=== PATIENT | male | born 1965 | race Caucasian/White ===

== ENCOUNTER 2020-06-29 13:34 | Emergency (ER) | payer OTHER, SELFPAY ==
[2020-06-29 15:43] VITALS: BP 126/87; PULSE 71; RESP 16; TEMP 36.8; O2SAT 98; BMI 27.4
[2020-06-29 16:14] LABS: Glucose Urine UA >=1000 MG/DL (NEG); Leukocyte Esterase Urine NEG (NEG); Nitrite Urine NEG (NEG); PH 7.5 (5.0-8.0); Urine Blood NEG (NEG); Urine Ketones NEG (NEG); Urine Protein NEG (NEG-TRACE)
[2020-06-29 16:20] LABS: Appearance Urine CLEAR; Color Urine YELLOW
[2020-06-29 16:42] LABS: RBC Urine 0 /HPF (0); Squamous Epithelial Cell Urine TRACE /LPF; WBC Urine 0 /HPF (0-4)
--- NOTE | 2020-06-29 17:35 | ED.MALEGU ---
HPI - Male Genitourinary General Chief complaint: Urogenital-Male Stated complaint: uro genital problem Time Seen by Provider: 06/29/20 17:21 Source: patient Mode of arrival: ambulatory Limitations: no limitations History of Present Illness HPI Narrative: Patient comes to emergency room complaining of irritation on the foreskin for several months now, patient has tried multiple [id number] topical creams with no relief. Patient does not know the names of the medication he has tried. Patient also complaining that he has been getting up at night for the last few weeks to urinate several times per night, up to 5-6 times. Patient concerned that sometimes he has to strain hard to start the urinary stream, sometimes the urine stream splits in 2 streams, complaining of mild dysuria. Patient states he has only 1 sexual partner, low suspicion for STD, denies penile discharge MD Complaint: dysuria Related Data Previous Rx's Medication Instructions Recorded miconazole nitrate 1 appl TOPICAL BID #56.7 g 06/29/20 tamsulosin 0.4 mg PO BEDTIME #20 cap 06/29/20 Allergies Allergy/AdvReac Type Severity Reaction Status Date / Time No Known Allergies Allergy Unverified 03/20/20 16:56 Review of Systems Review of Systems: Constitutional : No Weight loss, No Fever, No Chills, No Night Sweats, No Fatigue, No Malaise ENT/Mouth : No Hearing loss, No Ear Pain, No Nasal Congestion, No Sinus Pain, No Hoarseness, No sore throat, No Rhinorrhea, No Swallowing Difficulty Eyes: No Eye Pain, No Swelling, No Redness, No Foreign Body, No Discharge, No Vision Changes Cardiovascular : No Chest Pain, No SOB, No Dyspnea on Exertion, No Orthopnea, No Edema, No Palpitations Respiratory : No Cough, No Sputum, No Wheezing, No Smoke Exposure, No Dyspnea Gastrointestinal : No Nausea, No Vomiting, No Diarrhea, No Constipation, No abdominal Pain, No Hematochezia, No Melena Genitourinary : Patient complaining of irritation on the tip of the foreskin, glans is not affected, complaining of dysuria cyst, changes in urinary flow, urinating more at night, urinary stream slow bleeding into, difficulty starting the urinary stream, no flank pain, denies hematuria Musculoskeletal : No joint pain, No Myalgias, No Joint Swelling Skin : No Skin Lesions, No rash Neuro : No Weakness, No Numbness, No Paresthesias, No Loss of Consciousness, No Dizziness, No Headache Psych : No Anxiety/Panic, No Depression, No SI/HI/AH/VH, No Social Issues, Heme/Lymph: No Bruising, No Bleeding,No Lymphadenopathy Endocrine : No Polyuria, No Polydipsia, No Temperature Intolerance [facility] Past Medical History Medical History (Updated 06/29/20 @ 17:51 by Earnestine Elena MD) Depression Diabetes mellitus Social History Social History Advance Directives: No Advance Directives Information Provided: Yes Physical Exam Vital Signs: Vital Signs: Last Vital Signs Temp 98.3 F 06/29/20 15:43 Pulse 71 06/29/20 15:43 Resp 16 06/29/20 15:43 BP 126/87 06/29/20 15:43 Pulse Ox 98 06/29/20 15:43 Body Mass Index 27.4 Appearance: Alert. Oriented X3. No acute distress. Eyes: Pupils equal, round and reactive to light. ENT: Pharynx normal. Neck: Normal inspection. Neck supple. No lymph nodes noted. No crepitus CVS: Normal heart rate and rhythm. Pulses normal. Normal S1 and S2 Respiratory: No respiratory distress. Breath sounds normal. No Wheezing. No rales Abdomen: Soft and nontender. No rigidity. No distention. good BS x4 : Foreskin at distal end is erythematous and cracked, patient is able to retract foreskin completely, glans is unaffected. No penile discharge. On ALETA, prostate seems enlarged, no palpable nodules, estimated size 40 to 60 cc Skin: Skin warm and dry. Normal skin color. Normal skin turgor. Extremities: No lower extremity edema. No lower extremity edema. No Lacerations. No Rash Neuro: Oriented X 3. No motor deficit. No sensory deficit. Moving all extermities. No slurred speech. Course Course Course Narrative: I discussed with the patient that his prostate is enlarged, we will go ahead and start treatment, patient will follow-up with his PCP and Urology. MDM - Male Genitourinary Lab Data Labs: Lab Results 06/29/20 Range/Units 16:05 Urine Color YELLOW Urine Appearance CLEAR Urine pH 7.5 (5.0-8.0) Ur Specific Bartley 1.020 (1.005-1.025) Urine Protein NEG (NEG-TRACE) MG/DL Urine Glucose (UA) >=1000 H (NEG) MG/DL Urine Ketones NEG (NEG) MG/DL Urine Blood NEG (NEG) Urine Nitrite NEG (NEG) Ur Leukocyte Esterase NEG (NEG) Urine RBC 0 (0) /HPF Urine WBC 0 (0-4) /HPF Ur Squamous Epith Cells TRACE /LPF Urine Bacteria NONE /LPF Discharge Plan Discharge Clinical Impression: Balanitis Benign prostatic hyperplasia Qualifiers: Lower urinary tract symptom presence: symptoms present Lower urinary tract symptom detail: urinary hesitancy Qualified Code(s): N40.1 - Benign prostatic hyperplasia with lower urinary tract symptoms Patient Disposition: Home, Self-Care Instructions: Enlarged Prostate (BPH) (ED), Balanitis (ED) Additional Instructions: Please follow-up with urology and your primary care physician. Please follow-up with your primary care physician tomorrow. If you have any worsening or new symptoms, please return to the emergency room or call 911 Prescriptions: New miconazole nitrate 2 % ointment 1 appl topical BID Qty: 56.7 RF: 0 tamsulosin 0.4 mg capsule 0.4 mg PO BEDTIME Qty: 20 RF: 0
[2020-06-29 18:45] LABS: Glucose Urine UA 250 MG/DL (NEG); Leukocyte Esterase Urine NEG (NEG); Nitrite Urine NEG (NEG); Urine Blood NEG (NEG); Urine Ketones NEG (NEG); Urine Protein NEG (NEG-TRACE)
[2020-06-29 18:47] LABS: Appearance Urine CLEAR; Color Urine YELLOW
[2020-07-02 05:41] LABS: C. trachomatis RNA TMA NOT DETECTED (NOT DETECTED); N. gonorrhoeae RNA TMA NOT DETECTED (NOT DETECTED)
== END 2020-06-29 18:37 | disposition home or self-care (01) ==
PROVIDERS: Emergency Provider Emergency Medicine
DX: N48.1 Balanitis (principal); N40.1 Benign prostatic hyperplasia with lower urinary tract symptoms; R30.0 Dysuria; Z79.899 Other long term (current) drug therapy
CPT/HCPCS: 81001; 81003; 87491; 87591; 99283

== ENCOUNTER 2020-09-14 20:15 | Emergency (ER) | payer OTHER, SELFPAY ==
[2020-09-14 20:30] VITALS: BP 140/73; PULSE 73; RESP 18; TEMP 36.7; O2SAT 99; BMI 28.0
--- NOTE | 2020-09-14 21:21 | ED.EYEPROB ---
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 patient has watering in both eyes slightly blurred vision no other injuries Related Data Previous Rx's Medication Instructions Recorded miconazole nitrate 1 appl TOPICAL BID #56.7 g 06/29/20 tamsulosin 0.4 mg PO BEDTIME #20 cap 06/29/20 Allergies Allergy/AdvReac Type Severity Reaction Status Date / Time No Known Allergies Allergy Unverified 03/20/20 16:56 Review of Systems Review of Systems: Yes all other systems are reviewed and are negative PMFSH Past Medical History Medical History Depression Diabetes mellitus Social History Social History Alcohol intake: never Smoked in Last 30 Days: No Use of substances other than those prescribed or required for medical reasons: No Any prior treatment program specific to substance use: No Advance Directives: No Advance Directives Information Provided: Yes Physical Exam Vital Signs: Vital Signs: Last Vital Signs Temp 98.1 F 09/14/20 20:30 Pulse 73 09/14/20 20:30 Resp 18 09/14/20 20:30 BP 140/73 H 09/14/20 20:30 Pulse Ox 99 09/14/20 20:30 Body Mass Index 28.0 Const: General: comfortable and in distress mild Orientation/consciousness: patient oriented x3 HENMT: Head: Yes normocephalic and Yes atraumatic Eyes: Visual Lockwood: normal visual lockwood by confrontation Periorbital: periorbital findings normal Eyelids: Yes eyelids normal Conjunctivae: conjunctival abnormal (Injected) bilateral Corneas: fluorescein used (Diffuse punctate uptake in bilateral cornea right more than left) Pupils: Equal, round and reactive pupils present EOM: EOMs intact bilaterally Direct Ophthalmoscopy: normal light reflex, no photophobia and anterior chamber normal Neuro: General: patient oriented x3 Cranial nerves: Yes Equal, round and reactive pupils present MDM - Eye Problem MDM Narrative Medical decision making narrative: Patient with photo keratitis of bilateral cornea without significant deep injury will treat him symptomatically advise not look at the welding 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
[2020-09-14] MEDS: Fluorescein Sodium STRIP 1 STRIP EYE-BOTH (21:39)
[2020-09-14] MEDS: Tetracaine HCl/PF 0.5% Oph Sol 4 ML DROPS 3 DROP EYE-BOTH (21:40)
[2020-09-14] MEDS: Tobramycin Sulfate 0.3% Sol Op 5 ML BTL 2 DROP EYE-BOTH (21:40)
== END 2020-09-14 22:22 | disposition home or self-care (01) ==
PROVIDERS: Emergency Provider Internal Medicine
DX: H16.133 Photokeratitis, bilateral (principal); E11.9 Type 2 diabetes mellitus without complications
CPT/HCPCS: 99283; 99284

== ENCOUNTER 2020-10-22 11:22 | Outpatient (REF) | payer OTHER, SELFPAY ==
[2020-10-22 12:47] LABS: COVID-19 Test Negative (Negative)
== END 2020-10-22 11:23 | disposition home or self-care (01) ==
LOC: HO.LAB 11:22
PROVIDERS: Visit Provider Internal Medicine
DX: Z20.822 Contact with and (suspected) exposure to COVID-19 (principal)
CPT/HCPCS: 36415; 87635; C9803

== ENCOUNTER 2021-04-27 13:28 | Emergency (ER) | payer OTHER, SELFPAY ==
[2021-04-27 13:55] VITALS: BP 120/78; PULSE 79; RESP 18; TEMP 36.6; O2SAT 97; BMI 25.8
[2021-04-27 14:24] LABS: COVID-19 Test Negative (Negative); IDNOW Serial# 08D9AD1C
--- NOTE | 2021-04-27 15:32 | ED_ITS ---
HPI - URI/Sore Throat General Chief Complaint: Upper Respiratory Symptoms Stated Complaint: sore throat body aches Time Seen by Provider: 04/27/21 15:32 Source: patient Mode of arrival: ambulatory Limitations: no limitations History of Present Illness HPI Narrative: 55-year-old male came in for evaluation are fell throat, body ache, coughing with yellow phlegm, no fever, chills. No sick contacts, no recent travel. Related Data Previous Rx's Medication Instructions Recorded miconazole nitrate 2 % topical 1 appl TOPICAL BID #56.7 g 06/29/20 ointment tamsulosin 0.4 mg capsule 0.4 mg PO BEDTIME #20 cap 06/29/20 albuterol sulfate 90 mcg/actuation 1 inh INHALATION QID PRN #6.7 g 04/27/21 aerosol inhaler (Proventil HFA) azithromycin 250 mg tablet See Rx Instructions .ROUTE 04/27/21 (Zithromax Z-Nathan) .COMPLEX #6 tab prednisone 20 mg tablet 20 mg PO BID #10 tab 04/27/21 Allergies Allergy/AdvReac Type Severity Reaction Status Date / Time No Known Allergies Allergy Unverified 03/20/20 16:56 Review of Systems Review of Systems: All other systems are reviewed and are negative Constitutional: Reports as per HPI and Reports no additional constitutional complaints Eyes: Reports as per HPI and Reports no additional eye complaints Reports system reviewed and no additional complaints, except as documented Cardiovascular: Reports as per HPI and Reports no additional cardiovascular complaints Respiratory: Reports as per HPI and Reports no additional respiratory complaints Gastrointestinal: Reports as per HPI and Reports no additional gastrointestinal complaints Genitourinary: Reports no additional female genitourinary complaints Musculoskeletal: Reports no additional musculoskeletal complaints Skin/Breast: Reports system reviewed and no additional complaints, except as docu Psychiatric: Reports no additional psychiatric complaints Endocrine: Reports no additional endocrine complaints Hematologic/Lymphatic: Reports no additional hematologic/lymphatic complaints Allergic/Immunologic: Reports no additional allergic/immunologic complaints Reports system reviewed and no additional complaints, except as documented and Reports Abnormal speech present [facility] Past Medical History Medical History Depression Diabetes mellitus Social History Social History Alcohol intake: never Advance Directives: No Advance Directives Information Provided: No Physical Exam Vital Signs: Vital Signs: Last Vital Signs Temp 97.8 F 04/27/21 13:55 Pulse 79 04/27/21 13:55 Resp 18 04/27/21 13:55 BP 120/78 04/27/21 13:55 Pulse Ox 97 04/27/21 13:55 Body Mass Index 25.8 Vital signs have been reviewed as appeared to be correct. Blood pressure normal. Heart rate normal. Respiration rate normal. Temperature normal. Oxygen saturation normal. Appearance: Alert. Oriented X3. No acute distress. Head: Normal external exam. Normocephalic. Atraumatic. No Taylor signs noted. No raccoon eyes noted Eyes: PERRLA. EOMI. Conjunctiva and sclera normal. Eyelids normal. ENT: TM's Normal. Pharynx normal. Uvula midline. Moist mucous membranes. No trismus noted. No drooling noted. No muffled voice noted. Neck: Normal inspection. Neck supple. FROM. No adenopathy. Thyroid Normal. No meningeal signs. No neck mass noted. CVS: Normal heart rate and rhythm. Heart sound normal. No murmurs noted. Pulses normal throughout. Respiratory: No respiratory distress. Painless inspiration. Breath sounds normal. No wheezes/rales/rhonchi noted. Chest nontender. No accessory muscle usage noted or decreased air movement noted. Abdomen: Soft and nontender. Bowel sounds normal in all 4 quadrants. No distention noted. No organomegaly noted. No visible injury noted. Back: No CVA tenderness. Full range of motion noted. Skin: Skin warm and dry. Normal skin color. Normal skin turgor. No rashes/lesions/lacerations noted. Extremities: No lower extremity edema. Extremities exhibit normal range of motion. Extremities nontender. Neuro: Oriented X 3. Cranial nerve exam: II-XII are grossly intact No motor deficit. No sensory deficit. Reflexes normal. Course Course Course Narrative: Assessment and plan. 55-year-old male was symptoms of upper respiratory infection, pharyngitis, and bronchitis. Patient is negative for COVID infection. Start the patient on Z-Nathan/purple/bronchodilator. MDM - URI/Sore Throat Lab Data Attestation: I reviewed the patient's lab results. Labs: Lab Results 04/27/21 Range/Units 13:58 COVID-19 (EVON) Negative (Negative) COVID-19 Clin Com See Note Discharge Plan Discharge Clinical Impression: Bronchitis Pharyngitis Qualifiers: Pharyngitis/tonsillitis etiology: unspecified etiology Qualified Code(s): J02.9 - Acute pharyngitis, unspecified Patient Disposition: Home, Self-Care Instructions: Acute Bronchitis (ED) Prescriptions: New azithromycin [Zithromax Z-Nathan] 250 mg tablet See Rx Instructions .ROUTE .COMPLEX Qty: 6 RF: 0 prednisone 20 mg tablet 20 mg PO BID Qty: 10 RF: 0 albuterol sulfate [Proventil HFA] 90 mcg/actuation HFA aerosol inhaler 1 inh inhalation QID PRN (Reason: shortness of breath or wheezing) Qty: 6.7 RF: 0 No Action miconazole nitrate 2 % ointment 1 appl topical BID Qty: 56.7 RF: 0 tamsulosin 0.4 mg capsule 0.4 mg PO BEDTIME Qty: 20 RF: 0 Referrals: Physician,Unknown J [Primary Care Provider] - 2 days
== END 2021-04-27 15:43 | disposition home or self-care (01) ==
PROVIDERS: Emergency Provider Emergency Medicine
DX: J02.9 Acute pharyngitis, unspecified (principal); J40 Bronchitis, not specified as acute or chronic; E11.9 Type 2 diabetes mellitus without complications; Z20.822 Contact with and (suspected) exposure to COVID-19
CPT/HCPCS: 36415; 87635; 99283

== ENCOUNTER 2021-10-07 09:28 | Emergency (ER) | payer OTHER, SELFPAY ==
--- NOTE | ~2021-10-07 | XR_ITS ---
EXAMINATION: XR HAND, RIGHT CLINICAL INFORMATION: Question foreign body between fourth and fifth fingers. Infection. COMPARISON: None TECHNIQUE: PA, lateral, and oblique views of the right hand. FINDINGS: No fracture or dislocation. Alignment is anatomic. Joint spaces are maintained. Prominent soft tissue swelling at the dorsum of the hand. No radiopaque foreign body. XR/XR hand RT 2V IMPRESSION: Prominent soft tissue swelling of the hand. No radiopaque foreign body.
[2021-10-07 09:32] VITALS: BP 138/86; PULSE 77; RESP 18; TEMP 36.8; O2SAT 99; BMI 26.6
--- NOTE | 2021-10-07 11:52 | ED.GENADULT ---
HPI - General Adult General Chief complaint: General Medical Stated complaint: L hand swollen Time Seen by Provider: 10/07/21 11:08 History of Present Illness HPI narrative: Patient complains of redness pain and swelling in the left hand on the back of the hand around the left 4th and 5th fingers, it started hurting 2 days ago after he did some cleaning and thinks he scratched it on a piece of metal He denies fever chills numbness weakness or tingling there is no other rash, no other complaint Related Data Previous Rx's Medication Instructions Recorded miconazole nitrate 2 % topical 1 appl TOPICAL BID #56.7 g 06/29/20 ointment tamsulosin 0.4 mg capsule 0.4 mg PO BEDTIME #20 cap 06/29/20 albuterol sulfate 90 mcg/actuation 1 inh INHALATION QID PRN #6.7 g 04/27/21 aerosol inhaler (Proventil HFA) azithromycin 250 mg tablet See Rx Instructions .ROUTE 04/27/21 (Zithromax Z-Nathan) .COMPLEX #6 tab prednisone 20 mg tablet 20 mg PO BID #10 tab 04/27/21 acetaminophen 500 mg tablet 1,000 mg PO QID PRN #30 tab 10/07/21 cephalexin 500 mg tablet 500 mg PO QID 7 Days #28 tab 10/07/21 doxycycline hyclate 100 mg capsule 100 mg PO BID 7 Days #14 cap 10/07/21 oxycodone 5 mg tablet 5 mg PO Q6H PRN #10 tab 10/07/21 Allergies Allergy/AdvReac Type Severity Reaction Status Date / Time No Known Allergies Allergy Unverified 03/20/20 16:56 Review of Systems Review of Systems: Positive for painful red area on the back of the left hand Negatives are no fever no chills no dizziness no weakness no fainting no feeling faint no headache no neck pain no chest pain no shortness of breath no abdominal pain no nausea or vomiting no joint pains, no other rash Yes all other systems are reviewed and are negative PMFSH Past Medical History Source: nursing notes reviewed Medical History Depression Diabetes mellitus Social History Social History Alcohol intake: never Advance Directives: Yes Advance Directives Information Provided: Yes Advance Directives on File: No Physical Exam ED Vital Signs: Vital Signs - 24 hr 10/07/21 09:32 Temperature 98.3 F Pulse Rate 77 Respiratory Rate 18 Blood Pressure 138/86 Pulse Oximetry 99 BMI result Body Mass Index 26.6 General appearance is no acute distress Head is normocephalic atraumatic Neck is supple Respiratory no distress Extremities full range of motion x4 including the left hand Left hand exam there is redness tenderness warmth and swelling over the dorsal proximal phalanx of left 4th and 5th fingers and over the dorsum of the hand in the area at the base of the fingers there is full range of motion in all fingers, the wrist has full range of motion, sensation and motor are intact distal there is no fluctuance there is no discharge there is no lymphangitis going up the arm Course Course Course Narrative: Patient with redness pain swelling on the dorsum of the left hand consistent with cellulitis had an x-ray which did not show any sign of osteomyelitis or foreign body He is started on antibiotics, will return in 2 days for recheck and was given a tetanus shot There was no sign of septic joint as there is good range of motion in all joints of the fingers including MCP PIP and D IP joints of 4th and 5th affected fingers Discharge Plan Discharge Clinical Impression: Cellulitis of hand, left Patient Disposition: Home, Self-Care Additional Instructions: X-ray did not show any bone infection or foreign body in her left hand The exam showed a skin infection called cellulitis that were treated with antibiotics Keflex and doxycycline You got a tetanus shot today Return in 2 to 3 days for a recheck But return immediately any time for spreading redness worse pain and swelling discharge from wound red stripe up arm fever any concerns that infection is getting worse or any worse condition Prescriptions: New doxycycline hyclate 100 mg capsule 100 mg PO BID 7 Days Qty: 14 0RF acetaminophen 500 mg tablet 1,000 mg PO QID PRN (Reason: pain) Qty: 30 0RF cephalexin 500 mg tablet 500 mg PO QID 7 Days Qty: 28 0RF oxycodone 5 mg tablet 5 mg PO Q6H PRN (Reason: pain) Qty: 10 0RF Rx Instructions: Narcotic, no driving for 6 hours after taking this medication No Action miconazole nitrate 2 % ointment 1 appl topical BID Qty: 56.7 0RF tamsulosin 0.4 mg capsule 0.4 mg PO BEDTIME Qty: 20 0RF azithromycin [Zithromax Z-Nathan] 250 mg tablet See Rx Instructions .ROUTE .COMPLEX Qty: 6 0RF Rx Instructions: take 500 mg today (day 1), then 250 mg for 4 days (days 2-5) prednisone 20 mg tablet 20 mg PO BID Qty: 10 0RF albuterol sulfate [Proventil HFA] 90 mcg/actuation HFA aerosol inhaler 1 inh inhalation QID PRN (Reason: shortness of breath or wheezing) Qty: 6.7 0RF
[2021-10-07] MEDS: Diphth,Pertus(ACell),Tet Adult 0.5 ML SYRINGE IM (12:29)
[2021-10-07] MEDS: cephALEXin 500 MG CAPSULE PO (12:30)
== END 2021-10-07 12:38 | disposition home or self-care (01) ==
PROVIDERS: Emergency Provider Emergency Medicine Emergency Medical Services
DX: S60.512A Abrasion of left hand, initial encounter (principal); L03.114 Cellulitis of left upper limb; X58.XXXA Exposure to other specified factors, initial encounter; Y93.9 Activity, unspecified; Y92.9 Unspecified place or not applicable; Y99.9 Unspecified external cause status; Z79.899 Other long term (current) drug therapy
CPT/HCPCS: 73120; 90471; 90715; 99282; 99284

== ENCOUNTER 2022-04-29 22:30 | Emergency (ER) | payer OTHER, SELFPAY ==
[2022-04-29 22:40] VITALS: BP 151/63; PULSE 93; RESP 18; TEMP 37.2; O2SAT 98; BMI 28.0
--- NOTE | 2022-04-30 01:31 | ED_ITS ---
HPI - Skin/Abscess/Foreign Bdy General Chief complaint: Skin/Abscess/Foreign Body Stated complaint: Infected cut on back, neck discomfort Time Seen by Provider: 04/30/22 01:25 Source: patient Mode of arrival: ambulatory Limitations: no limitations History of Present Illness HPI narrative: patient comes emergency room complaining of a skin infection in his upper back on the right side above the right scapula. Patient states it has been about a week that his skin started turning red. Patient states that he has had multiple incision and drainages in the past at the same site. Patient denies fever chills Related Data Previous Rx's Medication Instructions Recorded ibuprofen 600 mg tablet 600 mg PO TID PRN fever or pain 04/30/22 #20 tabs sulfamethoxazole 800 1 tab PO BID #13 tabs 04/30/22 mg-trimethoprim 160 mg tablet (Bactrim DS) Allergies Allergy/AdvReac Type Severity Reaction Status Date / Time No Known Allergies Allergy Verified 04/29/22 22:39 Review of Systems Review of Systems: Constitutional : No Weight loss, No Fever, No Chills, No Night Sweats, No Fatigue, No Malaise ENT/Mouth : No Hearing loss, No Ear Pain, No Nasal Congestion, No Sinus Pain, No Hoarseness, No sore throat, No Rhinorrhea, No Swallowing Difficulty Eyes: No Eye Pain, No Swelling, No Redness, No Foreign Body, No Discharge, No Vision Changes Cardiovascular : No Chest Pain, No SOB, No Dyspnea on Exertion, No Orthopnea, No Edema, No Palpitations Respiratory : No Cough, No Sputum, No Wheezing, No Smoke Exposure, No Dyspnea Gastrointestinal : No Nausea, No Vomiting, No Diarrhea, No Constipation, No abdominal Pain, No Hematochezia, No Melena Genitourinary : no irregular bleeding, No Dysuria, No Urinary Frequency, No Hematuria, No Urinary Incontinence, No Urgency, No Flank Pain, No Urinary Flow Changes, No Hesitancy Musculoskeletal : No joint pain, No Myalgias, No Joint Swelling Skin : complaining of cellulitis /an abscess in the right upper back Neuro : No Weakness, No Numbness, No Paresthesias, No Loss of Consciousness, No Dizziness, No Headache Psych : No Anxiety/Panic, No Depression, No SI/HI/AH/VH, No Social Issues, Heme/Lymph: No Bruising, No Bleeding,No Lymphadenopathy Endocrine : No Polyuria, No Polydipsia, No Temperature Intolerance [facility] Social History Social History Advance Directives: No Advance Directives Information Provided: No Physical Exam Vital Signs: Vital Signs: Last Vital Signs Temp 98.9 F 04/29/22 22:40 Pulse 93 04/29/22 22:40 Resp 18 04/29/22 22:40 BP 151/63 H 04/29/22 22:40 Pulse Ox 98 04/29/22 22:40 O2 Del Method 04/29/22 22:40 BMI result Body Mass Index 28.0 Const: Other: Appearance: Alert. Oriented X3. No acute distress. Eyes: Pupils equal, round and reactive to light. ENT: Pharynx normal. Neck: Normal inspection. Neck supple. No lymph nodes noted. No crepitus CVS: Normal heart rate and rhythm. Pulses normal. Normal S1 and S2 Respiratory: No respiratory distress. Breath sounds normal. No Wheezing. No rales Abdomen: Soft and nontender. No rigidity. No distention. Skin: Skin warm and dry. in the right-sided upper back above the right scapula there is a 10 cm x 10 cm area of erythema, abrasion, scrapes, no pus drainage. on bedside ultrasound, patient has a 2 cm deep abscess. Extremities: No lower extremity edema. No Lacerations. No Rash Neuro: Oriented X 3. No motor deficit. No sensory deficit. Moving all extremities. No slurred speech. CN 2 through 12 grossly intact Psych: calm, cooperative, normal affect Course Course Course Narrative: Patient's abscess was drained, very thick/ chunky pus-like discharge was expressed, large amount patient has iodoform packing, instructed to come back on May 01 for wound check patient received 1 dose of tramadol p.o. and Bactrim double strength Procedures Abscess I/D Site: other (back) Local Anesthetic: lidocaine 1% Amount of anesthesia used (mL): 10 Technique: incised with blade and ultrasound guided Amount of fluid expressed (mL): 40 Sent for culture/gram staining?: No Packing used?: iodoform Complications: other ( none) Discharge Plan Discharge Clinical Impression: Abscess of skin or subcutaneous tissue Patient Disposition: Home, Self-Care Instructions: Abscess (ED), Abscess Incision and Drainage (DC) Additional Instructions: please return on May 01 for a wound check and packing removal. Please follow-up with your primary care physician tomorrow. If you have any worsening or new symptoms, please return to the emergency room or call 911 Prescriptions: New sulfamethoxazole-trimethoprim [Bactrim DS] 800-160 mg tablet 1 tab PO BID Qty: 13 0RF ibuprofen 600 mg tablet 600 mg PO TID PRN (Reason: fever or pain) Qty: 20 0RF
[2022-04-30] MEDS: traMADoL HCL 50 MG TABLET PO (02:45)
[2022-04-30] MEDS: Sulfamethox/Trimeth 800/160 TABLET 1 TAB PO (02:45)
== END 2022-04-30 02:46 | disposition home or self-care (01) ==
PROVIDERS: Emergency Provider Emergency Medicine
DX: L02.212 Cutaneous abscess of back [any part, except buttock and flank] (principal)
CPT/HCPCS: 10060; 99283

== ENCOUNTER 2022-05-01 08:22 | Emergency (ER) | payer OTHER, SELFPAY ==
[2022-05-01 08:23] VITALS: BP 104/78; PULSE 74; RESP 16; TEMP 36.7; O2SAT 98; BMI 28.0
--- NOTE | 2022-05-01 09:18 | ED_ITS ---
HPI - Wound/Laceration General Chief Complaint: Wound/Laceration Stated Complaint: packing removal Time Seen by Provider: 05/01/22 08:25 Source: patient Mode of arrival: ambulatory Limitations: no limitations History of Present Illness HPI narrative: 56 yo male here for packing removal from right upper back. Patient was seen here yesterday morning and had an incision and drainage of an abscess and started on Bactrim. He was recommended to come back today for packing removal. Patient has no complaints. Patient does report this is a recurrent abscess for him. He has had it for over 20 years. Related Data Previous Rx's Medication Instructions Recorded miconazole nitrate 2 % topical 1 appl topical BID #56.7 grams 06/29/20 ointment tamsulosin 0.4 mg capsule 0.4 mg PO BEDTIME #20 caps 06/29/20 albuterol sulfate 90 mcg/actuation 1 inh inhalation QID PRN shortness 04/27/21 aerosol inhaler (Proventil HFA) of breath or wheezing #6.7 grams azithromycin 250 mg tablet See Rx Instructions PO .COMPLEX #6 04/27/21 (Zithromax Z-Nathan) tabs prednisone 20 mg tablet 20 mg PO BID #10 tabs 04/27/21 acetaminophen 500 mg tablet 1,000 mg PO QID PRN pain #30 tabs 10/07/21 cephalexin 500 mg tablet 500 mg PO QID 7 days #28 tabs 10/07/21 cephalexin 500 mg tablet 500 mg PO QID 7 days #28 tabs 10/07/21 doxycycline hyclate 100 mg capsule 100 mg PO BID 7 days #14 caps 10/07/21 doxycycline hyclate 100 mg capsule 100 mg PO BID 7 days #14 caps 10/07/21 oxycodone 5 mg tablet 5 mg PO Q6H PRN pain #10 tabs 10/07/21 oxycodone 5 mg tablet 5 mg PO Q6H PRN pain #10 tabs 10/07/21 ibuprofen 600 mg tablet 600 mg PO TID PRN fever or pain 04/30/22 #20 tabs sulfamethoxazole 800 1 tab PO BID #13 tabs 04/30/22 mg-trimethoprim 160 mg tablet (Bactrim DS) Allergies Allergy/AdvReac Type Severity Reaction Status Date / Time No Known Allergies Allergy Unverified 04/30/22 07:08 Review of Systems Review of Systems: Yes all other systems are reviewed and are negative Constitutional: Constitutional: Reports no additional constitutional complaints, Denies body ache(s), Denies chills, Denies fever(s), Denies headache(s) and Denies weakness Eyes: Eyes: Reports no additional eye complaints and Denies change in vision ENT: Reports system reviewed and no additional complaints, except as documented, Denies dizziness, Denies headache(s), Denies nasal congestion, Denies nasal discharge and Denies neck pain Cardiovascular: Cardiovascular: Reports no additional cardiovascular complaints, Denies chest pain, Denies leg edema and Denies dyspnea Respiratory: Respiratory: Reports no additional respiratory complaints, Denies cough and Denies dyspnea Gastrointestinal: Gastrointestinal: Reports no additional gastrointestinal complaints, Denies abdominal pain, Denies diarrhea, Denies nausea and Denies vomiting Genitourinary: Genitourinary: Denies urinary incontinence Musculoskeletal: Musculoskeletal: Reports no additional musculoskeletal complaints, Denies back pain, Denies arthralgias, Denies joint swelling, Denies neck pain, Denies numbness and Denies tingling Integumentary/Breasts: Skin/Breast: Reports system reviewed and no additional complaints, except as docu, Reports swelling, Reports erythema and Denies rash Neurologic: Reports system reviewed and no additional complaints, except as documented, Denies Abnormal speech present, Denies dizziness, Denies headache(s), Denies numbness, Denies tingling and Denies weakness PMFSH Past Medical History Attestation statement: The following information was validated with the patient. Source: old records reviewed and nursing notes reviewed Medical History Depression Diabetes mellitus Social History Social History Alcohol intake: never Physical Exam Vital Signs: Vital Signs: Last Vital Signs Temp 98.0 F 05/01/22 08:23 Pulse 74 05/01/22 08:23 Resp 16 05/01/22 08:23 BP 104/78 05/01/22 08:23 Pulse Ox 98 05/01/22 08:23 O2 Del Method 05/01/22 08:23 BMI result Body Mass Index 28.0 Const: General: cooperative, healthy appearing, comfortable and no acute distress Orientation/consciousness: patient oriented x3 Limitations: no limitations HEENT: Head: Yes normal to inspection Ears: hearing grossly normal bilaterally General nose exam: Normal external nose present Face and sinus: Yes normal facial exam Mouth: Normal oral and palatal mucosa present Throat: Yes posterior oropharynx normal Eyes: General: appearance normal, both eyes and all related structures Pup ils: Equal, round and reactive pupils present Neck: Neck: Yes normal visual inspection Chest: Chest palpation & inspection: normal inspection of the chest Resp: Effort & Inspection: normal respiratory effort Auscultation: clear to auscultation bilaterally Cardio: Rate: regular rate Rhythm: regular rhythm Peripheral pulses: Peripheral pulses 2+ throughout GI: Inspection: Yes normal to inspection Palpation (GI): Soft to palpation and nontender Auscultation: normal bowel sounds Back/Spine/Pelvis: Thoracic/Lumbar Spine: thoracic and lumbar spine normal to inspection Back/spine/pelvis image: 1. There is an abscess present with packing in place. There is some local erythema, swelling and tenderness. After the packing was removed I was able to express additional sebaceous like material mixed with serosanguineous drainage Skin: General skin exam: no rashes or lesions noted Neuro: General: patient oriented x3, no focal motor deficits and normal sensation to monofilament Cranial nerves: Yes Equal, round and reactive pupils present Cognition (Neuro): normal cognition Speech: No Abnormal speech present Gait exam (Neuro): Normal gait present Motor exam (neuro): 5/5 motor strength present throughout Extrem: General: Yes normal to inspection MDM - Wound/Laceration MDM Narrative Medical decision making narrative: 56-year-old male here for packing removal of a recurrent cyst to the right upper back Packing was removed Wound was cleansed and a topical bandage was applied Recommend follow-up with surgery for recurrent cyst as it might need removal Recommend continue antibiotics, add warm soaks, return for worrisome symptoms Medical Records Attestation: I reviewed the patient's medical records. Lab Data Attestation: I reviewed the patient's lab results. Discharge Plan Discharge Clinical Impression: Abscess packing removal Patient Disposition: Home, Self-Care Instructions: Abscess Follow-up (ED) Additional Instructions: Warm compresses Follow-up with general surgery to entire cyst removal so this does not re-occur Prescriptions: No Action miconazole nitrate 2 % ointment 1 appl topical BID Qty: 56.7 0RF tamsulosin 0.4 mg capsule 0.4 mg PO BEDTIME Qty: 20 0RF doxycycline hyclate 100 mg capsule 100 mg PO BID 7 Days Qty: 14 0RF acetaminophen 500 mg tablet 1,000 mg PO QID PRN (Reason: pain) Qty: 30 0RF cephalexin 500 mg tablet 500 mg PO QID 7 Days Qty: 28 0RF oxycodone 5 mg tablet 5 mg PO Q6H PRN (Reason: pain) Qty: 10 0RF Rx Instructions: Narcotic, no driving for 6 hours after taking this medication doxycycline hyclate 100 mg capsule 100 mg PO BID 7 Days Qty: 14 0RF cephalexin 500 mg tablet 500 mg PO QID 7 Days Qty: 28 0RF oxycodone 5 mg tablet 5 mg PO Q6H PRN (Reason: pain) Qty: 10 0RF Rx Instructions: Narcotic, no driving for 6 hours after taking azithromycin [Zithromax Z-Nathan] 250 mg tablet See Rx Instructions .ROUTE .COMPLEX Qty: 6 0RF Rx Instructions: take 500 mg today (day 1), then 250 mg for 4 days (days 2-5) prednisone 20 mg tablet 20 mg PO BID Qty: 10 0RF albuterol sulfate [Proventil HFA] 90 mcg/actuation HFA aerosol inhaler 1 inh inhalation QID PRN (Reason: shortness of breath or wheezing) Qty: 6.7 0RF sulfamethoxazole-trimethoprim [Bactrim DS] 800-160 mg tablet 1 tab PO BID Qty: 13 0RF ibuprofen 600 mg tablet 600 mg PO TID PRN (Reason: fever or pain) Qty: 20 0RF Referrals: Nolberto Miranda MD [Physician] - 5 days Physician,Unknown J [Primary Care Provider] - 1 week
== END 2022-05-01 09:31 | disposition home or self-care (01) ==
LOC: HO.ED 09:24
PROVIDERS: Emergency Provider Emergency Medicine
DX: Z48.01 Encounter for change or removal of surgical wound dressing (principal)
CPT/HCPCS: 99282

== ENCOUNTER 2022-11-28 01:23 | Emergency (ER) | payer OTHER, SELFPAY ==
[2022-11-28 01:37] VITALS: BP 163/93; PULSE 101; RESP 16; TEMP 36.9; O2SAT 94; BMI 24.5
--- NOTE | 2022-11-28 05:31 | PC.NURSE ---
Assumed care of pt. Pt lying on stretcher, snoring on arrival of this RN. Roused easily with voice. Pt drowsy during assessment. Answering questions appropriately. Pt immediately began to snore, eyes closed when assessment complete. WCTM
--- NOTE | 2022-11-28 05:55 | ED.GENADULT ---
HPI - General Adult General Chief complaint: General Medical Stated complaint: lesions on head and arms Time Seen by Provider: 11/28/22 03:08 Source: patient Mode of arrival: ambulatory History of Present Illness HPI narrative: 56-year-old male with concerns regarding areas on his scalp and arms that are itchy and he has concerns regarding infection. However, he denies any fevers or chills. Related Data Previous Rx's Medication Instructions Recorded miconazole nitrate 2 % topical 1 appl topical BID #56.7 grams 06/29/20 ointment tamsulosin 0.4 mg capsule 0.4 mg PO BEDTIME #20 caps 06/29/20 albuterol sulfate 90 mcg/actuation 1 inh inhalation QID PRN shortness 04/27/21 aerosol inhaler (Proventil HFA) of breath or wheezing #6.7 grams azithromycin 250 mg tablet See Rx Instructions PO .COMPLEX #6 04/27/21 (Zithromax Z-Nathan) tabs prednisone 20 mg tablet 20 mg PO BID #10 tabs 04/27/21 acetaminophen 500 mg tablet 1,000 mg PO QID PRN pain #30 tabs 10/07/21 cephalexin 500 mg tablet 500 mg PO QID 7 days #28 tabs 10/07/21 cephalexin 500 mg tablet 500 mg PO QID 7 days #28 tabs 10/07/21 doxycycline hyclate 100 mg capsule 100 mg PO BID 7 days #14 caps 10/07/21 doxycycline hyclate 100 mg capsule 100 mg PO BID 7 days #14 caps 10/07/21 oxycodone 5 mg tablet 5 mg PO Q6H PRN pain #10 tabs 10/07/21 oxycodone 5 mg tablet 5 mg PO Q6H PRN pain #10 tabs 10/07/21 ibuprofen 600 mg tablet 600 mg PO TID PRN fever or pain 04/30/22 #20 tabs sulfamethoxazole 800 1 tab PO BID #13 tabs 04/30/22 mg-trimethoprim 160 mg tablet (Bactrim DS) mupirocin 2 % topical ointment 1 appl topical BID #50 grams 11/28/22 Allergies Allergy/AdvReac Type Severity Reaction Status Date / Time No Known Allergies Allergy Unverified 04/30/22 07:08 Review of Systems Review of Systems: Operative positives and negatives as stated in [facility] Past Medical History Source: nursing notes reviewed Medical History Depression Diabetes mellitus Social History Social History Alcohol intake: never Smoked in Last 30 Days: Yes Use of substances other than those prescribed or required for medical reasons: Yes Substance Use Type: Crack/Cocaine Substance Use Frequency: Chronic Longstanding Last Used Substance: Days (ago) Advance Directives: No Advance Directives Information Provided: Yes Physical Exam ED Vital Signs: Vital Signs - 24 hr 11/28/22 01:37 Temperature 98.4 F Pulse Rate 101 H Respiratory Rate 16 Blood Pressure 163/93 H Pulse Oximetry 94 Oxygen Delivery Method Room Air BMI result Body Mass Index 24.5 VITAL SIGNS: Reviewed. GENERAL: Well developed, well nourished, in no acute distress. HEAD: Normocephalic/atraumatic, 2-3 scabbed over areas on scalp EYES: PERRLA, EOMI EARS: Ext canals without abnormality LUNGS: Normal breath sounds. No adventitious sounds or accessory muscle use. SpO2<94> CARDIOVASCULAR: Regular rate and rhythm without noted murmurs ABDOMEN: Soft, non-tender, non-distended with bowel sounds. MUSCULOSKELETAL: No tenderness, deformities, or effusions noted on gross inspection. EXTREMITIES: No cyanosis, clubbing or edema, scabbed over area on bilateral arms without evidence of erythema/induration/purulence drainage. SKIN: Inspection of the skin reveals no rashes NEUROLOGIC: Alert and oriented x 4. Strength and sensation to light touch were grossly intact x 4. Medical Decision Making Medical Decision Making MDM Narrative: This is a 56-year-old male with suspected picking at a skin due to withdrawal symptoms there is no evidence of acute infection, will provide bacitracin ointment here in the emergency room and then a prescription for mupirocin at his requested pharmacy. Differential Diagnosis Please see the discussion above Discharge Plan Discharge Clinical Impression: Scab Patient Disposition: Home, Self-Care Instructions: Urticaria (ED) Additional Instructions: Please use the medication as prescribed Prescriptions: New mupirocin 2 % ointment 1 appl topical BID Qty: 50 0RF Rx Instructions: Apply to affected areas No Action miconazole nitrate 2 % ointment 1 appl topical BID Qty: 56.7 0RF tamsulosin 0.4 mg capsule 0.4 mg PO BEDTIME Qty: 20 0RF doxycycline hyclate 100 mg capsule 100 mg PO BID 7 Days Qty: 14 0RF acetaminophen 500 mg tablet 1,000 mg PO QID PRN (Reason: pain) Qty: 30 0RF cephalexin 500 mg tablet 500 mg PO QID 7 Days Qty: 28 0RF oxycodone 5 mg tablet 5 mg PO Q6H PRN (Reason: pain) Qty: 10 0RF Rx Instructions: Narcotic, no driving for 6 hours after taking this medication doxycycline hyclate 100 mg capsule 100 mg PO BID 7 Days Qty: 14 0RF cephalexin 500 mg tablet 500 mg PO QID 7 Days Qty: 28 0RF oxycodone 5 mg tablet 5 mg PO Q6H PRN (Reason: pain) Qty: 10 0RF Rx Instructions: Narcotic, no driving for 6 hours after taking azithromycin [Zithromax Z-Nathan] 250 mg tablet See Rx Instructions .ROUTE .COMPLEX Qty: 6 0RF Rx Instructions: take 500 mg today (day 1), then 250 mg for 4 days (days 2-5) prednisone 20 mg tablet 20 mg PO BID Qty: 10 0RF albuterol sulfate [Proventil HFA] 90 mcg/actuation HFA aerosol inhaler 1 inh inhalation QID PRN (Reason: shortness of breath or wheezing) Qty: 6.7 0RF sulfamethoxazole-trimethoprim [Bactrim DS] 800-160 mg tablet 1 tab PO BID Qty: 13 0RF ibuprofen 600 mg tablet 600 mg PO TID PRN (Reason: fever or pain) Qty: 20 0RF
[2022-11-28] MEDS: Bacitracin Oint 0.9 GM PACKET 1 APPL TOPICAL (06:33)
== END 2022-11-28 06:30 | disposition home or self-care (01) ==
PROVIDERS: Emergency Provider Student in an Organized Health Care Education/Training Program
DX: L50.8 Other urticaria (principal); R23.4 Changes in skin texture; F14.10 Cocaine abuse, uncomplicated; L29.9 Pruritus, unspecified; Z79.899 Other long term (current) drug therapy
CPT/HCPCS: 99283; 99284

== ENCOUNTER 2023-02-25 03:40 | Emergency (ER) | payer OTHER, SELFPAY ==
[2023-02-25 03:51] VITALS: BP 183/103; PULSE 103; RESP 19; TEMP 36.6; O2SAT 100; BMI 23.6
[2023-02-25 04:00] VITALS: BP 176/109; PULSE 94; RESP 16; TEMP 36.8; O2SAT 99
--- NOTE | 2023-02-25 04:14 | ED.SKABFB ---
HPI - Skin/Abscess/Foreign Bdy General Chief complaint: Skin/Abscess/Foreign Body Stated complaint: open wounds on body Time Seen by Provider: 02/25/23 03:54 Source: patient Mode of arrival: ambulatory History of Present Illness HPI narrative: 57-year-old male who presents for evaluation of multiple sores all over his body, history of diabetes, also noted history of cocaine use with some of the wounds where he picks at his skin showing obvious redness/induration. Related Data Previous Rx's Medication Instructions Recorded miconazole nitrate 2 % topical 1 appl topical BID #56.7 grams 06/29/20 ointment tamsulosin 0.4 mg capsule 0.4 mg PO BEDTIME #20 caps 06/29/20 albuterol sulfate 90 mcg/actuation 1 inh inhalation QID PRN shortness 04/27/21 aerosol inhaler (Proventil HFA) of breath or wheezing #6.7 grams azithromycin 250 mg tablet See Rx Instructions PO .COMPLEX #6 04/27/21 (Zithromax Z-Nathan) tabs prednisone 20 mg tablet 20 mg PO BID #10 tabs 04/27/21 acetaminophen 500 mg tablet 1,000 mg PO QID PRN pain #30 tabs 10/07/21 cephalexin 500 mg tablet 500 mg PO QID 7 days #28 tabs 10/07/21 cephalexin 500 mg tablet 500 mg PO QID 7 days #28 tabs 10/07/21 doxycycline hyclate 100 mg capsule 100 mg PO BID 7 days #14 caps 10/07/21 doxycycline hyclate 100 mg capsule 100 mg PO BID 7 days #14 caps 10/07/21 oxycodone 5 mg tablet 5 mg PO Q6H PRN pain #10 tabs 10/07/21 oxycodone 5 mg tablet 5 mg PO Q6H PRN pain #10 tabs 10/07/21 ibuprofen 600 mg tablet 600 mg PO TID PRN fever or pain 04/30/22 #20 tabs sulfamethoxazole 800 1 tab PO BID #13 tabs 04/30/22 mg-trimethoprim 160 mg tablet (Bactrim DS) mupirocin 2 % topical ointment 1 appl topical BID #50 grams 11/28/22 cephalexin 500 mg capsule 500 mg PO BID 7 days #14 caps 02/25/23 doxycycline hyclate 100 mg capsule 100 mg PO BID 7 days #14 caps 02/25/23 Allergies Allergy/AdvReac Type Severity Reaction Status Date / Time No Known Allergies Allergy Verified 02/25/23 03:50 Review of Systems Review of Systems: Pertinent positives and negatives as stated in [facility] Past Medical History Source: nursing notes reviewed Medical History Depression Diabetes mellitus Social History Social History Alcohol intake: never Smoked in Last 30 Days: Yes Use of substances other than those prescribed or required for medical reasons: Yes Substance Use Type: Crack/Cocaine Advance Directives: No Advance Directives Information Provided: Yes Physical Exam Vital Signs: Vital Signs: Last Vital Signs Temp 98.3 F 02/25/23 04:00 Pulse 94 02/25/23 04:00 Resp 16 02/25/23 04:00 BP 176/109 H 02/25/23 04:00 Pulse Ox 99 02/25/23 04:00 O2 Del Method Room Air 02/25/23 04:00 BMI result Body Mass Index 23.6 VITAL SIGNS: Reviewed. GENERAL: Well developed, well nourished, in no acute distress. HEAD: Normocephalic/atraumatic EYES: PERRLA, EOMI LUNGS: Normal breath sounds. No adventitious sounds or accessory muscle use. SpO2<99> CARDIOVASCULAR: Regular rate and rhythm without noted murmurs ABDOMEN: Soft, non-tender, non-distended with bowel sounds. MUSCULOSKELETAL: No tenderness, deformities, or effusions noted on gross inspection. EXTREMITIES: No cyanosis, clubbing or edema. SKIN: Inspection of the skin reveals no rashes, multiple areas on all extremities and chest wall that show erythema/induration and some of them actually show ulcerations.. NEUROLOGIC: Alert and oriented x 3. Strength and sensation to light touch were grossly intact x 4. Medical Decision Making Medical Decision Making MDM Narrative: 57-year-old male with history and clinical presentation consistent with multiple areas of skin picking likely associated with his drug use and areas that appear to be infected and given the fact that patient has diabetes as well will initiate antibiotic therapy and request that he follow up with his primary care doctor. Differential Diagnosis Differential Diagnoses: The differential diagnosis associated with the presentation includes Please see the discussion above Admission/Observation Consideration of admission/observation: Escalation of care including admission/observation considered please see the discussion above Chronic Conditions Patient?s care impacted by: Diabetes Discharge Plan Discharge Clinical Impression: Cellulitis, Abscess of skin or subcutaneous tissue Patient Disposition: Home, Self-Care Instructions: Cellulitis (ED), Abscess (ED) Additional Instructions: 1. Resume all home medications as prescribed. 2. Complete course of antibiotics as directed. 3. Stop taking drugs and follow-up with primary care doctor. Return to the ER for any worsening symptoms. Prescriptions: New cephalexin 500 mg capsule 500 mg PO BID 7 Days Qty: 14 0RF doxycycline hyclate 100 mg capsule 100 mg PO BID 7 Days Qty: 14 0RF No Action miconazole nitrate 2 % ointment 1 appl topical BID Qty: 56.7 0RF tamsulosin 0.4 mg capsule 0.4 mg PO BEDTIME Qty: 20 0RF doxycycline hyclate 100 mg capsule 100 mg PO BID 7 Days Qty: 14 0RF acetaminophen 500 mg tablet 1,000 mg PO QID PRN (Reason: pain) Qty: 30 0RF cephalexin 500 mg tablet 500 mg PO QID 7 Days Qty: 28 0RF oxycodone 5 mg tablet 5 mg PO Q6H PRN (Reason: pain) Qty: 10 0RF Rx Instructions: Narcotic, no driving for 6 hours after taking this medication doxycycline hyclate 100 mg capsule 100 mg PO BID 7 Days Qty: 14 0RF cephalexin 500 mg tablet 500 mg PO QID 7 Days Qty: 28 0RF oxycodone 5 mg tablet 5 mg PO Q6H PRN (Reason: pain) Qty: 10 0RF Rx Instructions: Narcotic, no driving for 6 hours after taking azithromycin [Zithromax Z-Nathan] 250 mg tablet See Rx Instructions .ROUTE .COMPLEX Qty: 6 0RF Rx Instructions: take 500 mg today (day 1), then 250 mg for 4 days (days 2-5) prednisone 20 mg tablet 20 mg PO BID Qty: 10 0RF albuterol sulfate [Proventil HFA] 90 mcg/actuation HFA aerosol inhaler 1 inh inhalation QID PRN (Reason: shortness of breath or wheezing) Qty: 6.7 0RF sulfamethoxazole-trimethoprim [Bactrim DS] 800-160 mg tablet 1 tab PO BID Qty: 13 0RF ibuprofen 600 mg tablet 600 mg PO TID PRN (Reason: fever or pain) Qty: 20 0RF mupirocin 2 % ointment 1 appl topical BID Qty: 50 0RF Rx Instructions: Apply to affected areas
[2023-02-25] MEDS: cephALEXin 500 MG CAPSULE PO (04:28)
[2023-02-25] MEDS: Doxycycline Monohydrate 100 MG CAPSULE PO (04:28)
--- NOTE | 2023-02-25 04:33 | PC.NURSE ---
Pt a&ox3, Pt reports 8/10 all over body pain. Presenting with all over body scabs, ABX given per provider. PT verbalizes understanding d/c instructions.
[2023-02-25 04:35] VITALS: BP 151/88
== END 2023-02-25 04:36 | disposition home or self-care (01) ==
PROVIDERS: Emergency Provider Student in an Organized Health Care Education/Training Program
DX: L02.818 Cutaneous abscess of other sites (principal); L03.90 Cellulitis, unspecified
CPT/HCPCS: 99283; 99284

== ENCOUNTER 2023-03-15 05:38 | Emergency (ER) | payer OTHER, SELFPAY ==
[2023-03-15 05:48] VITALS: BMI 24.8
[2023-03-15 05:49] VITALS: BP 174/95; PULSE 75; RESP 16; TEMP 36.7; O2SAT 99
--- NOTE | 2023-03-15 05:50 | PC.NURSE ---
pt direct bedded, Supervisor Finish End taking vitals. Notified MARTINEZ Thomas.
[2023-03-15 06:42] LABS: Hematocrit 34.3 % (42.0-52.0); Hemoglobin 11.8 g/dl (14.0-18.0); Mean Corpuscular HGB Conc 34.4 g/dl (31.0-36.0); Mean Corpuscular Hemoglobin 29.6 pg (27.0-33.0); Platelet Count 180 X10*3/uL (160-400); Red Blood Count 3.99 X10*6/uL (4.60-5.80); White Blood Count 6.2 X10*3/uL (4.8-10.8)
[2023-03-15 06:57] LABS: Alanine Aminotransferase 11 U/L (0-40); Albumin Level 3.6 g/dL (3.5-5.0); Alkaline Phosphatase 67 U/L (39-117); Anion Gap 6 (12-20); Aspartate Amino Transferase 14 U/L (5-37); Bilirubin Total 0.3 mg/dL (0.0-1.0); Blood Urea Nitrogen 13 mg/dL (9-16); Calcium 8.8 mg/dL (8.4-10.2); Carbon Dioxide 26 mmol/L (22-29); Chloride 108 mmol/L (96-108); Creatinine Clr Calc Pharmacy 109.9; Estimated Glomerular Filt Rate > 60; Glucose Random 151 mg/dL (60-115); Lipase 22 U/L (8-78); Potassium 3.2 mmol/L (3.3-5.1); Sodium 137 mmol/L (135-145); Total Protein 7.1 g/dL (6.5-8.0)
--- NOTE | 2023-03-15 07:02 | ED_ITS ---
HPI - Abdominal Pain General Chief Complaint: Abdominal Pain Stated Complaint: Vomiting, stomach pain Time Seen by Provider: 03/15/23 07:00 Source: patient Mode of arrival: ambulatory Limitations: no limitations History of Present Illness HPI narrative: 57 yo male with IVDA here with lower abdominal pain since last night - states he vomited overnight and brought in a ziploc bag with meat. He denies diarrhea. He is covered in wounds that look like xylazine patches but no deep necrosis or signs of infection. He has not had a fever. He states he hasn't injected in 3 days. He only ate rice yesterday. This has never happened to him before. He has not had abdominal surgery. He thinks he had a black stool yesterday. He is worried he has xylazine wounds in his insides. MD elicited complaint: abdominal pain Pertinent past history: none Onset (ago): day(s) (1) Pain Consistency: intermittent Location: RLQ, LLQ and suprapubic Severity: moderate Quality: aching, fullness and dull Radiation: none Migration to: no migration Exacerbating factors: eating Relieving factors: nothing Associated symptoms: nausea and vomiting Related Data Previous Rx's Medication Instructions Recorded miconazole nitrate 2 % topical 1 appl topical BID #56.7 grams 06/29/20 ointment tamsulosin 0.4 mg capsule 0.4 mg PO BEDTIME #20 caps 06/29/20 albuterol sulfate 90 mcg/actuation 1 inh inhalation QID PRN shortness 04/27/21 aerosol inhaler (Proventil HFA) of breath or wheezing #6.7 grams azithromycin 250 mg tablet See Rx Instructions PO .COMPLEX #6 04/27/21 (Zithromax Z-Nathan) tabs prednisone 20 mg tablet 20 mg PO BID #10 tabs 04/27/21 acetaminophen 500 mg tablet 1,000 mg (2 x 500 mg) PO QID PRN 10/07/21 pain #30 tabs cephalexin 500 mg tablet 500 mg PO QID 7 days #28 tabs 10/07/21 cephalexin 500 mg tablet 500 mg PO QID 7 days #28 tabs 10/07/21 doxycycline hyclate 100 mg capsule 100 mg PO BID 7 days #14 caps 10/07/21 doxycycline hyclate 100 mg capsule 100 mg PO BID 7 days #14 caps 04/06/22 oxycodone 5 mg tablet 5 mg PO Q6H PRN pain #10 tabs 10/07/21 oxycodone 5 mg tablet 5 mg PO Q6H PRN pain #10 tabs 10/07/21 ibuprofen 600 mg tablet 600 mg PO TID PRN fever or pain 04/30/22 #20 tabs sulfamethoxazole 800 1 tab PO BID #13 tabs 04/30/22 mg-trimethoprim 160 mg tablet (Bactrim DS) mupirocin 2 % topical ointment 1 appl topical BID #50 grams 11/28/22 cephalexin 500 mg capsule 500 mg PO BID 7 days #14 caps 02/25/23 doxycycline hyclate 100 mg capsule 100 mg PO BID 7 days #14 caps 02/25/23 Allergies Allergy/AdvReac Type Severity Reaction Status Date / Time No Known Allergies Allergy Verified 02/25/23 03:50 Review of Systems Review of Systems Constitutional : No Weight loss, No Fever, No Chills Cardiovascular : No Chest Pain, No SOB, NoEdema Respiratory : No Cough, No Sputum, No Wheezing Gastrointestinal : Positive Nausea, Positive Vomiting, no Diarrhea, positive abdominal Pain, No Hematochezia, pos Melena Genitourinary : No Dysuria, No Urinary Frequency, No Hematuria, No Urgency Musculoskeletal : No joint pain, No Myalgias, No Joint Swelling Skin : No Skin Lesions, No rash Neuro : No Weakness, No Numbness, No Dizziness, No Headache Psych : No Anxiety/Panic, No Depression All other systems reviewed and are negative. [facility] Past Medical History Attestation statement: The following information was validated with the patient. Medical History Diabetes mellitus Depression Social History Social History Alcohol intake: never Smoked in Last 30 Days: Yes Substance Use Type: Crack/Cocaine Last Used Substance: Weeks (ago) Advance Directives: No Advance Directives Information Provided: Yes Physical Exam ED Vital Signs: Vital Signs - 24 hr 03/15/23 05:49 Temperature 98.1 F Pulse Rate 75 Respiratory Rate 16 Blood Pressure 174/95 H Pulse Oximetry 99 Oxygen Delivery Method Room Air BMI result Body Mass Index 24.8 Appearance: Alert. Oriented X3. No acute distress. Has baggy with him appears to be rice with orange material around it Eyes: Pupils equal, round and reactive to light. ENT: Pharynx normal. no dried blood seen Neck: Normal inspection. Neck supple. CVS: Normal heart rate and rhythm. Pulses normal. Respiratory: No respiratory distress. Breath sounds normal. Abdomen: Soft and nontender. Skin: Skin warm and dry. Normal skin color. Normal skin turgor. on extremities and abdomen multiple open scabbed lesions no overt deep necrosis or cellulitis seen Extremities: No lower extremity edema. Neuro: Oriented X 3. No motor deficit. No sensory deficit. Medical Decision Making Medical Decision Making [facility] Narrative: 57 yo male with IVDA and denies PMH though DM on chart here with c/o abdominal pain and n/v did have melena x 1 not on thinners here with c/o throwing up meat x 1 without eating meat but it looks like rice with orange material not blood. He will need labs, CT scan for diverticulitis/renal colic, UA. CT scan went to get the patient and patient eloped from ED Differential Diagnosis Differential Diagnoses: The differential diagnosis associated with the presentation includes gastritis, xylazine wounds, diverticulitis, IVDA Admission/Observation Consideration of admission/observation: Escalation of care including admission/observation considered pending CT scan and further workup would also offer addiction services Lab Data [facility] Lab Attestation statement: I reviewed the patient's lab results. 03/15/23 06:34 03/15/23 06:34 Labs: Lab Results 03/15/23 Range/Units 06:34 WBC 6.2 (4.8-10.8) X10*3/uL RBC 3.99 L (4.60-5.80) X10*6/uL Hgb 11.8 L (14.0-18.0) g/dl Hct 34.3 L (42.0-52.0) % MCV 86.0 (80.0-98.0) fL MCH 29.6 (27.0-33.0) pg MCHC 34.4 (31.0-36.0) g/dl RDW 13.0 (11.0-16.0) % Plt Count 180 (160-400) X10*3/uL MPV 11.0 (9.4-12.4) fL Absolute Nucleated RBC 0.000 (0.0-0.012) X10*3/uL Nucleated RBC % (auto) 0.0 (0.0-0.2) /100WBC Sodium 137 (135-145) mmol/L Potassium 3.2 L (3.3-5.1) mmol/L Chloride 108 (96-108) mmol/L Carbon Dioxide 26 (22-29) mmol/L Anion Gap 6 L (12-20) BUN 13 (9-16) mg/dL Creatinine 0.75 (0.5-1.4) mg/dL Estim Creat Clear Calc 109.9 Estimated GFR > 60 Random Glucose 151 H (60-115) mg/dL Calcium 8.8 (8.4-10.2) mg/dL Total Bilirubin 0.3 (0.0-1.0) mg/dL AST 14 (5-37) U/L ALT 11 (0-40) U/L Alkaline Phosphatase 67 (39-117) U/L Total Protein 7.1 (6.5-8.0) g/dL Albumin 3.6 (3.5-5.0) g/dL Lipase 22 (8-78) U/L External Record Review External record reviewed: Inpatient record Tests considered The following testing was considered but not selected: CT scan but patient eloped Chronic Conditions Patient?s care impacted by: Diabetes Social Determinants Patient?s care significantly limited by Social Determinants of Health including: Inadequate housing, Alcoholism and drug addiction in family and Problems related to primary support group Discharge Plan Discharge Clinical Impression: Acute hypokalemia Abdominal pain Qualifiers: Abdominal location: lower abdomen, unspecified Qualified Code(s): R10.30 - Lower abdominal pain, unspecified Patient Disposition: Elopement Prescriptions: No Action miconazole nitrate 2 % ointment 1 appl topical BID Qty: 56.7 0RF tamsulosin 0.4 mg capsule 0.4 mg PO BEDTIME Qty: 20 0RF doxycycline hyclate 100 mg capsule 100 mg PO BID 7 Days Qty: 14 0RF acetaminophen 500 mg tablet 1,000 mg PO QID PRN (Reason: pain) Qty: 30 0RF cephalexin 500 mg tablet 500 mg PO QID 7 Days Qty: 28 0RF oxycodone 5 mg tablet 5 mg PO Q6H PRN (Reason: pain) Qty: 10 0RF Rx Instructions: Narcotic, no driving for 6 hours after taking this medication doxycycline hyclate 100 mg capsule 100 mg PO BID 7 Days Qty: 14 0RF cephalexin 500 mg tablet 500 mg PO QID 7 Days Qty: 28 0RF oxycodone 5 mg tablet 5 mg PO Q6H PRN (Reason: pain) Qty: 10 0RF Rx Instructions: Narcotic, no driving for 6 hours after taking azithromycin [Zithromax Z-Nathan] 250 mg tablet See Rx Instructions .ROUTE .COMPLEX Qty: 6 0RF Rx Instructions: take 500 mg today (day 1), then 250 mg for 4 days (days 2-5) prednisone 20 mg tablet 20 mg PO BID Qty: 10 0RF albuterol sulfate [Proventil HFA] 90 mcg/actuation HFA aerosol inhaler 1 inh inhalation QID PRN (Reason: shortness of breath or wheezing) Qty: 6.7 0RF sulfamethoxazole-trimethoprim [Bactrim DS] 800-160 mg tablet 1 tab PO BID Qty: 13 0RF ibuprofen 600 mg tablet 600 mg PO TID PRN (Reason: fever or pain) Qty: 20 0RF cephalexin 500 mg capsule 500 mg PO BID 7 Days Qty: 14 0RF doxycycline hyclate 100 mg capsule 100 mg PO BID 7 Days Qty: 14 0RF mupirocin 2 % ointment 1 appl topical BID Qty: 50 0RF Rx Instructions: Apply to affected areas
--- NOTE | 2023-03-15 07:58 | PC.NURSE ---
Dr. Cee to pt room, informed pt of plan of care. pt cannot be found in ED, not in pt room or bathroom. suspected to have left ED. will chart accordingly.
== END 2023-03-15 08:07 | disposition left against medical advice (07) ==
PROVIDERS: Emergency Provider Emergency Medicine
DX: E87.6 Hypokalemia (principal); R10.30 Lower abdominal pain, unspecified; R11.2 Nausea with vomiting, unspecified; E11.9 Type 2 diabetes mellitus without complications; F19.10 Other psychoactive substance abuse, uncomplicated; Z79.899 Other long term (current) drug therapy
CPT/HCPCS: 36415; 80053; 83690; 85027; 99283; 99284

== ENCOUNTER 2024-04-24 19:32 | Emergency (ER) | payer OTHER, SELFPAY ==
[2024-04-24 20:07] VITALS: BP 140/67; PULSE 76; RESP 16; TEMP 36.6; O2SAT 96; BMI 27.0
--- NOTE | 2024-04-24 20:16 | ED.SKABFB ---
HPI - Skin/Abscess/Foreign Bdy General Chief complaint: Skin/Abscess/Foreign Body Stated complaint: ?MRSA Time Seen by Provider: 04/24/24 20:16 Source: patient Limitations: no limitations History of Present Illness ED Provider: Sheri Salinas PA-C HPI narrative: 58-year-old male with a history of MRSA, presents with a MRSA lesions. Patient states he has circular, pruritic, dry and scaly lesions all over his body. Patient states he has had such lesions in the past, he has been placed on antibiotics and ?cream?, which helps alleviate his symptoms. Denies fevers. Related Data Previous Rx's ?Medication ?Instructions ?Recorded miconazole nitrate 2 % topical 1 appl topical BID #56.7 grams 06/29/20 ointment tamsulosin 0.4 mg capsule 0.4 mg PO BEDTIME #20 caps 06/29/20 albuterol sulfate 90 mcg/actuation 1 inh inhalation QID PRN shortness 04/27/21 aerosol inhaler (Proventil HFA) of breath or wheezing #6.7 grams azithromycin 250 mg tablet See Rx Instructions PO .COMPLEX #6 04/27/21 (Zithromax Z-Nathan) tabs prednisone 20 mg tablet 20 mg PO BID #10 tabs 04/27/21 acetaminophen 500 mg tablet 1,000 mg (2 x 500 mg) PO QID PRN 10/07/21 pain #30 tabs cephalexin 500 mg tablet 500 mg PO QID 7 days #28 tabs 10/07/21 cephalexin 500 mg tablet 500 mg PO QID 7 days #28 tabs 10/07/21 doxycycline hyclate 100 mg capsule 100 mg PO BID 7 days #14 caps 10/07/21 doxycycline hyclate 100 mg capsule 100 mg PO BID 7 days #14 caps 10/07/21 oxycodone 5 mg tablet 5 mg PO Q6H PRN pain #10 tabs 10/07/21 oxycodone 5 mg tablet 5 mg PO Q6H PRN pain #10 tabs 10/07/21 ibuprofen 600 mg tablet 600 mg PO TID PRN fever or pain 04/30/22 #20 tabs sulfamethoxazole 800 1 tab PO BID #13 tabs 04/30/22 mg-trimethoprim 160 mg tablet (Bactrim DS) mupirocin 2 % topical ointment 1 appl topical BID #50 grams 11/28/22 cephalexin 500 mg capsule 500 mg PO BID 7 days #14 caps 02/25/23 doxycycline hyclate 100 mg capsule 100 mg PO BID 7 days #14 caps 02/25/23 chlorhexidine gluconate 4 % 1 appl topical DAILY 7 days #3,800 04/24/24 topical liquid (Hibiclens) mL sulfamethoxazole 800 1 tab PO BID #14 tabs 04/24/24 mg-trimethoprim 160 mg tablet (Bactrim DS) Allergies Allergy/AdvReac Type Severity Reaction Status Date / Time No Known Allergies Allergy Verified 04/24/24 20:08 Review of Systems Review of Systems: No all other systems are reviewed and are negative Constitutional: Constitutional: Denies fatigue and Denies fever(s) Cardiovascular: Cardiovascular: Denies chest pain and Denies dyspnea Respiratory: Respiratory: Denies dyspnea Gastrointestinal: Gastrointestinal: Denies abdominal pain, Denies diarrhea and Denies nausea Integumentary/Breasts: Skin/Breast: Reports changing lesions Endocrine: Endocrine: Denies fatigue PMFSH Past Medical History Attestation statement: The following information was validated with the patient. Medical History Diabetes mellitus Depression Social History Social History Alcohol intake: never Substance Use Type: Crack/Cocaine Advance Directives: No Advance Directives Information Provided: Yes Do you have a plan to hurt others: No Plan Physical Exam Vital Signs: Vital Signs: Last Vital Signs Temp 97.8 F 04/24/24 20:07 Pulse 76 04/24/24 20:07 Resp 16 04/24/24 20:07 BP 140/67 H 04/24/24 20:07 Pulse Ox 96 04/24/24 20:07 O2 Del Method Room Air 04/24/24 20:07 BMI result Body Mass Index 27.0 Const: Other: Alert, overall well in appearance Orientation/consciousness: patient oriented x3 Resp: Other: Nonlabored respirations Cardio: Other: Normal peripheral perfusion Skin: Other: Patient has numerous circular lesions of varying stages, they are dry, some have scab formation, numerous scars with the same circular pattern noted over upper extremities lower extremities and torso. Some of the lesions have mild overlying erythema, no active purulent drainage from any of the sites. Neuro: General: patient oriented x3, no focal motor deficits and CN's II-XI intact bilaterally Psych: Other: Calm cooperative Medications Administered Discontinued Medications Generic Name Dose Route Start Last Admin Trade Name Veronica PRN Reason Stop Dose Admin Trimethoprim/Sulfamethoxazole 1 tab 04/24/24 20:13 04/24/24 20:25 Sulfamethox/Trimeth 800/160 Tablet PO 04/24/24 20:14 1 tab ONCE ONE Administration Medical Decision Making Medical Decision Making MDM Narrative: 58-year-old male with a history of MRSA, presents with a MRSA lesions. Patient states he has circular, pruritic, dry and scaly lesions all over his body. Patient states he has had such lesions in the past, he has been placed on antibiotics and ?cream?, which helps alleviate his symptoms. Denies fevers. Problem: Known MRSA History: Per patient I have considered the following differential diagnoses: MRSA bacteremia, MRSA infection, cellulitis, purulent cellulitis Plan: The patient has lesions that are consistent with chronic MRSA, they are in varying stages of healing. We will send with Long, a short script for Bactrim, he needs to follow up with his primary care provider. He verbalizes understanding. There was no indication for labs or imaging at this time. I considered MRSA bacteremia, however he is afebrile, hemodynamically stable, and again, he has had these lesions for an unclear duration of time. Discharge Plan Discharge Clinical Impression: MRSA infection Patient Disposition: Home, Self-Care Instructions: MRSA (Methicillin-Resistant Staphylococcus Aureus) (ED) Additional Instructions: You are being treated for a MRSA infection. See home care instructions. This is a chronic condition, you will likely have recurrence of the lesions. Take the Bactrim, this is an antibiotic, as directed for 7 days. In addition, you need to use the Hibiclens daily, per package instructions, until the lesions clear. You need to follow up with your primary care provider, you may require additional Hibiclens periodically. Prescriptions: New chlorhexidine gluconate [Hibiclens] 4 % liquid 1 appl topical DAILY 7 Days Qty: 3800 0RF Rx Instructions: use daily per package instructions until lesions appear dry sulfamethoxazole-trimethoprim [Bactrim DS] 800-160 mg tablet 1 tab PO BID Qty: 14 0RF No Action miconazole nitrate 2 % ointment 1 appl topical BID Qty: 56.7 0RF tamsulosin 0.4 mg capsule 0.4 mg PO BEDTIME Qty: 20 0RF doxycycline hyclate 100 mg capsule 100 mg PO BID 7 Days Qty: 14 0RF acetaminophen 500 mg tablet 1,000 mg PO QID PRN (Reason: pain) Qty: 30 0RF cephalexin 500 mg tablet 500 mg PO QID 7 Days Qty: 28 0RF oxycodone 5 mg tablet 5 mg PO Q6H PRN (Reason: pain) Qty: 10 0RF Rx Instructions: Narcotic, no driving for 6 hours after taking this medication doxycycline hyclate 100 mg capsule 100 mg PO BID 7 Days Qty: 14 0RF cephalexin 500 mg tablet 500 mg PO QID 7 Days Qty: 28 0RF oxycodone 5 mg tablet 5 mg PO Q6H PRN (Reason: pain) Qty: 10 0RF Rx Instructions: Narcotic, no driving for 6 hours after taking azithromycin [Zithromax Z-Nathan] 250 mg tablet See Rx Instructions .ROUTE .COMPLEX Qty: 6 0RF Rx Instructions: take 500 mg today (day 1), then 250 mg for 4 days (days 2-5) prednisone 20 mg tablet 20 mg PO BID Qty: 10 0RF albuterol sulfate [Proventil HFA] 90 mcg/actuation HFA aerosol inhaler 1 inh inhalation QID PRN (Reason: shortness of breath or wheezing) Qty: 6.7 0RF sulfamethoxazole-trimethoprim [Bactrim DS] 800-160 mg tablet 1 tab PO BID Qty: 13 0RF ibuprofen 600 mg tablet 600 mg PO TID PRN (Reason: fever or pain) Qty: 20 0RF cephalexin 500 mg capsule 500 mg PO BID 7 Days Qty: 14 0RF doxycycline hyclate 100 mg capsule 100 mg PO BID 7 Days Qty: 14 0RF mupirocin 2 % ointment 1 appl topical BID Qty: 50 0RF Rx Instructions: Apply to affected areas Print Language: Israeli
[2024-04-24] MEDS: Sulfamethox/Trimeth 800/160 TABLET 1 TAB PO (20:25)
[2024-04-24 21:00] VITALS: BP 140/67; PULSE 76; RESP 16; TEMP 36.6; O2SAT 96
== END 2024-04-24 21:00 | disposition home or self-care (01) ==
PROVIDERS: Emergency Provider Emergency Medicine; PCP Internal Medicine
DX: A49.02 Methicillin resistant Staphylococcus aureus infection, unspecified site (principal); Z79.899 Other long term (current) drug therapy
CPT/HCPCS: 99282; 99283

== ENCOUNTER 2024-05-04 21:03 | Emergency (ER) | payer OTHER, SELFPAY ==
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
[2024-05-04 21:18] VITALS: BP 154/81; PULSE 86; RESP 18; TEMP 36.4; O2SAT 100; BMI 27.3
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
[2024-05-05 00:58] VITALS: BP 138/84; PULSE 69; RESP 20; TEMP 36.6; O2SAT 97
[2024-05-05 01:30] VITALS: BP 138/84; PULSE 69; RESP 20; TEMP 36.6; O2SAT 97
== END 2024-05-05 01:31 | disposition home or self-care (01) ==
PROVIDERS: Emergency Provider Emergency Medicine
DX: S16.1XXA Strain of muscle, fascia and tendon at neck level, initial encounter (principal); S43.401A Unspecified sprain of right shoulder joint, initial encounter; M25.511 Pain in right shoulder; R07.89 Other chest pain; R42 Dizziness and giddiness; M54.2 Cervicalgia; R11.2 Nausea with vomiting, unspecified; V23.49XA Other motorcycle driver injured in collision with car, pick-up truck or van in traffic accident, initial encounter; Y93.9 Activity, unspecified; Y92.410 Unspecified street and highway as the place of occurrence of the external cause; Y99.8 Other external cause status; Z79.899 Other long term (current) drug therapy
CPT/HCPCS: 70450; 71046; 71250; 72125; 73060; 73090; 99284

== ENCOUNTER 2024-06-01 23:57 | Emergency (ER) | payer OTHER, SELFPAY ==
[2024-06-02 00:22] VITALS: BP 190/97; PULSE 85; RESP 20; TEMP 36.9; O2SAT 97; BMI 27.8
[2024-06-02 01:19] LABS: Basophils Absolute Auto 0.1 X10*3/uL (0.0-0.2); Basophils Percent Auto 0.9 % (0-2); Eosinophils Absolute Auto 0.2 X10*3/uL (0.0-0.4); Eosinophils Percent Auto 1.9 % (0-4); Hematocrit 39.7 % (42.0-52.0); Hemoglobin 14.1 g/dl (14.0-18.0); Imm Gran Abs Auto 0.03 X10*3/uL (0.00-0.03); Imm Gran Pct Auto 0.3 % (0.0-0.4); Lymphocytes Absolute Auto 3.1 X10*3/uL (1.2-4.9); Lymphocytes Percent Auto 34.1 % (20-40); MANUAL DIFF FLAG NO; Mean Corpuscular HGB Conc 35.5 g/dl (31.0-36.0); Mean Corpuscular Hemoglobin 30.5 pg (27.0-33.0); Mean Corpuscular Volume 85.7 fL (80.0-98.0); Mean Platelet Volume 11.2 fL (9.4-12.4); Monocytes Absolute Auto 0.7 X10*3/uL (0.1-1.2); Monocytes Percent Auto 7.2 % (2-11); Neutrophils Percent Auto 55.6 % (45-73); Platelet Count 220 X10*3/uL (160-400); Red Blood Count 4.63 X10*6/uL (4.60-5.80)
[2024-06-02 01:33] LABS: Alanine Aminotransferase 18 U/L (0-40); Albumin Level 4.1 g/dL (3.5-5.0); Alkaline Phosphatase 76 U/L (39-117); Anion Gap 14 (12-20); Aspartate Amino Transferase 20 U/L (5-37); Bilirubin Total 0.2 mg/dL (0.0-1.0); Blood Urea Nitrogen 16 mg/dL (9-16); Calcium 9.5 mg/dL (8.4-10.2); Carbon Dioxide 24 mmol/L (22-29); Chloride 107 mmol/L (96-108); Creatinine Clr Calc Pharmacy 75.4; Estimated Glomerular Filt Rate > 60; Glucose Random 182 mg/dL (60-115); Potassium 3.9 mmol/L (3.3-5.1); Sodium 141 mmol/L (135-145); Total Protein 7.5 g/dL (6.5-8.0)
[2024-06-02 02:17] VITALS: BP 158/93; PULSE 82; RESP 16; TEMP 37.2; O2SAT 95
--- NOTE | 2024-06-02 02:53 | ED.SKABFB ---
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 complaining of rash all over the body which he has in the past diagnose as MRSA has taken treatments of doxycycline and keep recurring Related Data Previous Rx's ?Medication ?Instructions ?Recorded miconazole nitrate 2 % topical 1 appl topical BID #56.7 grams 06/29/20 ointment tamsulosin 0.4 mg capsule 0.4 mg PO BEDTIME #20 caps 06/29/20 albuterol sulfate 90 mcg/actuation 1 inh inhalation QID PRN shortness 04/27/21 aerosol inhaler (Proventil HFA) of breath or wheezing #6.7 grams azithromycin 250 mg tablet See Rx Instructions PO .COMPLEX #6 04/27/21 (Zithromax Z-Nathan) tabs prednisone 20 mg tablet 20 mg PO BID #10 tabs 04/27/21 acetaminophen 500 mg tablet 1,000 mg (2 x 500 mg) PO QID PRN 10/07/21 pain #30 tabs cephalexin 500 mg tablet 500 mg PO QID 7 days #28 tabs 10/07/21 cephalexin 500 mg tablet 500 mg PO QID 7 days #28 tabs 10/07/21 doxycycline hyclate 100 mg capsule 100 mg PO BID 7 days #14 caps 10/07/21 doxycycline hyclate 100 mg capsule 100 mg PO BID 7 days #14 caps 10/07/21 oxycodone 5 mg tablet 5 mg PO Q6H PRN pain #10 tabs 10/07/21 oxycodone 5 mg tablet 5 mg PO Q6H PRN pain #10 tabs 10/07/21 ibuprofen 600 mg tablet 600 mg PO TID PRN fever or pain 04/30/22 #20 tabs sulfamethoxazole 800 1 tab PO BID #13 tabs 04/30/22 mg-trimethoprim 160 mg tablet (Bactrim DS) mupirocin 2 % topical ointment 1 appl topical BID #50 grams 11/28/22 cephalexin 500 mg capsule 500 mg PO BID 7 days #14 caps 02/25/23 doxycycline hyclate 100 mg capsule 100 mg PO BID 7 days #14 caps 02/25/23 chlorhexidine gluconate 4 % 1 appl topical DAILY 7 days #3,800 04/24/24 topical liquid (Hibiclens) mL sulfamethoxazole 800 1 tab PO BID #14 tabs 04/24/24 mg-trimethoprim 160 mg tablet (Bactrim DS) cyclobenzaprine 10 mg tablet 10 mg PO TID PRN muscle spasm #20 05/05/24 tabs lidocaine 5 % topical patch 1 patch topical DAILY #30 ea 05/05/24 cephalexin 500 mg capsule 500 mg PO QID 10 days #40 caps 06/02/24 doxycycline hyclate 100 mg tablet 100 mg PO BID #20 tabs 06/02/24 mupirocin 2 % topical ointment 1 appl topical BID #22 grams 06/02/24 Allergies Allergy/AdvReac Type Severity Reaction Status Date / Time No Known Allergies Allergy Verified 06/02/24 00:29 Review of Systems Review of Systems: Yes all other systems are reviewed and are negative [facility] Past Medical History Medical History Diabetes mellitus Depression Social History Social History Unable to assess alcohol history related to: Unknown Alcohol intake: never Smoked in Last 30 Days: No Substance Use Type: Crack/Cocaine Advance Directives: No Advance Directives Information Provided: Yes Do you have a plan to hurt others: No Plan Physical Exam Vital Signs: Vital Signs: Last Vital Signs Temp 97.5 F 06/02/24 03:27 Pulse 69 06/02/24 03:27 Resp 18 06/02/24 03:27 BP 147/83 H 06/02/24 03:27 Pulse Ox 97 06/02/24 03:27 O2 Del Method Room Air 06/02/24 03:27 BMI result Body Mass Index 27.8 Appearance: Alert. Oriented X3. No acute distress. Eyes: PERRLA, No Nystagmus ENT: Pharynx normal. Oral Mucosa moist Neck: Normal inspection. Neck supple. CVS: Normal heart rate and rhythm. Pulses normal. Respiratory: No respiratory distress. Equal air entry bilateral, no wheezing/rales/rhonchi Abdomen: Soft and nontender. Bowel sounds are present, no mass palpable, no CVA tenderness Skin: Skin warm and dry. Normal skin color. Normal skin turgor. Multiple lesions on the trunk and the arms>> MRSA infection no abscess noticed Extremities: No lower extremity edema. No calf tenderness Neuro: Oriented X 3. No motor deficit. No sensory deficit.No cerebellar signs , cranial nerves II-XII intact Medications Administered Discontinued Medications Generic Name Dose Route Start Last Admin Trade Name Winq PRN Reason Stop Dose Admin Cephalexin HCl 500 mg 06/02/24 02:54 06/02/24 03:25 Cephalexin 500 Mg Capsule PO 06/02/24 02:55 500 mg ONCE ONE Administration Doxycycline Monohydrate 100 mg 06/02/24 02:54 06/02/24 03:25 Doxycycline Monohydrate 100 Mg Capsule PO 06/02/24 02:55 100 mg ONCE ONE Administration Medical Decision Making Medical Decision Making [facility] Narrative: Sample was taken from the lesion on the abdomen to confirm MRSA clinically patient MRSA infection with restarted on doxycycline will also give mupirocin ointment Lab Data [facility] Lab Attestation statement: I reviewed the patient's lab results. 06/02/24 01:13 06/02/24 01:13 Labs: Lab Results 06/02/24 Range/Units 01:13 WBC 9.0 (4.8-10.8) X10*3/uL RBC 4.63 (4.60-5.80) X10*6/uL Hgb 14.1 (14.0-18.0) g/dl Hct 39.7 L (42.0-52.0) % MCV 85.7 (80.0-98.0) fL MCH 30.5 (27.0-33.0) pg MCHC 35.5 (31.0-36.0) g/dl RDW 12.0 (11.0-16.0) % Plt Count 220 (160-400) X10*3/uL MPV 11.2 (9.4-12.4) fL Immature Gran % (Auto) 0.3 (0.0-0.4) % Neut % (Auto) 55.6 (45-73) % Lymph % (Auto) 34.1 (20-40) % [place] % (Auto) 7.2 (2-11) % Eos % (Auto) 1.9 (0-4) % Baso % (Auto) 0.9 (0-2) % Lymph # (Auto) 3.1 (1.2-4.9) X10*3/uL [place] # (Auto) 0.7 (0.1-1.2) X10*3/uL Eos # (Auto) 0.2 (0.0-0.4) X10*3/uL Baso # (Auto) 0.1 (0.0-0.2) X10*3/uL Abs Immat Gran (auto) 0.03 (0.00-0.03) X10*3/uL Absolute Neuts (auto) 5.0 (2.0-8.3) x10*3/uL Absolute Nucleated RBC 0.000 (0.0-0.012) X10*3/uL Nucleated RBC % (auto) 0.0 (0.0-0.2) /100WBC Sodium 141 (135-145) mmol/L Potassium 3.9 (3.3-5.1) mmol/L Chloride 107 (96-108) mmol/L Carbon Dioxide 24 (22-29) mmol/L Anion Gap 14 (12-20) BUN 16 (9-16) mg/dL Creatinine 1.17 (0.5-1.4) mg/dL Estim Creat Clear Calc 75.4 Estimated GFR > 60 Random Glucose 182 H (60-115) mg/dL Calcium 9.5 D (8.4-10.2) mg/dL Total Bilirubin 0.2 (0.0-1.0) mg/dL AST 20 (5-37) U/L ALT 18 (0-40) U/L Alkaline Phosphatase 76 (39-117) U/L Total Protein 7.5 (6.5-8.0) g/dL Albumin 4.1 (3.5-5.0) g/dL Discharge Plan Discharge Clinical Impression: MRSA (methicillin resistant Staphylococcus aureus) infection Patient Disposition: Home, Self-Care Instructions: MRSA (Methicillin-Resistant Staphylococcus Aureus) (ED) Additional Instructions: Take antibiotic as prescribed Apply ointment as prescribed at the affected area twice a day Follow with your PCP as needed Prescriptions: New cephalexin 500 mg capsule 500 mg PO QID 10 Days Qty: 40 0RF doxycycline hyclate 100 mg tablet 100 mg PO BID Qty: 20 0RF mupirocin 2 % ointment 1 appl topical BID Qty: 22 0RF No Action miconazole nitrate 2 % ointment 1 appl topical BID Qty: 56.7 0RF tamsulosin 0.4 mg capsule 0.4 mg PO BEDTIME Qty: 20 0RF doxycycline hyclate 100 mg capsule 100 mg PO BID 7 Days Qty: 14 0RF acetaminophen 500 mg tablet 1,000 mg PO QID PRN (Reason: pain) Qty: 30 0RF cephalexin 500 mg tablet 500 mg PO QID 7 Days Qty: 28 0RF oxycodone 5 mg tablet 5 mg PO Q6H PRN (Reason: pain) Qty: 10 0RF Rx Instructions: Narcotic, no driving for 6 hours after taking this medication doxycycline hyclate 100 mg capsule 100 mg PO BID 7 Days Qty: 14 0RF cephalexin 500 mg tablet 500 mg PO QID 7 Days Qty: 28 0RF oxycodone 5 mg tablet 5 mg PO Q6H PRN (Reason: pain) Qty: 10 0RF Rx Instructions: Narcotic, no driving for 6 hours after taking azithromycin [Zithromax Z-Nathan] 250 mg tablet See Rx Instructions .ROUTE .COMPLEX Qty: 6 0RF Rx Instructions: take 500 mg today (day 1), then 250 mg for 4 days (days 2-5) prednisone 20 mg tablet 20 mg PO BID Qty: 10 0RF albuterol sulfate [Proventil HFA] 90 mcg/actuation HFA aerosol inhaler 1 inh inhalation QID PRN (Reason: shortness of breath or wheezing) Qty: 6.7 0RF sulfamethoxazole-trimethoprim [Bactrim DS] 800-160 mg tablet 1 tab PO BID Qty: 13 0RF ibuprofen 600 mg tablet 600 mg PO TID PRN (Reason: fever or pain) Qty: 20 0RF cephalexin 500 mg capsule 500 mg PO BID 7 Days Qty: 14 0RF doxycycline hyclate 100 mg capsule 100 mg PO BID 7 Days Qty: 14 0RF chlorhexidine gluconate [Hibiclens] 4 % liquid 1 appl topical DAILY 7 Days Qty: 3800 0RF Rx Instructions: use daily per package instructions until lesions appear dry sulfamethoxazole-trimethoprim [Bactrim DS] 800-160 mg tablet 1 tab PO BID Qty: 14 0RF mupirocin 2 % ointment 1 appl topical BID Qty: 50 0RF Rx Instructions: Apply to affected areas cyclobenzaprine 10 mg tablet 10 mg PO TID PRN (Reason: muscle spasm) Qty: 20 0RF lidocaine 5 % adhesive patch,medicated 1 patch topical DAILY Qty: 30 0RF Rx Instructions: leave on most painful area for up to 12 hrs Interventions: ED Discharge Assessment Last Done: 06/02/24 03:27 Discharge Date/Time: 06/02/24 03:39 Print Language: Tamazight
[2024-06-02] MEDS: cephALEXin 500 MG CAPSULE PO (03:25)
[2024-06-02] MEDS: Doxycycline Monohydrate 100 MG CAPSULE PO (03:25)
[2024-06-02 03:27] VITALS: BP 147/83; PULSE 69; RESP 18; TEMP 36.4; O2SAT 97
== END 2024-06-02 03:39 | disposition home or self-care (01) ==
PROVIDERS: Emergency Provider Internal Medicine
DX: L08.89 Other specified local infections of the skin and subcutaneous tissue (principal); B95.62 Methicillin resistant Staphylococcus aureus infection as the cause of diseases classified elsewhere; F19.10 Other psychoactive substance abuse, uncomplicated; E11.9 Type 2 diabetes mellitus without complications; Z79.899 Other long term (current) drug therapy
CPT/HCPCS: 36415; 80053; 85025; 87070; 87077; 87186; 87205; 99283; 99284

== ENCOUNTER 2024-06-27 17:35 | Emergency (ER) | payer OTHER, SELFPAY ==
--- NOTE | ~2024-06-27 | CT_ITS ---
EXAMINATION: CTA OF THE HEAD AND NECK CLINICAL INFORMATION: Right-sided neck pain. Right eye blurry vision. COMPARISON: CT head dated 05/04/2024 TECHNIQUE: Test bolus sequences followed by intravenous administration of 65 mL Omnipaque 350. Helical imaging was performed in the axial plane from the mediastinum to the skull vertex. Delayed postcontrast imaging of the head was also performed. The data was processed at the electrical engineering technologist's workstation for generation of MIP sequences. Three-dimensional volume rendered reformatted images were also generated at an offline 3-D workstation. Stenoses are assessed in accordance with NASCET criteria unless otherwise indicated. DLP: 2417 mGy-cm. FINDINGS: CT head: There is no evidence of acute intracranial hemorrhage or territorial infarction. There is no loss of maldonado to white matter differentiation. No abnormal mass effect or midline shift is seen. No extra-axial fluid collections are identified. There is no abnormal enhancement. The ventricles are normal in size. There is no abnormal attenuation within the brain parenchyma. The osseous structures and soft tissues are normal. The mastoid air cells are well aerated. Minimal mucosal thickening in the left maxillary sinus. Rightward nasal spur. CTA neck: The aortic arch is of normal contour and caliber. Classic 3 vessel branching pattern of the aortic arch. No significant stenosis of the branch origins. The common and internal carotid arteries opacify normally without focal stenosis or occlusion. The cervical segments of the vertebral arteries opacify normally without focal stenosis or occlusion. Mild atheromatous plaque at the right carotid bulb. No flow-limiting stenosis. The thyroid gland and remaining cervical soft tissues are within normal limits. Moderate degenerative disc disease in cervical spine at C5-C6 and C6-C7. Moderate severe multilevel facet arthropathy. Grade 1 anterolisthesis of C7 on T1. Uncovertebral and facet osteophytes produce neural foraminal encroachment at multiple levels, most notably on the right at C2-C3, C4-C5, C6-C7, T1 on the left at C6-C7. Central canal stenosis is most notable at C6-C7. No acute fractures in the cervical spine. Osteoarthritis at the temporal mandibular joint appears relatively mild. Patient is edentulous. The visualized lung apices and upper mediastinum are within normal limits. CTA head: There is normal opacification of major intracranial arteries. No focal flow-limiting stenosis, discrete proximal large artery occlusion, or saccular intradural aneurysm. Mild atheromatous plaque in the cavernous segments of the internal carotid arteries. Otherwise normal contrast opacification of the petrous, cavernous, paraophthalmic, and supraclinoid segments of the internal carotid arteries without focal stenosis. Normal appearance of the anterior cerebral and middle cerebral arteries without focal occlusion or stenosis. Normal anterior communicating artery. Normal arborization of the middle cerebral arteries. Normal appearance of the intradural vertebral and posterior inferior cerebellar arteries. Normal appearance of the basilar, superior cerebellar, and P1 segments of the posterior cerebral arteries. No appreciable posterior communicating arteries. Normal appearance of the distal segments of the posterior cerebral arteries bilaterally. CT/CT angio head neck IMPRESSION: 1. No acute intracranial pathology. 2. No acute arterial abnormalities in the head and neck. No significant stenoses or occlusions. 3. Moderate degenerative disc disease at C5-C6 and C6-C7. Moderate to severe multilevel facet arthropathy. Multilevel central canal and neural foraminal encroachment. Electronically signed by: Shahab Matta MD 06/27/2024 09:41 PM J[facility] JON
[2024-06-27 17:46] VITALS: BP 142/83; PULSE 79; RESP 18; TEMP 36.6; O2SAT 98; BMI 26.6
--- NOTE | 2024-06-27 17:52 | ED.GENADULT ---
HPI - General Adult General Chief complaint: Neck Pain/Injury Stated complaint: Neck Pain Time Seen by Provider: 06/27/24 17:54 Source: patient, RN notes reviewed and old records reviewed Mode of arrival: ambulatory History of Present Illness ED Provider: Summer Preez PA-C HPI narrative: 58-year-old male with a past medical history of asthma, diabetes, MRSA, IVDA (has been clean x1 yr), presenting to the ED complaining of atraumatic right-sided neck pain x3 days. Reports right-sided blurry vision, which is resolved at present, and nausea. Pain radiates to right side of head. Denies anticoagulation use, vomiting, vision changes at present, visual loss, numbness, tingling, weakness, back pain, incontinence Related Data Previous Rx's ?Medication ?Instructions ?Recorded miconazole nitrate 2 % topical 1 appl topical BID #56.7 grams 06/29/20 ointment tamsulosin 0.4 mg capsule 0.4 mg PO BEDTIME #20 caps 06/29/20 albuterol sulfate 90 mcg/actuation 1 inh inhalation QID PRN shortness 04/27/21 aerosol inhaler (Proventil HFA) of breath or wheezing #6.7 grams azithromycin 250 mg tablet See Rx Instructions PO .COMPLEX #6 04/27/21 (Zithromax Z-Nathan) tabs prednisone 20 mg tablet 20 mg PO BID #10 tabs 04/27/21 acetaminophen 500 mg tablet 1,000 mg (2 x 500 mg) PO QID PRN 10/07/21 pain #30 tabs cephalexin 500 mg tablet 500 mg PO QID 7 days #28 tabs 10/07/21 cephalexin 500 mg tablet 500 mg PO QID 7 days #28 tabs 10/07/21 doxycycline hyclate 100 mg capsule 100 mg PO BID 7 days #14 caps 10/07/21 doxycycline hyclate 100 mg capsule 100 mg PO BID 7 days #14 caps 10/07/21 oxycodone 5 mg tablet 5 mg PO Q6H PRN pain #10 tabs 10/07/21 oxycodone 5 mg tablet 5 mg PO Q6H PRN pain #10 tabs 10/07/21 ibuprofen 600 mg tablet 600 mg PO TID PRN fever or pain 04/30/22 #20 tabs sulfamethoxazole 800 1 tab PO BID #13 tabs 04/30/22 mg-trimethoprim 160 mg tablet (Bactrim DS) mupirocin 2 % topical ointment 1 appl topical BID #50 grams 11/28/22 cephalexin 500 mg capsule 500 mg PO BID 7 days #14 caps 02/25/23 doxycycline hyclate 100 mg capsule 100 mg PO BID 7 days #14 caps 02/25/23 chlorhexidine gluconate 4 % 1 appl topical DAILY 7 days #3,800 04/24/24 topical liquid (Hibiclens) mL sulfamethoxazole 800 1 tab PO BID #14 tabs 04/24/24 mg-trimethoprim 160 mg tablet (Bactrim DS) cyclobenzaprine 10 mg tablet 10 mg PO TID PRN muscle spasm #20 05/05/24 tabs lidocaine 5 % topical patch 1 patch topical DAILY #30 ea 05/05/24 cephalexin 500 mg capsule 500 mg PO QID 10 days #40 caps 06/02/24 doxycycline hyclate 100 mg tablet 100 mg PO BID #20 tabs 06/02/24 mupirocin 2 % topical ointment 1 appl topical BID #22 grams 06/02/24 clindamycin HCl 300 mg capsule 300 mg PO TID 7 days #21 caps 06/06/24 meloxicam 15 mg tablet 15 mg PO DAILY #7 tabs 06/27/24 methocarbamol 750 mg tablet 750 mg PO Q8H #15 tabs 06/27/24 Allergies Allergy/AdvReac Type Severity Reaction Status Date / Time No Known Allergies Allergy Verified 06/27/24 17:49 Review of Systems Review of Systems: Yes all other systems are reviewed and are negative Constitutional: Constitutional: Reports as per HPI Neurologic: Denies Abnormal speech present [facility] Past Medical History Attestation statement: The following information was validated with the patient. Source: old records reviewed Medical History Diabetes mellitus Depression Social History Social History Unable to assess alcohol history related to: Unknown Alcohol intake: never Substance Use Type: Crack/Cocaine Advance Directives: No Advance Directives Information Provided: No Physical Exam ED Vital Signs: Vital Signs - 24 hr 06/27/24 17:46 06/27/24 20:13 06/27/24 22:10 Temperature 97.8 F 98.4 F Pulse Rate 79 74 Respiratory Rate 18 18 Blood Pressure 142/83 H 140/80 H 140/80 H Pulse Oximetry 98 97 Oxygen Delivery Method Room Air Room Air BMI result Body Mass Index 26.6 Const General: cooperative, healthy appearing and no acute distress Orientation/consciousness: patient oriented x3 Limitations: no limitations HENMT Head: Yes normal to inspection and Yes atraumatic Ears: hearing grossly normal bilaterally General nose exam: Normal external nose present Face and sinus: Yes normal facial exam Mouth: Normal oral and palatal mucosa present and no drooling Throat: Yes posterior oropharynx normal, Yes tonsils normal, Yes uvula midline, No peritonsillar mass, No uvula laterally displaced and No uvular edema Eyes General: appearance normal, both eyes and all related structures Pupils: Equal, round and reactive pupils present EOM: EOMs intact bilaterally Neck Other: no midline cervical spinous tenderness. Right-sided paraspinal tenderness elicited. Pain elicited with leftward motion of neck. No meningeal signs. Neck: Yes normal visual inspection, Yes no meningeal signs and No anterior neck swelling Resp Effort & Inspection: normal respiratory effort and no respiratory distress Cardio Rate: regular rate Peripheral pulses: Peripheral pulses 2+ throughout Back/Spine/Pelvis Other: No midline cervical/thoracic/lumbar spinous tenderness/step-off or deformity Skin Rashes: no rashes Wounds: no wounds Neuro General: patient oriented x3, gait normal, tone normal, moves all extremities, no meningeal signs, no focal motor deficits and CN's II-XI intact bilaterally Cranial nerves: Yes CN's II-XII intact bilaterally, Yes Equal, round and reactive pupils present and Yes Bilaterally intact EOM present Cognition (Neuro): normal cognition Speech: No Abnormal speech present Gait exam (Neuro): Normal gait present Motor exam (neuro): 5/5 motor strength present throughout and Pronator motor function not present Extrem General: Yes normal to inspection Course Course Course Narrative: RME: 58 yold male presents to the ED for right sided neck pain that is worse on movement. Patient denies any other complaints. Cervical spine ordered -1830-- ED care transferred to [facility] pending labs, CT, and dispo per results Reevaluation(s) Reevaluation #1: Genia Curtis PA-C have accepted care of the patient has signed out pending imaging and final disposition CTA head and neck: CT/CT angio head neck IMPRESSION: 1. No acute intracranial pathology. 2. No acute arterial abnormalities in the head and neck. No significant stenoses or occlusions. 3. Moderate degenerative disc disease at C5-C6 and C6-C7. Moderate to severe multilevel facet arthropathy. Multilevel central canal and neural foraminal encroachment. Electronically signed by: Shahab Matta MD 06/27/2024 09:41 PM [facility] [place] Discussed results with the patient Medications Administered Discontinued Medications Generic Name Dose Route Start Last Admin Trade Name Freq PRN Reason Stop Dose Admin Acetaminophen 650 mg 06/27/24 17:59 06/27/24 18:20 Acetaminophen 325 Mg Tablet PO 06/27/24 18:00 650 mg ONCE ONE Administration Diazepam 5 mg 06/27/24 17:59 06/27/24 18:20 Diazepam 5 Mg Tablet PO 06/27/24 18:00 5 mg ONCE ONE Administration Iohexol 100 ml 06/27/24 19:15 06/27/24 19:16 Iohexol 350 Mg/Ml 100 Ml Infus..Btl IV 06/27/24 19:16 65 ml ONCE ONE Administration Medical Decision Making Medical Decision Making [facility] Narrative: 58-year-old male with a past medical history of asthma, diabetes, MRSA, IVDA (has been clean x1 yr), presenting to the ED complaining of atraumatic right-sided neck pain x3 days. On exam vital signs stable, NAD, nontoxic appearing, reproducible right-sided paraspinal neck tenderness and neck pain elicited with neck ROM. No focal neuro deficits. Neurovascularly intact. Denies visual changes at present. Concern for MSK pain/strain vs spasming. concern for possible arterial dissection or stenosis. Lower suspicion for CVA /TIA, meningitis/encephalitis or fracture. lower suspicion for spinal abscess Plan: Labs, CTA head and neck, pain control Please refer to course for remaining clinical decision making, interpretation of labs/imaging results, and discussions with consultants and/or family members. Differential Diagnosis Differential Diagnoses: The differential diagnosis associated with the presentation includes As above Admission/Observation Consideration of admission/observation: Escalation of care including admission/observation considered Lab Data [facility] Lab Attestation statement: I reviewed the patient's lab results. 06/27/24 18:13 06/27/24 18:13 Labs: Lab Results 06/27/24 Range/Units 18:13 WBC 9.6 (4.8-10.8) X10*3/uL RBC 4.81 (4.60-5.80) X10*6/uL Hgb 14.5 (14.0-18.0) g/dl Hct 42.0 (42.0-52.0) % MCV 87.3 (80.0-98.0) fL MCH 30.1 (27.0-33.0) pg MCHC 34.5 (31.0-36.0) g/dl RDW 12.3 (11.0-16.0) % Plt Count 206 (160-400) X10*3/uL MPV 11.7 (9.4-12.4) fL Immature Gran % (Auto) 0.2 (0.0-0.4) % Neut % (Auto) 67.3 (45-73) % Lymph % (Auto) 23.9 (20-40) % [place] % (Auto) 7.1 (2-11) % Eos % (Auto) 0.9 (0-4) % Baso % (Auto) 0.6 (0-2) % Lymph # (Auto) 2.3 (1.2-4.9) X10*3/uL [place] # (Auto) 0.7 (0.1-1.2) X10*3/uL Eos # (Auto) 0.1 (0.0-0.4) X10*3/uL Baso # (Auto) 0.1 (0.0-0.2) X10*3/uL Abs Immat Gran (auto) 0.02 (0.00-0.03) X10*3/uL Absolute Neuts (auto) 6.4 (2.0-8.3) x10*3/uL Absolute Nucleated RBC 0.000 (0.0-0.012) X10*3/uL Nucleated RBC % (auto) 0.0 (0.0-0.2) /100WBC PT 12.0 (10.9-12.4) SEC INR 1.0 (0.9-1.1) Sodium 139 (135-145) mmol/L Potassium 4.1 (3.3-5.1) mmol/L Chloride 108 (96-108) mmol/L Carbon Dioxide 24 (22-29) mmol/L Anion Gap 11 L (12-20) BUN 20 H (9-16) mg/dL Creatinine 0.91 (0.5-1.4) mg/dL Estim Creat Clear Calc 89.5 Estimated GFR > 60 Random Glucose 122 H (60-115) mg/dL Calcium 9.1 (8.4-10.2) mg/dL Total Bilirubin 0.5 (0.0-1.0) mg/dL Direct Bilirubin 0.1 (0.0-0.5) mg/dL AST 21 (5-37) U/L ALT 21 (0-40) U/L Alkaline Phosphatase 64 (39-117) U/L Total Protein 7.6 (6.5-8.0) g/dL Albumin 4.0 (3.5-5.0) g/dL Independent Interpretation I performed an independent interpretation of an: CT Scan Radiology Impression Discussion of test interpretation with radiology: I have reviewed the radiologist's reading. External Record Review External record reviewed: Inpatient record, Office record, Outpatient record, Prior outpatient labs, Prior outpatient radiology, Primary care record and Outside ED record Tests considered The following testing was considered but not selected: As above Prescription Management I considered prescription management with: Pain Medication Chronic Conditions Patient?s care impacted by: Other Social Determinants Patient?s care significantly limited by Social Determinants of Health including: Inadequate housing, Low income, Alcoholism and drug addiction in family, Problems related to primary support group and Other Social Determinant of Health Discharge Plan Discharge Clinical Impression: Neck pain Patient Disposition: Home, Self-Care Instructions: Arthritis (ED) Additional Instructions: The imaging of your brain was normal. You were found to have arthritic changes in your cervical spine, that is also impinging the nerves. Use the meloxicam as directed, this is an anti-inflammatory. Use the methocarbamol, this is a muscle relaxant, as needed for further pain. Do not drive or operate machinery while taking this medication as it can cause drowsiness. You need to follow up with your primary care provider, they will likely recommend physical therapy. If your symptoms persist, you will require an MRI as an outpatient, this is a study that your primary care provider we will order for you. Prescriptions: New meloxicam 15 mg tablet 15 mg PO DAILY Qty: 7 0RF methocarbamol 750 mg tablet 750 mg PO Q8H Qty: 15 0RF No Action miconazole nitrate 2 % ointment 1 appl topical BID Qty: 56.7 0RF tamsulosin 0.4 mg capsule 0.4 mg PO BEDTIME Qty: 20 0RF doxycycline hyclate 100 mg capsule 100 mg PO BID 7 Days Qty: 14 0RF acetaminophen 500 mg tablet 1,000 mg PO QID PRN (Reason: pain) Qty: 30 0RF cephalexin 500 mg tablet 500 mg PO QID 7 Days Qty: 28 0RF oxycodone 5 mg tablet 5 mg PO Q6H PRN (Reason: pain) Qty: 10 0RF Rx Instructions: Narcotic, no driving for 6 hours after taking this medication doxycycline hyclate 100 mg capsule 100 mg PO BID 7 Days Qty: 14 0RF cephalexin 500 mg tablet 500 mg PO QID 7 Days Qty: 28 0RF oxycodone 5 mg tablet 5 mg PO Q6H PRN (Reason: pain) Qty: 10 0RF Rx Instructions: Narcotic, no driving for 6 hours after taking azithromycin [Zithromax Z-Nathan] 250 mg tablet See Rx Instructions .ROUTE .COMPLEX Qty: 6 0RF Rx Instructions: take 500 mg today (day 1), then 250 mg for 4 days (days 2-5) prednisone 20 mg tablet 20 mg PO BID Qty: 10 0RF albuterol sulfate [Proventil HFA] 90 mcg/actuation HFA aerosol inhaler 1 inh inhalation QID PRN (Reason: shortness of breath or wheezing) Qty: 6.7 0RF sulfamethoxazole-trimethoprim [Bactrim DS] 800-160 mg tablet 1 tab PO BID Qty: 13 0RF ibuprofen 600 mg tablet 600 mg PO TID PRN (Reason: fever or pain) Qty: 20 0RF cephalexin 500 mg capsule 500 mg PO BID 7 Days Qty: 14 0RF doxycycline hyclate 100 mg capsule 100 mg PO BID 7 Days Qty: 14 0RF chlorhexidine gluconate [Hibiclens] 4 % liquid 1 appl topical DAILY 7 Days Qty: 3800 0RF Rx Instructions: use daily per package instructions until lesions appear dry sulfamethoxazole-trimethoprim [Bactrim DS] 800-160 mg tablet 1 tab PO BID Qty: 14 0RF cephalexin 500 mg capsule 500 mg PO QID 10 Days Qty: 40 0RF doxycycline hyclate 100 mg tablet 100 mg PO BID Qty: 20 0RF mupirocin 2 % ointment 1 appl topical BID Qty: 22 0RF clindamycin HCl 300 mg capsule 300 mg PO TID 7 Days Qty: 21 0RF mupirocin 2 % ointment 1 appl topical BID Qty: 50 0RF Rx Instructions: Apply to affected areas cyclobenzaprine 10 mg tablet 10 mg PO TID PRN (Reason: muscle spasm) Qty: 20 0RF lidocaine 5 % adhesive patch,medicated 1 patch topical DAILY Qty: 30 0RF Rx Instructions: leave on most painful area for up to 12 hrs Stand Alone Forms: Work/School Release Interventions: ED Discharge Assessment Last Done: 06/27/24 22:10 Discharge Date/Time: 06/27/24 22:11 Print Language: Arabic
[2024-06-27 18:17] LABS: MANUAL DIFF FLAG NO
[2024-06-27] MEDS: diazePAM 5 MG TABLET PO (18:20)
[2024-06-27] MEDS: Acetaminophen 325 MG TABLET 650 MG PO (18:20)
--- NOTE | 2024-06-27 18:31 | PC.NURSE ---
patient a&ox3, iv inserted, labs drawn, pt medicated per order for 8/ neck pain, pt awaiting radiology, call murphy within reach, plan of care ongoing
[2024-06-27 18:32] LABS: Basophils Absolute Auto 0.1 X10*3/uL (0.0-0.2); Basophils Percent Auto 0.6 % (0-2); Eosinophils Absolute Auto 0.1 X10*3/uL (0.0-0.4); Eosinophils Percent Auto 0.9 % (0-4); Hemoglobin 14.5 g/dl (14.0-18.0); Imm Gran Abs Auto 0.02 X10*3/uL (0.00-0.03); Imm Gran Pct Auto 0.2 % (0.0-0.4); Lymphocytes Absolute Auto 2.3 X10*3/uL (1.2-4.9); Lymphocytes Percent Auto 23.9 % (20-40); Mean Corpuscular HGB Conc 34.5 g/dl (31.0-36.0); Mean Corpuscular Hemoglobin 30.1 pg (27.0-33.0); Mean Corpuscular Volume 87.3 fL (80.0-98.0); Mean Platelet Volume 11.7 fL (9.4-12.4); Monocytes Absolute Auto 0.7 X10*3/uL (0.1-1.2); Monocytes Percent Auto 7.1 % (2-11); Neutrophils Absolute Auto 6.4 x10*3/uL (2.0-8.3); Neutrophils Percent Auto 67.3 % (45-73); Platelet Count 206 X10*3/uL (160-400); Red Blood Count 4.81 X10*6/uL (4.60-5.80); Red Cell Distribution Width 12.3 % (11.0-16.0); White Blood Count 9.6 X10*3/uL (4.8-10.8)
[2024-06-27 18:34] LABS: Alanine Aminotransferase 21 U/L (0-40); Alkaline Phosphatase 64 U/L (39-117); Anion Gap 11 (12-20); Aspartate Amino Transferase 21 U/L (5-37); Bilirubin Direct 0.1 mg/dL (0.0-0.5); Bilirubin Total 0.5 mg/dL (0.0-1.0); Blood Urea Nitrogen 20 mg/dL (9-16); Calcium 9.1 mg/dL (8.4-10.2); Carbon Dioxide 24 mmol/L (22-29); Chloride 108 mmol/L (96-108); Creatinine Clr Calc Pharmacy 89.5; Estimated Glomerular Filt Rate > 60; Glucose Random 122 mg/dL (60-115); Potassium 4.1 mmol/L (3.3-5.1); Sodium 139 mmol/L (135-145); Total Protein 7.6 g/dL (6.5-8.0)
[2024-06-27] MEDS: iohexoL 350 MG/ML 100 ML INFUS..BTL IV (19:16)
[2024-06-27 20:13] VITALS: BP 140/80
[2024-06-27 22:10] VITALS: BP 140/80; PULSE 74; RESP 18; TEMP 36.9; O2SAT 97
== END 2024-06-27 22:11 | disposition home or self-care (01) ==
PROVIDERS: Physician Assistant; Emergency Provider Emergency Medicine
DX: M54.2 Cervicalgia (principal); H53.8 Other visual disturbances; R11.0 Nausea; Z79.899 Other long term (current) drug therapy
CPT/HCPCS: 36415; 70496; 70498; 80048; 80076; 85025; 85610; 99284; Q9967

== ENCOUNTER 2024-07-09 05:34 | Emergency (ER) | payer OTHER, SELFPAY ==
[2024-07-09 05:46] VITALS: BP 182/81; PULSE 92; RESP 18; TEMP 37; O2SAT 98; BMI 27.4
--- NOTE | 2024-07-09 06:50 | ED.GENADULT ---
HPI - General Adult General Chief complaint: General Medical Stated complaint: abdominal pain Time Seen by Provider: 07/09/24 06:49 Source: patient Mode of arrival: ambulatory Limitations: no limitations History of Present Illness ED Provider: Dr. 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), presenting to the ED Related Data Previous Rx's ?Medication ?Instructions ?Recorded miconazole nitrate 2 % topical 1 appl topical BID #56.7 grams 06/29/20 ointment tamsulosin 0.4 mg capsule 0.4 mg PO BEDTIME #20 caps 06/29/20 albuterol sulfate 90 mcg/actuation 1 inh inhalation QID PRN shortness 04/27/21 aerosol inhaler (Proventil HFA) of breath or wheezing #6.7 grams azithromycin 250 mg tablet See Rx Instructions PO .COMPLEX #6 04/27/21 (Zithromax Z-Nathan) tabs prednisone 20 mg tablet 20 mg PO BID #10 tabs 04/27/21 acetaminophen 500 mg tablet 1,000 mg (2 x 500 mg) PO QID PRN 10/07/21 pain #30 tabs cephalexin 500 mg tablet 500 mg PO QID 7 days #28 tabs 10/07/21 cephalexin 500 mg tablet 500 mg PO QID 7 days #28 tabs 10/07/21 doxycycline hyclate 100 mg capsule 100 mg PO BID 7 days #14 caps 10/07/21 doxycycline hyclate 100 mg capsule 100 mg PO BID 7 days #14 caps 10/07/21 oxycodone 5 mg tablet 5 mg PO Q6H PRN pain #10 tabs 10/07/21 oxycodone 5 mg tablet 5 mg PO Q6H PRN pain #10 tabs 10/07/21 ibuprofen 600 mg tablet 600 mg PO TID PRN fever or pain 04/30/22 #20 tabs sulfamethoxazole 800 1 tab PO BID #13 tabs 04/30/22 mg-trimethoprim 160 mg tablet (Bactrim DS) mupirocin 2 % topical ointment 1 appl topical BID #50 grams 11/28/22 cephalexin 500 mg capsule 500 mg PO BID 7 days #14 caps 02/25/23 doxycycline hyclate 100 mg capsule 100 mg PO BID 7 days #14 caps 02/25/23 chlorhexidine gluconate 4 % 1 appl topical DAILY 7 days #3,800 04/24/24 topical liquid (Hibiclens) mL sulfamethoxazole 800 1 tab PO BID #14 tabs 04/24/24 mg-trimethoprim 160 mg tablet (Bactrim DS) cyclobenzaprine 10 mg tablet 10 mg PO TID PRN muscle spasm #20 05/05/24 tabs lidocaine 5 % topical patch 1 patch topical DAILY #30 ea 05/05/24 cephalexin 500 mg capsule 500 mg PO QID 10 days #40 caps 06/02/24 doxycycline hyclate 100 mg tablet 100 mg PO BID #20 tabs 06/02/24 mupirocin 2 % topical ointment 1 appl topical BID #22 grams 06/02/24 clindamycin HCl 300 mg capsule 300 mg PO TID 7 days #21 caps 06/06/24 meloxicam 15 mg tablet 15 mg PO DAILY #7 tabs 06/27/24 methocarbamol 750 mg tablet 750 mg PO Q8H #15 tabs 06/27/24 omeprazole 20 mg capsule,delayed 20 mg PO DAILY 30 days #30 caps 07/09/24 release omeprazole 20 mg capsule,delayed 20 mg PO DAILY 30 days #30 caps 07/09/24 release Allergies Allergy/AdvReac Type Severity Reaction Status Date / Time No Known Allergies Allergy Verified 07/09/24 05:53 [facility] Past Medical History Medical History Diabetes mellitus Depression Social History Social History Unable to assess alcohol history related to: Unknown Alcohol intake: never Substance Use Type: Crack/Cocaine Advance Directives: No Advance Directives Information Provided: Yes Physical Exam ED Vital Signs: Vital Signs - 24 hr 07/09/24 05:46 Temperature 98.6 F Pulse Rate 92 Respiratory Rate 18 Blood Pressure 182/81 H Pulse Oximetry 98 Oxygen Delivery Method Room Air BMI result Body Mass Index 27.4 Discharge Plan Discharge Clinical Impression: Chronic bacterial skin infection, Pityriasis versicolor Gastritis Qualifiers: Gastritis type: unspecified gastritis Gastritis bleeding: without bleeding Patient Disposition: Home, Self-Care Additional Instructions: You have 2 different rashes on your skin. The white rash is consistent with pityriasis versicolor which is a fungal infection on your skin and not in your body. Use Selsun Blue shampoo on your skin once a day and this should help the white spots fade and hopefully go away. The other other rash is consistent with chronic skin infection. This is treated with Hibiclens and you need to continue using this on your skin twice a day for the next 2 months. Your abdominal pain is consistent with gastritis, stop taking Pepcid and start taking omeprazole 20 mg once a day for 1 month. Then you can go back to taking Pepcid. You do not need any oral antibiotics at this time. This does not help with chronic skin infections. Also you do not have a parasitic infection causing your skin rashes. Follow-up with your doctor in 2 days. Please return to the emergency department if your symptoms get worse or if you develop any symptoms that are concerning to you. Prescriptions: New omeprazole 20 mg capsule,delayed release(DR/EC) 20 mg PO DAILY 30 Days Qty: 30 0RF omeprazole 20 mg capsule,delayed release(DR/EC) 20 mg PO DAILY 30 Days Qty: 30 0RF No Action miconazole nitrate 2 % ointment 1 appl topical BID Qty: 56.7 0RF tamsulosin 0.4 mg capsule 0.4 mg PO BEDTIME Qty: 20 0RF doxycycline hyclate 100 mg capsule 100 mg PO BID 7 Days Qty: 14 0RF acetaminophen 500 mg tablet 1,000 mg PO QID PRN (Reason: pain) Qty: 30 0RF cephalexin 500 mg tablet 500 mg PO QID 7 Days Qty: 28 0RF oxycodone 5 mg tablet 5 mg PO Q6H PRN (Reason: pain) Qty: 10 0RF Rx Instructions: Narcotic, no driving for 6 hours after taking this medication doxycycline hyclate 100 mg capsule 100 mg PO BID 7 Days Qty: 14 0RF cephalexin 500 mg tablet 500 mg PO QID 7 Days Qty: 28 0RF oxycodone 5 mg tablet 5 mg PO Q6H PRN (Reason: pain) Qty: 10 0RF Rx Instructions: Narcotic, no driving for 6 hours after taking azithromycin [Zithromax Z-Nathan] 250 mg tablet See Rx Instructions .ROUTE .COMPLEX Qty: 6 0RF Rx Instructions: take 500 mg today (day 1), then 250 mg for 4 days (days 2-5) prednisone 20 mg tablet 20 mg PO BID Qty: 10 0RF albuterol sulfate [Proventil HFA] 90 mcg/actuation HFA aerosol inhaler 1 inh inhalation QID PRN (Reason: shortness of breath or wheezing) Qty: 6.7 0RF sulfamethoxazole-trimethoprim [Bactrim DS] 800-160 mg tablet 1 tab PO BID Qty: 13 0RF ibuprofen 600 mg tablet 600 mg PO TID PRN (Reason: fever or pain) Qty: 20 0RF cephalexin 500 mg capsule 500 mg PO BID 7 Days Qty: 14 0RF doxycycline hyclate 100 mg capsule 100 mg PO BID 7 Days Qty: 14 0RF chlorhexidine gluconate [Hibiclens] 4 % liquid 1 appl topical DAILY 7 Days Qty: 3800 0RF Rx Instructions: use daily per package instructions until lesions appear dry sulfamethoxazole-trimethoprim [Bactrim DS] 800-160 mg tablet 1 tab PO BID Qty: 14 0RF cephalexin 500 mg capsule 500 mg PO QID 10 Days Qty: 40 0RF doxycycline hyclate 100 mg tablet 100 mg PO BID Qty: 20 0RF mupirocin 2 % ointment 1 appl topical BID Qty: 22 0RF clindamycin HCl 300 mg capsule 300 mg PO TID 7 Days Qty: 21 0RF mupirocin 2 % ointment 1 appl topical BID Qty: 50 0RF Rx Instructions: Apply to affected areas cyclobenzaprine 10 mg tablet 10 mg PO TID PRN (Reason: muscle spasm) Qty: 20 0RF lidocaine 5 % adhesive patch,medicated 1 patch topical DAILY Qty: 30 0RF Rx Instructions: leave on most painful area for up to 12 hrs meloxicam 15 mg tablet 15 mg PO DAILY Qty: 7 0RF methocarbamol 750 mg tablet 750 mg PO Q8H Qty: 15 0RF Print Language: Georgian
[2024-07-09 08:11] VITALS: BP 153/90; PULSE 72; RESP 16; TEMP -17.7; TEMP 0; O2SAT 97
== END 2024-07-09 08:12 | disposition home or self-care (01) ==
PROVIDERS: Emergency Provider Emergency Medicine Emergency Medical Services; PCP Internal Medicine
DX: K29.70 Gastritis, unspecified, without bleeding (principal); L08.89 Other specified local infections of the skin and subcutaneous tissue; B36.0 Pityriasis versicolor; R10.9 Unspecified abdominal pain
CPT/HCPCS: 99282; 99283

== ENCOUNTER 2024-08-02 15:28 | Outpatient (AMB) | payer OTHER, SELFPAY ==
--- NOTE | 2024-08-02 15:42 | A.OFFVIS_ITS ---
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: No Order Dispatcher Chief: Order Dispatcher Chief Present Allergies No Known Allergies Allergy (Verified 08/02/24 15:45) Medication List - Last Reconciled 08/02/24 by Rosi Delgadillo NP-C acetaminophen 1,000 mg (2 x 500 mg) PO QID PRN albuterol sulfate 90 mcg/actuation (Proventil HFA) 1 inh inhalation QID PRN atorvastatin 20 mg PO DAILY cyclobenzaprine 10 mg PO TID PRN losartan 25 mg PO DAILY meloxicam 15 mg PO DAILY HPI HPI 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 He was referred to Cardiology in follow- up. Today he presents for cardiology consultation. He states that he has not been diagnosed with any heart problems in the past. He does get poking pains in his left chest region. This occurs randomly and not clearly brought on by exertion. He has no concerning shortness of breath, PND, orthopnea or edema. He has no heart palpitations, lightheadedness, presyncope, syncope, falls. He does only light physical activity. It helps his friend in the auto garage at times. He gets fatigued easily with stair climbing. He falls asleep easy in the daytime. No known sleep apnea. He has chronic GI issues including discomfort, nausea, constipation. Both his parents had issues with heart disease, details unknown. Father in his 60s and mother age 52. He reports having 22 siblings and that 5 of them have from heart disease. He smokes 2 packs of cigarettes per day and has been smoking since age 17. He denies alcohol use and denies any illicit substance use. Daughter is present. [facility] Medical History (Updated 08/02/24 @ 17:05 by Rosi Delgadillo NP-C) Diabetes mellitus Depression Social History Unable to assess alcohol history related to: Unknown Alcohol intake: never Substance Use Type: Crack/Cocaine Review of Systems Const All systems reviewed & are unremarkable except as noted in HPI and below ENT Denies dizziness Card Denies chest pain, Denies chest pain at rest, Denies chest pain with activity, Denies rapid heart rate, Denies pedal edema, Denies edema, Denies leg edema, Denies lightheadedness, Denies palpitations, Denies dyspnea, Denies dyspnea on exertion and Denies orthopnea Resp Denies cough, Denies dyspnea and Denies dyspnea on exertion GI Denies hematochezia and Denies change in stool character Musc Denies abnormal gait, Denies limited range of motion, Denies muscle cramps, Denies muscle weakness, Denies numbness, Denies radiating pain into limb, Denies stiffness and Denies tingling Neuro Denies abnormal gait, Denies dizziness, Denies numbness and Denies tingling Endo Denies palpitations Physical Exam Vital Signs: Last Vital Signs Pulse 75 08/02/24 15:43 BP 114/62 08/02/24 15:43 BMI result Body Mass Index 27.1 Const General: cooperative, healthy appearing, comfortable and no acute distress Orientation/consciousness: patient oriented x3 Neck Neck: Yes normal visual inspection Resp Effort & Inspection: normal respiratory effort Auscultation: clear to auscultation bilaterally, no crackles, no rales, no rhonchi and no wheezes Cardio Jugular venous distension: no JVD Rate: regular rate Rhythm: regular rhythm Heart sounds: S1 normal heart sound present, S2 normal heart sound present, no murmurs and no rubs Neuro General: patient oriented x3 Extrem General: Yes normal to inspection and No no pedal edema Psych Appearance: grossly normal Mental Status: mental status grossly normal Speech and movement: Normal speech and movement present Office Procedures EKG Details: Today, read by me, normal sinus rhythm, rate 75, QTC 435 milliseconds [id number], Complete Assessment & Plan Assessment & Plan (1) Coronary artery calcification seen on CAT scan: Code(s): I25.10 - Atherosclerotic heart disease of [place] coronary artery without angina pectoris Category: Medical Plan: CT scan of the chest done 05/04/2024 shows focal calcified plaque at the origin of the LAD, mild coronary calcification plaque burden. He has no known cardiac history. He has atypical chest discomfort. He has multiple cardiac risk factors including hypertension, hyperlipidemia, diabetes, family history, smoking. Will check an exercise nuclear stress test to evaluate for ischemia. Will check an echocardiogram to assess for EF, wall motion or other structural issues. Will avoid the use of aspirin at this time as he has chronic GI issues including discomfort and nausea. He is on atorvastatin. [place] LDL goal less than 70. No recent lipids in our system. Will have him obtain a fasting lipid profile. He is on losartan 25 mg daily. Blood pressure currently well controlled at 114/62. The benefits of smoking cessation reviewed with him. Cardiology follow-up when results are available. Emergency care if ever needed for symptoms. (2) Hyperlipidemia: Code(s): E78.5 - Hyperlipidemia, unspecified Category: Medical Plan: As above (3) Hypertension: Code(s): I10 - Essential (primary) hypertension Category: Medical Plan: As above (4) Diabetes mellitus: Code(s): E11.9 - Type 2 diabetes mellitus without complications Category: Medical Plan: Hemoglobin A1c goal less than 7. Followed by PCP. (5) Smoking greater than 40 pack years: Comment: Admits to 2 packs a day for 40 years, 80 pack-year history. Code(s): F17.210 - Nicotine dependence, cigarettes, uncomplicated Category: Social Hx Plan: As above. (6) Hypersomnia: Code(s): G47.10 - Hypersomnia, unspecified Category: Medical Plan: Reports that he is sleepy in the daytime. He can fall asleep very easily such as when watching TV or when sitting in a car that is not moving. He has no diagnosis of sleep apnea. Will check a home sleep study for further evaluation. Plan Time spent on chart review, documentation, interview and assessment Orders: Orders RT home sleep study Today G47.10 - Hypersomnia, unspecified CA stress test Today E11.9 - Type 2 diabetes mellitus without complications, E78.5 - Hyperlipidemia, unspecified, F17.210 - Nicotine dependence, cigarettes, uncomplicated, I10 - Essential (primary) hypertension, I25.10 - Atherosclerotic heart disease of [place] coronary artery without angina pectoris NM cardiolite stress test Today E11.9 - Type 2 diabetes mellitus without complications, E78.5 - Hyperlipidemia, unspecified, F17.210 - Nicotine dependence, cigarettes, uncomplicated, I10 - Essential (primary) hypertension, I25.10 - Atherosclerotic heart disease of [place] coronary artery without angina pectoris CA echo transthoracic complete Today I10 - Essential (primary) hypertension, I25.10 - Atherosclerotic heart disease of [place] coronary artery without angina pectoris Lipid Panel Today E78.5 - Hyperlipidemia, unspecified Medications: Discontinued tamsulosin Discontinued Reason: Patient no longer taking 0.4 mg PO BEDTIME 20 caps 0RF miconazole nitrate 2% Discontinued Reason: Patient no longer taking 1 appl topical BID 56.7 grams 0RF azithromycin (Zithromax Z-Nathan) Discontinued Reason: Patient no longer taking take 500 mg today (day 1), then 250 mg for 4 days (days 2-5) 6 tabs 0RF prednisone Discontinued Reason: Patient no longer taking 20 mg PO BID 10 tabs 0RF oxycodone Narcotic, no driving for 6 hours after taking this medication Discontinued Reason: Patient no longer taking 5 mg PO Q6H PRN 10 tabs 0RF pain oxycodone Narcotic, no driving for 6 hours after taking Discontinued Reason: Patient no longer taking 5 mg PO Q6H PRN 10 tabs 0RF pain sulfamethoxazole-trimethoprim 800-160 mg (Bactrim DS) Discontinued Reason: Patient no longer taking 1 tab PO BID 13 tabs 0RF doxycycline hyclate Discontinued Reason: Patient no longer taking 100 mg PO BID 7 days 14 caps 0RF doxycycline hyclate Discontinued Reason: Patient no longer taking 100 mg PO BID 7 days 14 caps 0RF ibuprofen Discontinued Reason: Patient no longer taking 600 mg PO TID PRN 20 tabs 0RF fever or pain mupirocin 2% Discontinued Reason: Patient no longer taking 1 appl topical BID 22 grams 0RF methocarbamol Discontinued Reason: Patient no longer taking 750 mg PO Q8H 15 tabs 0RF omeprazole Discontinued Reason: Patient no longer taking 20 mg PO DAILY 30 days 30 caps 0RF mupirocin 2% Apply to affected areas Discontinued Reason: Patient no longer taking 1 appl topical BID 50 grams 0RF doxycycline hyclate Discontinued Reason: Patient no longer taking 100 mg PO BID 7 days 14 caps 0RF sulfamethoxazole-trimethoprim 800-160 mg (Bactrim DS) Discontinued Reason: Patient Completed Course 1 tab PO BID 14 tabs 0RF lidocaine 5% leave on most painful area for up to 12 hrs Discontinued Reason: Patient no longer taking 1 patch topical DAILY 30 ea 0RF doxycycline hyclate Discontinued Reason: Patient no longer taking 100 mg PO BID 20 tabs 0RF omeprazole Discontinued Reason: Patient no longer taking 20 mg PO DAILY 30 days 30 caps 0RF Coding Level of Care Code New Pt Level 4 (65106) Complex EM visit Add On G2211 Diagnoses Coronary artery calcification seen on CAT scan I25.10 Hyperlipidemia E78.5 Hypertension I10 Diabetes mellitus E11.9 Smoking greater than 40 pack years F17.210 Hypersomnia G47.10 CPT Codes EKG - CPT: [id number], Complete ([id number]) Time Spent (min) 36
[2024-08-02 15:43] VITALS: BP 114/62; PULSE 75; BMI 27.1
--- OUTSIDE RECORDS SUMMARY | 2024-08-02 19:14 | XMS_ITS | Clinical Summary ---
Author Organization [facility] Address [address] [place] [address] Phone Care Team Providers Care Director Biology Name Role Phone Donnell Tracy MD Primary Care Provider [phone] Allergies No known active allergies Medications Medication Sig Dispensed Refills Start Date End Date Status omeprazole (PriLOSEC) [address] capsule Take 1 capsule (20 mg total) by mouth 1 (one) time each day. 12/05/2023 Active buprenorphine-nal oxone (Suboxone) 2-0.[address] 1 FILM EVERY DAY BY SUBLINGUAL ROUTE NEEDED FOR 7 DAYS. 09/26/2023 Active cloNIDine (CATAPRES) 0.1 mg tablet Take 1 tablet (0.1 mg total) by mouth 2 (two) times a day. 09/18/2023 Active nicotine (NICODERM CQ) 14 mg/24 hr 10/03/2023 Active sertraline (ZOLOFT) 50 mg tablet Take 1 tablet (50 mg total) by mouth at bedtime. 09/18/2023 Active traZODone (DESYREL) 50 mg tablet Take 1 tablet (50 mg total) by mouth at bedtime. 09/18/2023 Active gabapentin (NEURONTIN) 100 mg capsule Take 1 Capsule by mouth at bedtime. 10/11/2023 Active clotrimazole (LOTRIMIN) 1 % cream Apply 1 Application topically 2 (two) times a day. 07/05/2023 Active acetaminophen (TYLENOL) 500 mg tablet Take 1 Tablet by mouth 2 times daily as needed for Pain. 05/30/2023 Active mirtazapine (REMERON) 15 mg tablet 04/27/2023 Active naloxone (NARCAN) 4 mg/0.1 mL nasal spray 04/07/2023 Active atorvastatin (LIPITOR) 20 mg tablet Take 1 tablet (20 mg total) by mouth 1 (one) time each day. 10/11/2023 Active mupirocin (BACTROBAN) 2 % ointment Use intranasally twice a day for 5 days, for you and everyone in family 22 g 06/13/2024 Active losartan (Cozaar) 25 mg tablet Take 1 tablet (25 mg total) by mouth 1 (one) time each day. 30 each 06/19/2024 06/19/2025 Active glipiZIDE (GLUCOTROL XL) 10 mg 24 hr tablet Do not crush, chew, or split.Take 1 Tablet by mouth 2 times daily (with meals). 180 tablet 06/25/2024 Active Sublocade 100 mg/0.5 mL ER injection 07/17/2024 Active chlorhexidine (Hibiclens) 4 % external liquid Apply topically 1 (one) time each day if needed for wound care for up to 14 days. 120 mL 06/19/2024 07/03/2024 doxycycline (VIBRAMYCIN) 100 mg capsule Take 1 capsule (100 mg total) by mouth 2 (two) times a day for 20 days. Take with at least 8 ounces (large glass) of water, do not lie down for 30 minutes after 40 each 06/19/2024 07/09/2024 Active Problems Problem Noted Date Diagnosed Date MRSA (methicillin resistant staph aureus) cultur e positive 10/13/2023 BPH (benign prostatic hyperplasia) 05/22/2021 Overview (04/26/2024): CT Scan 05/2021: Mass-effect upon the base of the urinary bladder by a moderately enlarged prostate. Type 2 diabetes mellitus with microalbuminuria 0 07/22/2020 Hyperlipidemia 05/23/2013 Chronic headache disorder 10/31/2012 Overview (04/26/2024): Chronic daily use of aspirin and NSAID preparations. Gastritis and duodenitis 10/31/2012 Overview (04/26/2024): EGD plus biopsies 10/31/2012, erosive duodenitis, no evidence of H. pylori infection. Constipation 04/25/2012 Anxiety 04/14/2012 Illicit drug use 04/06/2012 Polysubstance abuse 09/27/2009 Chronic pain 09/26/2009 GERD (gastroesophageal reflux disease) 0 Overview (04/26/2024): Mild erosive esophagitis on EGD 10/31/2012: CT scan 05/2021: Small sliding-type hiatal hernia. Tobacco use disorder 09/26/2009 Encounters Date Type Department Care Team Description 07/19/2024 2:20 PM EST Consult Gastroenterology - [place] [address] [facility] [address] [place] [id number] Yusra Braun NP Abdominal bloating (Primary Dx); Gastroesophageal reflux disease without esophagitis; Drug-induced constipation; Early satiety 06/28/2024 11:55 AM EST Lab Draw Station [address] [address] 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/HCC); Polyarthralgia 06/25/2024 1:47 PM EST - 06/25/2024 11:59 PM EST Hospital Encounter [facility] CT Scan [address] [place] [phone] Encounter for screening for malignant neoplasm of respiratory organs; Nicotine dependence, cigarettes, uncomplicated Discharge Disposition: Home or Self Care 06/19/2024 2:15 PM EST - 06/19/2024 11:59 PM EST Hospital Encounter Xray - [facility] [address] [place] [address] Abnormal CXR Discharge Disposition: Home or Self Care 06/19/2024 1:15 PM EST Office Visit Internal Medicine - [facility] [address] [place] [address] Meli Garza NP Primary hypertension (Primary Dx); Abnormal CXR; History of drug abuse (CMS/HCC); Type 2 diabetes mellitus with microalbuminuria ([facility]); Long-term use of high-risk medication; Skin lesions, generalized; Epigastric pain; Polyarthralgia 06/19/2024 Telephone Lung Screening Program - [place] [address] [facility] [address] [place] [phone] Shilpa Milton [place] Appointment (Upcoming LDCT) 06/13/2024 2:30 PM EST Consult Infectious Disease [facility] [address] [facility] [address] [place] [phone] Sofiya Bess MD Wounds, multiple (Primary Dx); Drug use 05/29/2024 Telephone Infectious Disease - [place] [address] [facility] [address] [place] [address] Sofiya Bess MD Med Refill 05/17/2024 Telephone Internal Medicine - [facility] [address] [place] [phone] Donnell Tracy MD cardiac symptoms 05/07/2024 9:00 AM EST Consult [facility] [address] [place] [phone] aPulo Leal MD MRSA (methicillin resistant staph aureus) culture positive (Primary Dx); Multiple wounds of skin from Last 3 Months Immunizations Name Administration Dates Next Due Influenza Quadravalent, MDCK , 0.5ml, preservative free (Flucelvax) 6mo and older 07/22/2021,07/15/2020 Influenza trivalent, 0.5mL, preservative free (Fluarix; FluLaval; Fluzone) ages 6mo and older (Afluria) 3 years and older 07/30/2016,05/23/2013,04/25/2012 Influenza, Unspecified 05/10/2022 Moderna SARS-CoV-2 COVID-19, mRNA, LNP-S, preservative free 07/31/2021 Pneumococcal polysaccharide 23 valent (Pneumovax 23) 2yo and older 04/25/2012 Tdap Tetanus diptheria acell ular pertussis (Boostrix; Adacel) 7yo and older 07/27/2022,04/25/2012 Surgical History Surgery Date Site/Laterality Comments OTHER SURGICAL HISTORY PROCEDURE: ---- OTHER ----; COMMENT: shoulder surgery UPPER GASTROINTESTINAL ENDOSCOPY 2012 PROCEDURE: [place] UPPER GI ENDOSCOPY PERFORMED; COMMENT: gastric and duodenal bx: Erosive duodenitis, no H. pylori infection. COLONOSCOPY 2012 PROCEDURE: HISTORICAL COLONOSCOPY; COMMENT: 7 mm sigmoid colon polyp: Tubular adenoma COLONOSCOPY 08/22/2020 PROCEDURE: HISTORICAL COLONOSCOPY; COMMENT: No polyps, repeat in 5 years. Medical History Medical History Date Comments Anxiety 04/14/2012 DX:Anxiety Constipation 04/25/2012 DX:Constipation Rash of groin 08/07/2012 DX:Rash of groin Chronic headache disorder 10/31/2012 DX:Chr onic headache disorder Hyperlipidemia 05/23/2013 DX:Hyperlipidemi a Prediabetes 12/05/2012 DX:Prediabetes GERD (gastroesophageal reflu x disease) 09/26/2009 DX:GERD (gastroesophageal re flux disease); COMMENT: Mild erosive esophagitis on EGD 10/31/2012: Gastritis and duodenitis 10/31/2012 DX:Jane ritis and duodenitis; COMMENT: EGD plus biopsies 10/31/2012, erosive duodenitis, no evidence of H. pylori infection. Polysubstance abuse (CMS/HCC) 09/27/2009 DX :Polysubstance abuse (HCC) Cigarette smoker 07/15/2020 DX:Cigarette sm oker Type 2 diabetes mellitus wit h microalbuminuria (CMS/HCC) 07/22/2020 DX:Type 2 diabetes mellitus with microalbuminuria ([facility]) CAD (coronary artery disease) 05/05/2024 Family History Medical History Relation Name Comments Coronary artery disease Brother Coronary artery disease Father Colon cancer Mother Diabetes Mother stomach problem s, cad Lung cancer Neg Hx Relation Name Status Comments Brother Father (Age 62) Mother (Age 52) Social History Tobacco Use Types Packs/Day Years Used Date Smoking Tobacco: Every Day Cigarettes Smokeless Tobacco: Never Alcohol Use Standard Drinks/Week Comments No 0 (1 standard drink = 0.6 oz pur e alcohol) Sex and Gender Information Value Date Recorded Sex Assigned at Male 06/21/2024 10:21 AM EST Gender Identity Male 06/21/2024 10:21 AM EST Sexual Orientation Straight 06/21/2024 10 :21 AM EST Job Start Date Occupation Industry Not on file Not on file Not on file Obstetrics History Last Filed Vital Signs Vital Sign Reading Time Taken Comments Blood Pressure 130/80 07/19/2024 2:22 PM EST Pulse 86 07/19/2024 2:22 PM EST Temperature 36.3 ??C (97.3 ??F) 06/13/2024 2:39 PM ES T Respiratory Rate 18 05/07/2024 9:24 AM EST Oxygen Saturation 97% 07/19/2024 2:22 PM EST Inhaled Oxygen Concentration - - Weight 84.4 kg (186 lb) 07/19/2024 2:22 PM EST Height 175.3 cm (5' 9 ) 07/19/2024 2:22 PM EST Body Mass Index 27.47 07/19/2024 2:22 PM EST Plan of Treatment Upcoming Encounters Date Type Department Care Team (Late st Contact Info) Description 08/22/2024 8:15 AM EST Appointment [facility] Nuclear Medicine [address] [place] [phone] Health Maintenance Due Date Last Done Comments Diabetes: Annual Foot Exam 1976 Diabetes: Annual Retina Eye Exam 1976 Hepatitis A Vaccines (1 of 2 - Risk 2-dose series) 1985 Hepatitis B Vaccines (1 of 3 - 19+ 3-dose series) 1985 Pneumococcal Vaccine: Pediatrics (0 to 5 Years) and At-Risk Patients (6 to 64 Years) (2 of 2 - PCV) 04/25/2013 04/25/2012 Zoster Vaccines (1 of 2) 2016 Social Influencers of Health Screening 06/12/2022 COVID-19 Vaccine ( season) 2024 12/13/2021, 07/31/2021, 07/02/2021 Influenza Vaccine (#1) 2024 2, 07/22/2021, 07/15/2020, Additional history exists Diabetes: Annual Urine Albumin-Creatinine Ratio (uACR) 06/07/2024 06/07/2023 Depression Screening 10/10/2024 10/11/2023 Diabetes: Blood Sugar Control Test (HGBA1C) 12/27/2024 06/28/2024, 09/26/2023 Diabetes: Annual GFR (Glomerular Filtration Rate) 06/19/2025 06/19/2024, 06/07/2023 Hypertension/CHF/CAD Annual BMP Blood Test 06/19/2025 06/19/2024, 06/07/2023 Lung Cancer Screening (Low Dose CT) 06/25/2025 06/25/2024, 07/06/2023, 05/10/2022 Colorectal Cancer Screening: Colonoscopy 08/22/2025 08/22/2020 Cholesterol Screening (Lipid Panel) 06/19/2029 06/19/2024, 06/07/2023 DTaP,Tdap,and Td Vaccines (4 - Td or Tdap) 07/27/2032 07/27/2022, 10/07/2021, 04/25/2012 HIV Screening Completed 06/19/2024, 07/21/2020 Hepatitis C Screening Completed 06/19/2024, 023 HIB Vaccines Aged Out No longer eligi ble based on patient's age to complete this topic HPV Vaccines Aged Out No longer eligi ble based on patient's age to complete this topic IPV Vaccines Aged Out No longer eligi ble based on patient's age to complete this topic MMR Vaccines Aged Out No longer eligi ble based on patient's age to complete this topic Meningococcal ACWY Vaccine Aged Out N o longer eligible based on patient's age to complete this topic RSV Immunization Patients Under 20 months Aged Out No longer eligible based on patient's age to complete this topic Varicella Vaccines Aged Out No longer eligible based on patient's age to complete this topic Procedures Procedure Name Priority Date/Time Associated Diagnosis Comments LA NENA IFA WITH TITER AND PATTERN Routine 06/28/2024 11:57 AM EST Polyarthralgia HEMOGLOBIN A1C Routine 06/28/2024 11:57 AM EST 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/HCC) CT LUNG SCREENING Routine 06/25/2024 2:2 8 PM EST Encounter for screening for malignant neoplasm of respiratory organs Nicotine dependence, cigarettes, uncomplicated GASTROINTESTINAL PATHOGENS BY PCR Routine 06/21/2024 9:46 AM EST Epigastric pain CULTURE WOUND WITH GRAM STAIN Routine 06/19/2024 3:03 PM EST Skin lesions, generalized XR CHEST 2 VIEWS Routine 06/19/2024 2:24 PM EST Abnormal CXR HEPATITIS C ANTIBODY Routine 06/19/2024 2:21 PM EST Wounds, multiple Drug use STRONGYLOIDES ANTIBODY, IGG Routine 06/19/2024 2:21 PM EST Wounds, multiple Drug use LIPID PANEL WITH REFLEX TO DIRECT LDL Routine 06/19/2024 2:21 PM EST 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/HCC) COMPREHENSIVE METABOLIC PANEL Routine 06/19/2024 2:21 PM EST 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/HCC) DRUG ABUSE SCREEN 8A PANEL, URINE Routine 06/19/2024 2:21 PM EST Long-term use of high-risk medication LA NENA IFA WITH TITER AND PATTERN Routine 06/19/2024 2:21 PM EST Wounds, multiple Drug use LUPUS ANTICOAGULANT WITH REFLEX TO MIXING STUDIES Routine 06/19/2024 2:21 PM EST Wounds, multiple Drug use ANTI-NEUTROPHILIC CYTOPLASMIC ANTIBODY Routine 06/19/2024 2:21 PM EST Wounds, multiple Drug use TREPONEMA PALLIDUM ANTIBODY WITH REFLEX TO RPR AND PARTICLE AGGLUTINATION Routine 06/19/2024 2:21 PM EST Wounds, multiple Drug use HIV 1, 2 ANTIBODY, P24 ANTIGEN WITH REFLEX TO DIFFERENTIATION Routine 06/19/2024 2:21 PM EST Wounds, multiple Drug use CULTURE WOUND WITH GRAM STAIN Routine 05/07/2024 11:20 AM EST Multiple wounds of skin MRSA (methicillin resistant staph aureus) culture positive HM DEPRESSION SCREENING Routine 10/11/2023 URINE ALBUMIN CREATININE RATIO Routine 06/07/2023 COLONOSCOPY Routine 08/22/2020 from Last 3 Months or Most Recently Relevant to Health Maintenance Results * LA NENA IFA with titer and pattern (06/28/2024 11:57 AM EST) Only the most recent of2 resultswithin the time period is included. LA NENA Negative Negative 06/29/2024 12:13 PM EST [facility] Blood Venous blood specimen / Unknown Venipuncture / Unknown 06/28/2024 11:57 AM EST 06/28/2024 11:57 AM EST Meli Garza NP LAB BLOOD ORDERABLES Performing Organization Address City/[facility]/ZIP Co de Phone Number [facility] [address] [place] [address], * (ABNORMAL) Hemoglobin A1c (06/28/2024 11:57 AM EST) Hemoglobin A1C 7.4(H) <6.5 % LAB CHEMISTRY METHOD 06/28/2024 7:25 PM EST [facility] Mean Bld Glu Estim. 166 mg/dL LAB CHEMISTRY METHOD 06/28/2024 7:25 PM EST [facility] Blood Venous blood specimen / Unknown Venipuncture / Unknown 06/28/2024 11:57 AM EST 06/28/2024 11:57 AM EST Meli Garza NP LAB BLOOD ORDERABLES Performing Organization Address City/[facility]/ZIP Co de Phone Number [facility] [address] [place] [address], * CT Lung Screening (06/25/2024 2:28 PM EST) Anatomical Region Laterality Modality Chest Computed Tomogra phy 06/26/2024 12:4 6 PM EST Impressions 06/26/2024 12:56 PM EST No suspicious mass or nodule. Smoking-related lung disease. ?? LUNG RADS: Lung-RADS 2: BENIGN S Modifier (Significant or Potentially Significant Findings): None present No suspicious nonpulmonary findings. RECOMMENDATIONS: 12 month screening low dose CT -------- FINAL REPORT -------- Dictated By: Gregory Kimble Dictated Date: 06/26/2024 12:46 ET Assigned Physician: Gregory Kimble Reviewed and Electronically Signed By: Gregory Kimble Signed Date: 06/26/2024 12:56 ET Workstation ID: [id number] Transcribed By: Self Edit Transcribed Date: 06/26/2024 12:46 ET Narrative 06/26/2024 12:56 PM EST EXAMINATION: CT CHEST WITHOUT CONTRAST LUNG CANCER SCREENING, LOW DOSE CLINICAL INFORMATION: Lung cancer screening. ??Current smoker COMPARISON: Portions of a previous 06/21/2023 ?? TECHNIQUE: Multidetector CT. Examination of the chest. Examination of the chest without IV contrast. Reformatting in the coronal and sagittal planes. Device: UB Access VCT DLP: 168 mGy-cm CTDI: 4.83 Dose optimization was performed including the use of low-dose iterative reconstruction technique with automatic exposure control based on patient size. Type of contrast: None Volume of IV contrast: None Volume of contrast discarded: 0 mL FINDINGS: LUNG: No abnormality of the trachea or mainstem bronchi. No focal pneumonia. ?? LUNG NODULES: There are no suspicious nodules or masses. OTHER PULMONARY: ??There are stable small peripheral nodules which are likely postinflammatory. There are scattered centrilobular micronodules in there are some nonspecific dependent lung densities. These are likely smoking-related. There are some areas of small airway thickening/secretions. MEDIASTINUM: ??There are no enlarged mediastinal or hilar lymph nodes. No suspicious abnormalities of the esophagus CARDIAC: The heart is not enlarged. No pericardial fluid or thickening ?? There are moderate coronary calcifications. VASCULAR: There is no thoracic aortic aneurysm. The main pulmonary artery is normal caliber ?? PLEURA: There is no pleural fluid or pneumothorax ?? AXILLA/CHEST WALL: There are no enlarged axillary lymph nodes. No chest wall mass demonstrated ?? VISUALIZED UPPER ABDOMEN: ??No suspicious abnormality on limited assessment of the visualized upper abdomen MUSCULOSKELETAL: No suspicious focal bony lesion demonstrated. Procedure Note Gregory Kimble MD - 06/26/2024 EXAMINATION: CT CHEST WITHOUT CONTRAST LUNG CANCER SCREENING, LOW DOSE CLINICAL INFORMATION: Lung cancer screening. Current smoker COMPARISON: Portions of a previous 06/21/2023 TECHNIQUE: Multidetector CT. Examination of the chest. Examination of the chest without IV contrast. Reformatting in the coronal and sagittal planes. Device: UB Access VCT DLP: 168 mGy-cm CTDI: 4.83 Dose optimization was performed including the use of low-dose iterativereconstruction technique with automatic exposure control based on patientsize. Type of contrast: None Volume of IV contrast: None Volume of contrast discarded: 0 mL FINDINGS: LUNG: No abnormality of the trachea or mainstem bronchi. No focalpneumonia. LUNG NODULES: There are no suspicious nodules or masses. OTHER PULMONARY: There are stable small peripheral nodules which arelikely postinflammatory. There are scattered centrilobular micronodules in there are somenonspecific dependent lung densities. These are likely smoking-related.There are some areas of small airway thickening/secretions. MEDIASTINUM: There are no enlarged mediastinal or hilar lymph nodes. Nosuspicious abnormalities of the esophagus CARDIAC: The heart is not enlarged. No pericardial fluid or thickening There are moderate coronary calcifications. VASCULAR: There is no thoracic aortic aneurysm. The main pulmonary arteryis normal caliber PLEURA: There is no pleural fluid or pneumothorax AXILLA/CHEST WALL: There are no enlarged axillary lymph nodes. No chestwall mass demonstrated VISUALIZED UPPER ABDOMEN: No suspicious abnormality on limited assessmentof the visualized upper abdomen MUSCULOSKELETAL: No suspicious focal bony lesion demonstrated. IMPRESSION: No suspicious mass or nodule. Smoking-related lung disease. LUNG RADS: Lung-RADS 2: BENIGN S Modifier (Significant or Potentially Significant Findings): Nonepresent No suspicious nonpulmonary findings. RECOMMENDATIONS: 12 month screening low dose [address] -------- FINAL REPORT -------- Dictated By: Gregory Kimble Dictated Date: 06/26/2024 12:46 ET Assigned Physician: Gregory Kimble Reviewed and Electronically Signed By: Gregory Kimble Signed Date: 06/26/2024 12:56 ET Workstation ID: [id number] Transcribed By: Self Edit Transcribed Date: 06/26/2024 12:46 ET Leonarda Gomez MD IMG CT PROCEDURES * Gastrointestinal pathogens molecular study (06/21/2024 9:46 AM EST) Campylobacter Detection by PCR Not Detected Not Detected LAB MICROBIOLOGY METHOD 4 1:53 PM [facility] Plesiomonas shigelloides Detection by PCR Not Detected Not Detected LAB MICROBIOLOGY METHOD 4 1:53 PM [facility] Salmonella Detection by PCR Not Detected Not Detected LAB MICROBIOLOGY METHOD 4 1:53 PM [facility] Vibrio Detection by PCR Not Detected Not Detected LAB MICROBIOLOGY METHOD 4 1:53 PM [facility] Vibrio cholerae Detection by PCR Not Detected Not Detected LAB MICROBIOLOGY METHOD 4 1:53 PM [facility] Yersinia enterocolitica Detection by PCR Not Detected Not Detected LAB MICROBIOLOGY METHOD 4 1:53 PM [facility] Enteroaggregative E coli EAEC Detection by PCR Not Detected Not Detected LAB MICROBIOLOGY METHOD 4 1:53 PM [facility] Enteropathogenic E coli EPEC Detection Not Detected Not Detected LAB MICROBIOLOGY METHOD 4 1:53 PM [facility] Enterotoxigenic E coli ETEC LTST Detection Not Detected Not Detected LAB MICROBIOLOGY METHOD 4 1:53 PM [facility] Shiga-like toxin producing E coli STEC STX1 STX2 Det Not Detected Not Detected LAB MICROBIOLOGY METHOD 4 1:53 PM [facility] Shigella Enteroinvasive E coli EIEC Detection Not Detected Not Detected LAB MICROBIOLOGY METHOD 4 1:53 PM [facility] Cryptosporidium Detection by PCR Not Detected Not Detected LAB MICROBIOLOGY METHOD 4 1:53 PM [facility] Cyclospora cayetanensis Detection by PCR Not Detected Not Detected LAB MICROBIOLOGY METHOD 4 1:53 PM [facility] Entamoeba histolytica Detection by PCR Not Detected Not Detected LAB MICROBIOLOGY METHOD 4 1:53 PM [facility] Giardia lamblia Detection by PCR Not Detected Not Detected LAB MICROBIOLOGY METHOD 4 1:53 PM [facility] Adenovirus F 40 41 Detection by PCR Not Detected Not Detected LAB MICROBIOLOGY METHOD 4 1:53 PM [facility] Astrovirus Detection by PCR Not Detected Not Detected LAB MICROBIOLOGY METHOD 4 1:53 PM [facility] Norovirus GI GII Detection by PCR Not Detected Not Detected LAB MICROBIOLOGY METHOD 4 1:53 PM [facility] Sapovirus Detection by PCR Not Detected Not Detected LAB MICROBIOLOGY METHOD 4 1:53 PM [facility] Rotavirus A Detection by PCR Not Detected Not Detected LAB MICROBIOLOGY METHOD 4 1:53 PM [facility] Stool Rectum structure / Unknown Non-blood Collection / Unknown 06/21/2024 9:46 AM EST 06/21/2024 9:46 AM EST [facility] - 06/21/2024 1:53 PM EST PCR testing is much more sensitive than traditional techniques and allows for the detection of low numbers of stool pathogens. The clinical correlation of PCR results with the need for treatment and clinical outcomes has not been established. Therefore the results of PCR testing for stool pathogens must be taken into clinical context when making treatment decisions. This is a diagnostic test only, repeat testing for cure is not advised. You may consider infectious disease consult for additional guidance. ??Testing Performed by MULTIPLEXED PCR Meli Garza NP LAB MICROBIOLOGY - G ENERAL ORDERABLES Performing Organization Address [facility] Co de Phone Number [facility] [address] [place] [address], * Culture wound with gram stain (06/19/2024 3:03 PM EST) Only the most recent of2 resultswithin the time period is included. Culture, Wound No pathogens isolated. 06/22/2024 8:45 AM EST [facility] Gram Stain Result No polymorphonuclear leukocytes, No epithelial cells, and No organisms noted 06/22/2024 8:45 AM EST [facility] Swab Structure of left upper limb / Unknown Non-blood Collection / Unknown 06/19/2024 3:03 PM EST 06/19/2024 3:09 PM EST Narrative [facility] - 06/22/2024 8:45 AM EST Sparse mixed normal skin sandra present Meli Garza SCIENTIFIC RECRUITER LAB MICROBIOLOGY - G ENERAL ORDERABLES Performing Organization Address [facility] de Phone Number [facility] [address] [place] [address], * XR Chest 2 Views (06/19/2024 2:24 PM EST) Anatomical Region Laterality Modality Body Radiographic Karla ging 06/21/2024 9:20 AM EST Impressions 06/21/2024 9:23 AM EST Impression: No evidence of active pathology in the chest. -------- FINAL REPORT -------- Dictated By: Efrem Burns Dictated Date: 06/21/2024 09:20 ET Assigned Physician: Efrem Burns Reviewed and Electronically Signed By: Efrem Burns Signed Date: 06/21/2024 09:23 ET Workstation ID: [id number] Transcribed By: Self Edit Transcribed Date: 06/21/2024 09:20 ET Narrative 06/21/2024 9:23 AM EST History: Abnormal chest x-ray. Chest PA and lateral: Previous radiographs are not available for comparison. ??The lungs are clear. ??There are no infiltrates or effusions. The vasculature is not congested. The cardiac and mediastinal silhouettes appear normal. ??Bony structures are radiographically intact. Procedure Note Efrem Burns MD - 06/21/2024 History: Abnormal chest x-ray. Chest PA and lateral: Previous radiographs are not available forcomparison. The lungs are clear. There are no infiltrates or effusions.The vasculature is not congested. The cardiac and mediastinal silhouettesappear normal. Bony structures are radiographically intact. IMPRESSION: Impression: No evidence of active pathology in the chest. -------- FINAL REPORT -------- Dictated By: Efrem Burns Dictated Date: 06/21/2024 09:20 ET Assigned Physician: Efrem Burns Reviewed and Electronically Signed By: Efrem Burns Signed Date: 06/21/2024 09:23 ET Workstation ID: [id number] Transcribed By: Self Edit Transcribed Date: 06/21/2024 09:20 ET Meli Garza NP IMG XR PROCEDURES * Hepatitis C antibody (06/19/2024 2:21 PM EST) [facility] Hepatitis C Antibody Negative Negative LAB CHEMISTRY METHOD 06/19/2024 7:07 PM EST [facility] Blood Venous blood specimen / Unknown Venipuncture / Unknown 06/19/2024 2:21 PM EST 06/19/2024 2:21 PM EST Sofiya Bess MD LAB BLOOD ORDERABLES [facility] [address] [place] [address], * HIV 1,2 antibody, p24 antigen with reflex to differentiation (06/19/2024 2:21 PM EST) [facility] HIV Combo AB/AG Negative Negative LAB CHEMISTRY METHOD 06/19/2024 7:08 PM EST [facility] Blood Venous blood specimen / Unknown Venipuncture / Unknown 06/19/2024 2:21 PM EST 06/19/2024 2:21 PM EST Narrative [facility] - 06/19/2024 7:08 PM EST This assay is a 4th generation assay allowing for earlier detection of HIV infection by detecting the presence of the HIV-1 p24 antigen as well as the traditional antibodies to HIV type 1 (including group O) and type 2. ??Use of a 4th generation assay is the current CDC recommendation for HIV screening. Sofiya Bess MD LAB BLOOD ORDERABLES Performing Organization Address City/[facility]/ZIP Co de Phone Number [facility] [address] [place] [address], [place] [phone] * Treponema pallidum antibody with reflex to RPR and particle agglutination (06/19/2024 2:21 PM EST) Pathologist [facility] T. Pallidum Antibodies Negative Negative LAB CHEMISTRY METHOD 06/19/2024 6:40 PM EST [facility] Blood Venous blood specimen / Unknown Venipuncture / Unknown 06/19/2024 2:21 PM EST 06/19/2024 2:21 PM EST Sofiya Bess MD LAB BLOOD ORDERABLES [facility] [address] [place] [address], [place] [phone] * (ABNORMAL) Lipid panel with reflex to direct LDL (06/19/2024 2:21 PM EST) Cholesterol 167 0 - 200 mg/dL LAB CHEMISTRY METHOD 06/19/2024 6:21 PM EST [facility] Triglycerides 181(H) 0 - 150 mg/dL LAB CHEMISTRY METHOD 06/19/2024 6:21 PM EST [facility] HDL 34(L) >=40 mg/dL LAB CHEMISTRY METHOD 06/19/2024 6:21 PM EST [facility] LDL Calculated 97 0 - 100 mg/dL LAB CHEMISTRY METHOD 06/19/2024 6:21 PM EST [facility] VLDL Cholesterol Vinnie 36.2 mg/dL LAB CHEMISTRY METHOD 06/19/2024 6:21 PM EST [facility] Non HDL Chol. (LDL+VLDL) 133 <145 mg/dL LAB CHEMISTRY METHOD 06/19/2024 6:21 PM EST [facility] Chol/HDL Ratio 4.9(H) 0.0 - 4.4 LAB CHEMISTRY METHOD 06/19/2024 6:21 PM EST [facility] Blood Venous blood specimen / Unknown Venipuncture / Unknown 06/19/2024 2:21 PM EST 06/19/2024 2:21 PM EST Meli Garza NP LAB BLOOD ORDERABLES [facility] [address] [place] [address], * Strongyloides antibody, IgG (06/19/2024 2:21 PM EST) Strongyloides Antibody 0.3 <=0.9 IV 06/25/2024 7:07 AM EST [facility] Comment: INTERPRETIVE INFORMATION: Strongyloides Ab, IgG by [place] ??0.9 IV or less....... Negative - No significant ?level of Strongyloides IgG ?antibody detected. ??1.0 IV................Equivocal - The Strongyloides IgG ?antibody result is borderline and ?therefore inconclusive. Recommend ?retesting the patient in 2-4 weeks, ?if clinically indicated. ??1.1 IV or greater ... Positive - IgG antibodies to ?Strongyloides detected, which ?may suggest current or past ?infection. False-positive results may occur with prior exposure to other helminth infections. Testing low-prevalence populations may also result in false-positive results. Performed By: [employer] [address] [place] [id number] Locomotive Observer: Monty Elizalde MD, PhD CLIA Number: [id number] Blood Venous blood specimen / Unknown Venipuncture / Unknown 06/19/2024 2:21 PM EST 06/19/2024 2:21 PM EST Sofiya Bess MD LAB BLOOD ORDERABLES [facility] [address] [place] [address] * (ABNORMAL) Drug abuse screen 8a panel, urine (06/19/2024 2:21 PM EST) [facility] Amphetamine Screen, Ur Negative Negative LAB CHEMISTRY METHOD 4 6:28 PM EST [facility] Comment:Certain OTC medicati ons containing ephedrine, phenylephrine, pseudoephedrine and phenylpropanolamine can cause false positive results. Barbiturate Screen, Ur Negative Negative LAB CHEMISTRY METHOD 4 6:28 PM EST [facility] Benzodiazepine Screen, Ur Negative Negative LAB CHEMISTRY METHOD 4 6:28 PM EST [facility] Cocaine Screen, Ur Negative Negative LAB CHEMISTRY METHOD 4 6:28 PM [facility] Opiate Screen, Ur Negative Negative LAB CHEMISTRY METHOD 4 6:28 PM [facility] Cannabinoid (THC) Screen, Ur Positive(A ) Negative LAB CHEMISTRY METHOD 4 6:28 PM [facility] Comment:Specimens from patie nts taking pantoprazole sodium (Protonix) have been shown to produce false positive results. Oxycodone Screen, Ur Negative Negative LAB CHEMISTRY METHOD 4 6:28 PM [facility] Fentanyl, Ur Negative Negative LAB CHEMISTRY METHOD 4 6:28 PM [facility] Urine Urine specimen obtained by clean catch procedure / Unknown Non-blood Collection / Unknown 06/19/2024 2:21 PM EST 06/19/2024 2:21 PM EST [facility] - 06/19/2024 6:28 PM EST Assay cutoffs: Amphetamines ? 1000 ng/mL Barbiturates ?200 ng/mL Benzodiazepines ?? 200 ng/mL Cocaine ? 300 ng/mL Fentanyl ?1 ng/mL Opiates ? 300 ng/mL Oxycodone ? 100 ng/mL THC ?50 ng/mL Semi-quantitative assay for screening purposes only. Unconfirmed screening result should not be used for non-medical purposes. *ALTERNATE METHOD CONFIRMATION DONE UPON REQUEST ONLY* Meli Garza NP LAB URINE ORDERABLES [facility]) [facility] [address] [place] [address], * Lupus anticoagulant with reflex to mixing studies (06/19/2024 2:21 PM EST) APTT 42 <43 Sec(s) 06/22/2024 12:58 PM EST [facility] aPTT Mix 1:1 NA Sec(s) 06/22/2024 12:58 PM EST [facility] Hexagonal Phase Neutralization NA 06/22/2024 12:58 PM EST [facility] Dilute Nahun Viper Venom 35 <44 Sec(s) 06/22/2024 12:58 PM EST [facility] DRVVT 1:1 Mix NA Sec(s) 06/22/2024 12:58 PM EST [facility] DRVVT Confirmation NA 2023 12:58 PM EST [facility] Interpretation SEE BELOW 06/22/2024 12:58 PM EST [facility] Comment: Lupus anticoagulant not detected. Test performed at [facility], [address] , [place], [place] ??[address] ? [phone] Qi Figueroa MD, PhD - Shot Packer Blood Venous blood specimen / Unknown Venipuncture / Unknown 06/19/2024 2:21 PM EST 06/19/2024 2:21 PM EST Sofiya Bess MD LAB BLOOD ORDERABLES [facility] [address] [place] [address] * Anti-neutrophilic cytoplasmic antibody (06/19/2024 2:21 PM EST) Pathologist [facility] Myeloperoxidase Ab Negative Negative LAB CHEMISTRY METHOD 06/20/2024 1:02 PM EST [facility] Myeloperoxidase Ab, Quant 15 <=20 units LAB CHEMISTRY METHOD 06/20/2024 1:02 PM EST [facility] Proteinase-3 Ab Negative Negative LAB CHEMISTRY METHOD 06/20/2024 1:02 PM [facility] Proteinase-3 Ab Quant 10 <=20 units LAB CHEMISTRY METHOD 06/20/2024 1:02 PM EST [facility] Blood Venous blood specimen / Unknown Venipuncture / Unknown 06/19/2024 2:21 PM EST 06/19/2024 2:21 PM EST Sofiya Bess MD LAB BLOOD ORDERABLES [facility] [address] [place] [address], [place] [phone] * (ABNORMAL) Comprehensive metabolic panel (06/19/2024 2:21 PM EST) Sodium 137 133 - 145 mmol/L LAB CHEMISTRY METHOD 06/19/2024 6:23 PM [facility] Potassium 3.7 3.5 - 5.5 mmol/L LAB CHEMISTRY METHOD 06/19/2024 6:23 PM [facility] Chloride 106 96 - 110 mmol/L LAB CHEMISTRY METHOD 06/19/2024 6:23 PM [facility] CO2 29 21 - 32 mmol/L LAB CHEMISTRY METHOD 06/19/2024 6:23 PM [facility] Anion Gap 2(L) 3 - 11 LAB CHEMISTRY METHOD 06/19/2024 6:23 PM [facility] Glucose 155(H) 70 - 100 mg/dL LAB CHEMISTRY METHOD 06/19/2024 6:23 PM [facility] BUN 16 5 - 25 mg/dL LAB CHEMISTRY METHOD 06/19/2024 6:23 PM [facility] Creatinine 1.06 0.70 - 1.30 mg/dL LAB CHEMISTRY METHOD 06/19/2024 6:23 PM [facility] eGFR 82 >=60 mL/min/1. 73m2 LAB CHEMISTRY METHOD 06/19/2024 6:23 PM [facility] Comment:Calculation based on the??Chronic Kidney Disease Epidemiology Collaboration (CKD-EPI) equation refit??without adjustment for race. BUN/Creatinine Ratio 15.1 LAB CHEMISTRY METHOD 06/19/2024 6:23 PM [facility] Calcium 9.5 8.5 - 10.5 mg/dL LAB CHEMISTRY METHOD 06/19/2024 6:23 PM [facility] AST (SGOT) 13 10 - 42 unit/L LAB CHEMISTRY METHOD 06/19/2024 6:23 PM [facility] ALT (SGPT) 25 10 - 60 unit/L LAB CHEMISTRY METHOD 06/19/2024 6:23 PM [facility] Alkaline Phosphatase 69 42 - 121 unit/L LAB CHEMISTRY METHOD 06/19/2024 6:23 PM [facility] Total Protein 7.5 6.0 - 8.0 g/dL LAB CHEMISTRY METHOD 06/19/2024 6:23 PM [facility] Albumin 4.0 3.2 - 5.0 g/dL LAB CHEMISTRY METHOD 06/19/2024 6:23 PM [facility] Total Bilirubin 0.4 0.0 - 1.4 mg/dL LAB CHEMISTRY METHOD 06/19/2024 6:23 PM [facility] Blood Venous blood specimen / Unknown Venipuncture / Unknown 06/19/2024 2:21 PM EST 06/19/2024 2:21 PM EST Meli Garza NP LAB BLOOD ORDERABLES [facility] [address] [place] [address], * Depression Screening (10/11/2023) Pathologist [facility] Depression Screening abstracted Historical Provider MD [facility] Urine Albumin Creatinine Ratio (06/07/2023) [facility] Urine Albumin Creatinine Ratio abstracted Historical Provider MD [facility] * Colonoscopy (08/22/2020) [facility] Colonoscopy no interpretation , abstracted Anatomical Region Laterality Modality Other Historical Provider MD P[facility] Anderson from Last 3 Months or Most Recently Relevant to Health Maintenance Care Teams Director Biology Relationship Specialty Start Date End Date Donnell Tracy MD [address] [place] [id number] PCP - General Internal Medicine 04/16/20
--- OUTSIDE RECORDS SUMMARY | 2024-08-02 19:14 | XMS_ITS | Encounter Summary ---
[facility] Address [address] [place] [address] Care Team Providers Care Final Armature Tester Name Role Phone Donnell Tracy MD Primary Care Provider [phone] Reason for Referral * Imaging (Routine) - Pending Review Specialty Diagnoses / Procedures Referred By Nathan gregory Referred To Contact Radiology Diagnoses Early satiety Procedures NM Gastric Emptying Study Yusra Braun NP [address] [address] Referral ID Status Reason Start Date Expiration Date V isits Requested Visits Authorized [id number] Pending Review 07/19/2024 07/19/2025 1 1 Encounter Details Date Type Department Care Team (Late st Contact Info) Description 07/19/2024 2:20 PM EST Consult Gastroenterology - [place] 175 [facility] [address] [address] Yusra Braun NP [address] [phone] Abdominal bloating (Primary Dx); Gastroesophageal reflux disease without esophagitis; Drug-induced constipation; Early satiety Social History Tobacco Use Types Packs/Day Years [...] file Not on file Not on file documented as of this encounter Last Filed Vital Signs Vital Sign Reading Time Taken Comments Blood Pressure 130/80 07/19/2024 2:22 PM EST Pulse 86 07/19/2024 2:22 PM EST Temperature - - Respiratory Rate - - Oxygen Saturation 97% 07/19/2024 2:22 PM EST Inhaled Oxygen Concentration - - Weight 84.4 kg (186 lb) 07/19/2024 2:22 PM EST Height 175.3 cm (5' 9 ) 07/19/2024 2:22 PM EST Body Mass Index 27.47 07/19/2024 2:22 PM EST documented in this encounter Progress Notes * Yusra Braun NP - 07/19/2024 2:20 PM EST CONSULT REQUEST CHIEF COMPLAINT: Abdominal bloating HPI: Fernando Young is a 58 y.o. old male whose PMH includes anxiety, coronary artery disease, chronicheadache disorder, tobacco use disorder, constipation, gastritis and duodenitis, GERD, hyperlipidemia, polysubstance use, hyperlipidemia, type 2 diabetes mellitus with microalbuminuria, illicit drug use and MRSA culture positive was referred to the gastroenterology department today for evaluation of abdominal bloating. Patient reports history of substance use disorder and cocaine abuse eluding exposure to Tranq while in [place]. He has been dealing with significant upper and lower extremity wounds since then. He has gotten multiple doses of antibiotics. He has a history of MRSA positive. Per patient, he believes he does not have any MRSA. He reports he thinks the wounds are from an infection in his stomach. He would like an EGD. He has history of chronic GERD and gastritis with use of omeprazole. He reports chronic constipation from Suboxone use. He endorses early satiety and feeling full diabetic and uses Trulicity weekly. He denies fever or malaise, nausea, vomiting, regurgitation, dysphagia, odyn ophagia, abdominal pain or discomfort, loss of appetite, unintentional weight loss, melena or hematochezia. He denies current alcohol, tobacco or marijuana use. No known family history of colon cancer. Colonoscopy 08/22/2020: The entire examined colon is normal. No specimens collected. Historical EGD in 2012. ROS: GENERAL: No malaise, significant weight loss or fever HEENT: No changes in hearing or vision, nose bleeds or swallowing problems NECK: No lumps, goiter, pain or significant neck swelling RESPIRATORY: No cough, wheezing or shortness of breath CARDIOVASCULAR: No chest pain GI: See HPI MUSCULOSKELETAL: Chronic back pain SKIN: Skin lesions PAST MEDICAL HISTORY: Patient Active Problem List Diagnosis Anxiety BPH (benign prostatic hyperplasia) Chronic headache disorder Chronic pain Constipation Gastritis and duodenitis GERD (gastroesophageal reflux disease) Hyperlipidemia Illicit drug use MRSA (methicillin resistant staph aureus) culture positive Polysubstance abuse (CMS/HCC) Tobacco use disorder 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/HCC) PAST SURGICAL HISTORY: Past Surgical History: Procedure Laterality Date COLONOSCOPY 2012 PROCEDURE: HISTORICAL COLONOSCOPY; COMMENT: 7 mm sigmoid colon polyp: Tubular adenoma COLONOSCOPY 08/22/2020 PROCEDURE: HISTORICAL COLONOSCOPY; COMMENT: No polyps, repeat in 5 years. OTHER SURGICAL HISTORY PROCEDURE: ---- OTHER ----; COMMENT: shoulder surgery UPPER GASTROINTESTINAL ENDOSCOPY 2012 PROCEDURE: [place] UPPER GI ENDOSCOPY PERFORMED; COMMENT: gastric and duodenal bx: Erosive duodenitis, no H. pylori infection. SOCIAL HISTORY: Social History Tobacco Use Smoking status: Every Day Current packs/day: 2.00 Types: Cigarettes Smokeless tobacco: Never Substance Use Topics Alcohol use: No Drug use: Not Currently Types: Marijuana/Cannabis FAMILY HISTORY: Family History Problem Relation Name Age of Onset Diabetes Mother stomach problems, cad Colon cancer Mother 47.00 Coronary artery disease Father Coronary artery disease Brother Lung cancer Neg Hx MEDICATIONS: Outpatient Medications Marked as Taking for the 07/19/24 encounter (Consult) with Yusra Braun NP Medication Sig Dispense Refill acetaminophen (TYLENOL) 500 mg tablet Take 1 Tablet by mouth 2 times daily as needed for Pain. atorvastatin (LIPITOR) 20 mg tablet Take 1 tablet (20 mg total) by mouth 1 (one) time each day. buprenorphine-naloxone (Suboxone) 2-0.[address] 1 FILM EVERY DAY BY SUBLINGUAL ROUTE NEEDED FOR 7 DAYS. cloNIDine (CATAPRES) 0.1 mg tablet Take 1 tablet (0.1 mg total) by mouth 2 (two) times a day. clotrimazole (LOTRIMIN) 1 % cream Apply 1 Application topically 2 (two) times a day. gabapentin (NEURONTIN) 100 mg capsule Take 1 Capsule by mouth at bedtime. glipiZIDE (GLUCOTROL XL) 10 mg 24 hr tablet Do not crush, chew, or split.Take 1 Tablet by mouth 2 times daily (with meals). 180 tablet 0 losartan (Cozaar) 25 mg tablet Take 1 tablet (25 mg total) by mouth 1 (one) time each day. 30 each 11 mirtazapine (REMERON) 15 mg tablet mupirocin (BACTROBAN) 2 % ointment Use intranasally twice a day for 5 days, for you and everyone infamily 22 g 0 naloxone (NARCAN) 4 mg/0.1 mL nasal spray nicotine (NICODERM CQ) 14 mg/24 hr omeprazole (PriLOSEC) [address] capsule Take 1 capsule (20 mg total) by mouth 1 (one) time each day. sertraline (ZOLOFT) 50 mg tablet Take 1 tablet (50 mg total) by mouth at bedtime. Sublocade 100 mg/0.5 mL ER injection traZODone (DESYREL) 50 mg tablet Take 1 tablet (50 mg total) by mouth at bedtime. ALLERGIES: No Known Allergies PHYSICAL EXAM: Visit Vitals BP 130/80 Pulse 86 Ht 1.753 m (69 ) Wt 84.4 kg (186 lb) SpO2 97% BMI 27.47 kg/m?? Smoking Status Every Day BSA 2 m?? APPEARANCE: Alert and in no acute distress EYES: Conjunctiva and sclera normal. MOUTH/THROAT: No erythema, exudates or lesions noted NECK: Neck supple, no adenopathy HEART: RRR with normal S1 and S2 LUNG: Clear to auscultation ABDOMEN: Soft non tender, no ascites, guarding. RECTAL: Exam deferred NEURO: Awake, alert and oriented x 3 SKIN: Skin color, texture, turgor normal. LABS: No results found for: WBC , HGB , HCT , MCV , PLT Lab Results Component Value Date ALT 25 06/19/2024 AST 13 06/19/2024 ALKPHOS 69 06/19/2024 BILITOT 0.4 06/19/2024 IMAGING: No results found for this or any previous visit from the past 365 days. IMPRESSION: 1. Abdominal bloating 2. Gastroesophageal reflux disease without esophagitis 3. Drug-induced constipation 4. Early satiety PLAN: Fernando Young is a 58 y.o. old male whose PMH includes anxiety, coronary artery disease, chronicheadache disorder, tobacco use disorder, constipation, gastritis and duodenitis, GERD, hyperlipidemia, polysubstance use, hyperlipidemia, type 2 diabetes mellitus with microalbuminuria, illicit drug use and MRSA culture positive presents for evaluation of abdominal bloating. 1. Abdominal bloating: Likely from chronic constipation. Complete H. pylori test to rule out Helicobacter pylori infection. 2. GERD: Chronic. Well-managed with omeprazole. He was encouraged to identify and eliminate triggers. Maximize dietary and lifestyle changes. Continue taking PPI as directed. May use Tums or Pepcid as needed for breakthrough acid reflux. 3. Drug-induced constipation: Suboxone induced constipation. He was encouraged to increase dietary fiber and fluid intake. May use Metamucil or Benefiber. Stool softeners as needed. 4. Early satiety: Encouraged to eat small portions throughout the day. I will order a gastric emptying study to rule out gastroparesis. Risk factor type 2 diabetes mellitus. I will update on further care depending on imaging and lab results. Patient believes wounds/lesions on head, bilateral upper and lower extremities are due to an infection in his stomach. He is requesting EGD. There is no indication that wounds are related to an infection in his stomach. Also, there are no alarm features including unintentional weight loss, dysphagia, odynophagia, hematemesis, unexplained iron deficiency anemia, persistent vomiting, palpable mass or lymphadenopathy requiring diagnostic EGD. Patient agrees with the above plan and understands the need to follow up as indicated. Please note, this note may have been created in part by using [employer] dictation software, and therefore, it may contain typographical and/or grammatical errors inherent in a voice recognition software program Orders Placed This Encounter Procedures Helicobacter pylori antigen, stool None documented in this encounter Plan of Treatment Upcoming Encounters Date Type Department Care Team (Late st Contact Info) Description 08/22/2024 8:15 AM EST Appointment [facility] [address] [place] [address] Scheduled Orders Name Type Priority Associated Diagnoses Orde r Schedule Helicobacter pylori antigen, stool Lab Routine Abdominal bloating 1 Occurrences starting 07/19/2024 until 07/19/2025 NM Gastric Emptying Study Imaging Routine Early satiety Expected: 07/19/2024, Expires: 07/19/2025 documented as of this encounter Visit Diagnoses Diagnosis Abdominal bloating- Primary Flatulence, eructation, and gas pain Gastroesophageal reflux disease without esophagitis Esophageal reflux Drug-induced constipation Other constipation Early satiety documented in this encounter Historical Medications * This list may reflect changes made after this encounter. Medication Sig Dispensed Refills Start Date End Date Sublocade 100 mg/0.5 mL ER injection 07/04 added in this encounter Care Teams Final Armature Tester Relationship Specialty Start Date End Date Donnell Tracy MD [address] [place] [id number] PCP - General Internal Medicine 04/16/20 documented as of this encounter
== END 2024-08-02 16:17 | disposition home or self-care (01) ==
PROVIDERS: Visit Provider Nurse Practitioner Family
DX: I25.10 Atherosclerotic heart disease of native coronary artery without angina pectoris (principal); E78.5 Hyperlipidemia, unspecified; I10 Essential (primary) hypertension; E11.9 Type 2 diabetes mellitus without complications; F17.210 Nicotine dependence, cigarettes, uncomplicated; G47.10 Hypersomnia, unspecified
CPT/HCPCS: 93010; 99204; G2211

== ENCOUNTER → 2024-08-02 15:28 | Outpatient (REF) | payer OTHER, SELFPAY ==
--- OUTSIDE RECORDS SUMMARY | 2024-08-03 10:45 | XMS_ITS | Encounter Summary ---
[facility] Address [address] [place] [address] Care Team Providers Care Grain Cleaner Name Role Phone Donnell Tracy MD Primary Care Provider [phone] Reason for Referral * Imaging (Routine) - Pending Review Specialty Diagnoses / Procedures Referred By Nathan gregory Referred To Contact Radiology Diagnoses Early satiety Procedures NM Gastric Emptying Study Yusra Braun NP [address] [address] Referral ID Status Reason Start Date Expiration Date V isits Requested Visits Authorized [id number] Pending Review 07/19/2024 07/19/2025 1 1 Encounter Details Date Type Department Care Team (Late st Contact Info) Description 07/19/2024 2:20 PM EST Consult Gastroenterology - [place] 175 [facility] [address] [address] Yusra Braun NP [address] [phone] Abdominal bloating (Primary Dx); Gastroesophageal reflux disease [...] abuse eluding exposure to Tranq while in [place]. He has been dealing with significant upper [...] shoulder surgery UPPER GASTROINTESTINAL ENDOSCOPY 2012 PROCEDURE: [place] UPPER GI ENDOSCOPY PERFORMED; COMMENT: gastric and [...] have been created in part by using [employer] dictation software, and therefore, it may contain typographical and/or grammatical errors inherent in a voice recognition software program Orders Placed This Encounter Procedures Helicobacter pylori antigen, stool None documented in this encounter Plan of Treatment Upcoming Encounters Date Type Department Care Team (Late st Contact Info) Description 08/22/2024 8:[address] [facility] Nuclear Medicine [address] [place] [address] Scheduled Orders Name Type Priority [...] 07/04 added in this encounter Care Teams Grain Cleaner Relationship Specialty Start Date End Date Donnell Tracy MD [address] [place] [id number] PCP - General Internal Medicine 04/16/20 documented as of this encounter
--- OUTSIDE RECORDS SUMMARY | 2024-08-03 10:46 | XMS_ITS | Clinical Summary ---
Author Organization 175 [facility] Address [address] [place] [address] Phone Care Team Providers Care Rn Cardiovascular Name Role Phone Donnell Tracy MD Primary Care Provider [phone] Allergies No known active allergies Medications Medication [...] 100 mg/0.5 mL ER injection 07/17/2024 Active doxycycline (VIBRAMYCIN) 100 mg capsule Take 1 [...] 07/19/2024 2:20 PM EST Consult Gastroenterology - [place] 175 [facility] 175 [facility] 200 [place] [phone] Yusra Braun NP Abdominal bloating (Primary Dx); Gastroesophageal reflux disease without esophagitis; Drug-induced constipation; Early satiety 06/28/2024 11:55 AM EST Lab Draw Station [address] [address] 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/HCC); Polyarthralgia 06/25/2024 1:47 PM EST - 06/25/2024 11:59 PM EST Hospital Encounter [facility] CT Scan [address] [place] [phone] Encounter for screening for malignant neoplasm of respiratory organs; Nicotine dependence, cigarettes, uncomplicated Discharge Disposition: Home or Self Care 06/19/2024 2:15 PM EST - 06/19/2024 11:59 PM EST [facility] [address] [facility] [place] [place] [phone] Abnormal CXR Discharge Disposition: Home or Self Care 06/19/2024 1:15 PM EST Office Visit Internal Medicine - [facility] [address] [facility] [place] [address] Meli Garza NP Primary hypertension (Primary Dx); Abnormal CXR; History of drug abuse (CMS/HCC); 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/HCC); Long-term use of high-risk medication; Skin lesions, generalized; Epigastric pain; Polyarthralgia 06/19/2024 Telephone Lung Screening Program - [place] 299 [facility] [address] [place] [phone] Shilpa Milton [place] Appointment (Upcoming LDCT) 06/13/2024 2:30 PM EST Consult Infectious Disease - [place] 175 [facility] 200 [place] [phone] Sofiya Bess MD Wounds, multiple (Primary Dx); Drug use 05/29/2024 Telephone Infectious Disease - [place] 175 [facility] 200 [place] [phone] Sofiya Bess MD Med Refill 05/17/2024 Telephone Internal Medicine - [facility] [address] [place] [phone] Donnell Tracy MD cardiac symptoms 05/07/2024 9:[address] [facility] [address] [place] [phone] Paulo Leal MD MRSA (methicillin resistant staph aureus) [...] shoulder surgery UPPER GASTROINTESTINAL ENDOSCOPY 2012 PROCEDURE: [place] UPPER GI ENDOSCOPY PERFORMED; COMMENT: gastric and [...] evidence of H. pylori infection. Polysubstance abuse ([facility]) 09/27/2009 DX :Polysubstance abuse ([facility]) Cigarette smoker 07/15/2020 DX:Cigarette sm oker Type 2 diabetes mellitus wit h microalbuminuria (CMS/HCC) 07/22/2020 DX:Type 2 diabetes mellitus with microalbuminuria ([facility]) CAD (coronary artery disease) 05/05/2024 Family [...] Description 08/22/2024 8:[address] [facility] Nuclear Medicine [address] [place] [address] Health Maintenance Due Date Last Done [...] 12/13/2021, 07/31/2021, 07/02/2021 Influenza Vaccine (#1) 2024 , 07/22/2021, 07/15/2020, Additional history exists Diabetes: Annual [...] EST Type 2 diabetes mellitus with microalbuminuria ([facility]/HCC) CT LUNG SCREENING Routine 06/25/2024 2:2 8 [...] culture positive HM DEPRESSION SCREENING Routine 10/11/2023 HM URINE ALBUMIN CREATININE RATIO Routine 06/07/2023 HM COLONOSCOPY Routine 08/22/2020 from Last 3 Months or Most Recently Relevant to Health Maintenance Results * [place] NENA IFA with titer and pattern (06/28/2024 11:57 AM EST) Only the most recent of2 resultswithin the time period is included. [place] NENA Negative Negative 06/29/2024 12:13 PM EST [facility] Blood Venous blood specimen / Unknown Venipuncture / Unknown 06/28/2024 11:57 AM EST 06/28/2024 11:57 AM EST Meli Garza [employer] LAB BLOOD ORDERABLES Performing Organization Address City/[facility]/ZIP Co de Phone Number [facility] [address] [place] [address], [place] [phone] * (ABNORMAL) Hemoglobin A1c (06/28/2024 11:57 AM EST) Hemoglobin A1C 7.4(H) <6.5 % LAB CHEMISTRY METHOD 06/28/2024 7:25 PM EST [facility] Mean Bld Glu Estim. 166 mg/dL LAB CHEMISTRY METHOD 06/28/2024 7:25 PM EST [facility] Blood Venous blood specimen / Unknown Venipuncture / Unknown 06/28/2024 11:57 AM EST 06/28/2024 11:57 AM EST Meli Garza [employer] LAB BLOOD ORDERABLES [facility] [address] [place] [address], [place] [phone] * CT Lung Screening (06/25/2024 2:28 PM [...] Signed Date: 06/26/2024 12:56 ET Workstation ID: [id number] Transcribed By: Self Edit Transcribed Date: 06/26/2024 12:46 ET Narrative 06/26/2024 12:56 PM EST EXAMINATION: CT CHEST WITHOUT CONTRAST LUNG CANCER SCREENING, LOW DOSE CLINICAL INFORMATION: Lung cancer screening. ??Current smoker COMPARISON: Portions of a previous 06/21/2023 ?? TECHNIQUE: Multidetector CT. Examination of the chest. Examination of the chest without IV contrast. Reformatting in the coronal and sagittal planes. Device: [employer] VCT DLP: 168 mGy-cm CTDI: 4.83 Dose [...] in the coronal and sagittal planes. Device: Lights[employer]ed VCT DLP: 168 mGy-cm CTDI: 4.83 Dose [...] Signed Date: 06/26/2024 12:56 ET Workstation ID: [id number] Transcribed By: Self Edit Transcribed Date: 06/26/2024 12:46 ET Leonarda Gomez MD IMG CT PROCEDURES * Gastrointestinal pathogens molecular study (06/21/2024 9:46 AM EST) Campylobacter Detection by PCR Not Detected Not Detected LAB MICROBIOLOGY METHOD 4 1:53 PM [facility] Plesiomonas shigelloides Detection by PCR Not Detected Not Detected LAB MICROBIOLOGY METHOD 4 1:53 PM [facility] Salmonella Detection by PCR Not Detected Not Detected LAB MICROBIOLOGY METHOD 4 1:53 PM [facility] Vibrio Detection by PCR Not Detected Not Detected LAB MICROBIOLOGY METHOD 4 1:53 PM [facility] Vibrio cholerae Detection by PCR Not Detected Not Detected LAB MICROBIOLOGY METHOD 4 1:53 PM [facility] Yersinia enterocolitica Detection by PCR Not Detected Not Detected LAB MICROBIOLOGY METHOD 4 1:53 PM [facility] Enteroaggregative E coli EAEC Detection by PCR Not Detected Not Detected LAB MICROBIOLOGY METHOD 4 1:53 PM [facility] Enteropathogenic E coli EPEC Detection Not Detected Not Detected LAB MICROBIOLOGY METHOD 4 1:53 PM [facility] Enterotoxigenic E coli ETEC LTST Detection Not Detected Not Detected LAB MICROBIOLOGY METHOD 4 1:53 PM [facility] Shiga-like toxin producing E coli STEC STX1 STX2 Det Not Detected Not Detected LAB MICROBIOLOGY METHOD 4 1:53 PM [facility] Shigella Enteroinvasive E coli EIEC Detection Not Detected Not Detected LAB MICROBIOLOGY METHOD 4 1:53 PM [facility] Cryptosporidium Detection by PCR Not Detected Not Detected LAB MICROBIOLOGY METHOD 4 1:53 PM [facility] Cyclospora cayetanensis Detection by PCR Not Detected Not Detected LAB MICROBIOLOGY METHOD 4 1:53 PM [facility] Entamoeba histolytica Detection by PCR Not Detected Not Detected LAB MICROBIOLOGY METHOD 4 1:53 PM [facility] Giardia lamblia Detection by PCR Not Detected Not Detected LAB MICROBIOLOGY METHOD 4 1:53 PM [facility] Adenovirus F 40 41 Detection by PCR Not Detected Not Detected LAB MICROBIOLOGY METHOD 4 1:53 PM [facility] Astrovirus Detection by PCR Not Detected Not Detected LAB MICROBIOLOGY METHOD 4 1:53 PM [facility] Norovirus GI GII Detection by PCR Not Detected Not Detected LAB MICROBIOLOGY METHOD 4 1:53 PM [facility] Sapovirus Detection by PCR Not Detected Not Detected LAB MICROBIOLOGY METHOD 4 1:53 PM [facility] Rotavirus A Detection by PCR Not Detected Not Detected LAB MICROBIOLOGY METHOD 4 1:53 PM [facility] Stool Rectum structure / Unknown Non-blood Collection / Unknown 06/21/2024 9:46 AM EST 06/21/2024 9:46 AM EST [facility] - 06/21/2024 1:53 PM EST PCR [...] NP LAB MICROBIOLOGY - G ENERAL ORDERABLES [facility] [address] [place] [address], * Culture wound with gram stain (06/19/2024 3:03 PM EST) Only the most recent of2 resultswithin the time period is included. Culture, Wound No pathogens isolated. 06/22/2024 8:45 AM EST [facility] Gram Stain Result No polymorphonuclear leukocytes, No epithelial cells, and No organisms noted 06/22/2024 8:45 AM EST [facility] Swab Structure of left upper limb / Unknown Non-blood Collection / Unknown 06/19/2024 3:03 PM EST 06/19/2024 3:09 PM EST Narrative [facility] - 06/22/2024 8:45 AM EST Sparse mixed normal skin sandra present Meli Garza NP LAB MICROBIOLOGY - G ENERAL ORDERABLES [facility] [address] [place] [address], * XR Chest 2 Views (06/19/2024 2:24 [...] Signed Date: 06/21/2024 09:23 ET Workstation ID: [id number] Transcribed By: Self Edit Transcribed Date: 06/21/2024 [...] Signed Date: 06/21/2024 09:23 ET Workstation ID: [id number] Transcribed By: Self Edit Transcribed Date: 06/21/2024 09:20 ET Meli Garza NP IMG XR PROCEDURES * Hepatitis C antibody (06/19/2024 2:21 PM EST) [facility] Hepatitis C Antibody Negative Negative LAB CHEMISTRY METHOD 06/19/2024 7:07 PM EST [facility] Blood Venous blood specimen / Unknown Venipuncture / Unknown 06/19/2024 2:21 PM EST 06/19/2024 2:21 PM EST Sofiya Bess MD LAB BLOOD ORDERABLES [facility] [address] [place] [address], * HIV 1,2 antibody, p24 antigen with reflex to differentiation (06/19/2024 2:21 PM EST) [facility] HIV Combo AB/AG Negative Negative LAB CHEMISTRY METHOD 06/19/2024 7:08 PM EST [facility] Blood Venous blood specimen / Unknown Venipuncture / Unknown 06/19/2024 2:21 PM EST 06/19/2024 2:21 PM EST Narrative [facility] - 06/19/2024 7:08 PM EST [...] MD LAB BLOOD ORDERABLES Performing Organization Address City/[facility]/ZIP Co de Phone Number [facility] [address] [place] [address], [place] [phone] * Treponema pallidum antibody with reflex to RPR and particle agglutination (06/19/2024 2:21 PM EST) [facility] T. Pallidum Antibodies Negative Negative LAB CHEMISTRY METHOD 06/19/2024 6:40 PM EST [facility] Blood Venous blood specimen / Unknown Venipuncture / Unknown 06/19/2024 2:21 PM EST 06/19/2024 2:21 PM EST Sofiya Bess MD LAB BLOOD ORDERABLES Performing Organization Address [facility] Co de Phone Number [facility] [address] [place] [address], [place] [phone] * (ABNORMAL) Lipid panel with reflex to direct LDL (06/19/2024 2:21 PM EST) [facility] Cholesterol 167 0 - 200 mg/dL LAB CHEMISTRY METHOD 06/19/2024 6:21 PM EST [facility] Triglycerides 181(H) 0 - 150 mg/dL LAB CHEMISTRY METHOD 06/19/2024 6:21 PM EST [facility] HDL 34(L) >=40 mg/dL LAB CHEMISTRY METHOD 06/19/2024 6:21 PM EST [facility] LDL Calculated 97 0 - 100 mg/dL LAB CHEMISTRY METHOD 06/19/2024 6:21 PM EST [facility] VLDL Cholesterol Vinnie 36.2 mg/dL LAB CHEMISTRY METHOD 06/19/2024 6:21 PM EST [facility] Non HDL Chol. (LDL+VLDL) 133 <145 mg/dL LAB CHEMISTRY METHOD 06/19/2024 6:21 PM EST [facility] Chol/HDL Ratio 4.9(H) 0.0 - 4.4 LAB CHEMISTRY METHOD 06/19/2024 6:21 PM EST [facility] Blood Venous blood specimen / Unknown Venipuncture / Unknown 06/19/2024 2:21 PM EST 06/19/2024 2:21 PM EST Meli Garza [employer] LAB BLOOD ORDERABLES [facility] [address] [place] [address], * Strongyloides antibody, IgG (06/19/2024 2:21 PM EST) Strongyloides Antibody 0.3 <=0.9 IV 06/25/2024 7:07 AM EST [facility] Comment: INTERPRETIVE INFORMATION: Strongyloides Ab, IgG [...] also result in false-positive results. Performed By: [employer] [address] [place] [id number] Tissue Inserter: Monty Elizalde MD, PhD CLIA Number: [id number] Blood Venous blood specimen / Unknown Venipuncture / Unknown 06/19/2024 2:21 PM EST 06/19/2024 2:21 PM EST Sofiya Bess MD LAB BLOOD ORDERABLES [facility] [address] [place] [address] * (ABNORMAL) Drug abuse screen 8a panel, urine (06/19/2024 2:21 PM EST) Amphetamine Screen, Ur Negative Negative LAB CHEMISTRY METHOD 4 6:28 PM EST [facility] Comment:Certain OTC medicati ons containing ephedrine, phenylephrine, pseudoephedrine and phenylpropanolamine can cause false positive results. Barbiturate Screen, Ur Negative Negative LAB CHEMISTRY METHOD 4 6:28 PM EST [facility] Benzodiazepine Screen, Ur Negative Negative LAB CHEMISTRY METHOD 4 6:28 PM [facility] Cocaine Screen, Ur Negative Negative LAB CHEMISTRY METHOD 4 6:28 PM [facility] Opiate Screen, Ur Negative Negative LAB CHEMISTRY METHOD 4 6:28 PM EST [facility] Cannabinoid (THC) Screen, Ur Positive(A ) Negative LAB CHEMISTRY METHOD 4 6:28 PM EST [facility] Comment:Specimens from patie nts taking pantoprazole sodium (Protonix) have been shown to produce false positive results. Oxycodone Screen, Ur Negative Negative LAB CHEMISTRY METHOD 4 6:28 PM EST [facility] Fentanyl, Ur Negative Negative LAB CHEMISTRY METHOD 4 6:28 PM [facility] Urine Urine specimen obtained by clean catch procedure / Unknown Non-blood Collection / Unknown 06/19/2024 2:21 PM EST 06/19/2024 2:21 PM EST [facility] - 06/19/2024 6:28 PM EST Assay cutoffs: Amphetamines ? 1000 ng/mL Barbiturates ?200 ng/mL Benzodiazepines ?? 200 ng/mL Cocaine ? 300 ng/mL Fentanyl ?1 ng/mL Opiates ? 300 ng/mL Oxycodone ? 100 ng/mL THC ?50 ng/mL Semi-quantitative assay for screening purposes only. Unconfirmed screening result should not be used for non-medical purposes. *ALTERNATE METHOD CONFIRMATION DONE UPON REQUEST ONLY* Meli Garza [employer] LAB URINE ORDERABLES [facility] [address] [place] [address], * Lupus anticoagulant with reflex to mixing studies (06/19/2024 2:21 PM EST) APTT 42 <43 Sec(s) 06/22/2024 12:58 PM EST [facility] aPTT Mix 1:1 NA Sec(s) 06/22/2024 12:58 PM EST [facility] Hexagonal Phase Neutralization NA 06/22/2024 12:58 PM EST [facility] Dilute Nahun Viper Venom 35 <44 Sec(s) 06/22/2024 12:58 PM EST [facility] DRVVT 1:1 Mix NA Sec(s) 06/22/2024 12:58 PM EST [facility] DRVVT Confirmation NA 2023 12:58 PM EST [facility] Interpretation SEE BELOW 06/22/2024 12:58 PM EST [facility] Comment: Lupus anticoagulant not detected. Test performed at [facility], [address] , [place], [place] ??[address] ? [phone] Qi Figueroa MD, PhD - Electoral Officer Blood Venous blood specimen / Unknown Venipuncture / Unknown 06/19/2024 2:21 PM EST 06/19/2024 2:21 PM EST Sofiya Bess MD LAB BLOOD ORDERABLES Performing Organization Address City/State/[facility] Co de Phone Number [facility] [address] [place] [address] * Anti-neutrophilic cytoplasmic antibody (06/19/2024 2:21 PM EST) Myeloperoxidase Ab Negative Negative LAB CHEMISTRY METHOD 06/20/2024 1:02 PM EST [facility] Myeloperoxidase Ab, Quant 15 <=20 units LAB CHEMISTRY METHOD 06/20/2024 1:02 PM EST [facility] Proteinase-3 Ab Negative Negative LAB CHEMISTRY METHOD 06/20/2024 1:02 PM EST [facility] Proteinase-3 Ab Quant 10 <=20 units LAB CHEMISTRY METHOD 06/20/2024 1:02 PM EST [facility] Blood Venous blood specimen / Unknown Venipuncture / Unknown 06/19/2024 2:21 PM EST 06/19/2024 2:21 PM EST Sofiya Bess MD LAB BLOOD ORDERABLES [facility] [address] [place] [address], * (ABNORMAL) Comprehensive metabolic panel (06/19/2024 2:21 PM EST) Sodium 137 133 - 145 mmol/L LAB CHEMISTRY METHOD 06/19/2024 6:23 PM EST [facility] Potassium 3.7 3.5 - 5.5 mmol/L LAB CHEMISTRY METHOD 06/19/2024 6:23 PM [facility] Chloride 106 96 - 110 mmol/L LAB CHEMISTRY METHOD 06/19/2024 6:23 PM [facility] CO2 29 21 - 32 mmol/L LAB CHEMISTRY METHOD 06/19/2024 6:23 PM [facility] Anion Gap 2(L) 3 - 11 LAB CHEMISTRY METHOD 06/19/2024 6:23 PM [facility] Glucose 155(H) 70 - 100 mg/dL LAB CHEMISTRY METHOD 06/19/2024 6:23 PM [facility] BUN 16 5 - 25 mg/dL LAB CHEMISTRY METHOD 06/19/2024 6:23 PM [facility] Creatinine 1.06 0.70 - 1.30 mg/dL LAB CHEMISTRY METHOD 06/19/2024 6:23 PM [facility] eGFR 82 >=60 mL/min/1. 73m2 LAB CHEMISTRY METHOD 06/19/2024 6:23 PM [facility] Comment:Calculation based on the??Chronic Kidney Disease Epidemiology Collaboration (CKD-EPI) equation refit??without adjustment for race. BUN/Creatinine Ratio 15.1 LAB CHEMISTRY METHOD 06/19/2024 6:23 PM [facility] Calcium 9.5 8.5 - 10.5 mg/dL LAB CHEMISTRY METHOD 06/19/2024 6:23 PM [facility] AST (SGOT) 13 10 - 42 unit/L LAB CHEMISTRY METHOD 06/19/2024 6:23 PM EST [facility] ALT (SGPT) 25 10 - 60 unit/L LAB CHEMISTRY METHOD 06/19/2024 6:23 PM [facility] Alkaline Phosphatase 69 42 - 121 unit/L LAB CHEMISTRY METHOD 06/19/2024 6:23 PM [facility] Total Protein 7.5 6.0 - 8.0 g/dL LAB CHEMISTRY METHOD 06/19/2024 6:23 PM EST [facility] Albumin 4.0 3.2 - 5.0 g/dL LAB CHEMISTRY METHOD 06/19/2024 6:23 PM [facility] Total Bilirubin 0.4 0.0 - 1.4 mg/dL LAB CHEMISTRY METHOD 06/19/2024 6:23 PM [facility] Blood Venous blood specimen / Unknown Venipuncture / Unknown 06/19/2024 2:21 PM EST 06/19/2024 2:21 PM EST Meli Garza NP LAB BLOOD ORDERABLES [facility] [address] [place] [address], * Depression Screening (10/11/2023) Pathologist [facility] Depression Screening abstracted Historical Provider MD PONCE ROMEO E * Urine Albumin Creatinine Ratio (06/07/2023) [facility] Urine Albumin Creatinine Ratio abstracted Historical Provider MD PONCE ROMEO E * Colonoscopy (08/22/2020) [facility] Colonoscopy no interpretation , abstracted Anatomical Region Laterality Modality Other Historical Provider MD PONCE Anderson from Last 3 Months or Most Recently Relevant to Health Maintenance Care Teams Rn Cardiovascular Relationship Specialty Start Date End Date Donnell Tracy MD [address] [place] [id number] PCP - General Internal Medicine 04/16/20
== END ==
LOC: HO.CARD 15:28
PROVIDERS: Visit Provider Nurse Practitioner Family
DX: I25.10 Atherosclerotic heart disease of native coronary artery without angina pectoris (principal); I10 Essential (primary) hypertension; E78.5 Hyperlipidemia, unspecified; E11.9 Type 2 diabetes mellitus without complications; G47.10 Hypersomnia, unspecified; F17.210 Nicotine dependence, cigarettes, uncomplicated; Z71.6 Tobacco abuse counseling; Z79.899 Other long term (current) drug therapy
CPT/HCPCS: 93005; 99202

== ENCOUNTER 2024-10-14 12:02 | Emergency (ER) | payer OTHER, SELFPAY ==
--- NOTE | 2024-10-14 12:09 | ED.GENADULT ---
HPI - General Adult General Chief complaint: General Medical Stated complaint: rare substance in bowel Time Seen by Provider: 10/14/24 14:12 Source: patient, RN notes reviewed and old records reviewed Mode of arrival: ambulatory Limitations: no limitations History of Present Illness ED Provider: TAMMY STOCKTON PA-C HPI narrative: 58 year old male with pmhx significant fot asthma, DM, MRSA, IVDU (clean x1 year) presents to the ED today for evaluation of open sores/ scabs to his body x 2 years. He states these areas are itchy. He admits to skin picking and scratching at these lesions. He feels there are worms in his body. Endorses a long yellowish green worm in his poop one month ago along with undigested medications. Admits to pulling worms of of his abdomen. Tells me these worms aren't visible in his skin. Has been researching worms and parasites online. Reports recent nausea and vomiting. Cannot tell me how many times he has vomiting. No nausea at present. Denies any abdominal pain. Denies urinary symptoms. Denies recent travel outside of the country. Patient intermittently tearful on my examination. States he has been dealing with this for 2 years with unremarkable work ups. He recalls at one point being diagnosed with MRSA. States he was treated at that time. He denies any IVDU, states he has been clean for approximately a year in a half. Related Data Home Medications ?Medication ?Instructions ?Recorded ?Confirmed atorvastatin 20 mg tablet 20 mg PO DAILY 08/02/24 08/02/24 losartan 25 mg tablet 25 mg PO DAILY 08/02/24 08/02/24 Previous Rx's ?Medication ?Instructions ?Recorded albuterol sulfate 90 mcg/actuation 1 inh inhalation QID PRN shortness 04/27/21 aerosol inhaler (Proventil HFA) of breath or wheezing #6.7 grams acetaminophen 500 mg tablet 1,000 mg (2 x 500 mg) PO QID PRN 10/07/21 pain #30 tabs cyclobenzaprine 10 mg tablet 10 mg PO TID PRN muscle spasm #20 05/05/24 tabs meloxicam 15 mg tablet 15 mg PO DAILY #7 tabs 06/27/24 chlorhexidine gluconate 4 % 1 appl topical DAILY 7 days #946 mL 10/14/24 topical liquid (Hibiclens) Allergies Allergy/AdvReac Type Severity Reaction Status Date / Time No Known Allergies Allergy Verified 10/14/24 12:14 Review of Systems Review of Systems: Yes all other systems are reviewed and are negative [facility] Past Medical History Attestation statement: The following information was validated with the patient. Source: old records reviewed and nursing notes reviewed Medical History Diabetes mellitus Depression Social History Social History Unable to assess alcohol history related to: Unknown Alcohol intake: never Substance Use Type: Crack/Cocaine Advance Directives: No Advance Directives Information Provided: Yes Do you have a plan to hurt others: No Plan Physical Exam ED Vital Signs: Vital Signs - 24 hr 10/14/24 12:11 10/14/24 15:26 10/14/24 17:03 Temperature 98.4 F 98.2 F 98.3 F Pulse Rate 98 68 82 Respiratory Rate 18 16 14 Blood Pressure 179/91 H 137/88 149/78 H Pulse Oximetry 98 98 97 Oxygen Delivery Method Room Air Room Air Room Air BMI result Body Mass Index 26.4 hypertensive, vitals are otherwise wnl General: anxious appearing, tearful Skin: see photos below Head: Normocephalic, atraumatic. EENT: Hearing is intact b/l. Conjunctiva clear. PERRLA. EOM intact. Moist mucous membranes.? Cardiac: Chest wall symmetric. RRR. Lungs: Normal respiratory effort without accessory muscle use. CTA bilaterally. Abdomen: Soft, non-tender, non-distended. No rebound tenderness or guarding. Positive BS x4. Back: No midline spinous or paraspinal tenderness. No step off deformity. Ext: please refer to photos below. No sloughing. Non dermatomal pattern. Spares palms, soles, webbed spaces. Spares mucous membranes. No target lesions. Neuro: AOx3. Normal speech. Ambulating with steady gait. Psych: fixed paranoid delusions Course Course Course Narrative: This is a rapid medical exam performed by Akin Everett NP: Additional HPI, ROS, PE not included below will be deferred to primary provider. 10/14/24 12:11 Patient is a 58-year-old male with history of DM, HTN, HLD, smoker presenting with complaint of diffuse scabs/wounds. States he was told he has MRSA, but has been removing worm-like items from his stool (has photos). Also has ziplock bag with small black items, he states those are all over his clothing, bed, etc. Reports his diabetes medicated is coming out in his stool undigested. Has also been having nausea and vomiting. Also states that at times he has suicidal thoughts but denies current thoughts of self harm. Tearful in triage, states his depression is is related to his health issues. Plan: labs, GI panel, ova & parasites Reevaluation(s) Reevaluation #1: 0908 -- I spoke with my attending, Dr. Woo. 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 Lesions are only present in areas that patient can reach to pick at. There are no lesions on noted to patient's back. > while in ED, patient has had no episodes of vomiting. He has not been able to provide us a stool sample yet. Abdominal exam is benign and I do not feel as though imaging is warranted at this time. his blood work is quite unremarkable. there is no leukocytosis or left shift. Chemistry without acute electrolyte abnormality requiring intervention. BUN slightly elevate to 21, normal creatinine. random glucose 273 - patient is a diabetic. UA without infection. UDS positive for suboxone and THC. HIV, hepatitis and syphilis testing pending. Plan at this time is to treat chronic bacterial skin infection with topical hibiclens. there are two skin lesions, one to inner aspect of right thigh and a second to inner aspect of left thigh that appear more irritated than acutely infected. there is no concern for abscess. i do not feel PO antibiotics are warranted at this time. On arrival patient endorsed passive SI related to his skin lesions - requested to speak with our CARE team. Consultation placed. Patient placed in physician observation pending evaluation. 183 -- Shilpa from care team attempted to evaluate patient. upon entrance into room, patient became upset stating that he does not have a psychiatric illness. He denies any SI. declined to speak with her. > I re-evaluated patient. informed him that he specifically asked to speak with our care team. he is declining any further contact with them. denies si. > informed patient that he has a chronic skin condition. I recommended treatment with Hibiclens. I do not feel as though oral antibiotics are warranted at this time. Patient became extremely upset, demanding I prescribed him and anti parasitic that he found on the Internet. I informed him that he has been unable to provide us a stool sample and that I can not treat him for something that I am unsure of. Patient became extremely upset, jumped off the bed began ripping off blood pressure cuff, dressed himself and decided to walk out of the ED. He did not allow me finish my discharge instructions. physician observation ended at 1830. Medications Administered Discontinued Medications Generic Name Dose Route Start Last Admin Trade Name Freq PRN Reason Stop Dose Admin Doxycycline Monohydrate 100 mg 10/14/24 16:53 10/14/24 17:40 Doxycycline Monohydrate 100 Mg Capsule PO 10/14/24 16:54 100 mg ONCE ONE Administration Medical Decision Making Medical Decision Making [facility] Narrative: 58 year old male with pmhx significant fot asthma, DM, MRSA, IVDU (clean x1 year) presents to the ED today for evaluation of open sores/ scabs to his body x 2 years. vital signs are stable. he is anxious appearing, becomes tearful at time, expressing fixed paranoid delusions. please refer to exam section for findings. Differential diagnosis includes contact/atopic/eczematous dermatitis, psoriasis, delusional parasitosis, psychiatric illness, illicit substance use, HIV, syphilis, gastroentertitis History and exam findings not consistent with lyme/tick bourne illness, herpes zoster/simplex, scabies, HFM, dangerous etiologies of rash such as SJS/TEN, or secondary dangerous causes such as petechial rashes from thrombocytopenia or rickettsial infections.? Plan at this time is to treat symptomatically, instruct to follow up with PCP or derm PRN. Differential Diagnosis Differential Diagnoses: The differential diagnosis associated with the presentation includes as above. Admission/Observation not indicated. Lab Data [facility] Lab Attestation statement: I reviewed the patient's lab results. as above. 10/14/24 12:50 10/14/24 12:50 Labs: Lab Results 10/14/24 10/14/24 Range/Units 12:50 14:46 WBC 7.7 (4.8-10.8) X10*3/uL RBC 4.89 (4.60-5.80) X10*6/uL Hgb 14.6 (14.0-18.0) g/dl Hct 42.0 (42.0-52.0) % MCV 85.9 (80.0-98.0) fL MCH 29.9 (27.0-33.0) pg MCHC 34.8 (31.0-36.0) g/dl RDW 11.8 (11.0-16.0) % Plt Count 185 (160-400) X10*3/uL MPV 11.7 (9.4-12.4) fL Immature Gran % (Auto) 0.3 (0.0-0.4) % Neut % (Auto) 63.6 (45-73) % Lymph % (Auto) 28.5 (20-40) % [place] % (Auto) 5.8 (2-11) % Eos % (Auto) 1.2 (0-4) % Baso % (Auto) 0.6 (0-2) % Lymph # (Auto) 2.2 (1.2-4.9) X10*3/uL [place] # (Auto) 0.5 (0.1-1.2) X10*3/uL Eos # (Auto) 0.1 (0.0-0.4) X10*3/uL Baso # (Auto) 0.1 (0.0-0.2) X10*3/uL Abs Immat Gran (auto) 0.02 (0.00-0.03) X10*3/uL Absolute Neuts (auto) 4.9 (2.0-8.3) x10*3/uL Absolute Nucleated RBC 0.000 (0.0-0.012) X10*3/uL Nucleated RBC % (auto) 0.0 (0.0-0.2) /100WBC Sodium 137 (135-145) mmol/L Potassium 3.3 (3.3-5.1) mmol/L Chloride 101 (96-108) mmol/L Carbon Dioxide 27 (22-29) mmol/L Anion Gap 12 (12-20) BUN 21 H (9-16) mg/dL Creatinine 1.01 (0.5-1.4) mg/dL Estim Creat Clear Calc 80.6 Estimated GFR > 60 Random Glucose 273 H (60-115) mg/dL Lactic Acid 1.4 (0.5-2.0) mmol/L Calcium 8.9 (8.4-10.2) mg/dL Total Bilirubin 0.7 (0.0-1.0) mg/dL AST 18 (5-37) U/L ALT 22 (0-40) U/L Alkaline Phosphatase 82 (39-117) U/L Total Protein 7.2 (6.5-8.0) g/dL Albumin 4.1 (3.5-5.0) g/dL Urine Color Yellow Urine Appearance Clear Urine pH 6.5 (5.0-9.0) Ur Specific [place] >= 1.030 H (1.005-1.025) Urine Protein Negative (Neg-Trace) mg/dL Urine Glucose (UA) >=1000 H (Negative) mg/dL Urine Ketones Trace (Negative) mg/dL Urine Blood Negative (Negative) Urine Nitrite Negative (Negative) Ur Leukocyte Esterase Negative (Negative) Urine RBC 0-2 (0-2) /HPF Urine WBC 0-5 (0-5) /HPF Ur Squamous Epith Cells 0-2 (0-2) /HPF Urine Bacteria None Seen (None Seen) Hyaline Casts 0-2 (0-2) /LPF Urine Opiates Screen Not Detected (Not Detect) Ur Buprenorphine Scrn Positive H (Not Detect) ng/mL Ur Oxycodone Screen Not Detected (Not Detect) ng/mL Urine Methadone Screen Not Detected (Not Detect) ng/mL Urine Fentanyl Screen Not Detected (Not Detect) Ur Barbiturates Screen Not Detected (Not Detect) Ur Phencyclidine Scrn Not Detected (Not Detect) Ur Amphetamines Screen Not Detected (Not Detect) U Benzodiazepines Scrn Not Detected (Not Detect) Urine Cocaine Screen Not Detected (Not Detect) U Marijuana (THC) Screen POSITIVE H (Not Detect) External Record Review External record reviewed: Inpatient record Prescription Management I considered prescription management with: Other (hibiclens) Chronic Conditions Patient?s care impacted by: Other (IVDU) Social Determinants Patient?s care significantly limited by Social Determinants of Health including: Other Social Determinant of Health Critical Care Time Critical Care Time Critical Care Time: No Discharge Plan Discharge Clinical Impression: Chronic bacterial skin infection Patient Disposition: Left W/O Completing Treatment Additional Instructions: Your work up today is reassuring. We have sent HIV and syphillis testing to the lab. These results will take a few days to come back. You will be contacted with any positive results. You were unable to give us a stool sample today. You have a chronic bacterial skin infection. I am sending Hibiclens to your pharmacy. Apply this 1-2 times daily for the next 7 days. Please follow up with your primary care provider. Return with new or worsening symptoms. In the case of an emegency call 911. Prescriptions: New chlorhexidine gluconate [Hibiclens] 4 % liquid 1 appl topical DAILY 7 Days Qty: 946 0RF No Action acetaminophen 500 mg tablet 1,000 mg PO QID PRN (Reason: pain) Qty: 30 0RF albuterol sulfate [Proventil HFA] 90 mcg/actuation HFA aerosol inhaler 1 inh inhalation QID PRN (Reason: shortness of breath or wheezing) Qty: 6.7 0RF cyclobenzaprine 10 mg tablet 10 mg PO TID PRN (Reason: muscle spasm) Qty: 20 0RF meloxicam 15 mg tablet 15 mg PO DAILY Qty: 7 0RF atorvastatin 20 mg tablet 20 mg PO DAILY losartan 25 mg tablet 25 mg PO DAILY
[2024-10-14 12:11] VITALS: BP 179/91; PULSE 98; RESP 18; TEMP 36.9; O2SAT 98; BMI 26.4
[2024-10-14 12:55] LABS: MANUAL DIFF FLAG NO
--- OUTSIDE RECORDS SUMMARY | 2024-10-14 13:00 | XMS_ITS | Clinical Summary ---
Author Organization [address] [facility] Address [address] [place] [address] Phone Care Team Providers Care Manager Rfid Name Role Phone Donnell Tracy MD Primary Care Provider [phone] Allergies No known active allergies Medications buprenorphine- naloxone (Suboxone) 2-0.[address] 1 FILM EVERY DAY BY SUBLINGUAL ROUTE NEEDED FOR 7 DAYS. 09/26/19 24 Active cloNIDine (CATAPRES) 0.1 mg tablet Take 1 tablet (0.1 mg total) by mouth 2 (two) times a day. 09/18/19 24 Active nicotine (NICODERM CQ) 14 mg/24 hr 10/03/19 24 Active sertraline (ZOLOFT) 50 mg tablet Take 1 tablet (50 mg total) by mouth at bedtime. 09/18/19 24 Active traZODone (DESYREL) 50 mg tablet Take 1 tablet (50 mg total) by mouth at bedtime. 09/18/19 24 Active gabapentin (NEURONTIN) 100 mg capsule Take 1 Capsule by mouth at bedtime. 10/11/19 24 Active clotrimazole (LOTRIMIN) 1 % cream Apply 1 Application topically 2 (two) times a day. 07/05/19 24 Active acetaminophen (TYLENOL) 500 mg tablet Take 1 Tablet by mouth 2 times daily as needed for Pain. 05/30/20 23 Active mirtazapine (REMERON) 15 mg tablet 04/27/20 23 Active naloxone (NARCAN) 4 mg/0.1 mL nasal spray 04/07/20 23 Active mupirocin (BACTROBAN) 2 % ointment Use intranasally twice a day for 5 days, for you and everyone in family 22 g 06/13/20 24 Active losartan (Cozaar) 25 mg tablet Take 1 tablet (25 mg total) by mouth 1 (one) time each day. 30 each 11 06/19/20 24 025 Active Sublocade 100 mg/0.5 mL ER injection 07/17/19 25 Active omeprazole (PriLOSEC) [address] capsuleIndicat ions:Gastro-es ophageal reflux disease without esophagitis TAKE 1 CAPSULE BY MOUTH EVERY DAY 90 capsule 1 08/13/19 25 Active atorvastatin (LIPITOR) 20 mg tablet Take 1 tablet (20 mg total) by mouth 1 (one) time each day. 90 tablet 1 08/13/19 25 Active glipiZIDE (GLUCOTROL XL) 10 mg 24 hr tablet TAKE 1 TABLET BY MOUTH TWICE A DAY WITH MEALS. DO NOT CRUSH,CHEW OR SPLIT 180 tablet 1 09/25/19 25 Active glipiZIDE (GLUCOTROL XL) 10 mg 24 hr tablet Do not crush, chew, or split.Take 1 Tablet by mouth 2 times daily (with meals). 180 tablet 06/25/20 24 025 Discontinued Active Problems Problem Noted Date Diagnosed Date MRSA (methicillin resistant staph aureus) cultur e positive 10/13/2023 BPH (benign prostatic hyperplasia) 05/22/2021 Overview (04/26/2024): CT Scan 05/2021: Mass-effect upon the base of the urinary bladder by a moderately enlarged prostate. Type 2 diabetes mellitus wit h microalbuminuria ([facility] V24, [facility] V28) 07/22/2020 Hyperlipidemia 05/23/2013 Chronic headache disorder 10/31/2012 Overview (04/26/2024): Chronic daily use of aspirin and NSAID preparations. Gastritis and duodenitis 10/31/2012 Overview (04/26/2024): EGD plus biopsies 10/31/2012, erosive duodenitis, no evidence of H. pylori infection. Constipation 04/25/2012 Anxiety 04/14/2012 Illicit drug use 04/06/2012 Polysubstance abuse ([facility] V24, [facility] V28) 0 09/27/2009 Chronic pain 09/26/2009 GERD (gastroesophageal reflux disease) 0 Overview (04/26/2024): Mild erosive esophagitis on EGD 10/31/2012: CT scan 05/2021: Small sliding-type hiatal hernia. Tobacco use disorder 09/26/2009 Encounters Date Type Department Care Team Description 09/24/2024 Telephone Internal Medicine - [address] [phone] Donnell Tracy MD Appointment 09/03/2024 Telephone Gastroenterology - [place] [address] [phone] Yusra Braun NP provider call back (Pt states that he has worms) 08/22/2024 7:49 AM EST - 08/22/2024 11:59 PM EST Hospital Encounter [facility] Nuclear Medicine [address] [place] [phone] Early satiety Discharge Disposition: Home or Self Care 08/20/2024 [facility] [phone] Donnell Tracy MD 07/19/2024 2:20 PM EST Consult Gastroenterology - [place] [address] [phone] Yusra Braun NP Abdominal bloating (Primary Dx); Gastroesophageal reflux disease without esophagitis; Drug-induced constipation; Early satiety from Last 3 Months Immunizations Name Administration [...] shoulder surgery UPPER GASTROINTESTINAL ENDOSCOPY 2012 PROCEDURE: [place] UPPER GI ENDOSCOPY PERFORMED; COMMENT: gastric and [...] evidence of H. pylori infection. Polysubstance abuse ([facility] V24, [facility] V28) 09/27/2009 DX:Polysubstance abuse (HCC) Cigarette smoker 07/15/2020 DX:Cigarette sm oker Type 2 diabetes mellitus wit h microalbuminuria ([facility] V24, [facility] V28) 07/22/2020 DX:Type 2 diabetes mellitus with microalbuminuria (HCC) CAD (coronary artery disease) 05/05/2024 Family History [...] Assigned at Male 06/21/2024 10:21 AM EST Legal Sex Male 9:55 AM EST Gender Identity Male 06/21/2024 10:21 AM EST Sexual Orientation Straight 06/21/2024 10 :21 AM EST Obstetrics History Last Filed Vital Signs Vital [...] 07/19/2024 2:22 PM EST Plan of Treatment Health Maintenance Due Date Last Done Comments Diabetes: Annual Foot Exam 1976 Diabetes: Annual Retina Eye Exam 1976 Hepatitis A Vaccines (1 of 2 - Risk 2-dose series) 1985 Hepatitis B Vaccines (1 of 3 - 19+ 3-dose series) 1985 Pneumococcal Vaccine: 50+ Years (2 of 2 - PCV) 04/25/2013 04/25/2012 Pneumococcal Vaccine: Pediatrics (0 to 5 Years) and At-Risk Patients (6 to 64 Years) (2 of 2 - PCV) 04/25/2013 04/25/2012 Zoster Vaccines (1 of 2) 2016 Social Influencers of Health Screening 06/12/2022 COVID-19 Vaccine ( season) 2024 12/13/2021, 07/31/2021, 07/02/2021 Diabetes: Annual Urine Albumin-Creatinine Ratio (uACR) 06/07/2024 06/07/2023 Depression Screening 10/10/2024 10/11/2023 Diabetes: Blood Sugar Control Test (HGBA1C) 12/27/2024 06/28/2024, 09/26/2023 Influenza Vaccine (Season Ended) 2025 05/10/2022, 07/22/2021, 07/15/2020, Additional history exists Diabetes: Annual GFR (Glomerular Filtration Rate) 06/19/2025 [...] patient's age to complete this topic Meningococcal B Vaccine Aged Out No l onger eligible based on patient's age to complete this topic RSV Immunization Patients Under 20 months Aged Out No longer eligible based on patient's age to complete this topic Varicella Vaccines Aged Out No longer eligible based on patient's age to complete this topic Procedures Procedure Name Priority Date/Time Associated Diagnosis Comments NM GASTRIC EMPTYING STUDY Routine 08/22/2024 12:24 PM EST Early satiety HELICOBACTER PYLORI ANTIGEN, STOOL Routine 08/07/2024 11:36 AM EST Abdominal bloating HEMOGLOBIN A1C Routine 06/28/2024 11:57 AM EST 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/HCC V24, CMS/HCC V28) CT LUNG SCREENING Routine 06/25/2024 2:2 8 PM EST Encounter for screening for malignant neoplasm of respiratory organs Nicotine dependence, cigarettes, uncomplicated HEPATITIS C ANTIBODY Routine 06/19/2024 2:21 PM EST Wounds, multiple Drug use HIV 1, 2 ANTIBODY, P24 ANTIGEN WITH REFLEX TO DIFFERENTIATION Routine 06/19/2024 2:21 PM EST Wounds, multiple Drug use COMPREHENSIVE METABOLIC PANEL Routine 06/19/2024 2:21 PM EST 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/HCC V24, CMS/HCC V28) LIPID PANEL WITH REFLEX TO DIRECT LDL Routine 06/19/2024 2:21 PM EST 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/HCC V24, CMS/HCC V28) HM DEPRESSION SCREENING Routine 10/11/2023 HM URINE ALBUMIN CREATININE RATIO Routine 06/07/2023 HM COLONOSCOPY Routine 08/22/2020 from Last 3 Months or Most Recently Relevant to Health Maintenance Results * NM Gastric Emptying Study (08/22/2024 12:24 PM EST) Anatomical Region Laterality Modality Body Nuclear Medicine 08/22/2024 2:33 PM EST Impressions 08/22/2024 2:33 PM EST Normal solid material gastric emptying. -------- FINAL REPORT -------- Dictated By: Carol Grimes Dictated Date: 08/22/2024 14:33 ET Assigned Physician: Carol Grimes Reviewed and Electronically Signed By: Carol Grimes Signed Date: 08/22/2024 14:33 ET Workstation ID: [id number] Transcribed By: Self Edit Transcribed Date: 08/22/2024 14:33 ET Narrative 08/22/2024 2:33 PM EST HISTORY: Early satiety. Question disordered gastric emptying. FINDINGS: Radionucleotide gastric emptying study performed following ingestion of 1.2 mCi of Tc99m sulfur colloid mixed with eggs for solid food evaluation. Solid food evaluation time to half peak clearance is 131 minutes with normal being less than 90 minutes. Patients 4 hour retention amount was calculated at 5%. Reference normal solid residual activity: less than 90% at 1 hour less than 60% at 2 hours less than 30% at 3 hours less than 10% at 4 hours Procedure Note Carol Grimes MD - 08/22/2024 HISTORY: Early satiety. Question disordered gastric emptying. FINDINGS: Radionucleotide gastric emptying study performed followingingestion of 1.2 mCi of Tc99m sulfur colloid mixed with eggs for solidfood evaluation. Solid food evaluation time to half peak clearance is 131 minutes withnormal being less than 90 minutes. Patients 4 hour retention amount was calculated at 5%. Reference normal solid residual activity: less than 90% at 1 hour less than 60% at 2 hours less than 30% at 3 hours less than 10% at 4 hours IMPRESSION: Normal solid material gastric emptying. -------- FINAL REPORT -------- Dictated By: Carol Grimes Dictated Date: 08/22/2024 14:33 ET Assigned Physician: Carol Grimes Reviewed and Electronically Signed By: Carol Grimes Signed Date: 08/22/2024 14:33 ET Workstation ID: [id number] Transcribed By: Self Edit Transcribed Date: 08/22/2024 14:33 ET Yusra Braun NP IMG NM PROCEDURES Final Result * Helicobacter pylori antigen, stool (08/07/2024 11:36 AM EST) Helicobacter Pylori Ag Not detected Not detected 08/10/2024 3:25 PM EST [facility] Comment: This test was performed at [facility] using a chemiluminescent immunoassay intended for the qualitative determination of helicobacter pylori (H. pylori) antigen in human stool. The test is an aid in the diagnosis of patients suspected of H. pylori infection and to measure post therapy response from patients. Assay results should be used in conjunction with other clinical and laboratory data to assist the clinician in making individual patient management decisions. A negative test result does not preclude the possibility of the presence of H. pylori antigen in the specimen, which may occur if the level of antigen is below the detection limit of the test. Antimicrobials, proton pump inhibitors, and bismuth preparations are known to suppress H. pylori and, if ingested, may give a false negative result. In these cases a new fecal sample should be collected and tested 14 days after treatment has stopped. Positive results from patients that have used antibiotics, PPIs, or bismuth compounds in the 14 days prior to fecal sample collection are still considered accurate. This assay has not been evaluated in a pediatric population. This test has been approved as an in vitro diagnostic by the [place] Food and Drug Administration. Test performed at [facility], [address] , [place], [place] ??[address] ? [phone] Qi Figueroa MD, PhD - [employer] Stool Rectum structure / Unknown Non-blood Collection / Unknown 08/07/2024 11:36 AM EST 08/07/2024 11:36 AM EST Yusra Braun NP LAB BODY FLUIDS AND STOOLS NIKKI STEPHENSON Final Result [facility] [address] [place] [address] * (ABNORMAL) Hemoglobin A1c (06/28/2024 11:57 AM EST) Hemoglobin A1C 7.4(H) <6.5 % LAB CHEMISTRY METHOD 06/28/2024 7:25 PM EST [facility] Mean Bld Glu Estim. 166 mg/dL LAB CHEMISTRY METHOD 06/28/2024 7:25 PM EST [facility] Blood Venous blood specimen / Unknown Venipuncture / Unknown 06/28/2024 11:57 AM EST 06/28/2024 11:57 AM EST Meli Garza NP LAB BLOOD ORDERABLES Final Resu lt [facility] [address] [place] [address], * CT Lung Screening (06/25/2024 2:28 PM [...] Signed Date: 06/26/2024 12:56 ET Workstation ID: [id number] Transcribed By: Self Edit Transcribed Date: 06/26/2024 12:46 ET Narrative 06/26/2024 12:56 PM EST EXAMINATION: CT CHEST WITHOUT CONTRAST LUNG CANCER SCREENING, LOW DOSE CLINICAL INFORMATION: Lung cancer screening. ??Current smoker COMPARISON: Portions of a previous 06/21/2023 ?? TECHNIQUE: Multidetector CT. Examination of the chest. Examination of the chest without IV contrast. Reformatting in the coronal and sagittal planes. Device: Buxfer VCT DLP: 168 mGy-cm CTDI: 4.83 Dose [...] in the coronal and sagittal planes. Device: Buxfer VCT DLP: 168 mGy-cm CTDI: 4.83 Dose [...] Signed Date: 06/26/2024 12:56 ET Workstation ID: [id number] Transcribed By: Self Edit Transcribed Date: 06/26/2024 12:46 ET us Leonarda Gomez MD IMG CT PROCEDURES Final Result * Hepatitis C antibody (06/19/2024 2:21 PM EST) Hepatitis C Antibody Negative Negative LAB CHEMISTRY METHOD 06/19/2024 7:07 PM EST [facility] Blood Venous blood specimen / Unknown Venipuncture / Unknown 06/19/2024 2:21 PM EST 06/19/2024 2:21 PM EST Sofiya Bess MD LAB BLOOD ORDERABLES Final Resul t [facility] [address] [place] [address], [place] [phone] * HIV 1,2 antibody, p24 antigen with reflex to differentiation (06/19/2024 2:21 PM EST) HIV Combo AB/AG Negative Negative LAB CHEMISTRY METHOD 06/19/2024 7:08 PM EST [facility] Blood Venous blood specimen / Unknown Venipuncture / Unknown 06/19/2024 2:21 PM EST 06/19/2024 2:21 PM EST Narrative [facility] - 06/19/2024 7:08 PM EST This assay is a 4th generation assay allowing for earlier detection of HIV infection by detecting the presence of the HIV-1 p24 antigen as well as the traditional antibodies to HIV type 1 (including group O) and type 2. ??Use of a 4th generation assay is the current CDC recommendation for HIV screening. us Sofiya Bess MD LAB BLOOD ORDERABLES Final Resul t [facility] [address] [place] [address], [place] [phone] * (ABNORMAL) Lipid panel with reflex to direct LDL (06/19/2024 2:21 PM EST) Cholesterol 167 0 - 200 mg/dL LAB CHEMISTRY METHOD 06/19/2024 6:21 PM EST [facility] Triglycerides 181(H) 0 - 150 mg/dL LAB CHEMISTRY METHOD 06/19/2024 6:21 PM EST [facility] HDL 34(L) >=40 mg/dL LAB CHEMISTRY METHOD 06/19/2024 6:21 PM EST [facility] LDL Calculated 97 0 - 100 mg/dL LAB CHEMISTRY METHOD 06/19/2024 6:21 PM EST [facility] VLDL Cholesterol Vinnie 36.2 mg/dL LAB CHEMISTRY METHOD 06/19/2024 6:21 PM EST [facility] Non HDL Chol. (LDL+VLDL) 133 <145 mg/dL LAB CHEMISTRY METHOD 06/19/2024 6:21 PM [facility] Chol/HDL Ratio 4.9(H) 0.0 - 4.4 LAB CHEMISTRY METHOD 06/19/2024 6:21 PM [facility] Blood Venous blood specimen / Unknown Venipuncture / Unknown 06/19/2024 2:21 PM EST 06/19/2024 2:21 PM EST us Meli Greg [employer] LAB BLOOD ORDERABLES Final Resu lt [facility] [address] [place] [address], * (ABNORMAL) Comprehensive metabolic panel (06/19/2024 2:21 PM EST) Sodium 137 133 - 145 mmol/L LAB CHEMISTRY METHOD 06/19/2024 6:23 PM EST [facility] Potassium 3.7 3.5 - 5.5 mmol/L LAB CHEMISTRY METHOD 06/19/2024 6:23 PM [facility] Chloride 106 96 - 110 mmol/L LAB CHEMISTRY METHOD 06/19/2024 6:23 PM [facility] CO2 29 21 - 32 mmol/L LAB CHEMISTRY METHOD 06/19/2024 6:23 PM [facility] Anion Gap 2(L) 3 - 11 LAB CHEMISTRY METHOD 06/19/2024 6:23 PM [facility] Glucose 155(H) 70 - 100 mg/dL LAB CHEMISTRY METHOD 06/19/2024 6:23 PM [facility] BUN 16 5 - 25 mg/dL LAB CHEMISTRY METHOD 06/19/2024 6:23 PM [facility] Creatinine 1.06 0.70 - 1.30 mg/dL LAB CHEMISTRY METHOD 06/19/2024 6:23 PM [facility] eGFR 82 >=60 mL/min/1. 73m2 LAB CHEMISTRY METHOD 06/19/2024 6:23 PM [facility] Comment:Calculation based on the??Chronic Kidney Disease Epidemiology Collaboration (CKD-EPI) equation refit??without adjustment for race. BUN/Creatinine Ratio 15.1 LAB CHEMISTRY METHOD 06/19/2024 6:23 PM [facility] Calcium 9.5 8.5 - 10.5 mg/dL LAB CHEMISTRY METHOD 06/19/2024 6:23 PM [facility] AST (SGOT) 13 10 - 42 unit/L LAB CHEMISTRY METHOD 06/19/2024 6:23 PM [facility] ALT (SGPT) 25 10 - 60 unit/L LAB CHEMISTRY METHOD 06/19/2024 6:23 PM [facility] Alkaline Phosphatase 69 42 - 121 unit/L LAB CHEMISTRY METHOD 06/19/2024 6:23 PM [facility] Total Protein 7.5 6.0 - 8.0 g/dL LAB CHEMISTRY METHOD 06/19/2024 6:23 PM [facility] Albumin 4.0 3.2 - 5.0 g/dL LAB CHEMISTRY METHOD 06/19/2024 6:23 PM [facility] Total Bilirubin 0.4 0.0 - 1.4 mg/dL LAB CHEMISTRY METHOD 06/19/2024 6:23 PM [facility] Blood Venous blood specimen / Unknown Venipuncture / Unknown 06/19/2024 2:21 PM EST 06/19/2024 2:21 PM EST Meli Garza NP LAB BLOOD ORDERABLES Final Resu lt [facility] [address] [place] [address], * Depression Screening (10/11/2023) Pathologist [facility] Depression Screening abstracted Historical Provider HEALTH MAINTENANCE Final Result * Urine Albumin Creatinine Ratio (06/07/2023) Pathologist [facility] Urine Albumin Creatinine Ratio abstracted [facility] Provider HEALTH MAINTENANCE Final Result * Colonoscopy (08/22/2020) Pathologist [facility] Colonoscopy no interpretation , abstracted Anatomical Region Laterality Modality Other Historical Provider HEALTH MAINTENANCE Final Result from Last 3 Months or Most Recently Relevant to Health Maintenance Insurance [facility] Care Teams Manager Rfid Relationship Specialty Start Date End Date Donnell Tracy MD [address] [place] [phone] PCP - General Internal Medicine 04/16/20
[2024-10-14 13:01] LABS: Basophils Absolute Auto 0.1 X10*3/uL (0.0-0.2); Basophils Percent Auto 0.6 % (0-2); Eosinophils Absolute Auto 0.1 X10*3/uL (0.0-0.4); Eosinophils Percent Auto 1.2 % (0-4); Hemoglobin 14.6 g/dl (14.0-18.0); Imm Gran Abs Auto 0.02 X10*3/uL (0.00-0.03); Imm Gran Pct Auto 0.3 % (0.0-0.4); Lymphocytes Absolute Auto 2.2 X10*3/uL (1.2-4.9); Lymphocytes Percent Auto 28.5 % (20-40); Mean Corpuscular HGB Conc 34.8 g/dl (31.0-36.0); Mean Corpuscular Hemoglobin 29.9 pg (27.0-33.0); Mean Corpuscular Volume 85.9 fL (80.0-98.0); Mean Platelet Volume 11.7 fL (9.4-12.4); Monocytes Absolute Auto 0.5 X10*3/uL (0.1-1.2); Monocytes Percent Auto 5.8 % (2-11); Neutrophils Absolute Auto 4.9 x10*3/uL (2.0-8.3); Neutrophils Percent Auto 63.6 % (45-73); Platelet Count 185 X10*3/uL (160-400); Red Blood Count 4.89 X10*6/uL (4.60-5.80); Red Cell Distribution Width 11.8 % (11.0-16.0); White Blood Count 7.7 X10*3/uL (4.8-10.8)
[2024-10-14 13:11] LABS: Alanine Aminotransferase 22 U/L (0-40); Albumin Level 4.1 g/dL (3.5-5.0); Alkaline Phosphatase 82 U/L (39-117); Anion Gap 12 (12-20); Aspartate Amino Transferase 18 U/L (5-37); Bilirubin Total 0.7 mg/dL (0.0-1.0); Blood Urea Nitrogen 21 mg/dL (9-16); Calcium 8.9 mg/dL (8.4-10.2); Carbon Dioxide 27 mmol/L (22-29); Chloride 101 mmol/L (96-108); Creatinine Clr Calc Pharmacy 80.6; Estimated Glomerular Filt Rate > 60; Glucose Random 273 mg/dL (60-115); Lactic Acid 1.4 mmol/L (0.5-2.0); Potassium 3.3 mmol/L (3.3-5.1); Sodium 137 mmol/L (135-145); Total Protein 7.2 g/dL (6.5-8.0)
[2024-10-14 14:55] LABS: Appearance Urine Clear; Color Urine Yellow; Glucose Urine UA >=1000 mg/dL (Negative); Leukocyte Esterase Urine Negative (Negative); Nitrite Urine Negative (Negative); PH 6.5 (5.0-9.0); Specific Gravity - Urine >= 1.030 (1.005-1.025); UMIC TRIGGER UACC YES; Urine Blood Negative (Negative); Urine Ketones Trace mg/dL (Negative); Urine Protein Negative (Neg-Trace)
[2024-10-14 15:22] LABS: Bacteria Urine None Seen (None Seen); Hyaline Casts Urine 0-2 /LPF (0-2); RBC Urine 0-2 /HPF (0-2); Squamous Epithelial Cell Urine 0-2 /HPF (0-2); WBC Urine 0-5 /HPF (0-5)
[2024-10-14 15:26] VITALS: BP 137/88; PULSE 68; RESP 16; TEMP 36.8; O2SAT 98
[2024-10-14 17:03] VITALS: BP 149/78; PULSE 82; RESP 14; TEMP 36.8; O2SAT 97
[2024-10-14 17:03] LABS: Amphetamine Screen Urine Not Detected (Not Detect); Barbiturates, Urine Not Detected (Not Detect); Benzodiazepines Screen Urine Not Detected (Not Detect); Buprenorphine Scr Positive (Not Detect); Cannabinoid Screen Urine POSITIVE (Not Detect); Cocaine Screen Urine Not Detected (Not Detect); Fentanyl, urine Not Detected (Not Detect); Methadone Screen, Urine Not Detected (Not Detect); Opiate Screen Urine Not Detected (Not Detect); Oxycodone Screen Urine Not Detected (Not Detect); Phencyclidine Screen Urine Not Detected (Not Detect)
--- NOTE | 2024-10-14 17:13 | PC.NURSE ---
patient with multiple open lesions throughout body w/ the exception of on patient's back. reports this has been an ongoing issue and they keep coming back. also reporting parasite looking objects in his stool however has been unable to provide a stool sample at this time. plan for care team evaluation
[2024-10-14] MEDS: Doxycycline Monohydrate 100 MG CAPSULE PO (17:40)
[2024-10-14 18:57] VITALS: BP 149/78; PULSE 82; RESP 14; TEMP 36.8; O2SAT 97
[2024-10-15 07:54] LABS: Syphilis Screen Nonreactive (Nonreactive)
[2024-10-15 08:41] LABS: HBS Num1 0.02 mIU/mL (0-7.99); HBc Num1 0.28 S/CO (0.00-0.79); HBsAGNum1 0.38 S/CO (0.00-0.99); HIV AB/AG Nonreactive (Nonreactive); HIV Num 1 0.06 S/CO (0.00-0.99); Hepatitis B Core Antibody Nonreactive (Nonreactive); Hepatitis B Surface Antigen Negative (Negative); ~HepC Num1 0.14 S/CO (0.00-0.79); ~Hepatitis B Surface Antibody NONREACTIVE (Nonreactive); ~Hepatitis C Antibody Nonreactive (Nonreactive)
[2024-10-16 08:12] LABS: Hepatitis A Antibody IgM 0.18 Index (0-0.79); ~Hepatitis A Antibody IgM Nonreactive (Nonreactive)
== END 2024-10-14 18:58 | disposition left against medical advice (07) ==
PROVIDERS: Physician Assistant Medical; Registered Nurse Emergency; Emergency Provider Emergency Medicine
DX: L08.89 Other specified local infections of the skin and subcutaneous tissue (principal); B96.89 Other specified bacterial agents as the cause of diseases classified elsewhere; R23.4 Changes in skin texture; R11.2 Nausea with vomiting, unspecified; E11.9 Type 2 diabetes mellitus without complications; F19.90 Other psychoactive substance use, unspecified, uncomplicated; Z79.899 Other long term (current) drug therapy
CPT/HCPCS: 80053; 80307; 81001; 83605; 85025; 86704; 86706; 86709; 86780; 86803; 87040; 87340; 87389; 99284

== ENCOUNTER 2024-11-06 07:52 | Outpatient (REF) | payer OTHER, SELFPAY ==
--- OUTSIDE RECORDS SUMMARY | 2024-11-06 07:55 | XMS_ITS | Clinical Summary ---
Author Organization [facility] Address [address] [place] [address] Phone Care Team Providers Care Regulatory Technician Name Role Phone Donnell Tracy MD Primary Care Provider [phone] Allergies No known active allergies Medications buprenorphine-n aloxone (Suboxone) 2-0.[address] 1 FILM EVERY DAY BY SUBLINGUAL ROUTE NEEDED FOR 7 DAYS. 4 Active cloNIDine (CATAPRES) 0.1 mg tablet Take 1 tablet (0.1 mg total) by mouth 2 (two) times a day. 4 Active nicotine (NICODERM CQ) 14 mg/24 hr 4 Active sertraline (ZOLOFT) 50 mg tablet Take 1 tablet (50 mg total) by mouth at bedtime. 4 Active traZODone (DESYREL) 50 mg tablet Take 1 tablet (50 mg total) by mouth at bedtime. 4 Active gabapentin (NEURONTIN) 100 mg capsule Take 1 Capsule by mouth at bedtime. 4 Active clotrimazole (LOTRIMIN) 1 % cream Apply 1 Application topically 2 (two) times a day. 4 Active acetaminophen (TYLENOL) 500 mg tablet Take 1 Tablet by mouth 2 times daily as needed for Pain. 3 Active mirtazapine (REMERON) 15 mg tablet 3 Active naloxone (NARCAN) 4 mg/0.1 mL nasal spray 3 Active mupirocin (BACTROBAN) 2 % ointment Use intranasally twice a day for 5 days, for you and everyone in family 22 g 4 Active losartan (Cozaar) 25 mg tablet Take 1 tablet (25 mg total) by mouth 1 (one) time each day. 30 each 11 4 06/19/20 25 Active Sublocade 100 mg/0.5 mL ER injection 5 Active omeprazole (PriLOSEC) [address] capsuleIndicati ons:Gastro-esop hageal reflux disease without esophagitis TAKE 1 CAPSULE BY MOUTH EVERY DAY 90 capsule 1 5 Active atorvastatin (LIPITOR) 20 mg tablet Take 1 tablet (20 mg total) by mouth 1 (one) time each day. 90 tablet 1 5 Active glipiZIDE (GLUCOTROL XL) 10 mg 24 hr tablet TAKE 1 TABLET BY MOUTH TWICE A DAY WITH MEALS. DO NOT CRUSH,CHEW OR SPLIT 180 tablet 1 5 Active Active Problems Problem Noted Date Diagnosed Date MRSA (methicillin resistant staph aureus) cultur e positive 10/13/2023 BPH (benign prostatic hyperplasia) 05/22/2021 Overview (04/26/2024): CT Scan 05/2021: Mass-effect upon the base of the urinary bladder by a moderately enlarged prostate. Type 2 diabetes mellitus wit h microalbuminuria ([facility] V24, [facility] V28) 07/22/2020 Hyperlipidemia 05/23/2013 Chronic headache disorder 10/31/2012 Overview (04/26/2024): Chronic daily use of aspirin and NSAID preparations. Gastritis and duodenitis 10/31/2012 Overview (04/26/2024): EGD plus biopsies 10/31/2012, erosive duodenitis, no evidence of H. pylori infection. Constipation 04/25/2012 Anxiety 04/14/2012 Illicit drug use 04/06/2012 Polysubstance abuse ([facility] V24, [facility] V28) 0 09/27/2009 Chronic pain 09/26/2009 GERD (gastroesophageal reflux disease) 0 Overview (04/26/2024): Mild erosive esophagitis on EGD 10/31/2012: CT scan 05/2021: Small sliding-type hiatal hernia. Tobacco use disorder 09/26/2009 Encounters Date Type Department Care Team Description 09/24/2024 Telephone Internal Medicine - [address] [id number] Donnell Tracy MD Appointment 09/03/2024 Telephone Gastroenterology - [place] [facility] [address] [facility] [address] [place] [address] Yusra Braun NP provider call back (Pt states that he has worms) 08/22/2024 7:49 AM EST - 08/22/2024 11:59 PM EST Hospital Encounter [facility] Nuclear Medicine [address] [place] [address] Early satiety Discharge Disposition: Home or Self Care 08/20/2024 Telephone Internal Medicine - [address] [id number] Donnell Tracy MD from Last 3 Months Immunizations Name Administration [...] shoulder surgery UPPER GASTROINTESTINAL ENDOSCOPY 2012 PROCEDURE: [place] UPPER GI ENDOSCOPY PERFORMED; COMMENT: gastric and [...] evidence of H. pylori infection. Polysubstance abuse (CMS/[employer] V24, CMS/[facility] V28) 09/27/2009 DX:Polysubstance abuse (HCC) Cigarette smoker 07/15/2020 DX:Cigarette sm oker Type 2 diabetes mellitus wit h microalbuminuria (CMS/HCC V24, CMS/HCC V28) 07/22/2020 DX:Type 2 diabetes mellitus with microalbuminuria ([facility]) CAD (coronary artery disease) 05/05/2024 Family History [...] Routine 08/22/2024 12:24 PM EST Early satiety HEMOGLOBIN A1C Routine 06/28/2024 11:57 AM EST [...] Signed Date: 08/22/2024 14:33 ET Workstation ID: [id number] Transcribed By: Self Edit Transcribed Date: 08/22/2024 [...] Signed Date: 08/22/2024 14:33 ET Workstation ID: [id number] Transcribed By: Self Edit Transcribed Date: 08/22/2024 14:33 ET Yusra Braun CAR AND YARD SUPERVISOR IMG NM PROCEDURES Final Result * (ABNORMAL) Hemoglobin A1c (06/28/2024 11:57 AM EST) Hemoglobin A1C 7.4(H) <6.5 % LAB CHEMISTRY METHOD 06/28/2024 7:25 PM EST [facility] Mean Bld Glu Estim. 166 mg/dL LAB CHEMISTRY METHOD 06/28/2024 7:25 PM EST [facility] Blood Venous blood specimen / Unknown Venipuncture / Unknown 06/28/2024 11:57 AM EST 06/28/2024 11:57 AM EST Meli Garza NP LAB BLOOD ORDERABLES Final Resu lt [facility] [address] [place] [address], [place] [phone] * CT Lung Screening (06/25/2024 2:28 PM [...] Signed Date: 06/26/2024 12:56 ET Workstation ID: [id number] Transcribed By: Self Edit Transcribed Date: 06/26/2024 12:46 ET Narrative 06/26/2024 12:56 PM EST EXAMINATION: CT CHEST WITHOUT CONTRAST LUNG CANCER SCREENING, LOW DOSE CLINICAL INFORMATION: Lung cancer screening. ??Current smoker COMPARISON: Portions of a previous 06/21/2023 ?? TECHNIQUE: Multidetector CT. Examination of the chest. Examination of the chest without IV contrast. Reformatting in the coronal and sagittal planes. Device: Triloq VCT DLP: 168 mGy-cm CTDI: 4.83 Dose [...] in the coronal and sagittal planes. Device: Triloq VCT DLP: 168 mGy-cm CTDI: 4.83 Dose [...] Signed Date: 06/26/2024 12:56 ET Workstation ID: [id number] Transcribed By: Self Edit Transcribed Date: 06/26/2024 12:46 ET Leonarda Gomez MD IMG CT PROCEDURES Final Result * Hepatitis C antibody (06/19/2024 2:21 PM EST) Hepatitis C Antibody Negative Negative LAB CHEMISTRY METHOD 06/19/2024 7:07 PM EST [facility] Blood Venous blood specimen / Unknown Venipuncture / Unknown 06/19/2024 2:21 PM EST 06/19/2024 2:21 PM EST Sofiya Bess MD LAB BLOOD ORDERABLES Final Resul t [facility] [address] [place] [address], [place] [phone] * HIV 1,2 antibody, p24 antigen with reflex to differentiation (06/19/2024 2:21 PM EST) HIV Combo AB/AG Negative Negative LAB CHEMISTRY METHOD 06/19/2024 7:08 PM EST [facility] Blood Venous blood specimen / Unknown Venipuncture / Unknown 06/19/2024 2:21 PM EST 06/19/2024 2:21 PM EST Narrative [facility] - 06/19/2024 7:08 PM EST [...] MD LAB BLOOD ORDERABLES Final Resul t [facility] [address] [place] [address], [place] [phone] * (ABNORMAL) Lipid panel with reflex to direct LDL (06/19/2024 2:21 PM EST) Cholesterol 167 0 - 200 mg/dL LAB CHEMISTRY METHOD 06/19/2024 6:21 PM EST [facility] Triglycerides 181(H) 0 - 150 mg/dL LAB CHEMISTRY METHOD 06/19/2024 6:21 PM EST [facility] HDL 34(L) >=40 mg/dL LAB CHEMISTRY METHOD 06/19/2024 6:21 PM EST [facility] LDL Calculated 97 0 - 100 mg/dL LAB CHEMISTRY METHOD 06/19/2024 6:21 PM EST [facility] VLDL Cholesterol Vinnie 36.2 mg/dL LAB CHEMISTRY METHOD 06/19/2024 6:21 PM EST [facility] Non HDL Chol. (LDL+VLDL) 133 <145 mg/dL LAB CHEMISTRY METHOD 06/19/2024 6:21 PM EST [facility] Chol/HDL Ratio 4.9(H) 0.0 - 4.4 LAB CHEMISTRY METHOD 06/19/2024 6:21 PM EST [facility] Blood Venous blood specimen / Unknown Venipuncture / Unknown 06/19/2024 2:21 PM EST 06/19/2024 2:21 PM EST us Meli Garza NP LAB BLOOD ORDERABLES Final Resu lt [facility] [address] [place] [address], [place] [phone] * (ABNORMAL) Comprehensive metabolic panel (06/19/2024 2:21 PM EST) Sodium 137 133 - 145 mmol/L LAB CHEMISTRY METHOD 06/19/2024 6:23 PM [facility] Potassium 3.7 3.5 - 5.5 mmol/L LAB CHEMISTRY METHOD 06/19/2024 6:23 PM [facility] Chloride 106 96 - 110 mmol/L LAB CHEMISTRY METHOD 06/19/2024 6:23 PM [facility] CO2 29 21 - 32 mmol/L LAB CHEMISTRY METHOD 06/19/2024 6:23 PM [facility] Anion Gap 2(L) 3 - 11 LAB CHEMISTRY METHOD 06/19/2024 6:23 PM [facility] Glucose 155(H) 70 - 100 mg/dL LAB CHEMISTRY METHOD 06/19/2024 6:23 PM [facility] BUN 16 5 - 25 mg/dL LAB CHEMISTRY METHOD 06/19/2024 6:23 PM [facility] Creatinine 1.06 0.70 - 1.30 mg/dL LAB CHEMISTRY METHOD 06/19/2024 6:23 PM [facility] eGFR 82 >=60 mL/min/1. 73m2 LAB CHEMISTRY METHOD 06/19/2024 6:23 PM [facility] Comment:Calculation based on the??Chronic Kidney Disease Epidemiology Collaboration (CKD-EPI) equation refit??without adjustment for race. BUN/Creatinine Ratio 15.1 LAB CHEMISTRY METHOD 06/19/2024 6:23 PM [facility] Calcium 9.5 8.5 - 10.5 mg/dL LAB CHEMISTRY METHOD 06/19/2024 6:23 PM [facility] AST (SGOT) 13 10 - 42 unit/L LAB CHEMISTRY METHOD 06/19/2024 6:23 PM [facility] ALT (SGPT) 25 10 - 60 unit/L LAB CHEMISTRY METHOD 06/19/2024 6:23 PM [facility] Alkaline Phosphatase 69 42 - 121 unit/L LAB CHEMISTRY METHOD 06/19/2024 6:23 PM EST [facility] Total Protein 7.5 6.0 - 8.0 g/dL LAB CHEMISTRY METHOD 06/19/2024 6:23 PM EST [facility] Albumin 4.0 3.2 - 5.0 g/dL LAB CHEMISTRY METHOD 06/19/2024 6:23 PM EST [facility] Total Bilirubin 0.4 0.0 - 1.4 mg/dL LAB CHEMISTRY METHOD 06/19/2024 6:23 PM EST [facility] Blood Venous blood specimen / Unknown Venipuncture / Unknown 06/19/2024 2:21 PM EST 06/19/2024 2:21 PM EST Meli Garza NP LAB BLOOD ORDERABLES Final Resu lt [facility] [address] [place] [address], * Depression Screening (10/11/2023) Pathologist [facility] Depression Screening abstracted Result [facility] Historical Provider HEALTH MAINTENANCE Final Result * Urine Albumin Creatinine Ratio (06/07/2023) Pathologist [facility] Urine Albumin Creatinine Ratio abstracted Result [facility] Historical Provider HEALTH MAINTENANCE Final Result * Colonoscopy (08/22/2020) [facility] Colonoscopy no interpretation , abstracted Anatomical Region Laterality Modality Other Historical Provider HEALTH MAINTENANCE Final Result from Last 3 Months or Most Recently Relevant to Health Maintenance Insurance [id number] [phone] [facility] [employer] Care Teams Regulatory Technician Relationship Specialty Start Date End Date Donnell Tracy MD [address] [place] [address] PCP - General Internal Medicine 04/16/20
--- OUTSIDE RECORDS SUMMARY | 2024-11-06 07:55 | XMS_ITS | Clinical Summary ---
Author Organization [employer] Address [address] [place] [address] [address] [place] [address] Care Team Providers Care Slope Hoist Operator Name Role Phone Unavailable Primary Care Provider Unavailabl e Encounters Date Type Department Care Team Description 10/14/2024 Orders Only GENERIC EXTERNAL DATA DEPARTMENT Provider, Generic External Data from Last 3 Months Social History Tobacco Use Types Packs/Day Years Used Date Smoking Tobacco: Never Assessed Sex and Gender Information Value Date Recorded Sex Assigned at Male 05/03/2022 10:16 AM EDT Legal Sex Male 10:16 AM EDT Gender Identity Not on file Sexual Orientation Not on file Plan of Treatment Health Maintenance Due Date Last Done Comments CT Colonography 1966 Colonoscopy 1966 Colorectal Cancer Screening 1966 Depression Screening 1966 FIT DNA/Cologuard 1966 FIT 1966 FOBT 1966 Lipid Panel 1966 Sigmoidoscopy 1966 Alcohol/Substance Use Screening 1978 Tobacco Screening 1978 Hepatitis B Vaccines (1 of 3 - 19+ 3-dose series) 1985 Pneumococcal Vaccine: 50+ Years (2 of 2 - PCV) 2016 04/25/2012 Zoster Vaccines (1 of 2) 2016 COVID-19 Vaccine (2 - season) 2024 07/31/2021 Influenza Vaccine (#1) 2024 , 07/22/2021, 07/15/2020, Additional history exists DTaP/Tdap/Td Vaccines (3 - Td or Tdap) 07/27/2032 07/27/2022, 04/25/2012 RSV Patients and Patients Aged 60 years or older (1 - 1-dose 75+ series) 2041 HIB Vaccines Aged Out No longer eligi ble based on patient's age to complete this topic HPV Vaccines Aged Out No longer eligi ble based on patient's age to complete this topic Hepatitis A Vaccines Aged Out No long er eligible based on patient's age to complete this topic IPV Vaccines Aged Out No longer eligi ble based on patient's age to complete this topic Meningococcal Vaccine Aged Out No navdeep subhash eligible based on patient's age to complete this topic RSV under 20 months Aged Out No longe r eligible based on patient's age to complete this topic Rotavirus Vaccines Aged Out No longer eligible based on patient's age to complete this topic Procedures Procedure Name Priority Date/Time Associated Diagnosis Comments BLOOD CULTURE (SECOND) Routine 10/14/2024 2:35 PM EDT BLOOD CULTURE (FIRST) Routine 10/14/2024 12:50 PM EDT from Last 3 Months Results * Blood Culture (Second) (10/14/2024 2:35 PM EDT) Blood Venous blood specimen / Unknown 10/14/2024 2:35 PM EDT 10/14/2024 2:39 PM EDT Comment:Blood [facility] - 10/19/2024 4:39 PM EDT Blood Culture (Second) No growth after 5 days. Specimen Source: Blood Generic External Data Provider LAB MICROBIOLOGY - GENERAL ORDERABLES Final Result Performing Organization Address [facility] Co de Phone Number [facility] [address] [place] [phone] * Blood Culture (First) (10/14/2024 12:50 PM EDT) Blood Venous blood specimen / Unknown 10/14/2024 12:50 PM EDT 10/14/2024 12:53 PM EDT Comment:Blood [facility] - 10/19/2024 2:54 PM EDT Blood Culture (First) No growth after 5 days. Specimen Source: Blood Generic External Data Provider LAB MICROBIOLOGY - GENERAL ORDERABLES Final Result Performing Organization Address City/[facility] Co de Phone Number [facility] [address] [place] [address] [phone] from Last 3 Months
[2024-11-06 09:14] LABS: Cholesterol 133 mg/dL (<200); Triglycerides 149 mg/dL (<150)
[2024-11-06 09:41] LABS: HDL Cholesterol 29 mg/dL (>40); LDL Cholesterol Calculated 75 mg/dL (<100)
== END 2024-11-06 07:53 | disposition home or self-care (01) ==
LOC: HO.LAB 07:52
PROVIDERS: Visit Provider Nurse Practitioner Family
DX: E78.5 Hyperlipidemia, unspecified (principal)
CPT/HCPCS: 36415; 80061

== ENCOUNTER → 2024-11-08 08:32 | Outpatient (BNV) | payer OTHER, SELFPAY | DX: R07.9 Chest pain, unspecified (principal) | CPT/HCPCS: 78452; 93016; 93018; 93320; 93325; 93350 ==

== ENCOUNTER → 2024-11-08 08:54 | Outpatient (REF) | payer OTHER, SELFPAY ==
--- NOTE | ~2024-11-08 | NM_ITS ---
Lexiscan Myocardial perfusion study Indication: Chest pain Technique: The patient was brought in for a Lexiscan perfusion study on 11/08/2024 and was injected 0.4 mg of Lexiscan intravenously. Within a minute of this injection 30 mCi of sestamibi was given intravenously. Images were obtained using the SPECT gamma camera interlaced with the gating device. Images were obtained in supine position. Resting perfusion study was performed on 11/09/2024. Patient was administered 30 mCi of sestamibi intravenously at rest. Images were then obtained in supine position. Total DLP 65 mGy-cm. Images were processed with the software and compared side to side in short axis, horizontal long axis and vertical long axis views. Findings: Raw aquisition reviewed. The stress perfusion study showed no significant perfusion abnormality. Both uncorrected as well as CT attenuation corrected images were reviewed. The gated study shows normal LV systolic function with calculated LVEF of 51%. LV cavity is normal in size. The gated study shows normal wall thickening and contraction of segments. Resting study shows no significant perfusion abnormality. Gating at rest reveals normal wall motion with ejection fraction at 59%. The findings are consistent with no clear reversible or fixed perfusion abnormality. NM/NM cardiolite stress test Impression: 1. Myocardial perfusion imaging study shows normal myocardial perfusion. 2. Gated LVEF is 51% during stress and 59% during rest. 3. Transient ischemic dilatation not present. EKG component of the test reported separately. Electronically signed by: Hermelindo Pollock MD 11/11/2024 02:09 PM EDT
--- NOTE | 2024-11-08 08:32 | CA_ITS ---
Transthoracic Echocardiogram Patient (Last, First, Middle): Fernando Young Ruben Gender: Male Date of : 1965 Age: 58 Procedure Date: 11/08/2024 Procedure Type: Transthoracic Echocardiogram Location: OP Height: 175.26 cm Weight: 81.65 kg BSA: 1.98 m2 Heart Rate: bpm BP: 124 / 82 mmHg Motor And Generator Brush Cutter: REID Referring MD: Rosi Delgadillo MAKEUP SALES ADVISORElizabeth Symptoms: I25.10 - Atherosclerotic heart disease of [place] coronary artery without... Study Quality: Adequate ECG Rhythm: Sinus Conclusions: - The left ventricular systolic function is normal. The calculated ejection fraction is 67% by biplane method. - No obvious valvular pathology seen on this study. Findings Left Ventricle Normal left ventricular cavity size. There is mildly increased left ventricular wall thickness. The left ventricular systolic function is normal. The calculated ejection fraction is 67% by biplane method. There is no evidence of regional wall motion abnormalities. Diastolic function is normal for age. Right Ventricle Normal right ventricular cavity size and systolic function. Atria Both atria are normal in size. Aortic Valve There is a normal trileaflet aortic valve. There is no aortic valve stenosis. There is no aortic valve regurgitation. Mitral Valve The mitral valve appears normal. There is no mitral valve regurgitation. There is no mitral valve stenosis. Pulmonic Valve The pulmonic valve is likely normal. Tricuspid Valve There is trace tricuspid valve regurgitation. There is no evidence of pulmonary hypertension. Great Vessels The sinuses of valsalva and sino tubular ridge are normal in size. Venous The inferior vena cava is mildly dilated and collapses greater than 50% with inspiration. Pericardium/Pleural There is no evidence of pericardial effusion. Prior Study Comparison No prior study available for comparison. Recommendations, Care & Conclusions No obvious valvular pathology seen on this study. Measurements 2D Linear Measurements IVSd: 1.04 0.6-0.9/0.6-1.0 cm LVIDd: 4.08 3.9-5.3/4.2-5.9 cm LVIDd Index: 2.06 2.4-3.2/2.2-3.1 cm/m2 LVIDs: 2.76 2.0-3.6 cm LVPWd: 1.01 0.7-1.1 cm LA Diam: 3.00 2.7-3.8/3.0-4.0 cm LAIDs Index: 1.52 1.5-2.3 cm/m2 LV Mass: 168.93 67-162/88-224 g LV Mass Index: 85.32 43-95/49-115 g/m2 LVOT Diam: 2.10 3.0+(-)1.3 cm 2D Systolic Function EF 4C: 67.80 >55% EF 2C: 64.80 >55% EF BiP: 67.10 >55% Mitral Valve MV Pk E: 0.70 MV PK A: 0.97 MV Decel Time: 303.00 E/A: 0.70 E'Lateral: 11.00 E'Medial: 7.83 E/E' Med: 8.90 E/E' Lat: 6.30 PHT: 89.00 MVA PHT: 2.47 Decel [place]: 2.30 Aortic Valve AoV Pk Yaya: 1.34 AoV Mn Yaya: 0.94 AoV VTI: 0.26 AoV Pk Grad: 7.00 Aov Mn Grad: 4.00 MODE Cont.VTI: 2.30 LVOT LVOT Pk Yaya: 1.07 LVOT Mn Yaya: 0.74 LVOT VTI: 0.17 LVOT Pk Grad: 5.00 LVOT Mn Grad: 2.00 LVOT Diam: 2.10 LVOT Area: 3.46 Diastolic Function MV Pk E: 0.70 MV Pk A: 0.97 E/A: 0.70 E'Medial: 7.83 E/E' Med: 8.90 E' Laterial: 11.00 E/E' Lat: 6.30 Right Ventricle TAPSE (mm): 23.00 TVS' Yaay: 13.50 Tricuspid Valve RA Press: 8.00 Great Vessels Aorta Sinus of Valsalva: 3.07 2.0-3.[address] Ridge: 2.54 1.7-3.4 cm Updated in Other Vendor System with Status of Final Hermelindo Pollcok MD electronically signed on 11/10/2024 9:14:32 AM with status of Final
--- NOTE | 2024-11-08 08:32 | CA_ITS ---
Acquisition Time: 2024-11-08 09:54:30 Total Exercise Time: 00:06:56 Test Indications: CP,Fatigue Medications: ALBUTEROL ATORVASTATIN CYCLOBENZAPRINE LOSARTAN MELOXICAM Protocol: LE Max HR: 127 BPM 77% of Pred: 163 BPM Max BP: 166/80 mmHG Max Work Load: 8.4 METS Exercise stress test with exercise 6 mins 56 secs of El Protocol, achieving 77% MPHR, requested to stop due to SOB, no chest pain. No EKG changes. Suboptimal HR. Test switched to Lexiscan. Pharmacological stress test with Lexiscan while pt continued to walk on treadmill at 1.5mph, with reports of 8/10 mid chest pain, SOB and dizziness, without any arrythmias, with normotensive response to injection. With ST depression inferiorly meeting criteria for ischemia. Nonspecific ST at baseline. In recovery, breathing returned to baseline and CP resolved. ST segment improved. Nuclear images pending. Test reviewed /with Dr. Pollock. Referred By: Rosi Delgadillo Electronically Signed By: Bobby Stevenson
--- OUTSIDE RECORDS SUMMARY | 2024-11-08 09:19 | XMS_ITS | Clinical Summary ---
Author Organization [address] [facility] Address [address] [place] [address] Phone Care Team Providers Care Bistro Attendant Name Role Phone Donnell Tracy MD Primary Care Provider [phone] Allergies No known active allergies Medications buprenorphine-n [...] Type 2 diabetes mellitus wit h microalbuminuria ([facility] V24, [facility] V28) 07/22/2020 Hyperlipidemia 05/23/2013 Chronic headache disorder 10/31/2012 Overview (04/26/2024): Chronic daily use of aspirin and NSAID preparations. Gastritis and duodenitis 10/31/2012 Overview (04/26/2024): EGD plus biopsies 10/31/2012, erosive duodenitis, no evidence of H. pylori infection. Constipation 04/25/2012 Anxiety 04/14/2012 Illicit drug use 04/06/2012 Polysubstance abuse ([facility] V24, [facility] V28) 0 09/27/2009 Chronic pain 09/26/2009 GERD (gastroesophageal reflux disease) 0 Overview (04/26/2024): Mild erosive esophagitis on EGD 10/31/2012: CT scan 05/2021: Small sliding-type hiatal hernia. Tobacco use disorder 09/26/2009 Encounters Date Type Department Care Team Description 09/24/2024 Telephone Internal Medicine - [address] [phone] Donnell Tracy MD Appointment 09/03/2024 Telephone Gastroenterology - [place] [address] [facility] [address] [facility] [address] [place] [address] Yusra Bruan NP provider call back (Pt states that he has worms) 08/22/2024 7:49 AM EST - 08/22/2024 11:59 PM EST Hospital Encounter [facility] Nuclear Medicine [address] [place] [address] Early satiety Discharge Disposition: Home or Self Care 08/20/2024 Telephone Internal Medicine - [address] [phone] Donnell Tracy MD from Last [...] shoulder surgery UPPER GASTROINTESTINAL ENDOSCOPY 2012 PROCEDURE: [place] UPPER GI ENDOSCOPY PERFORMED; COMMENT: gastric and [...] evidence of H. pylori infection. Polysubstance abuse (CMS/[employer] V24, CMS/[facility] V28) 09/27/2009 DX:Polysubstance abuse (HCC) Cigarette smoker 07/15/2020 DX:Cigarette sm oker Type 2 diabetes mellitus wit h microalbuminuria (CMS/HCC V24, CMS/HCC V28) 07/22/2020 DX:Type 2 diabetes mellitus with microalbuminuria ([facility]) CAD (coronary artery disease) 05/05/2024 Family History [...] Signed Date: 08/22/2024 14:33 ET Workstation ID: [id number] Transcribed By: Self Edit Transcribed Date: 08/22/2024 [...] Signed Date: 08/22/2024 14:33 ET Workstation ID: [id number] Transcribed By: Self Edit Transcribed Date: 08/22/2024 14:33 ET Yusra Braun DELIVERY TABLE FEEDER IMG NM PROCEDURES Final Result * (ABNORMAL) Hemoglobin A1c (06/28/2024 11:57 AM EST) Hemoglobin A1C 7.4(H) <6.5 % LAB CHEMISTRY METHOD 06/28/2024 7:[address] [facility] Mean Bld Glu Estim. 166 mg/dL LAB CHEMISTRY METHOD 06/28/2024 7:[address] [facility] Blood Venous blood specimen / Unknown Venipuncture / Unknown 06/28/2024 11:57 AM EST 06/28/2024 11:57 AM EST Meli Garza NP LAB BLOOD ORDERABLES Final Resu lt [facility] [address] [place] [address], [place] [phone] * CT Lung Screening (06/25/2024 2:28 PM [...] Signed Date: 06/26/2024 12:56 ET Workstation ID: [id number] Transcribed By: Self Edit Transcribed Date: 06/26/2024 12:46 ET Narrative 06/26/2024 12:56 PM EST EXAMINATION: CT CHEST WITHOUT CONTRAST LUNG CANCER SCREENING, LOW DOSE CLINICAL INFORMATION: Lung cancer screening. ??Current smoker COMPARISON: Portions of a previous 06/21/2023 ?? TECHNIQUE: Multidetector CT. Examination of the chest. Examination of the chest without IV contrast. Reformatting in the coronal and sagittal planes. Device: [employer] VCT DLP: 168 mGy-cm CTDI: 4.83 Dose [...] in the coronal and sagittal planes. Device: [employer] VCT DLP: 168 mGy-cm CTDI: 4.83 Dose [...] Signed Date: 06/26/2024 12:56 ET Workstation ID: [id number] Transcribed By: Self Edit Transcribed Date: 06/26/2024 12:46 ET Leonarda Gomez MD IMG CT PROCEDURES Final Result * Hepatitis C antibody (06/19/2024 2:21 PM EST) Hepatitis C Antibody Negative Negative LAB CHEMISTRY METHOD 06/19/2024 7:[address] [facility] Blood Venous blood specimen / Unknown Venipuncture / Unknown 06/19/2024 2:21 PM EST 06/19/2024 2:21 PM EST Sofiya Bess MD LAB BLOOD ORDERABLES Final Resul t [facility] [address] [place] [address], [place] [phone] * HIV 1,2 antibody, p24 antigen with reflex to differentiation (06/19/2024 2:21 PM EST) HIV Combo AB/AG Negative Negative LAB CHEMISTRY METHOD 06/19/2024 7:[address] [facility] Blood Venous blood specimen / Unknown Venipuncture / Unknown 06/19/2024 2:21 PM EST 06/19/2024 2:[address] [facility] - 06/19/2024 7:08 PM EST [...] MD LAB BLOOD ORDERABLES Final Resul t [facility] [address] [place] [address], [place] [phone] * (ABNORMAL) Lipid panel with reflex to direct LDL (06/19/2024 2:21 PM EST) Cholesterol 167 0 - 200 mg/dL LAB CHEMISTRY METHOD 06/19/2024 6:[address] [facility] Triglycerides 181(H) 0 - 150 mg/dL LAB CHEMISTRY METHOD 06/19/2024 6:[address] [facility] HDL 34(L) >=40 mg/dL LAB CHEMISTRY METHOD 06/19/2024 6:[address] [facility] LDL Calculated 97 0 - 100 mg/dL LAB CHEMISTRY METHOD 06/19/2024 6:[address] [facility] VLDL Cholesterol Vinnie 36.2 mg/dL LAB CHEMISTRY METHOD 06/19/2024 6:[address] [facility] Non HDL Chol. (LDL+VLDL) 133 <145 mg/dL LAB CHEMISTRY METHOD 06/19/2024 6:[address] [facility] Chol/HDL Ratio 4.9(H) 0.0 - 4.4 LAB CHEMISTRY METHOD 06/19/2024 6:[address] [facility] Blood Venous blood specimen / Unknown Venipuncture / Unknown 06/19/2024 2:21 PM EST 06/19/2024 2:21 PM EST us Mlei Garza NP LAB BLOOD ORDERABLES Final Resu lt [facility] [address] [place] [address], [place] [phone] * (ABNORMAL) Comprehensive metabolic panel (06/19/2024 2:21 PM EST) Sodium 137 133 - 145 mmol/L LAB CHEMISTRY METHOD 06/19/2024 6:23 PM [facility] Potassium 3.7 3.5 - 5.5 mmol/L LAB CHEMISTRY METHOD 06/19/2024 6:23 PM [facility] Chloride 106 96 - 110 mmol/L LAB CHEMISTRY METHOD 06/19/2024 6:23 PM [facility] CO2 29 21 - 32 mmol/L LAB CHEMISTRY METHOD 06/19/2024 6:23 PM [facility] Anion Gap 2(L) 3 - 11 LAB CHEMISTRY METHOD 06/19/2024 6:23 PM [facility] Glucose 155(H) 70 - 100 mg/dL LAB CHEMISTRY METHOD 06/19/2024 6:23 PM [facility] BUN 16 5 - 25 mg/dL LAB CHEMISTRY METHOD 06/19/2024 6:23 PM [facility] Creatinine 1.06 0.70 - 1.30 mg/dL LAB CHEMISTRY METHOD 06/19/2024 6:23 PM [facility] eGFR 82 >=60 mL/min/1. 73m2 LAB CHEMISTRY METHOD 06/19/2024 6:23 PM [facility] Comment:Calculation based on the??Chronic Kidney Disease Epidemiology Collaboration (CKD-EPI) equation refit??without adjustment for race. BUN/Creatinine Ratio 15.1 LAB CHEMISTRY METHOD 06/19/2024 6:23 PM [facility] Calcium 9.5 8.5 - 10.5 mg/dL LAB CHEMISTRY METHOD 06/19/2024 6:23 PM [facility] AST (SGOT) 13 10 - 42 unit/L LAB CHEMISTRY METHOD 06/19/2024 6:23 PM [facility] ALT (SGPT) 25 10 - 60 unit/L LAB CHEMISTRY METHOD 06/19/2024 6:23 PM [facility] Alkaline Phosphatase 69 42 - 121 unit/L LAB CHEMISTRY METHOD 06/19/2024 6:[address] [facility] Total Protein 7.5 6.0 - 8.0 g/dL LAB CHEMISTRY METHOD 06/19/2024 6:[address] [facility] Albumin 4.0 3.2 - 5.0 g/dL LAB CHEMISTRY METHOD 06/19/2024 6:[address] [facility] Total Bilirubin 0.4 0.0 - 1.4 mg/dL LAB CHEMISTRY METHOD 06/19/2024 6:[address] [facility] Blood Venous blood specimen / Unknown Venipuncture / Unknown 06/19/2024 2:21 PM EST 06/19/2024 2:21 PM EST Meli Garza NP LAB BLOOD ORDERABLES Final Resu lt [facility] [address] [place] [address], * Depression Screening (10/11/2023) Pathologist formerly [facility] Depression Screening abstracted Result [facility] Historical Provider HEALTH MAINTENANCE Final Result * Urine Albumin Creatinine Ratio (06/07/2023) Pathologist formerly [facility] Urine Albumin Creatinine Ratio abstracted Result [facility] Historical Provider HEALTH MAINTENANCE Final Result * Colonoscopy (08/22/2020) [facility] Colonoscopy no interpretation , abstracted Anatomical Region Laterality Modality Other Historical Provider HEALTH MAINTENANCE Final Result from Last 3 Months or Most Recently Relevant to Health Maintenance Insurance [id number] [phone] [facility] [place] [address] Care Teams Bistro Attendant Relationship Specialty Start Date End Date Donnell Tracy MD [address] [place] [address] PCP - General Internal Medicine 04/16/20
--- OUTSIDE RECORDS SUMMARY | 2024-11-08 09:19 | XMS_ITS | Clinical Summary ---
Author Organization [employer] Address [address] [place] [address] [address] [place] [address] Care Team Providers Care Systems Mgr Name Role Phone Unavailable Primary Care Provider [...] PM EDT 10/14/2024 2:39 PM EDT Comment:Blood [facility] - 10/19/2024 4:39 PM EDT Blood Culture (Second) No growth after 5 days. Specimen Source: Blood Generic External Data Provider LAB MICROBIOLOGY - GENERAL ORDERABLES Final Result Performing Organization Address [facility] Co de Phone Number [facility] [address] [place] [phone] * Blood Culture (First) (10/14/2024 12:50 PM EDT) Blood Venous blood specimen / Unknown 10/14/2024 12:50 PM EDT 10/14/2024 12:53 PM EDT Comment:Blood [facility] - 10/19/2024 2:54 PM EDT Blood Culture (First) No growth after 5 days. Specimen Source: Blood Generic External Data Provider LAB MICROBIOLOGY - GENERAL ORDERABLES Final Result Performing Organization Address City/[facility] Co de Phone Number [facility] [address] [place] [address] [phone] from Last 3 Months
== END ==
LOC: HO.CARD 08:54
PROVIDERS: Visit Provider Nurse Practitioner Family
DX: I25.10 Atherosclerotic heart disease of native coronary artery without angina pectoris (principal); I10 Essential (primary) hypertension; E78.5 Hyperlipidemia, unspecified
CPT/HCPCS: 78452; 93017; 93306; A9500; J0280; J2785

== ENCOUNTER 2024-11-13 09:46 | Outpatient (AMB) | payer OTHER, SELFPAY ==
--- NOTE | 2024-11-13 10:16 | A.OFFPC_ITS ---
Vital Signs 11/13/24 10:27 Height 5 ft 9 in Weight 174 lb BMI 25.7 BP 118/82 Blood Pressure Location Rt brachial Position Sitting Respiration 14 Pulse 74 Pulse Source Pulse Oximeter Temp 97.7 F Temp Source Temporal Artery Scan Pulse Oximetry (%) 97 Oxygen Delivery Method Room Air Intake Visit Reasons: est care/cancer Intake Note: Fernando presents in the office today to establish care. Allergies No Known Allergies Allergy (Verified 11/13/24 10:19) Medication List - Last Reconciled 11/13/24 by Santosh Colin MD acetaminophen 1,000 mg (2 x 500 mg) PO QID PRN albuterol sulfate 90 mcg/actuation (Proventil HFA) 1 inh inhalation QID PRN atorvastatin 40 mg PO BEDTIME 90 days chlorhexidine gluconate 4% (Hibiclens) 1 appl topical DAILY 7 days cyclobenzaprine 10 mg PO TID PRN dulaglutide (Trulicity) 0.75 mg subcut QWEEK losartan 25 mg PO DAILY meloxicam 15 mg PO DAILY Tobacco use date assessed: 11/13/24 Dental Screening Dental Screen Date: 11/13/24 Did you have a dental visit in the last 12 months?: No Did you have a dental problem in the last 6 months where you did not have access to dental care?: No Was dental information given to patient?: Yes HPI est care/cancer HPI Details New Patient? ?? Prior PCP:Steph Haines Last office visit/CPE:? Acute issue(s):? ?? PMHx:? Coronary artery calcification/CAD, HTN, HLD, DM, MRSA skin infection SurgHx:? FHx:? Mom: DM, CAD/[place]. Dad: Heart Disease. Sister: Cancer. SocHx: Smokes 2 packs per day, Etoh None IVDU (Patient states clean x1 year) PFSH Medical History Diabetes mellitus Depression Family History (Updated 11/13/24 @ 10:26 by Marium Anderson MA) Mother Hypertension affecting Hyperlipemia Diabetes Father Hypertension affecting Hyperlipemia Diabetes Family/Other Hypertension affecting Hyperlipemia Diabetes Social History Housing: Apartment Unable to assess alcohol history related to: Unknown Alcohol intake: never Patient Tobacco Use Status: Current everyday Tobacco user Cigarette Packs Per Day: 2 Cigarettes Per Day: 40 Years Smoked: 39 e-Cigarette/Vaping Use: Never Used Second Hand Smoke Exposure: No Substance Use Type: Crack/Cocaine service: No Current occupational status: disabled Current occupational exposures/hazards: No Cognitive needs: No Hearing needs: No Vision needs: No Questionnaire PHQ-9 Over the last 2 weeks, how often have you been bothered by any of the following problems? 1. Little interest or pleasure in doing things: not at all 2. Feeling down, depressed, or hopeless: not at all 3. Trouble falling or staying asleep, or sleeping too much: not at all 4. Feeling tired or having little energy: not at all 5. Poor appetite or overeating: not at all 6. Feeling bad about yourself - or that you are a failure or have let yourself or your family down: not at all 7. Trouble concentrating on things, such as reading the newspaper or watching television: not at all 8. Moving or speaking so slowly that other people could have noticed. Or the opposite - being so fidgety or restless that you have been moving around a lot more than usual: not at all 9. Thoughts that you would be better off or of hurting yourself in some way: not at all Total score: 0 Depression Screening Interpretation: Negative Depression Screening Done: Yes 40805 - PHQ-9 Billing: Patient declined-do not bill Source: Developed by Drs. Ghanshyam Yee, Domonique Spicer, Julian Hnery and colleagues, with an educational todd from [employer]. Thrive Questionnaire Date Thrive assessed: 11/13/24 I am a: Patient What is your living situation today?: I have a steady place to live Within the past 12 months, did the food you bought not last and you didn't have the money to get more?: Never true Within the past 12 months, did you worry whether your food would run out before you got money to buy more?: Never true Do you have trouble paying for medicines?: No Do you have trouble getting transportation to medical appointments?: No Do you have trouble paying your heating and electricity bill?: No Do you have trouble taking care of your child, family member or friend?: No Do you have trouble with day-to-day activities such as bathing, preparing meals, shopping, managing finances, etc.?: No Are you currently unemployed and looking for a job?: No Are you interested in more education?: No Please select the resources that you would like help with: None Currently or been in a relationship where the following occur: No concerns reported THRIVE Score: 0 AUDIT C Alcohol Use Questionnaire (AUDIT-C) 1. How often do you have a drink containing alcohol?: Never Total Score: 0 Score Reviewed/Action Taken: No RAMEZ-7 AMB Questionnaire RAMEZ-7 Date RAMEZ - 7 assessed: 11/13/24 Feeling nervous, anxious, or on edge: 0 = Not at all Not being able to stop or control worryin = Not at all Worrying too much about different things: 0 = Not at all Trouble relaxin = Not at all Being so restless that it is hard to sit still: 0 = Not at all Becoming easily annoyed or irritable: 0 = Not at all Feeling afraid as if something awful might happen: 0 = Not at all Total RAMEZ-7 score (0-4 normal; 5-9 mild; 10-14 moderate; 15-21 severe): 0 Source: Developed by Drs. Ghanshyam Yee, Domonique Spicer, Julian Henry and colleagues, with an educational todd from [employer]. RAMEZ-7 Assessment Billing RAMEZ-7 Assessment Tool: RAMEZ-7 Assessment 65888 ACT Questionnaire In the past 4 weeks, how much of the time did your asthma keep you from getting as much done at work, school or at home?: Some of the time During the past 4 weeks, how often did your asthma symptoms wake you up at night or earlier than usual in the morning?: Once or twice per week During the past 4 weeks, how often have you had to use your rescue inhaler or nebulizer medication?: 2-3 times a week How would you rate your asthma control during the past 4 weeks?: Somewhat controlled ACT Interpretation: Positive Score: 13 Review of Systems Const Denies chills, Denies fatigue, Denies fever(s), Denies headache(s) and Denies weakness ENT Denies dizziness and Denies headache(s) Card Denies chest pain, Denies lightheadedness, Denies dyspnea and Denies other (Palpitations) Resp Denies cough, Denies dyspnea, Denies wheezing and Denies other ( shortness of breath) Musc Denies numbness and Denies tingling Neuro Denies dizziness, Denies headache(s), Denies numbness, Denies tingling, Denies paresthesias and Denies weakness Psych Denies anxiety and Denies depression Endo Denies fatigue Aller/Immun Denies wheezing Physical exam (Primary Care) Vital Signs: Last Vital Signs Temp 97.7 F 11/13/24 10:27 Pulse 74 11/13/24 10:27 Resp 14 11/13/24 10:27 BP 118/82 11/13/24 10:27 Pulse Ox 97 11/13/24 10:27 Oxygen Delivery Method Room Air 11/13/24 10:27 BMI result Body Mass Index 25.7 Tobacco/Smoking Status: Tobacco use Status Tobacco use date assessed 11/13/24 11/13/24 10:30 Patient Tobacco Use Status Current everyday Tobacco 11/13/24 10:30 e-Cigarette/Vaping Use Never Used 11/13/24 10:30 PHQ-9: PHQ-9 Score PHQ-9: Total score 0 11/13/24 10:56 Depression Screening Interpretation: Negative Thrive Assessment: Date of Thrive Assessment Date Thrive assessed 11/13/24 11/13/24 10:19 Currently or been in a relationship where the following occur: No concerns reported Const General: no acute distress and well developed Nutritional Appearance: well nourished Orientation/consciousness: patient oriented [facility]: Yes normocephalic and Yes atraumatic Eyes General: appearance normal, both eyes and all related structures Pupils: Equal, round and reactive pupils present EOM: EOMs intact bilaterally Resp Effort & Inspection: normal respiratory effort Auscultation: clear to auscultation bilaterally Cardio Rate: regular rate Rhythm: regular rhythm Heart sounds: S1 normal heart sound present, S2 normal heart sound present, no gallops, no murmurs and no rubs Neuro General: patient oriented x3 and gait normal Cranial nerves: Yes Equal, round and reactive pupils present Psych Affect: normal affect Results AMB Hemoglobin A1c AMB Hemoglobin A1c 8.6 % Last Edit by Marium Anderson MA on 11/13/24 11:22 Coding Level of Care Code New Pt Level 4 (73287) Diagnoses Diabetes mellitus E11.9 Hyperlipidemia E78.5 Hypertension I10 Coronary artery calcification seen on CAT scan I25.10 Smoking greater than 40 pack years F17.210 Skin lesions L98.9 Laboratory exam ordered as part of routine general medical examination Z00.00 Fear of needles 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 A1c?8.6%.??Goal?is?less?than?7% Resuming?Trulicity Patient?notes?fear?of?needles?and?aversion?to?bridging?his?finger?to?test?freque ntly. Will?try?to?get?him?a?continuous?glucose?monitor. Will?recheck?at?next?visit (2) Hyperlipidemia: Code(s): E78.5 - Hyperlipidemia, unspecified Category: Medical Plan: Check?cholesterol?levels Continue?atorvastatin (3) Hypertension: Code(s): I10 - Essential (primary) hypertension Category: Medical Plan: Blood?pressure?is?at?goal?of?less?than?130/80 Continue?current?medications (4) Coronary artery calcification seen on CAT scan: Code(s): I25.10 - Atherosclerotic heart disease of [place] coronary artery without angina pectoris Category: Medical Plan: Coronary?calcifications Controlled?blood?pressure?lipids.??Control?blood?sugar. With?smoking Follow-up?with?Cardiology?as?recommended (5) Smoking greater than 40 pack years: Comment: Admits to 2 packs a day for 40 years, 80 pack-year history. Code(s): F17.210 - Nicotine dependence, cigarettes, uncomplicated Category: Social Hx Plan: Patient?was?smoking?2?packs?per?day.??He?is?going?to?work?on?trying?to?wean?this ?down.??Giving?him?a?nicotine?patch?to?help?with?this We?can?follow-up?at?next?visit (6) Skin lesions: Code(s): L98.9 - Disorder of the skin and subcutaneous tissue, unspecified Category: Medical Plan: Patient?has?skin?lesions?and?believes?that?worms?coming?out?of?skin?and?also ?GI?tract Checking?ova?and?parasites Checking?CBC,?CRP?and?sed?rate Patient?has?history?of?IV?drug?use.??Multiple?skin?lesions?consistent?with?this? though?he?denies?current?use. (7) Laboratory exam ordered as part of routine general medical examination: Code(s): Z00.00 - Encounter for general adult medical examination without abnormal findings Category: Medical Plan: Check labs (8) Fear of needles: Code(s): F40.298 - Other specified phobia Category: Medical Plan: As?above,?will?send?script?for?continuous?glucose?monitor Orders: Orders Lipid Panel Today Z00.00 - Encounter for general adult medical examination without abnormal findings Microalbumin, Random (w Creat) Today I10 - Essential (primary) hypertension TSH reflex Free T4 Today Z00.00 - Encounter for general adult medical examination without abnormal findings AMB Hemoglobin A1c Today E11.9 - Type 2 diabetes mellitus without complications Ova and Parasite Today R19.5 - Other fecal abnormalities Complete Blood Count Auto Diff Today Z00.00 - Encounter for general adult medical examination without abnormal findings Erythrocyte Sedimentation Rate Today L98.9 - Disorder of the skin and subcutaneous tissue, unspecified Comprehensive [place]. Panel Fast Today Z00.00 - Encounter for general adult medical examination without abnormal findings Prostate Specific Antigen Scr Today Z12.5 - Encounter for screening for malignant neoplasm of prostate UA CC w/rflx Micro + Cult Today Z00.00 - Encounter for general adult medical examination without abnormal findings CRP High Sensitivity Today L98.9 - Disorder of the skin and subcutaneous tissue, unspecified Drug Screen Urine Today F19.91 - Other psychoactive substance use, unspecified, in remission Medications: New dulaglutide 0.75 mg (0.25 mL) subcut QWEEK 28 days 1 mL 2RF nicotine (Nicoderm CQ) 1 patch transdermal Q24H 28 days 28 ea 1RF dulaglutide 1.5 mg (0.5 mL) subcut QWEEK 28 days 2 mL 2RF Refilled chlorhexidine gluconate 4% (Long) 1 appl topical DAILY 7 days 946 mL 0RF
[2024-11-13 10:27] VITALS: BP 118/82; PULSE 74; RESP 14; TEMP 36.5; O2SAT 97; BMI 25.7
--- OUTSIDE RECORDS SUMMARY | 2024-11-13 10:31 | XMS_ITS | Clinical Summary ---
Author Organization [employer] Address [address] [place] [address] [address] [place] [address] Care Team Providers Care Flat Lock Operator Name Role Phone Unavailable Primary Care [...] PM EDT 10/14/2024 2:39 PM EDT Comment:Blood [facility] - 10/19/2024 4:39 PM EDT Blood Culture (Second) No growth after 5 days. Specimen Source: Blood Generic External Data Provider LAB MICROBIOLOGY - GENERAL ORDERABLES Final Result Performing Organization Address [facility] Co de Phone Number [facility] [address] [place] [phone] * Blood Culture (First) (10/14/2024 12:50 PM EDT) Blood Venous blood specimen / Unknown 10/14/2024 12:50 PM EDT 10/14/2024 12:53 PM EDT Comment:Blood [facility] - 10/19/2024 2:54 PM EDT Blood Culture (First) No growth after 5 days. Specimen Source: Blood Generic External Data Provider LAB MICROBIOLOGY - GENERAL ORDERABLES Final Result Performing Organization Address City/[facility] Co de Phone Number [facility] [address] [place] [address] [phone] from Last 3 Months
--- OUTSIDE RECORDS SUMMARY | 2024-11-13 10:31 | XMS_ITS | Clinical Summary ---
Author Organization [facility] Address [address] [place] [address] Phone Care Team Providers Care Heel Curver Name Role Phone Donnell Tracy MD Primary Care Provider [phone] Allergies No known active allergies Medications buprenorphine-n [...] Type 2 diabetes mellitus wit h microalbuminuria ([facility] V24, [facility] V28) 07/22/2020 Hyperlipidemia 05/23/2013 Chronic headache disorder 10/31/2012 Overview (04/26/2024): Chronic daily use of aspirin and NSAID preparations. Gastritis and duodenitis 10/31/2012 Overview (04/26/2024): EGD plus biopsies 10/31/2012, erosive duodenitis, no evidence of H. pylori infection. Constipation 04/25/2012 Anxiety 04/14/2012 Illicit drug use 04/06/2012 Polysubstance abuse ([facility] V24, [facility] V28) 0 09/27/2009 Chronic pain 09/26/2009 GERD (gastroesophageal reflux disease) 0 Overview (04/26/2024): Mild erosive esophagitis on EGD 10/31/2012: CT scan 05/2021: Small sliding-type hiatal hernia. Tobacco use disorder 09/26/2009 Encounters Date Type Department Care Team Description 09/24/2024 Telephone Internal Medicine - [address] [address] Donnell Tracy MD Appointment 09/03/2024 Telephone Gastroenterology - [place] [facility] [address] [place] [address] Yusra Braun NP provider call back (Pt states that he has worms) 08/22/2024 7:49 AM EST - 08/22/2024 11:59 PM EST Hospital Encounter [facility] Nuclear Medicine [address] [place] [address] Early satiety Discharge Disposition: Home or Self Care 08/20/2024 Telephone Internal Medicine - [address] [phone] Donnell Tracy MD from Last [...] shoulder surgery UPPER GASTROINTESTINAL ENDOSCOPY 2012 PROCEDURE: AR UPPER GI ENDOSCOPY PERFORMED; COMMENT: gastric and [...] evidence of H. pylori infection. Polysubstance abuse (CMS/[employer] V24, [facility] [...] Signed Date: 08/22/2024 14:33 ET Workstation ID: [id number] Transcribed By: Self Edit Transcribed Date: 08/22/2024 [...] Signed Date: 08/22/2024 14:33 ET Workstation ID: [id number] Transcribed By: Self Edit Transcribed Date: 08/22/2024 14:33 ET Yusra Braun KEY HOLDER IMG NM PROCEDURES Final Result * (ABNORMAL) Hemoglobin A1c (06/28/2024 11:57 AM EST) Hemoglobin A1C 7.4(H) <6.5 % LAB CHEMISTRY METHOD 06/28/2024 7:25 PM EST [facility] Mean Bld Glu Estim. 166 mg/dL LAB CHEMISTRY METHOD 06/28/2024 7:25 PM EST [facility] Blood Venous blood specimen / Unknown Venipuncture / Unknown 06/28/2024 11:57 AM EST 06/28/2024 11:57 AM EST Meli Garza NP LAB BLOOD ORDERABLES Final Resu lt [facility] [address] [place] [address], [place] [phone] * CT Lung Screening (06/25/2024 2:28 PM [...] Signed Date: 06/26/2024 12:56 ET Workstation ID: [id number] Transcribed By: Self Edit Transcribed Date: 06/26/2024 12:46 ET Narrative 06/26/2024 12:56 PM EST EXAMINATION: CT CHEST WITHOUT CONTRAST LUNG CANCER SCREENING, LOW DOSE CLINICAL INFORMATION: Lung cancer screening. ??Current smoker COMPARISON: Portions of a previous 06/21/2023 ?? TECHNIQUE: Multidetector CT. Examination of the chest. Examination of the chest without IV contrast. Reformatting in the coronal and sagittal planes. Device: OVIA VCT DLP: 168 mGy-cm CTDI: 4.83 Dose [...] in the coronal and sagittal planes. Device: OVIA VCT DLP: 168 mGy-cm CTDI: 4.83 Dose [...] Signed Date: 06/26/2024 12:56 ET Workstation ID: [id number] Transcribed By: Self Edit Transcribed Date: 06/26/2024 12:46 ET Leonarda Gomez MD IMG CT PROCEDURES Final Result * Hepatitis C antibody (06/19/2024 2:21 PM EST) Hepatitis C Antibody Negative Negative LAB CHEMISTRY METHOD 06/19/2024 7:07 PM EST [facility] Blood Venous blood specimen / Unknown Venipuncture / Unknown 06/19/2024 2:21 PM EST 06/19/2024 2:21 PM EST Sofiya Bess MD LAB BLOOD ORDERABLES Final Resul t [facility] [address] [place] [address], [place] [phone] * HIV 1,2 antibody, p24 antigen with reflex to differentiation (06/19/2024 2:21 PM EST) HIV Combo AB/AG Negative Negative LAB CHEMISTRY METHOD 06/19/2024 7:08 PM EST [facility] Blood Venous blood specimen / Unknown Venipuncture / Unknown 06/19/2024 2:21 PM EST 06/19/2024 2:21 PM EST Narrative [facility] - 06/19/2024 7:08 PM [...] MD LAB BLOOD ORDERABLES Final Resul t [facility] [address] [place] [address], [place] [phone] * (ABNORMAL) Lipid panel with reflex to direct LDL (06/19/2024 2:21 PM EST) Cholesterol 167 0 - 200 mg/dL LAB CHEMISTRY METHOD 06/19/2024 6:21 PM EST [facility] Triglycerides 181(H) 0 - 150 mg/dL LAB CHEMISTRY METHOD 06/19/2024 6:21 PM EST [facility] HDL 34(L) >=40 mg/dL LAB CHEMISTRY METHOD 06/19/2024 6:21 PM EST [facility] LDL Calculated 97 0 - 100 mg/dL LAB CHEMISTRY METHOD 06/19/2024 6:21 PM EST [facility] VLDL Cholesterol Vinnie 36.2 mg/dL LAB CHEMISTRY METHOD 06/19/2024 6:21 PM EST [facility] Non HDL Chol. (LDL+VLDL) 133 <145 mg/dL LAB CHEMISTRY METHOD 06/19/2024 6:21 PM EST [facility] Chol/HDL Ratio 4.9(H) 0.0 - 4.4 LAB CHEMISTRY METHOD 06/19/2024 6:21 PM EST [facility] Blood Venous blood specimen / Unknown Venipuncture / Unknown 06/19/2024 2:21 PM EST 06/19/2024 2:21 PM EST us Meli Garza NP LAB BLOOD ORDERABLES Final Resu lt [facility] [address] [place] [address], [place] [phone] * (ABNORMAL) Comprehensive metabolic panel (06/19/2024 2:21 PM EST) Sodium 137 133 - 145 mmol/L LAB CHEMISTRY METHOD 06/19/2024 6:23 PM [facility] Potassium 3.7 3.5 - 5.5 mmol/L LAB CHEMISTRY METHOD 06/19/2024 6:23 PM [facility] Chloride 106 96 - 110 mmol/L LAB CHEMISTRY METHOD 06/19/2024 6:23 PM [facility] CO2 29 21 - 32 mmol/L LAB CHEMISTRY METHOD 06/19/2024 6:23 PM [facility] Anion Gap 2(L) 3 - 11 LAB CHEMISTRY METHOD 06/19/2024 6:23 PM [facility] Glucose 155(H) 70 - 100 mg/dL LAB CHEMISTRY METHOD 06/19/2024 6:23 PM [facility] BUN 16 5 - 25 mg/dL LAB CHEMISTRY METHOD 06/19/2024 6:23 PM [facility] Creatinine 1.06 0.70 - 1.30 mg/dL LAB CHEMISTRY METHOD 06/19/2024 6:23 PM [facility] eGFR 82 >=60 mL/min/1. 73m2 LAB CHEMISTRY METHOD 06/19/2024 6:23 PM [facility] Comment:Calculation based on the??Chronic Kidney Disease Epidemiology Collaboration (CKD-EPI) equation refit??without adjustment for race. BUN/Creatinine Ratio 15.1 LAB CHEMISTRY METHOD 06/19/2024 6:23 PM [facility] Calcium 9.5 8.5 - 10.5 mg/dL LAB CHEMISTRY METHOD 06/19/2024 6:23 PM [facility] AST (SGOT) 13 10 - 42 unit/L LAB CHEMISTRY METHOD 06/19/2024 6:23 PM [facility] ALT (SGPT) 25 10 - 60 unit/L LAB CHEMISTRY METHOD 06/19/2024 6:23 PM [facility] Alkaline Phosphatase 69 42 - 121 unit/L LAB CHEMISTRY METHOD 06/19/2024 6:23 PM EST [facility] Total Protein 7.5 6.0 - 8.0 g/dL LAB CHEMISTRY METHOD 06/19/2024 6:23 PM EST [facility] Albumin 4.0 3.2 - 5.0 g/dL LAB CHEMISTRY METHOD 06/19/2024 6:23 PM EST [facility] Total Bilirubin 0.4 0.0 - 1.4 mg/dL LAB CHEMISTRY METHOD 06/19/2024 6:23 PM EST [facility] Blood Venous blood specimen / Unknown Venipuncture / Unknown 06/19/2024 2:21 PM EST 06/19/2024 2:21 PM EST Meli Garza NP LAB BLOOD ORDERABLES Final Resu lt [facility] [address] [place] [address], * Depression Screening (10/11/2023) Pathologist [facility] Depression Screening abstracted Result [facility] Historical Provider HEALTH MAINTENANCE Final Result * Urine Albumin Creatinine Ratio (06/07/2023) Pathologist [facility] Urine Albumin Creatinine Ratio abstracted Result [facility] Historical Provider HEALTH MAINTENANCE Final Result * Colonoscopy (08/22/2020) [facility] Colonoscopy no interpretation , abstracted Anatomical Region Laterality Modality Other Historical Provider HEALTH MAINTENANCE Final Result from Last 3 Months or Most Recently Relevant to Health Maintenance Insurance [id number] [phone] [facility] Care Teams Heel Curver Relationship Specialty Start Date End Date Donnell Tracy MD [address] [place] [address] PCP - General Internal Medicine 04/16/20
== END 2024-11-13 11:33 | disposition home or self-care (01) ==
LOC: HO.HMCFM 09:47
PROVIDERS: PCP Family Medicine; Visit Provider Family Medicine
DX: E11.9 Type 2 diabetes mellitus without complications (principal); E78.5 Hyperlipidemia, unspecified; I10 Essential (primary) hypertension; I25.10 Atherosclerotic heart disease of native coronary artery without angina pectoris; F17.210 Nicotine dependence, cigarettes, uncomplicated; L98.9 Disorder of the skin and subcutaneous tissue, unspecified; Z00.00 Encounter for general adult medical examination without abnormal findings; F40.298 Other specified phobia

== ENCOUNTER → 2024-11-13 09:46 | Outpatient (BNVA) | payer OTHER, SELFPAY | PROVIDERS: PCP Family Medicine; Visit Provider Family Medicine | DX: Z76.89 Persons encountering health services in other specified circumstances (principal); E11.9 Type 2 diabetes mellitus without complications; E78.5 Hyperlipidemia, unspecified; I10 Essential (primary) hypertension; I25.10 Atherosclerotic heart disease of native coronary artery without angina pectoris; F17.210 Nicotine dependence, cigarettes, uncomplicated; L98.9 Disorder of the skin and subcutaneous tissue, unspecified; F40.298 Other specified phobia; Z79.899 Other long term (current) drug therapy | CPT/HCPCS: 83036; 96127; 96160; 99202 ==

== ENCOUNTER 2024-11-15 09:07 | Outpatient (AMB) | payer OTHER, SELFPAY ==
[2024-11-15 09:09] VITALS: BP 114/72; PULSE 77; BMI 26.0
--- NOTE | 2024-11-15 09:09 | MHC.OFFVIS ---
Vital Signs 11/15/24 09:09 Height 5 ft 9 in Weight 175 lb 14.862 oz BMI 26.0 BP 114/72 Blood Pressure Location Lt brachial Position Sitting Pulse 77 Pulse Source Pulse Oximeter Intake Visit Reasons: r/s 09/21/24 followup after testing Director Of Billing Required: No Dental Insurance Coordinator: Dental Insurance Coordinator Present Allergies No Known Allergies Allergy (Verified 11/15/24 09:12) Medication List - Last Reconciled 11/15/24 by SHANELLE Alvarez acetaminophen 1,000 mg (2 x 500 mg) PO QID PRN albuterol sulfate 90 mcg/actuation (Proventil HFA) 1 inh inhalation QID PRN atorvastatin 40 mg PO BEDTIME 90 days buprenorphine ER (Sublocade) mg subcut buprenorphine-naloxone 4-1 mg (Suboxone) 1 film sublingual DAILY chlorhexidine gluconate 4% (Hibiclens) 1 appl topical DAILY 7 days cyclobenzaprine 10 mg PO TID PRN dulaglutide 1.5 mg (0.5 mL) subcut QWEEK 28 days losartan 25 mg PO DAILY meloxicam 15 mg PO DAILY nicotine (Nicoderm CQ) 1 patch transdermal Q24H 28 days HPI HPI r/s 09/21/24 followup after testing: Details: Fernando is a 58-year-old male with past medical history hypertension, hyperlipidemia, diabetes who was noted to have coronary calcifications on his CT scan of the chest from May 2024. He was referred to Cardiology and a stress test, echocardiogram and lipid profile were ordered. He now presents for follow-up. Today he reports that he has been feeling generally well. He does not have any concerning chest discomfort at rest or during activity. No reported shortness of breath, PND, orthopnea or edema. He has no heart palpitations, lightheadedness, presyncope, syncope, falls. He tells me he does have a parasite and shows me a picture on his phone of a warm that he passed rectally a few months ago. He says this was identified back in [place] and he has not had treatment for it. He has wounds on his upper and lower extremities that are in various states of healing and scarring. He believes this is from the parasite. He does only light physical activity. He still smokes 2 packs of cigarettes per day and has been smoking since age 17. He denies alcohol use and denies any illicit substance use. Daughter is present and assisting with Lithuanian translation at their request. [facility] Medical History Diabetes mellitus Depression Family History Mother Hypertension affecting Hyperlipemia Diabetes Father Hypertension affecting Hyperlipemia Diabetes Family/Other Hypertension affecting Hyperlipemia Diabetes Social History Housing: Apartment Unable to assess alcohol history related to: Unknown Alcohol intake: never Patient Tobacco Use Status: Current everyday Tobacco user Cigarette Packs Per Day: 2 Cigarettes Per Day: 40 Years Smoked: 39 e-Cigarette/Vaping Use: Never Used Second Hand Smoke Exposure: No Substance Use Type: Crack/Cocaine service: No Current occupational status: disabled Current occupational exposures/hazards: No Cognitive needs: No Hearing needs: No Vision needs: No Review of Systems Const All systems reviewed & are unremarkable except as noted in HPI and below ENT Denies dizziness Card Denies chest pain, Denies chest pain at rest, Denies chest pain with activity, Denies rapid heart rate, Denies pedal edema, Denies edema, Denies leg edema, Denies lightheadedness, Denies palpitations, Denies dyspnea, Denies dyspnea on exertion and Denies orthopnea Resp Denies cough, Denies dyspnea and Denies dyspnea on exertion GI Denies hematochezia and Denies change in stool character Musc Denies abnormal gait, Denies limited range of motion, Denies muscle cramps, Denies muscle weakness, Denies numbness, Denies radiating pain into limb, Denies stiffness and Denies tingling Neuro Denies abnormal gait, Denies dizziness, Denies numbness and Denies tingling Endo Denies palpitations Physical Exam Vital Signs: BMI result Body Mass Index 26.0 Const General: cooperative, healthy appearing, comfortable and no acute distress Orientation/consciousness: patient oriented x3 Neck Neck: Yes normal visual inspection Resp Effort & Inspection: normal respiratory effort Auscultation: clear to auscultation bilaterally, no crackles, no rales, no rhonchi and no wheezes Cardio Rate: regular rate Rhythm: regular rhythm Heart sounds: S1 normal heart sound present, S2 normal heart sound present, no gallops, no murmurs and no rubs Skin Lesions: lesion noted (noted on extremities - assisted problem for him) Neuro General: patient oriented x3 Extrem General: No no pedal edema and No calf tenderness Psych Appearance: grossly normal Mental Status: mental status grossly normal Speech and movement: Normal speech and movement present Assessment & Plan Assessment & Plan (1) Coronary artery calcification seen on CAT scan: Code(s): I25.10 - Atherosclerotic heart disease of [place] coronary artery without angina pectoris Category: Medical Plan: CT scan of the chest done 05/04/2024 shows focal calcified plaque at the origin of the LAD, mild coronary calcification plaque burden. He has multiple cardiac risk factors including hypertension, hyperlipidemia, diabetes, family history, smoking. EKG done on 08/02/2024 showed normal sinus rhythm, rate 75. Exercise nuclear stress test done 11/08/2024 with exercise 7 minutes, with moderate shortness of breath, suboptimal heart rate, then given Reg adenosine. Nuclear scan showed normal myocardial perfusion imaging. Echocardiogram done 11/08/2024 showed EF 65% abnormalities. Test results reviewed with him in detail. He likely has nonobstructive coronary artery disease. Will avoid the use of aspirin at this time as he has chronic GI issues including discomfort and nausea. Continue atorvastatin with ideal LDL goal less than 70. Dose was recently increased to 40 mg daily for LDL 75. Repeat lipids due in 2-3 months. Continue losartan for good blood pressure control. The benefits of smoking cessation reviewed with him. Signs and symptoms of angina discussed. Cardiology follow-up 6 months, sooner if needed (2) Hyperlipidemia: Code(s): E78.5 - Hyperlipidemia, unspecified Category: Medical Plan: [place] LDL goal less than 70. Labs 11/06/2024 showed LDL 75. Continue atorvastatin 40 mg daily and recheck lipids in 2-3 months. (3) Hypertension: Code(s): I10 - Essential (primary) hypertension Category: Medical Plan: Blood pressure goal less than 130/80. Well controlled at this time. No med changes made. (4) Diabetes mellitus: Code(s): E11.9 - Type 2 diabetes mellitus without complications Category: Medical Plan: Hemoglobin A1c goal less than 7. Followed by PCP. (5) Smoking greater than 40 pack years: Comment: Admits to 2 packs a day for 40 years, 80 pack-year history. Code(s): F17.210 - Nicotine dependence, cigarettes, uncomplicated Category: Social Hx Plan: As above. (6) Hypersomnia: Code(s): G47.10 - Hypersomnia, unspecified Category: Medical Plan: Reports that he is sleepy in the daytime. He can fall asleep very easily such as when watching TV or when sitting in a car that is not moving. He has no diagnosis of sleep apnea. Sleep study previously ordered and not completed as of yet. (7) CAD (coronary artery disease): Code(s): I25.10 - Atherosclerotic heart disease of [place] coronary artery without angina pectoris Category: Medical Plan: As above Plan Time spent on chart review, documentation, interview and assessment Patient was informed and verbally consented to the use of an ambient scribe for clinic note documentation during this visit. I discussed with the patient the current findings, including coronary artery calcification and effectively normal heart function despite past calcifications. We highlighted the importance of controlling LDL cholesterol and discussed the recent adjustment of atorvastatin to a higher dose to achieve optimal levels. The patient consented to the medication change, understanding the benefits in reducing cardiovascular risks. We detailed signs and symptoms to monitor that may warrant further cardiac assessment, such as increased exertional dyspnea or chest discomfort. Managed comprehensive diabetes care will be pivotal in addressing skin condition and broader health outcomes. Discussed the need for GI specialist involvement to address the reported parasitic condition he reports. We agreed on regular follow-ups to monitor progress, reassess risks, and adjust treatment as necessary, emphasizing proactive management of all health concerns. Patient Instructions: - Continue taking atorvastatin 40 mg daily as recently prescribed. - Monitor for new or worsening chest pain or shortness of breath. - Schedule a follow-up cholesterol test in 2-3 months. - Prioritize diabetes management; follow your diabetes care plan closely. - Consult a lieutenant ballistics for ongoing intestinal and skin concerns. - Maintain follow-ups with your primary care doctor for ongoing care. - Stay active to improve cardiovascular health and monitor changes in symptoms. Coding Level of Care Code Est Pt Level 4 (91185) Complex EM visit Add On G2211 Diagnoses Coronary artery calcification seen on CAT scan I25.10 Hyperlipidemia E78.5 Hypertension I10 Diabetes mellitus E11.9 Smoking greater than 40 pack years F17.210 Hypersomnia G47.10 CAD (coronary artery disease) I25.10 Time Spent (min) 28
--- OUTSIDE RECORDS SUMMARY | 2024-11-15 09:40 | XMS_ITS | Clinical Summary ---
Author Organization [facility] Address [address] [place] [address] [address] [place] [address] Care Team Providers Care Linux System Engineer Name Role Phone Unavailable Primary Care Provider [...] PM EDT 10/14/2024 2:39 PM EDT Comment:Blood [facility] - 10/19/2024 4:39 PM EDT Blood Culture (Second) No growth after 5 days. Specimen Source: Blood Generic External Data Provider LAB MICROBIOLOGY - GENERAL ORDERABLES Final Result [facility] [address] [place] [phone] * Blood Culture (First) (10/14/2024 12:50 PM EDT) Blood Venous blood specimen / Unknown 10/14/2024 12:50 PM EDT 10/14/2024 12:53 PM EDT Comment:Blood [facility] - 10/19/2024 2:54 PM EDT Blood Culture (First) No growth after 5 days. Specimen Source: Blood Generic External Data Provider LAB MICROBIOLOGY - GENERAL ORDERABLES Final Result [facility] [address] [place] [address] [phone] from Last 3 Months
--- OUTSIDE RECORDS SUMMARY | 2024-11-15 09:40 | XMS_ITS | Clinical Summary ---
Author Organization [address] [facility] Address [address] [place] [address] Phone Care Team Providers Care Assistant Professor Of Mathematics Name Role Phone Donnell Tracy MD Primary Care Provider [phone] Allergies No known active allergies Medications buprenorphine-n [...] Type 2 diabetes mellitus wit h microalbuminuria ([facility] V24, [facility] V28) 07/22/2020 Hyperlipidemia 05/23/2013 Chronic headache disorder 10/31/2012 Overview (04/26/2024): Chronic daily use of aspirin and NSAID preparations. Gastritis and duodenitis 10/31/2012 Overview (04/26/2024): EGD plus biopsies 10/31/2012, erosive duodenitis, no evidence of H. pylori infection. Constipation 04/25/2012 Anxiety 04/14/2012 Illicit drug use 04/06/2012 Polysubstance abuse ([facility] V24, [facility] V28) 0 09/27/2009 Chronic pain 09/26/2009 GERD (gastroesophageal reflux disease) 0 Overview (04/26/2024): Mild erosive esophagitis on EGD 10/31/2012: CT scan 05/2021: Small sliding-type hiatal hernia. Tobacco use disorder 09/26/2009 Encounters Date Type Department Care Team Description 09/24/2024 Telephone Internal Medicine - [address] [id number] Donnell Tracy MD Appointment 09/03/2024 Telephone Gastroenterology - [place] [facility] [address] [facility] [address] [place] [address] Yusra Braun NP provider call back (Pt states that he has worms) 08/22/2024 7:49 AM EST - 08/22/2024 11:59 PM EST Hospital Encounter [facility] Nuclear Medicine [address] [place] [address] Early satiety Discharge Disposition: Home or Self Care 08/20/2024 Telephone Internal Medicine - [address] [id number] Donnell Tracy MD from Last [...] shoulder surgery UPPER GASTROINTESTINAL ENDOSCOPY 2012 PROCEDURE: FL UPPER GI ENDOSCOPY PERFORMED; COMMENT: gastric and [...] evidence of H. pylori infection. Polysubstance abuse (CMS/[facility] V24, CMS/[facility] V28) 09/27/2009 DX:Polysubstance abuse (HCC) Cigarette smoker 07/15/2020 DX:Cigarette sm oker Type 2 diabetes mellitus wit h microalbuminuria (CMS/HCC V24, CMS/HCC V28) 07/22/2020 DX:Type 2 diabetes mellitus with microalbuminuria ([facility]) CAD (coronary artery disease) 05/05/2024 Family History [...] Signed Date: 08/22/2024 14:33 ET Workstation ID: [id number] Transcribed By: Self Edit Transcribed Date: 08/22/2024 [...] Signed Date: 08/22/2024 14:33 ET Workstation ID: [id number] Transcribed By: Self Edit Transcribed Date: 08/22/2024 14:33 ET Yusra Braun TEA ROOM MANAGER IMG NM PROCEDURES Final Result * (ABNORMAL) Hemoglobin A1c (06/28/2024 11:57 AM EST) Hemoglobin A1C 7.4(H) <6.5 % LAB CHEMISTRY METHOD 06/28/2024 7:25 PM EST [facility] Mean Bld Glu Estim. 166 mg/dL LAB CHEMISTRY METHOD 06/28/2024 7:25 PM EST [facility] Blood Venous blood specimen / Unknown Venipuncture / Unknown 06/28/2024 11:57 AM EST 06/28/2024 11:57 AM EST Meli Garza NP LAB BLOOD ORDERABLES Final Resu lt [facility] [address] [place] [address], [place] [phone] * CT Lung Screening (06/25/2024 2:28 PM [...] Signed Date: 06/26/2024 12:56 ET Workstation ID: [id number] Transcribed By: Self Edit Transcribed Date: 06/26/2024 12:46 ET Narrative 06/26/2024 12:56 PM EST EXAMINATION: CT CHEST WITHOUT CONTRAST LUNG CANCER SCREENING, LOW DOSE CLINICAL INFORMATION: Lung cancer screening. ??Current smoker COMPARISON: Portions of a previous 06/21/2023 ?? TECHNIQUE: Multidetector CT. Examination of the chest. Examination of the chest without IV contrast. Reformatting in the coronal and sagittal planes. Device: [employer] VCT DLP: 168 mGy-cm CTDI: 4.83 Dose [...] in the coronal and sagittal planes. Device: [employer] VCT DLP: 168 mGy-cm CTDI: 4.83 Dose [...] Signed Date: 06/26/2024 12:56 ET Workstation ID: [id number] Transcribed By: Self Edit Transcribed Date: 06/26/2024 12:46 ET Leonarda Gomez MD IMG CT PROCEDURES Final Result * Hepatitis C antibody (06/19/2024 2:21 PM EST) Hepatitis C Antibody Negative Negative LAB CHEMISTRY METHOD 06/19/2024 7:07 PM EST [facility] Blood Venous blood specimen / Unknown Venipuncture / Unknown 06/19/2024 2:21 PM EST 06/19/2024 2:21 PM EST Sofiya Bess MD LAB BLOOD ORDERABLES Final Resul t [facility] [address] [place] [address], [place] [phone] * HIV 1,2 antibody, p24 antigen with reflex to differentiation (06/19/2024 2:21 PM EST) HIV Combo AB/AG Negative Negative LAB CHEMISTRY METHOD 06/19/2024 7:08 PM EST [facility] Blood Venous blood specimen / Unknown Venipuncture / Unknown 06/19/2024 2:21 PM EST 06/19/2024 2:21 PM EST Narrative [facility] - 06/19/2024 7:08 PM EST [...] MD LAB BLOOD ORDERABLES Final Resul t [facility] [address] [place] [address], [place] [phone] * (ABNORMAL) Lipid panel with reflex to direct LDL (06/19/2024 2:21 PM EST) Cholesterol 167 0 - 200 mg/dL LAB CHEMISTRY METHOD 06/19/2024 6:21 PM EST [facility] Triglycerides 181(H) 0 - 150 mg/dL LAB CHEMISTRY METHOD 06/19/2024 6:21 PM EST [facility] HDL 34(L) >=40 mg/dL LAB CHEMISTRY METHOD 06/19/2024 6:21 PM EST [facility] LDL Calculated 97 0 - 100 mg/dL LAB CHEMISTRY METHOD 06/19/2024 6:21 PM EST [facility] VLDL Cholesterol Vinnie 36.2 mg/dL LAB CHEMISTRY METHOD 06/19/2024 6:21 PM EST [facility] Non HDL Chol. (LDL+VLDL) 133 <145 mg/dL LAB CHEMISTRY METHOD 06/19/2024 6:21 PM EST [facility] Chol/HDL Ratio 4.9(H) 0.0 - 4.4 LAB CHEMISTRY METHOD 06/19/2024 6:21 PM EST [facility] Blood Venous blood specimen / Unknown Venipuncture / Unknown 06/19/2024 2:21 PM EST 06/19/2024 2:21 PM EST us Meli Garza NP LAB BLOOD ORDERABLES Final Resu lt [facility] [address] [place] [address], [place] [phone] * (ABNORMAL) Comprehensive metabolic panel (06/19/2024 2:21 PM EST) Sodium 137 133 - 145 mmol/L LAB CHEMISTRY METHOD 06/19/2024 6:23 PM [facility] Potassium 3.7 3.5 - 5.5 mmol/L LAB CHEMISTRY METHOD 06/19/2024 6:23 PM [facility] Chloride 106 96 - 110 mmol/L LAB CHEMISTRY METHOD 06/19/2024 6:23 PM [facility] CO2 29 21 - 32 mmol/L LAB CHEMISTRY METHOD 06/19/2024 6:23 PM [facility] Anion Gap 2(L) 3 - 11 LAB CHEMISTRY METHOD 06/19/2024 6:23 PM [facility] Glucose 155(H) 70 - 100 mg/dL LAB CHEMISTRY METHOD 06/19/2024 6:23 PM [facility] BUN 16 5 - 25 mg/dL LAB CHEMISTRY METHOD 06/19/2024 6:23 PM [facility] Creatinine 1.06 0.70 - 1.30 mg/dL LAB CHEMISTRY METHOD 06/19/2024 6:23 PM [facility] eGFR 82 >=60 mL/min/1. 73m2 LAB CHEMISTRY METHOD 06/19/2024 6:23 PM [facility] Comment:Calculation based on the??Chronic Kidney Disease Epidemiology Collaboration (CKD-EPI) equation refit??without adjustment for race. BUN/Creatinine Ratio 15.1 LAB CHEMISTRY METHOD 06/19/2024 6:23 PM [facility] Calcium 9.5 8.5 - 10.5 mg/dL LAB CHEMISTRY METHOD 06/19/2024 6:23 PM [facility] AST (SGOT) 13 10 - 42 unit/L LAB CHEMISTRY METHOD 06/19/2024 6:23 PM [facility] ALT (SGPT) 25 10 - 60 unit/L LAB CHEMISTRY METHOD 06/19/2024 6:23 PM [facility] Alkaline Phosphatase 69 42 - 121 unit/L LAB CHEMISTRY METHOD 06/19/2024 6:23 PM EST [facility] Total Protein 7.5 6.0 - 8.0 g/dL LAB CHEMISTRY METHOD 06/19/2024 6:23 PM EST [facility] Albumin 4.0 3.2 - 5.0 g/dL LAB CHEMISTRY METHOD 06/19/2024 6:23 PM EST [facility] Total Bilirubin 0.4 0.0 - 1.4 mg/dL LAB CHEMISTRY METHOD 06/19/2024 6:23 PM EST [facility] Blood Venous blood specimen / Unknown Venipuncture / Unknown 06/19/2024 2:21 PM EST 06/19/2024 2:21 PM EST Meli Garza NP LAB BLOOD ORDERABLES Final Resu lt [facility] [address] [place] [address], * Depression Screening (10/11/2023) Pathologist [facility] Depression Screening abstracted Result [facility] Historical Provider HEALTH MAINTENANCE Final Result * Urine Albumin Creatinine Ratio (06/07/2023) Pathologist [facility] Urine Albumin Creatinine Ratio abstracted Result [facility] Historical Provider HEALTH MAINTENANCE Final Result * Colonoscopy (08/22/2020) [facility] Colonoscopy no interpretation , abstracted Anatomical Region Laterality Modality Other Historical Provider HEALTH MAINTENANCE Final Result from Last 3 Months or Most Recently Relevant to Health Maintenance Insurance [id number] [id number] [facility] [facility] Care Teams Assistant Professor Of Mathematics Relationship Specialty Start Date End Date Donnell Tracy MD [address] [place] [address] PCP - General Internal Medicine 04/16/20
== END 2024-11-15 09:44 | disposition home or self-care (01) ==
LOC: HO.HCS 09:08
PROVIDERS: Visit Provider Nurse Practitioner Family
DX: I25.10 Atherosclerotic heart disease of native coronary artery without angina pectoris (principal); E78.5 Hyperlipidemia, unspecified; I10 Essential (primary) hypertension; E11.9 Type 2 diabetes mellitus without complications; F17.210 Nicotine dependence, cigarettes, uncomplicated; G47.10 Hypersomnia, unspecified
CPT/HCPCS: 99214; G2211

== ENCOUNTER → 2024-11-15 09:07 | Outpatient (BNVA) | payer OTHER, SELFPAY | PROVIDERS: Visit Provider Nurse Practitioner Family | DX: I25.10 Atherosclerotic heart disease of native coronary artery without angina pectoris (principal); I10 Essential (primary) hypertension; E78.5 Hyperlipidemia, unspecified; E11.9 Type 2 diabetes mellitus without complications; G47.10 Hypersomnia, unspecified; F17.210 Nicotine dependence, cigarettes, uncomplicated | CPT/HCPCS: 99212 ==

== ENCOUNTER 2024-12-10 01:55 | Emergency (ER) | payer OTHER, SELFPAY ==
[2024-12-10 02:02] VITALS: BP 142/70; PULSE 83; O2SAT 98
[2024-12-10 02:08] VITALS: BP 151/85; PULSE 73; RESP 18; TEMP 36.8; O2SAT 96; BMI 26.0
--- NOTE | 2024-12-10 03:22 | ED_ITS ---
HPI - Eye Problem General Chief complaint: Eye Problems Stated complaint: small metal debris form grinding tool in eye Time Seen by Provider: 12/10/24 02:57 Source: patient Mode of arrival: ambulatory Limitations: no limitations History of Present Illness ED Provider: HPI Narrative: Patient apparently grinding bicycle small debris went to his left eye at 17:00 no blurred vision no loss of vision no other injury no blurry vision no other injuries Related Data Home Medications ?Medication ?Instructions ?Recorded ?Confirmed losartan 25 mg tablet 25 mg PO DAILY 08/02/24 11/15/24 buprenorphine 100 mg/0.5 mL mg subcut 11/15/24 11/15/24 solution,exten.rel.subcutaneous syringe (Sublocade) buprenorphine 4 mg-naloxone 1 mg 1 film sublingual DAILY 11/15/24 11/15/24 sublingual film (Suboxone) Previous Rx's ?Medication ?Instructions ?Recorded albuterol sulfate 90 mcg/actuation 1 inh inhalation QID PRN shortness 04/27/21 aerosol inhaler (Proventil HFA) of breath or wheezing #6.7 grams acetaminophen 500 mg tablet 1,000 mg (2 x 500 mg) PO QID PRN 10/07/21 pain #30 tabs cyclobenzaprine 10 mg tablet 10 mg PO TID PRN muscle spasm #20 05/05/24 tabs meloxicam 15 mg tablet 15 mg PO DAILY #7 tabs 06/27/24 atorvastatin 40 mg tablet 40 mg PO BEDTIME 90 days #90 tabs 11/06/24 chlorhexidine gluconate 4 % 1 appl topical DAILY 7 days #946 mL 11/13/24 topical liquid (Hibiclens) dulaglutide 1.5 mg/0.5 mL 1.5 mg (0.5 mL) subcut QWEEK 28 11/13/24 subcutaneous pen injector days #2 mL nicotine 14 mg/24 hr daily 1 patch transdermal Q24H 28 days 11/13/24 transdermal patch (Nicoderm CQ) #28 ea tobramycin 0.3 % eye drops 1 drp ophthalmic-Left Q4H #5 mL 12/10/24 Allergies Allergy/AdvReac Type Severity Reaction Status Date / Time No Known Allergies Allergy Verified 12/10/24 02:09 Review of Systems 2 Review of Systems: Yes all other systems are reviewed and are negative PMFSH Past Medical History Medical History Diabetes mellitus Depression Family History Family History Mother Hypertension affecting Hyperlipemia Diabetes Father Hypertension affecting Hyperlipemia Diabetes Family/Other Hypertension affecting Hyperlipemia Diabetes Social History Social History Housing: Apartment Unable to assess alcohol history related to: Unknown Alcohol intake: never Patient Tobacco Use Status: Current everyday Tobacco user Cigarette Packs Per Day: 2 Cigarettes Per Day: 40 Years Smoked: 39 e-Cigarette/Vaping Use: Never Used Second Hand Smoke Exposure: No Substance Use Type: Crack/Cocaine Advance Directives: No Advance Directives Information Provided: No service: No Current occupational status: disabled Current occupational exposures/hazards: No Cognitive needs: No Hearing needs: No Vision needs: No Physical Exam 2 Vital Signs: Vital Signs: Last Vital Signs Temp 98.3 F 12/10/24 02:08 Pulse 73 12/10/24 02:08 Resp 18 12/10/24 02:08 BP 151/85 H 12/10/24 02:08 Pulse Ox 96 12/10/24 02:08 O2 Del Method Room Air 12/10/24 02:08 BMI result Body Mass Index 26.0 Eyes: Eyes/upper lids images: 1. Small debris in the medial aspect of the sclera which was removed using the QTip fluorescein test was negative Discharge Plan Discharge Clinical Impression: Foreign body of left eye Patient Disposition: Home, Self-Care Instructions: Eye Foreign Body (ED) Additional Instructions: Foreign body was removed from your left eye Use eyedrops as prescribed Prescriptions: New tobramycin 0.3 % drops 1 drp ophthalmic-Left Q4H Qty: 5 0RF No Action atorvastatin 40 mg tablet 40 mg PO BEDTIME 90 Days Qty: 90 1RF Rx Instructions: dose increase acetaminophen 500 mg tablet 1,000 mg PO QID PRN (Reason: pain) Qty: 30 0RF albuterol sulfate [Proventil HFA] 90 mcg/actuation HFA aerosol inhaler 1 inh inhalation QID PRN (Reason: shortness of breath or wheezing) Qty: 6.7 0RF cyclobenzaprine 10 mg tablet 10 mg PO TID PRN (Reason: muscle spasm) Qty: 20 0RF meloxicam 15 mg tablet 15 mg PO DAILY Qty: 7 0RF losartan 25 mg tablet 25 mg PO DAILY buprenorphine-naloxone [Suboxone] 4-1 mg film 1 film sublingual DAILY Sublocade 100 mg/0.5 mL solution, extended rel syringe subcut nicotine [Nicoderm CQ] 14 mg/24 hr patch 24 hour 1 patch transdermal Q24H 28 Days Qty: 28 1RF chlorhexidine gluconate [Hibiclens] 4 % liquid 1 appl topical DAILY 7 Days Qty: 946 0RF dulaglutide 1.5 mg/0.5 mL pen injector 1.5 mg subcut QWEEK 28 Days Qty: 2 2RF Print Language: Djib[place]
[2024-12-10 06:13] VITALS: BP 151/85; PULSE 73; RESP 18; TEMP 36.8; O2SAT 96
== END 2024-12-10 04:22 | disposition home or self-care (01) ==
PROVIDERS: Emergency Provider Internal Medicine; PCP Internal Medicine
DX: T15.02XA Foreign body in cornea, left eye, initial encounter (principal); F17.210 Nicotine dependence, cigarettes, uncomplicated; W44.E0XA Non-magnetic metal object unspecified, entering into or through a natural orifice, initial encounter; Y93.9 Activity, unspecified; Y92.89 Other specified places as the place of occurrence of the external cause; Y99.8 Other external cause status
CPT/HCPCS: 99282; 99283

== ENCOUNTER 2024-12-19 15:06 | Outpatient (AMB) | payer OTHER, SELFPAY ==
[2024-12-19 15:14] VITALS: BP 113/68; PULSE 72; O2SAT 98; BMI 25.7
--- NOTE | 2024-12-19 15:14 | A.OFFVIS_ITS ---
Vital Signs 12/19/24 15:14 Height 5 ft 9 in Weight 174 lb 2.643 oz BMI 25.7 BP 113/68 Blood Pressure Location Rt brachial Position Sitting Pulse 72 Pulse Source Pulse Oximeter Pulse Oximetry (%) 98 Oxygen Delivery Method Room Air Intake Visit Reasons: Type 2 diabetes mellitus without complications Intake Note: NEW Patient presents today to establish treatment for Type 2 Diabetes Mellitus: Last Diabetic eye exam was on: DUE Last Podiatry exam was on: Patient does not see a Garbage Pick Up Man Most recent HbA1c: 8.6%, 11/13/2024 Random Glucose- 162 mg/dL, Today Top Carrier Required: No Accompanied by: Significant Other Allergies No Known Allergies Allergy (Verified 12/10/24 02:09) HPI Comments Details: The patient is a 59 year old male presenting for diabetes consultation Medical history: HLD, asthma, CAD, IVDU Diabetes Trulicity 1.5mg weekly. Restarted one month ago. Does not check glucose because has an intense fear of needles. Will try for CGM as difficult to optimize his glucose levels without readings and puts him at risk for hypoglycemia 11/2024-A1C 8.6% ROS CONSTITUTIONAL: Denies weight loss, fever and chills. HEENT: Denies changes in vision and hearing. RESPIRATORY: Denies SOB and cough. CV: Denies palpitations and CP GI: Denies abdominal pain, nausea, vomiting and diarrhea. : Denies dysuria and urinary frequency. MSK: Denies new myalgia and joint pain. SKIN: MRSA folliculitis NEUROLOGICAL: Denies headache PSYCHIATRIC: Denies recent changes in mood. PHYSICAL EXAM: GENERAL: Alert and oriented x 3. NAD EYES: EOMI. Anicteric. HENT: Moist mucous membranes. No scleral icterus. No cervical lymphadenopathy. LUNGS: Clear to auscultation bilaterally. CARDIOVASCULAR: Regular rate and rhythm. No murmur. No JVD. ABDOMEN: Soft, non-tender +bs EXTREMITIES: No edema. Non-tender. SKIN:Scattered follicular lesions of various sizes NEUROLOGIC: No focal neurological deficits. CN II-XII grossly intact PSYCHIATRIC: Cooperative. Appropriate mood and affect [facility] Medical History Diabetes mellitus Depression Family History Mother Hypertension affecting Hyperlipemia Diabetes Father Hypertension affecting Hyperlipemia Diabetes Family/Other Hypertension affecting Hyperlipemia Diabetes Social History Housing: Apartment Unable to assess alcohol history related to: Unknown Alcohol intake: never Patient Tobacco Use Status: Current everyday Tobacco user Cigarette Packs Per Day: 2 Cigarettes Per Day: 40 Years Smoked: 39 e-Cigarette/Vaping Use: Never Used Second Hand Smoke Exposure: No Substance Use Type: Crack/Cocaine service: No Current occupational status: disabled Current occupational exposures/hazards: No Cognitive needs: No Hearing needs: No Vision needs: No Physical Exam Vital Signs: Last Vital Signs Pulse 72 12/19/24 15:14 BP 113/68 12/19/24 15:14 Pulse Ox 98 12/19/24 15:14 Oxygen Delivery Method Room Air 12/19/24 15:14 BMI result Body Mass Index 25.7 Assessment & Plan Assessment & Plan (1) Diabetes mellitus: Code(s): E11.9 - Type 2 diabetes mellitus without complications Category: Medical Qualifiers: Diabetes mellitus type: type 2 Diabetes mellitus snf insulin use: without watermaster use Diabetes mellitus complication status: with hyperglycemia Qualified Code(s): E11.65 - Type 2 diabetes mellitus with hyperglycemia (2) 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 suboptimal control as of last A1C one month ago. He restarted trulicity at that time Patient will need CGM given fear of needles and history of IVDU. This is ordered No med changes pending either CGM review or A1C. Next due 2 months for A1C. He willl return then or sooner as needed. 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 - Other specified phobia Dexcom G7 Sensor (blood-glucose sensor) Every 15 days 6 ea 3RF NS E11.9 - Type 2 diabetes mellitus without complications, F40.298 - Other specified phobia mupirocin 2% (Centany) 1 appl topical BID 22 grams 3RF doxycycline hyclate 100 mg PO BID 20 tabs 0RF Coding Level of Care Code New Pt Level 4 (20787) Diagnoses Type 2 diabetes mellitus with hyperglycemia, without long-term current use of insulin E11.65 Diabetes mellitus type: type 2 Diabetes mellitus watermaster insulin use: without watermaster use Diabetes mellitus complication status: with hyperglycemia Fear of needles F40.298
[2024-12-19 15:24] LABS: Glucose, Whole Blood 162 mg/dL (60-115)
--- OUTSIDE RECORDS SUMMARY | 2024-12-19 17:25 | XMS_ITS ---
Author Name [facility] Organization Unknown History of Medication Use Medication Directions Dispensed Refills Start Date End Date Stat chlorhexidine (HIBICLENS) 4 % external liquid Apply topically 1 (one) time each day for 7 days. 12/09/2024 active doxycycline (VIBRAMYCIN) 100 mg capsule Take 1 capsule (100 mg total) by mouth 2 (two) times a day for 10 days. Take with at least 8 ounces (large glass) of water, do not lie down for 30 minutes after. Administer 2 hours before or after multivitamins, antacids, or other products containing polyvalent cations (i.e., calcium, iron, magnesiu 12/09/2024 active glipiZIDE (GLUCOTROL XL) 10 mg 24 hr tablet TAKE 1 TABLET BY MOUTH TWICE A DAY WITH MEALS. DO NOT CRUSH,CHEW OR SPLIT 09/24/2024 active atorvastatin (LIPITOR) 20 mg tablet Take 1 tablet (20 mg total) by mouth 1 (one) time each day. 08/13/2024 active omeprazole (PriLOSEC) [address] capsule TAKE 1 CAPSULE BY MOUTH EVERY DAY 08/13/2024 active Sublocade 100 mg/0.5 mL ER injection 07/17/2024 active losartan (Cozaar) 25 mg tablet Take 1 tablet (25 mg total) by mouth 1 (one) time each day. 06/19/2024 active mupirocin (BACTROBAN) 2 % ointment Apply topically 3 (three) times a day for 7 days. 06/13/2024 active gabapentin (NEURONTIN) 100 mg capsule Take 1 Capsule by mouth at bedtime. 10/11/2023 active nicotine (NICODERM CQ) 14 mg/24 hr 10/03/2023 active buprenorphine-naloxon e (Suboxone) 2-0.[address] 1 FILM EVERY DAY BY SUBLINGUAL ROUTE NEEDED FOR 7 DAYS. 09/26/2023 active cloNIDine (CATAPRES) 0.1 mg tablet Take 1 tablet (0.1 mg total) by mouth 2 (two) times a day. 09/18/2023 active sertraline (ZOLOFT) 50 mg tablet Take 1 tablet (50 mg total) by mouth at bedtime. 09/18/2023 active traZODone (DESYREL) 50 mg tablet Take 1 tablet (50 mg total) by mouth at bedtime. 09/18/2023 active clotrimazole (LOTRIMIN) 1 % cream Apply 1 Application topically 2 (two) times a day. 07/05/2023 active acetaminophen (TYLENOL) 500 mg tablet Take 1 Tablet by mouth 2 times daily as needed for Pain. 05/30/2023 active mirtazapine (REMERON) 15 mg tablet 04/27/2023 active naloxone (NARCAN) 4 mg/0.1 mL nasal spray 04/07/2023 act nuha Problems Problem Status Onset Date Problem Type Date of Resoluti on Source Constipation active 2012-04-25 ProblemAct [facility] Hyperlipidemia active 2013-05-23 ProblemAct [facility]_ [facility] Illicit drug use active 2012-04-06 ProblemAct C T_THSFRAN GERD (gastroesophageal reflux disease) active 2009-09-26 ProblemAct [facility] Polysubstance abuse ([facility] V24, [facility] V28) active 2009-09-27 ProblemAct [facility] MRSA (methicillin resistant staph aureus) culture positive active 2023-10-13 ProblemAct [facility] Chronic pain active 2009-09-26 ProblemAct [facility] SFR[facility] Chronic headache disorder active 2012-10-31 ProblemAct [facility] Anxiety active 2012-04-14 ProblemAct [facility]_THS[facility] AN Tobacco use disorder active 2009-09-26 ProblemAct [facility] Type 2 diabetes mellitus with microalbuminuria ([facility] V24, [facility] V28) active 2020-07-22 ProblemAct [facility] Gastritis and duodenitis active 2012-10-31 ProblemAct [facility] BPH (benign prostatic hyperplasia) active 2021-05-22 ProblemAct [facility] Immunizations Vaccine Date Source Lot Number Status Tdap Tetanus diptheria acell ular pertussis (Boostrix; Adacel) 7yo and older 07/27/[id number] completed Influenza, Unspecified 05/10/2022 [facility] co mpleted Moderna SARS-CoV-2 COVID-19, mRNA, LNP-S, preservative free 07/31/2021 [facility] [id number] completed Influenza Quadravalent, MDCK , 0.5ml, preservative free (Flucelvax) 6mo and older 07[facility]22[id number] Influenza Quadravalent, MDCK , 0.5ml, preservative free (Flucelvax) 6mo and older 07/15/2020 [facility] [id number] completed Influenza trivalent, 0.5mL, preservative free (Fluarix; FluLaval; Fluzone) ages 6mo and older (Afluria) 3 years and older 07/30/2016 [facility] [id number] completed Influenza trivalent, 0.5mL, preservative free (Fluarix; FluLaval; Fluzone) ages 6mo and older (Afluria) 3 years and older 05/23/2013 [facility] [id number] completed Influenza trivalent, 0.5mL, preservative free (Fluarix; FluLaval; Fluzone) ages 6mo and older (Afluria) 3 years and older 04/25/2012 [facility] [id number] completed Pneumococcal polysaccharide 23 valent (Pneumovax 23) 2yo and older 04/25/2012 [facility] [id number] com pleted Tdap Tetanus diptheria acell ular pertussis (Boostrix; Adacel) 7yo and older 04/25/2012 [facility] [id number] completed
== END 2024-12-19 15:52 | disposition home or self-care (01) ==
LOC: HO.ENCR 15:07
PROVIDERS: PCP Family Medicine; Visit Provider Internal Medicine
DX: E11.65 Type 2 diabetes mellitus with hyperglycemia (principal); F40.298 Other specified phobia

== ENCOUNTER → 2024-12-19 15:06 | Outpatient (BNVA) | payer OTHER, SELFPAY | PROVIDERS: PCP Family Medicine; Visit Provider Internal Medicine | DX: E11.65 Type 2 diabetes mellitus with hyperglycemia (principal); F40.298 Other specified phobia | CPT/HCPCS: 82947; 99202 ==

== ENCOUNTER 2025-03-15 11:01 | Outpatient (AMB) | payer OTHER, SELFPAY ==
--- NOTE | 2025-03-15 11:04 | A.OFFPC_ITS ---
Vital Signs 03/15/25 11:11 Height 5 ft 9 in Weight 170 lb 8 oz BMI 25.2 BP 118/68 Blood Pressure Location Rt brachial Respiration 14 Pulse 77 Pulse Source Pulse Oximeter Temp 98.1 F Temp Source Temporal Artery Scan Pulse Oximetry (%) 97 Oxygen Delivery Method Room Air Intake Visit Reasons: CPE with f/u labs and health maint. 30 mins Intake Note: Fernando presents in the office today for his annual physical. Allergies No Known Allergies Allergy (Verified 03/15/25 11:08) Medication List - Last Reconciled 03/15/25 by Santosh Colin MD acetaminophen 1,000 mg (2 x 500 mg) PO QID PRN albuterol sulfate 90 mcg/actuation (Proventil HFA) 1 inh inhalation QID PRN atorvastatin 40 mg PO BEDTIME 90 days buprenorphine ER (Sublocade) mg subcut buprenorphine-naloxone 4-1 mg (Suboxone) 1 film sublingual DAILY chlorhexidine gluconate 4% (Hibiclens) 1 appl topical DAILY 7 days cyclobenzaprine 10 mg PO TID PRN Dexcom G7 Glaze Wiper (blood-glucose,tipple mechanic,cont) As directed NS Dexcom G7 Sensor (blood-glucose sensor) Every 15 days NS doxycycline hyclate 100 mg PO BID dulaglutide 1.5 mg (0.5 mL) subcut QWEEK 28 days losartan 25 mg PO DAILY meloxicam 15 mg PO DAILY mupirocin 2% (Centany) 1 appl topical BID nicotine (Nicoderm CQ) 1 patch transdermal Q24H 28 days tobramycin 0.3% 1 drp ophthalmic-Left Q4H Tobacco use date assessed: 03/15/25 Dental Screening Dental Screen Date: 03/15/25 Did you have a dental visit in the last 12 months?: No Did you have a dental problem in the last 6 months where you did not have access to dental care?: No Was dental information given to patient?: Patient declined HPI CPE with f/u labs and health maint. 30 mins HPI Details 59 y/o male presents for an extended exa m with f/u labs and health maint. No recent labs to review. A1c today 7.0%. Pt had been to emergency dept. for foreign body in L eye in December. Had been given antibiotics, hibiclens. Blood pressure today 118/68, 77p. Ongoing complaints of numerous wounds of skin. Pt reports abnormal stools/vomiting. [facility] Medical History Diabetes mellitus Depression Family History Mother Hypertension affecting Hyperlipemia Diabetes Father Hypertension affecting Hyperlipemia Diabetes Family/Other Hypertension affecting Hyperlipemia Diabetes Social History (Updated 03/15/25 @ 11:11 by Marium Anderson MA) Housing: Apartment Unable to assess alcohol history related to: Unknown Alcohol intake: never Patient Tobacco Use Status: Current everyday Tobacco user Cigarette Packs Per Day: 2 Cigarettes Per Day: 40 Years Smoked: 39 Packs Per Year: 78 Packs per year/per ci.00 e-Cigarette/Vaping Use: Never Used Second Hand Smoke Exposure: No Use of substances other than those prescribed or required for medical reasons: No Substance Use Type: Crack/Cocaine service: No Current occupational status: disabled Current occupational exposures/hazards: No Cognitive needs: No Hearing needs: No Vision needs: No Questionnaire PHQ-9 Over the last 2 weeks, how often have you been bothered by any of the following problems? 1. Little interest or pleasure in doing things: not at all 2. Feeling down, depressed, or hopeless: not at all 3. Trouble falling or staying asleep, or sleeping too much: not at all 4. Feeling tired or having little energy: several days 5. Poor appetite or overeating: not at all 6. Feeling bad about yourself - or that you are a failure or have let yourself or your family down: not at all 7. Trouble concentrating on things, such as reading the newspaper or watching television: not at all 8. Moving or speaking so slowly that other people could have noticed. Or the opposite - being so fidgety or restless that you have been moving around a lot more than usual: not at all 9. Thoughts that you would be better off or of hurting yourself in some way: not at all Total score: 1 Depression Screening Interpretation: Negative Depression Screening Done: Yes 60629 - PHQ-9 Billing: Yes Source: Developed by Drs. Ghanshyam Yee, Domonique Spicer, Julian Henry and colleagues, with an educational todd from [employer]. Thrive Questionnaire Date Thrive assessed: 03/15/25 I am a: Patient What is your living situation today?: I have a steady place to live Within the past 12 months, did the food you bought not last and you didn't have the money to get more?: Never true Within the past 12 months, did you worry whether your food would run out before you got money to buy more?: Never true Do you have trouble paying for medicines?: No Do you have trouble getting transportation to medical appointments?: No Do you have trouble paying your heating and electricity bill?: No Do you have trouble taking care of your child, family member or friend?: No Do you have trouble with day-to-day activities such as bathing, preparing meals, shopping, managing finances, etc.?: No Are you currently unemployed and looking for a job?: No Are you interested in more education?: No Please select the resources that you would like help with: None Currently or been in a relationship where the following occur: No concerns reported THRIVE Score: 0 AUDIT C Alcohol Use Questionnaire (AUDIT-C) 1. How often do you have a drink containing alcohol?: Never 3. How often do you have six or more drinks on one occasion?: Never Total Score: 0 RAMEZ-7 AMB Questionnaire RAMEZ-7 Date RAMEZ - 7 assessed: 11/13/24 Feeling nervous, anxious, or on edge: 3 = Nearly every day Not being able to stop or control worryin = Nearly every day Worrying too much about different things: 3 = Nearly every day Trouble relaxin = Nearly every day Being so restless that it is hard to sit still: 3 = Nearly every day Becoming easily annoyed or irritable: 3 = Nearly every day Feeling afraid as if something awful might happen: 3 = Nearly every day Total RAMEZ-7 score (0-4 normal; 5-9 mild; 10-14 moderate; 15-21 severe): 21 Source: Developed by Drs. Ghanshyam Yee, Domonique Spicer, Julian Henry and colleagues, with an educational todd from [employer]. RAMEZ-7 Assessment Billing RAMEZ-7 Assessment Tool: RAMEZ-7 Assessment 07604 Review of Systems Const Denies chills, Denies fatigue, Denies fever(s), Denies headache(s) and Denies weakness Eyes Denies change in vision ENT Denies dizziness, Denies headache(s), Denies hearing loss, Denies nasal congestion, Denies sinus pain, Denies sinus pressure and Denies sore throat Card Denies chest pain, Denies lightheadedness, Denies dyspnea and Denies other (palpitations) Resp Denies cough, Denies dyspnea and Denies wheezing GI Denies abdominal pain, Denies melena, Denies hematochezia, Denies change in bowel habits, Denies dyspepsia, Denies nausea and Reports vomiting Denies hematuria and Denies dysuria Musc Denies abnormal gait, Denies myalgias, Denies arthralgias, Denies numbness and Denies tingling Skin/Breast Denies rash, Denies unusual bruising and Denies wounds Neuro Denies abnormal gait, Denies dizziness, Denies headache(s), Denies memory loss, Denies numbness, Denies Sensory deficit (Neuro), Denies tingling and Denies weakness Psych Denies anxiety, Denies depression and Denies memory loss Endo Denies cold intolerance, Denies fatigue, Denies heat intolerance, Denies polydi psia and Denies polyuria Davion/Lymph Denies easy bleeding and Denies easy bruising Aller/Immun Denies wheezing Physical exam (Primary Care) Vital Signs: Last Vital Signs Temp 98.1 F 03/15/25 11:11 Pulse 77 03/15/25 11:11 Resp 14 03/15/25 11:11 BP 118/68 03/15/25 11:11 Pulse Ox 97 03/15/25 11:11 Oxygen Delivery Method Room Air 03/15/25 11:11 BMI result Body Mass Index 25.2 Tobacco/Smoking Status: Tobacco use Status Tobacco use date assessed 03/15/25 03/15/25 11:15 Patient Tobacco Use Status Current everyday Tobacco 03/15/25 11:15 e-Cigarette/Vaping Use Never Used 03/15/25 11:15 PHQ-9: PHQ-9 Score PHQ-9: Total score 1 03/15/25 14:39 Depression Screening Interpretation: Negative Thrive Assessment: Date of Thrive Assessment Date Thrive assessed 03/15/25 03/15/25 11:15 Currently or been in a relationship where the following occur: No concerns reported Const General: no acute distress, well developed, alert and awake Nutritional Appearance: well nourished Orientation/consciousness: patient oriented x3 HENMT Head: Yes normocephalic and Yes atraumatic Ears: hearing grossly normal bilaterally and TM's normal bilaterally General nose exam: Normal external nose present and Normal nares present Mouth: Normal oral and palatal mucosa present and moist mucous membranes Teeth and gingiva: dentition normal Throat: Yes posterior oropharynx normal Eyes General: appearance normal, both eyes and all related structures Pupils: Equal, round and reactive pupils present and Pupil accommodation reflex normal EOM: EOMs intact bilaterally Neck Neck: Yes normal visual inspection, Yes no lymphadenopathy and Yes trachea midline Thyroid: Thyroid normal Carotids: no bruits Lymphatic: no lymphadenopathy noted Chest Chest palpation & inspection: normal inspection of the chest Resp Effort & Inspection: normal respiratory effort Auscultation: clear to auscultation bilaterally Cardio Rate: regular rate Rhythm: regular rhythm Heart sounds: S1 normal heart sound present, S2 normal heart sound present, no gallops, no murmurs and no rubs Bruits: no abdominal aortic bruits and no carotid bruits GI Palpation (GI): No Abdominal aortic bruit present, Soft to palpation, nontender, No hepatosplenomegaly present and No Rebound tenderness present Auscultation: normal bowel sounds General: Yes no CVA tenderness Back/Spine/Pelvis Back: no CVA tenderness Cervical Spine: cervical ROM normal and No Cervical spine tenderness Thoracic/Lumbar Spine: thoraco-lumbar ROM normal, No pain with thoraco-lumbar ROM, No thoracic spinal tenderness and No lumbar spinal tenderness Skin Lesions: no lesions Rashes: no rashes Trauma: no lacerations or abrasions Wounds: no wounds Nails: normal Neuro General: patient oriented x3 Cranial nerves: Yes Equal, round and reactive pupils present Cognition (Neuro): normal cognition Gait exam (Neuro): Normal gait present Motor exam (neuro): 5/5 motor strength present throughout Sensory Exam: No Sensory deficit (Neuro) Deep tendon reflexes (DTR's): Right patellar reflex intensity grade: 2+ and Left patellar reflex intensity grade: 2+ Extrem General: Yes normal to inspection and No edema Psych Appearance: grossly normal Affect: normal affect Attitude: cooperative Thought process: Normal thought process present Results AMB Hemoglobin A1c AMB Hemoglobin A1c 7.0 % Last Edit by Marium Anderson MA on 03/15/25 11:34 Results Reviewed Results Reviewed: Laboratory Last Values Hgb A1c (Clinic) 7.0 % (4.0-6.0) H 03/15/25 11:17 Coding Level of Care Code Est Pt Level 5 (32742) Diagnoses Type 2 diabetes mellitus with hyperglycemia, without long-term current use of insulin E11.65 Diabetes mellitus complication status: with hyperglycemia Diabetes mellitus intermodal customer service insulin use: without intermodal customer service use Diabetes mellitus type: type 2 Hypertension I10 CAD (coronary artery disease) I25.10 Screening for colon cancer Z12.11 Screening for prostate cancer Z12.5 Wound of skin T14.8XXA Abnormal stools R19.5 Vomiting R11.10 Mental status alteration R41.82 Adult general medical exam Z00.00 Additional Codes RAMEZ-7 Assessment Billing - RAMEZ-7 Assessment Tool: RAMEZ-7 Assessment 19611 ([id number]) PHQ-9 - 25511 - PHQ-9 Billing: Yes ([id number]) Assessment & Plan Assessment & Plan (1) Diabetes mellitus: Code(s): E11.9 - Type 2 diabetes mellitus without complications Category: Medical Qualifiers: Diabetes mellitus complication status: with hyperglycemia Diabetes mellitus intermodal customer service insulin use: without intermodal customer service use Diabetes mellitus type: type 2 Qualified Code(s): E11.65 - Type 2 diabetes mellitus with hyperglycemia Plan: A1c improving and now is 7.0%. Fairly good control. Goal is less than 7.0% Continue current medication regimen and follow-up with endocrinology as recommended (2) Hypertension: Code(s): I10 - Essential (primary) hypertension Category: Medical Plan: Blood pressure is controlled. Goal is less than 130/80 Continue current medication (3) CAD (coronary artery disease): Code(s): I25.10 - Atherosclerotic heart disease of ione coronary artery without angina pectoris Category: Medical Plan: Followed by cardiology LDL close to goal of less than 70 on atorvastatin HDL is too low and patient says he does not exercise. Encouraged increased exercise Follow-up with Cardiology as recommended (4) Screening for colon cancer: Code(s): Z12.11 - Encounter for screening for malignant neoplasm of colon Category: Medical Plan: Referred to Gastroenterology (5) Screening for prostate cancer: Code(s): Z12.5 - Encounter for screening for malignant neoplasm of prostate Category: Medical Plan: Due for PSA level-ordered (6) Wound of skin: Code(s): T14.8XXA - Other injury of unspecified body region, initial encounter Category: Medical Plan: Numerous annular lose of the skin in various stages of healing Some are infected with some pus drainage. Has appointment with wound care later this month He had been seen in the ED and they had given him mupirocin and doxycycline. Keep wounds cover Continue doxycycline-will give him script to take until he against a wound care Patient is frustrated because he had been an IV drug user but his most recent drug screens have been appropriate. He says that when he goes to the emergency department they tell him that he is just using IV drugs though he denies this. Has had ongoing issues with lesions and pustules He will follow-up with wound care. If they do not have any other explanations, will refer to Infectious Disease (7) Abnormal stools: Code(s): R19.5 - Other fecal abnormalities Category: Medical Plan: Patient also notes abnormal stools and vomiting Had ordered tests including GI panel and ova and parasites and prior visit but he has not gotten these done yet. 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 Will follow-up on his visit to wound care at [facility]. If there are still issues with his skin lesions and wounds, will make a referral to Infectious Disease. Referred him to Gastroenterology and I have ordered a GI panel as well as ova and parasites. He did not get them done when ordered previously. Will follow-up on the above. Sending a script for doxycycline to cover him until he gets to wound care. Orders: Orders AMB Hemoglobin A1c Today E11.65 - Type 2 diabetes mellitus with hyperglycemia Complete Blood Count Auto Diff Today Z00.00 - Encounter for general adult medical examination without abnormal findings Prostate Specific Antigen Scr Today Z12.5 - Encounter for screening for malignant neoplasm of prostate UA CC w/rflx Micro + Cult Today Z00.00 - Encounter for general adult medical examination without abnormal findings Erythrocyte Sedimentation Rate Today L98.9 - Disorder of the skin and subcutaneous tissue, unspecified CRP High Sensitivity Today L98.9 - Disorder of the skin and subcutaneous tissue, unspecified Ova and Parasite Today R19.5 - Other fecal abnormalities GI Panel Today R19.5 - Other fecal abnormalities Microalbumin, Random (w Creat) Today I10 - Essential (primary) hypertension TSH reflex Free T4 Today Z00.00 - Encounter for general adult medical examination without abnormal findings Comprehensive Met. Panel Today I25.10 - Atherosclerotic heart disease of ione coronary artery without angina pectoris Referrals Gastroenterology Referral R11.10 - Vomiting, unspecified, R19.5 - Other fecal abnormalities, Z12.11 - Encounter for screening for malignant neoplasm of colon [facility] Referral R41.82 - Altered mental status, unspecified Medications: Changed From doxycycline hyclate 100 mg PO BID 20 tabs 0RF To doxycycline hyclate 100 mg PO BID 14 tabs 0RF 7 days
[2025-03-15 11:11] VITALS: BP 118/68; PULSE 77; RESP 14; TEMP 36.7; O2SAT 97; BMI 25.2
--- OUTSIDE RECORDS SUMMARY | 2025-03-15 12:51 | XMS_ITS | Patient Health Record ---
Author Organization [facility] Address [address] [place] [id number] Care Team Providers Care [employer]ants [employer]s Assistant Name Role Phone Padilla Kraft Jr Unavailable Reason For Referral No Information Plan Of Treatment No Information
--- OUTSIDE RECORDS SUMMARY | 2025-03-15 12:51 | XMS_ITS | Clinical Summary ---
Author Organization 175 [facility] Address [address] [place] [address] Phone Care Team Providers Care Reptile Farmer Name Role Phone Santosh Colin MD Primary Care Provider Allergies No known active allergies Medications buprenorphine-n [...] Type 2 diabetes mellitus wit h microalbuminuria ([facility] V24, [facility] V28) 07/22/2020 Hyperlipidemia 05/23/2013 Chronic headache disorder 10/31/2012 Overview (04/26/2024): Chronic daily use of aspirin and NSAID preparations. Gastritis and duodenitis 10/31/2012 Overview (04/26/2024): EGD plus biopsies 10/31/2012, erosive duodenitis, no evidence of H. pylori infection. Constipation 04/25/2012 Anxiety 04/14/2012 Illicit drug use 04/06/2012 Polysubstance abuse ([facility] V24, [facility] V28) 0 09/27/2009 Chronic pain 09/26/2009 GERD (gastroesophageal reflux disease) 0 Overview (04/26/2024): Mild erosive esophagitis on EGD 10/31/2012: CT scan 05/2021: Small sliding-type hiatal hernia. Tobacco use disorder 09/26/2009 Encounters Date Type Department Care Team Description 12/31/2024 8:35 AM EDT Lab Draw Station - [address] [place] [address] Diarrhea, unspecified type from Last 3 Months Immunizations Name Administration [...] shoulder surgery UPPER GASTROINTESTINAL ENDOSCOPY 2012 PROCEDURE: [place] UPPER GI ENDOSCOPY PERFORMED; COMMENT: gastric and duodenal bx: Erosive duodenitis, no H. pylori infection. COLONOSCOPY 2013 PROCEDURE: HISTORICAL COLONOSCOPY; COMMENT: 7 mm sigmoid [...] evidence of H. pylori infection. Polysubstance abuse ([facility] V24, [facility] V28) 09/27/2009 DX:Polysubstance abuse ([facility]) Cigarette smoker 07/15/2020 DX:Cigarette sm oker Type 2 diabetes mellitus wit h microalbuminuria ([facility] V24, [facility] V28) 07/22/2020 DX:Type 2 diabetes mellitus with microalbuminuria ([facility]) CAD (coronary artery disease) 05/05/2024 Family [...] Sign Reading Time Taken Comments Blood Pressure 174/86 12/09/2024 4:30 AM EDT Pulse 97 12/09/2024 4:30 AM EDT Temperature 36.7 C (98 F) 12/09/2024 4:30 AM EDT Respiratory Rate 18 12/09/2024 4:30 AM EDT Oxygen Saturation 97% 12/09/2024 4:30 AM EDT Inhaled Oxygen Concentration - - Weight 81.6 kg (180 lb) 12/08/2024 11:46 PM EDT Height 175.3 cm (5' 9 ) 12/08/2024 11:46 PM EDT Body Mass Index 26.58 12/08/2024 11:46 PM EDT Plan of Treatment Upcoming Encounters Date Type Department Care Team (Late st Contact Info) Description 03/20/2025 8:00 AM EDT Clinical Support [facility] [address] [place] [address] Health Maintenance Due Date Last [...] 2016 Social Influencers of Health Screening 06/12/2022 Diabetes: Annual Urine Albumin-Creatinine Ratio (uACR) 06/07/2024 06/07/2023 Depression Screening 07/04/2024 10/11/2023 Diabetes: Blood Sugar Control Test (HGBA1C) 12/27/2024 06/28/2024, 09/26/2023 COVID-19 Vaccine ( season) 2025 12/13/2021, 07/31/2021, 07/02/2021 Influenza Vaccine (#1) 2025 , 07/22/2021, 07/15/2020, Additional history exists Lung Cancer Screening (Low Dose CT) 06/25/2025 06/25/2024, 07/06/2023, 05/10/2022 Colorectal Cancer Screening: Colonoscopy 08/22/2025 08/22/2020 Diabetes: Annual GFR (Glomerular Filtration Rate) 12/08/2025 12/08/2024, 06/19/2024, 06/07/2023 Hypertension/CHF/CAD Annual BMP Blood Test 12/08/2025 12/08/2024, 06/19/2024, 06/07/2023 Cholesterol Screening (Lipid Panel) 06/19/2029 06/19/2024, 06/07/2023 [...] Procedure Name Priority Date/Time Associated Diagnosis Comments GASTROINTESTINAL PATHOGENS BY PCR Routine 12/31/2024 8:34 AM EDT Diarrhea, unspecified type OVA AND PARASITE EXAMINATION Routine 12/26/2024 9:22 AM EDT Diarrhea, unspecified type OVA AND PARASITE EXAMINATION Routine 12/24/2024 8:47 AM EDT Diarrhea, unspecified type OVA AND PARASITE EXAMINATION Routine 12/21/2024 9:09 AM EDT Diarrhea, unspecified type BASIC METABOLIC PANEL STAT 12/08/2024 11:51 PM EDT HEMOGLOBIN A1C Routine 06/28/2024 11:57 AM EST [...] Recently Relevant to Health Maintenance Results * (ABNORMAL) Gastrointestinal pathogens molecular study (12/31/2024 8:34 AM EDT) Campylobacter Detection by PCR Not Detected Not Detected LAB MICROBIOLOGY [facility] 12[facility] Plesiomonas shigelloides Detection by PCR Not Detected Not Detected LAB MICROBIOLOGY METHOD 5 12:07 [facility] Salmonella Detection by PCR Not Detected Not Detected LAB MICROBIOLOGY METHOD 5 12:07 PM [facility] Vibrio Detection by PCR Not Detected Not Detected LAB MICROBIOLOGY METHOD 5 12:07 PM [facility] Vibrio cholerae Detection by PCR Not Detected Not Detected LAB MICROBIOLOGY METHOD 5 12:[address] [facility] Yersinia enterocolitica Detection by PCR Not Detected Not Detected LAB MICROBIOLOGY METHOD 5 12:07 PM [facility] Enteroaggregative E coli EAEC Detection by PCR Not Detected Not Detected LAB MICROBIOLOGY METHOD 5 12:07 PM [facility] Enteropathogenic E coli EPEC Detection Detected(A ) Not Detected LAB MICROBIOLOGY METHOD 5 12:07 PM [facility] Enterotoxigenic E coli ETEC LTST Detection Not Detected Not Detected LAB MICROBIOLOGY METHOD 5 12:[address] [facility] Shiga-like toxin producing E coli STEC STX1 STX2 Det Not Detected Not Detected LAB MICROBIOLOGY METHOD 5 12:07 PM [facility] Shigella Enteroinvasive E coli EIEC Detection Not Detected Not Detected LAB MICROBIOLOGY METHOD 5 12:07 PM [facility] Cryptosporidium Detection by PCR Not Detected Not Detected LAB MICROBIOLOGY METHOD 5 12:07 PM [facility] Cyclospora cayetanensis Detection by PCR Not Detected Not Detected LAB MICROBIOLOGY METHOD 5 12:07 PM [facility] Entamoeba histolytica Detection by PCR Not Detected Not Detected LAB MICROBIOLOGY METHOD 5 12:07 PM [facility] Giardia lamblia Detection by PCR Not Detected Not Detected LAB MICROBIOLOGY METHOD 5 12:07 PM [facility] Adenovirus F 40 41 Detection by PCR Not Detected Not Detected LAB MICROBIOLOGY METHOD 5 12:07 PM [facility] Astrovirus Detection by PCR Not Detected Not Detected LAB MICROBIOLOGY METHOD 5 12:07 PM [facility] Norovirus GI GII Detection by PCR Not Detected LAB MICROBIOLOGY METHOD 5 12:07 PM [facility] Sapovirus Detection by PCR Not Detected Not Detected LAB MICROBIOLOGY METHOD 5 12:07 PM [facility] Rotavirus A Detection by PCR Not Detected Not Detected LAB MICROBIOLOGY METHOD 5 12:07 PM [facility] Stool Rectum structure / Unknown Non-blood Collection / Unknown 12/31/2024 8:34 AM EDT 12/31/2024 8:[address] [facility] - 12/31/2024 12:07 PM EDT PCR testing is much more sensitive than [...] consider infectious disease consult for additional guidance. Testing Performed by [facility] Yusra Braun NP LAB MICROBIOLOGY [facility] Final Result Performing Organization Address City/[facility]/ZIP Co de Phone Number [facility] [address] [place] [address], [place] [phone] * Ova and parasite examination (12/26/2024 9:22 AM EDT) Only the most recent of3 resultswithin the time period is included. Ova and Parasite No Ova or Parasite seen. 01/01/2025 3:[address] [facility] Stool Rectum structure / Unknown Non-blood Collection / Unknown 12/26/2024 9:22 AM EDT 12/26/2024 9:[address] [facility] - 01/01/2025 3:04 PM EDT Special test request required for Coccidia and Microsporidia. [facility] Braun NP LAB MICROBIOLOGY - GENERAL ORDE RABLES Final Result Performing Organization Address City/[facility]/ZIP Co de Phone Number [facility] [address] [place] [address], [place] [phone] * (ABNORMAL) Basic metabolic panel (12/08/2024 11:51 PM EDT) Sodium 140 133 - 145 mmol/L LAB CHEMISTRY METHOD 12/09/2024 12:[address] [facility] Potassium 3.7 3.5 - 5.5 mmol/L LAB CHEMISTRY METHOD 12/09/2024 12:50 AM [facility] Chloride 108 96 - 110 mmol/L LAB CHEMISTRY METHOD 12/09/2024 12:50 AM [facility] CO2 23 21 - 32 mmol/L LAB CHEMISTRY METHOD 12/09/2024 12:50 AM [facility] Anion Gap 9 3 - 11 LAB CHEMISTRY METHOD 12/09/2024 12:50 AM [facility] Glucose 123(H) 70 - 100 mg/dL LAB CHEMISTRY METHOD 12/09/2024 12:50 AM [facility] BUN 23 5 - 25 mg/dL LAB CHEMISTRY METHOD 12/09/2024 12:50 AM [facility] Creatinine 1.03 0.70 - 1.30 mg/dL LAB CHEMISTRY METHOD 12/09/2024 12:50 AM [facility] eGFR 84 >=60 mL/min/1. 73m2 LAB CHEMISTRY METHOD 12/09/2024 12:50 AM [facility] Comment:Calculation based on the Chronic Kidney Disease Epidemiology Collaboration (CKD-EPI) equation refit without adjustment for race. BUN/Creatinine Ratio 22.3 LAB CHEMISTRY METHOD 12/09/2024 12:50 AM [facility] Calcium 9.5 8.5 - 10.5 mg/dL LAB CHEMISTRY METHOD 12/09/2024 12:50 AM [facility] Blood Venous blood specimen / Unknown Venipuncture / Unknown 12/08/2024 11:51 PM EDT 12/09/2024 12:09 AM EDT us Joanie Munoz MD LAB BLOOD ORDERABLES Fin al Result [facility] [address] [place] [address], * (ABNORMAL) Hemoglobin A1c (06/28/2024 11:57 AM EST) Hemoglobin A1C 7.4(H) <6.5 % LAB CHEMISTRY METHOD 06/28/2024 7:[address] [facility] Mean Bld Glu Estim. 166 mg/dL LAB CHEMISTRY METHOD 06/28/2024 7:[address] [facility] Blood Venous blood specimen / Unknown Venipuncture / Unknown 06/28/2024 11:57 AM EST 06/28/2024 11:57 AM EST us Meli Garza NP LAB BLOOD ORDERABLES Final Resu lt [facility] [address] [place] [address], [place] [phone] * CT Lung Screening (06/25/2024 2:28 PM [...] Signed Date: 06/26/2024 12:56 ET Workstation ID: [id number] Transcribed By: Self Edit Transcribed Date: 06/26/2024 [...] trachea or mainstem bronchi. No focal pneumonia. LUNG NODULES: There are no suspicious nodules or masses. OTHER PULMONARY: There are stable small peripheral nodules which are [...] The main pulmonary artery is normal caliber PLEURA: There is no pleural fluid or pneumothorax AXILLA/CHEST WALL: There are no enlarged axillary lymph nodes. No chest wall mass demonstrated VISUALIZED UPPER ABDOMEN: No suspicious abnormality on limited assessment of the [...] Signed Date: 06/26/2024 12:56 ET Workstation ID: [id number] Transcribed By: Self Edit Transcribed Date: 06/26/2024 12:46 ET Leonarda Gomez MD IMG CT PROCEDURES Final Result * Hepatitis C antibody (06/19/2024 2:21 PM EST) Hepatitis C Antibody Negative Negative LAB CHEMISTRY METHOD 06/19/2024 7:[address] [facility] Blood Venous blood specimen / Unknown Venipuncture / Unknown 06/19/2024 2:21 PM EST 06/19/2024 2:21 PM EST Sofiya Bess MD LAB BLOOD ORDERABLES Final Resul t [facility] [address] [place] [address], [place] [phone] * HIV 1,2 antibody, p24 antigen with reflex to differentiation (06/19/2024 2:21 PM EST) [facility] HIV Combo AB/AG Negative Negative LAB CHEMISTRY METHOD 06/19/2024 7:[address] [facility] Blood Venous blood specimen / Unknown Venipuncture / Unknown 06/19/2024 2:21 PM EST 06/19/2024 2:[address] [facility] - 06/19/2024 7:08 PM EST This assay is a 4th generation assay allowing for earlier detection of HIV infection by detecting the presence of the HIV-1 p24 antigen as well as the traditional antibodies to HIV type 1 (including group O) and type 2. Use of a 4th generation assay is the current CDC recommendation for HIV screening. us Sofiya Bess MD LAB BLOOD ORDERABLES Final Resul t [facility] [address] [place] [address], [place] [phone] * (ABNORMAL) Lipid panel with reflex to direct LDL (06/19/2024 2:21 PM EST) [facility] [address] [facility] Cholesterol 167 0 - 200 mg/dL LAB CHEMISTRY METHOD 06/19/2024 6:[address] [facility] Triglycerides 181(H) 0 - 150 mg/dL LAB CHEMISTRY METHOD 06/19/2024 6:[address] [facility] HDL 34(L) >=40 mg/dL LAB CHEMISTRY METHOD 06/19/2024 6:[address] [facility] LDL Calculated 97 0 - 100 mg/dL LAB CHEMISTRY METHOD 06/19/2024 6:[address] [facility] VLDL Cholesterol Vinnie 36.2 mg/dL LAB CHEMISTRY METHOD 06/19/2024 6:[address] [facility] Non HDL Chol. (LDL+VLDL) 133 <145 mg/dL LAB CHEMISTRY METHOD 06/19/2024 6:[address] [facility] Chol/HDL Ratio 4.9(H) 0.0 - 4.4 LAB CHEMISTRY METHOD 06/19/2024 6:[address] [facility] Blood Venous blood specimen / Unknown Venipuncture / Unknown 06/19/2024 2:21 PM EST 06/19/2024 2:21 PM EST Meli Garza [employer] LAB BLOOD ORDERABLES Final Resu lt [facility] [address] [place] [address], [place] [phone] * Depression Screening (10/11/2023) Pathologist [facility] Depression Screening abstracted Historical Provider MD HEALTH MAINTENANCE Final Result * Urine Albumin Creatinine Ratio (06/07/2023) Pathologist [facility] Urine Albumin Creatinine Ratio abstracted Historical Provider HEALTH MAINTENANCE Final Result * Colonoscopy (08/22/2020) Pathologist [facility] Colonoscopy no interpretation , abstracted Anatomical Region Laterality Modality Other Historical Provider HEALTH MAINTENANCE Final Result from Last 3 Months or Most Recently Relevant to Health Maintenance Additional Health Concerns Infection Onset Date Last Indicated Enteropathogenic E. coli (EPEC) 12/31/2024 12/31/2024 [address] [place] [address] [facility] [facility] Care Teams Reptile Farmer Relationship Specialty Start Date End Date Santosh Colin MD PCP - General Family Medicine 12/04/24
--- OUTSIDE RECORDS SUMMARY | 2025-03-15 12:51 | XMS_ITS ---
Author Name [facility] Organization Unknown History of Medication Use Medication [...] Problem Type Date of Resoluti on Source Gastritis and duodenitis active 2012-10-31 [facility] [facility] Tobacco use disorder active 2009-09-26 [facility] Hyperlipidemia active 2013-05-[address] [facility] BPH (benign prostatic hyperplasia) active 2021-05-22 [facility] [facility] GERD (gastroesophageal reflux disease) active 2009-09-26 [facility] [facility] Illicit drug use active 2012-04-06 ProblemAct C T_THSFRAN Constipation active 2012-04-25 [address] [facility] Chronic headache disorder active 2012-10-31 [address] [facility] Polysubstance abuse ([facility] V24, [facility] V28) active 2009-09-27 [address] [facility] Type 2 diabetes mellitus with microalbuminuria ([facility] V24, [facility] V28) active 2020-07-22 [facility] [facility] Chronic pain active 2009-09-26 [address] [facility] Anxiety active 2012-04-14 ProblemAct [facility] MRSA (methicillin resistant staph aureus) culture positive active 2023-10-13 ProblemAct [facility] Immunizations Vaccine Date Source Lot Number Status Tdap Tetanus diptheria acell ular pertussis (Boostrix; Adacel) 7yo and older 07/27/2022 VTKatherineCLIFFORD [id number] completed Influenza, Unspecified 05/10/2022 SAMANTACLIFFORD co mpleted Moderna SARS-CoV-2 COVID-19, mRNA, LNP-S, preservative free 07/31/2021 CTKatherineCLIFFORD [id number] completed Influenza Quadravalent, MDCK , 0.5ml, preservative free (Flucelvax) 6mo and older 07/22/2021 CTKatherineCLIFFORD [id number] completed Influenza Quadravalent, MDCK , 0.5ml, preservative free (Flucelvax) 6mo and older 07/15/2020 VTKatherineCLIFFORD [id number] completed Influenza trivalent, 0.5mL, preservative free (Fluarix; FluLaval; Fluzone) ages 6mo and older (Afluria) 3 years and older 07/30/2016 [id number] completed Influenza trivalent, 0.5mL, preservative free (Fluarix; FluLaval; Fluzone) ages 6mo and older (Afluria) 3 years and older 05/23/2013 [facility] [id number] completed Influenza trivalent, 0.5mL, preservative free (Fluarix; FluLaval; Fluzone) ages 6mo and older (Afluria) 3 years and older 04/25/2012 [facility] [id number] completed Pneumococcal polysaccharide 23 valent (Pneumovax 23) 2yo and older 04/25/2012 [facility] [id number] com pleted Tdap Tetanus diptheria acell ular pertussis (Boostrix; Adacel) 7yo and older 04/25/2012 [facility] [id number] completed Care Team Organization Name Specialty Phone Email Start Date End Da te [facility] 05/11/2022 02/20/2024
--- OUTSIDE RECORDS SUMMARY | 2025-03-15 12:51 | XMS_ITS | Clinical Summary ---
Author Organization [facility] Address [address] [facility] [address] [place] [id number] Phone Care Team Providers Care Caser Name Role Phone Pcp, Unknown Primary Care Provider Unavailabl e Allergies No known active allergies Medications No known medications Social History Tobacco Use Types Packs/Day Years Used Date Smoking Tobacco: Every Day Cigarettes Smokeless Tobacco: Never Alcohol Use Standard Drinks/Week Comments Never 0 (1 standard drink = 0.6 oz pur e alcohol) Education Answer Date Recorded Are you interested in more education? Not on roney e 10/29/2022 Are you concerned about learning? Not on file 10/29/2022 No 10/29/2022 No 10/29/2022 Digital Access Answer Date Recorded No 11/30/2022 No 11/30/2022 Reliable internet access at home? Not on file 11/30/2022 Device with a working camera? Not on file Sex and Gender Information Value Date Recorded Sex Assigned at Male 01/31/2020 9:38 PM EDT Legal Sex Male 9:32 PM EDT Gender Identity Male 01/31/2020 9:38 PM EDT Sexual Orientation Straight 01/31/2020 9: 38 PM EDT Last Filed Vital Signs Vital Sign Reading Time Taken Comments Blood Pressure 123/83 02/01/2020 12:00 AM EDT Pulse 64 02/01/2020 12:00 AM EDT Temperature 36.3 C (97.3 F) 01/31/2020 9:33 PM EDT Respiratory Rate 17 02/01/2020 12:00 AM EDT Oxygen Saturation 98% 02/01/2020 12:00 AM EDT Inhaled Oxygen Concentration - - Weight 88.5 kg (195 lb) 01/31/2020 9:33 PM EDT Height 175.3 cm (5' 9 ) 01/31/2020 9:33 PM EDT Body Mass Index 28.8 01/31/2020 9:33 PM EDT Plan of Treatment Health Maintenance Due Date Last Done Comments LIPID PANEL 1966 DEPRESSION SCREENING 1978 SMOKING Hx and SMOKELESS TOBACCO SCREENING 12/02/1979 HEPATITIS C SCREENING 1984 HIV ONE-TIME SCREENING (18-6 5 YEARS) 1984 COLOGUARD 12/02/2011 COLONOSCOPY 12/02/2011 COLORECTAL CANCER SCREENING 12/02/2011 FIT TEST 12/02/2011 FOBT 12/02/2011 SIGMOIDOSCOPY 12/02/2011 VIRTUAL COLONOSCOPY 12/02/2011 PNEUMOCOCCAL VACCINES (50+ years) (2 of 2 - PCV) 04/25/2013 04/25/2012 ZOSTER VACCINES (1 of 2) 2016 Adult Td,Tdap Booster 04/25/2022 04/25/2012 COVID-19 VACCINE (3 - 2023-2 5 season) 2024 07/31/2021, 07/02/2021 HEPATITIS A VACCINES Aged Out No long er eligible based on patient's age to complete this topic HIB VACCINES Aged Out No longer eligi ble based on patient's age to complete this topic MENINGOCOCCAL VACCINES (ACWY) Aged Out No longer eligible based on patient's age to complete this topic MENINGOCOCCAL VACCINES (B) Aged Out N o longer eligible based on patient's age to complete this topic Medical Devices Not on file [place] [address] [place] [address] [address] [address] [facility] [place] [address] [place] [address] [facility] [place] [address] [facility] [place] [address] [facility] [place] [address] [place] [address] [place] [address] [place] [address] [facility] Care Teams Caser Relationship Specialty Start Date End Date Pcp, Unknown PCP - General 01/31/20 Additional Source Comments The information contained in this document represents components of the legal health record. It is not the complete legal health record.[facility]
--- OUTSIDE RECORDS SUMMARY | 2025-03-15 12:51 | XMS_ITS | Clinical Summary ---
Author Organization [employer] Address [address] [place] [address] [address] [place] [address] Care Team Providers Care Forestry Tree Pruner Name Role Phone Unavailable Primary Care Provider Unavailabl e Social History Tobacco Use Types Packs/Day Years [...] FOBT 1966 Lipid Panel 1966 Sigmoidoscopy 1966 Disability Screening 1966 Alcohol/Substance Use Screening 1978 Tobacco Screening 1978 Hepatitis B Vaccines (1 of 3 - 19+ 3-dose series) 1985 Pneumococcal Vaccine: 50+ Years (2 of 2 - PCV) 2016 04/25/2012 Zoster Vaccines (1 of 2) 2016 COVID-19 Vaccine (2 - season) 2025 07/31/2021 Influenza Vaccine (#1) 2025 2, 07/22/2021, 07/15/2020, Additional history exists DTaP/Tdap/Td Vaccines [...]
== END 2025-03-15 11:56 | disposition home or self-care (01) ==
LOC: HO.HMCFM 11:02
PROVIDERS: PCP Family Medicine; Visit Provider Family Medicine
DX: E11.65 Type 2 diabetes mellitus with hyperglycemia (principal); I10 Essential (primary) hypertension; I25.10 Atherosclerotic heart disease of native coronary artery without angina pectoris; Z12.11 Encounter for screening for malignant neoplasm of colon; Z12.5 Encounter for screening for malignant neoplasm of prostate; T14.8XXA Other injury of unspecified body region, initial encounter; R19.5 Other fecal abnormalities; R11.10 Vomiting, unspecified; R41.82 Altered mental status, unspecified

== ENCOUNTER → 2025-03-15 11:01 | Outpatient (BNVA) | payer OTHER, SELFPAY | PROVIDERS: PCP Family Medicine; Visit Provider Family Medicine | DX: Z00.00 Encounter for general adult medical examination without abnormal findings (principal); E11.65 Type 2 diabetes mellitus with hyperglycemia; I10 Essential (primary) hypertension; I25.10 Atherosclerotic heart disease of native coronary artery without angina pectoris; T14.8XXA Other injury of unspecified body region, initial encounter; R19.5 Other fecal abnormalities; R11.10 Vomiting, unspecified; R41.82 Altered mental status, unspecified; Z79.899 Other long term (current) drug therapy; Z13.31 Encounter for screening for depression | CPT/HCPCS: 83036; 96127; 99212 ==

== ENCOUNTER 2025-04-04 07:44 | Outpatient (AMB) | payer OTHER, SELFPAY ==
--- OUTSIDE RECORDS SUMMARY | 2025-04-04 07:46 | XMS_ITS | Clinical Summary ---
Author Organization [address] [facility] Address [address] [place] [address] Phone Care Team Providers Care Cultural Anthropology Professor Name Role Phone Santosh Colin MD Primary [...] everyone in family 22 g 4 Active Additional Information Patient not taking.Reported on 03/20/2025 losartan (Cozaar) 25 mg tablet Take 1 tablet (25 mg total) by mouth 1 (one) time each day. 30 each 11 4 025 Active Sublocade 100 mg/0.5 mL ER [...] OR SPLIT 180 tablet 1 5 Active mupirocin (BACTROBAN) 2 % ointmentIndicat ions:Multiple wounds of skin,MRSA (methicillin resistant staph aureus) culture positive Apply topically 1 (one) time each day. Apply to wounds as directed 22 g 3 5 025 Active chlorhexidine (HIBICLENS) 4 % external liquidIndicatio ns:Multiple wounds of skin,MRSA (methicillin resistant staph aureus) culture positive Apply topically 1 (one) time each day if needed for wound care. 120 mL 2 5 025 Active doxycycline (MONODOX) 100 mg capsule Take 1 capsule (100 mg total) by mouth 2 (two) times a day for 14 days. Take with at least 8 ounces (large glass) of water, do not lie down for 30 minutes after 28 each 5 025 Active Problems Problem Noted Date Diagnosed Date Multiple wounds of skin 03/20/2025 MRSA (methicillin resistant staph aureus) cultur e positive 10/13/2023 BPH (benign prostatic hyperplasia) 05/22/2021 Overview (04/26/2024): CT Scan 05/2021: Mass-effect upon the base of the urinary bladder by a moderately enlarged prostate. Type 2 diabetes mellitus wit h microalbuminuria ([facility] V24, [facility] V28) 07/22/2020 Hyperlipidemia 05/23/2013 Chronic headache disorder 10/31/2012 Overview (04/26/2024): Chronic daily use of aspirin and NSAID preparations. Gastritis and duodenitis 10/31/2012 Overview (04/26/2024): EGD plus biopsies 10/31/2012, erosive duodenitis, no evidence of H. pylori infection. Constipation 04/25/2012 Anxiety 04/14/2012 Illicit drug use 04/06/2012 Polysubstance abuse ([facility] V24, [facility] V28) 0 09/27/2009 Chronic pain 09/26/2009 GERD (gastroesophageal reflux disease) 0 Overview (04/26/2024): Mild erosive esophagitis on EGD 10/31/2012: CT scan 05/2021: Small sliding-type hiatal hernia. Tobacco use disorder 09/26/2009 Encounters Date Type Department Care Team Description 03/20/2025 8:00 AM EDT Office Visit [facility] [address] [place] [phone] Kian Sosa PA Multiple wounds of skin (Primary Dx); MRSA (methicillin resistant staph aureus) culture positive from Last 3 Months Immunizations Immunization Administration Dates Next Due Influenza Quadravalent, MDCK [...] evidence of H. pylori infection. Polysubstance abuse ([facility] V24, [facility] V28) 09/27/2009 DX:Polysubstance abuse (HCC) Cigarette smoker 07/15/2020 DX:Cigarette sm oker Type 2 diabetes mellitus wit h microalbuminuria ([facility] V24, [facility] V28) 07/22/2020 DX:Type 2 diabetes mellitus with microalbuminuria ([facility]) CAD (coronary artery disease) 05/05/2024 [...] Sign Reading Time Taken Comments Blood Pressure 137/80 03/20/2025 8:37 AM EDT Pulse 78 03/20/2025 8:37 AM EDT Temperature 36 C (96.8 F) 03/20/2025 8:37 AM EDT Respiratory Rate 18 03/20/2025 8:37 AM EDT Oxygen Saturation 100% 03/20/2025 8:37 AM EDT Inhaled Oxygen Concentration - - Weight 78 kg (172 lb) 03/20/2025 8:37 AM EDT Height 175.3 cm (5' 9 ) 03/20/2025 8:37 AM EDT Body Mass Index 25.4 03/20/2025 8:37 AM EDT Plan of Treatment Upcoming Encounters Date Type Department Care Team (Late st Contact Info) Description 04/05/2025 8:30 AM EDT Clinical Support [facility] [address] [place] [phone] 04/17/2025 3:00 PM EDT Clinical Support [facility] [address] [place] [phone] Health Maintenance Due Date Last Done Comments [...] (Glomerular Filtration Rate) 12/08/2025 12/08/2024, 06/19/2024, 06/07/2023 Cholesterol Screening (Lipid Panel) 06/19/2029 06/19/2024, 06/07/2023 DTaP,Tdap,and Td Vaccines (4 - Td or Tdap) 07/27/2032 07/27/2022, 10/07/2021, 04/25/2012 RSV Immunization Adult Patients (1 - 1-dose 75+ series) 2041 HIV Screening Completed 06/19/2024, 07/21/2020 Hepatitis C [...] on patient's age to complete this topic Goals Goal Patient Goal Type Associated Problems Recent Progress Patient-Stated? Author Decrease Wound Volume by X% by date (in notes) Care Plan Impaired Tissue No Wurszt, Ghazala E, RN Patient and Caregiver Understand Wound Care Education Care Plan Impaired Tissue Ghazala Freedman RN Wound volume breakdown reduced by X% by week 4 Care Plan Impaired Tissue Ghazala Freedman RN Wound volume breakdown reduced by X% by week 8 Care Plan Impaired Tissue Ghazala Freedman RN Wound volume breakdown reduced by X% by week 12 Care Plan Impaired Tissue Ghazala Freedman RN Quit using tobacco (cigarettes, smokeless, etc) Care Plan Education needed on impact of smoking on wound Ghazala Freedman RN Reduce tobacco use (cigarettes, smokeless, etc) Care Plan Education needed on impact of smoking on wound Ghazala Freedman RN Decrease Wound Volume by X% by date (in notes) Care Plan Education needed on impact of smoking on wound Ghazlaa Freedman RN Patient and Caregiver Understand Wound Care Education Care Plan Education needed related to ulceration/compr omised skin integrity. Ghazala Freedman RN Procedures Procedure Name Priority Date/Time Associated Diagnosis Comments BASIC METABOLIC PANEL STAT 12/08/2024 11:51 PM [...] CMS/HCC V28) HM DEPRESSION SCREENING Routine 10/11/2023 URINE ALBUMIN CREATININE RATIO Routine 06/07/2023 COLONOSCOPY Routine 08/22/2020 from Last 3 Months or Most Recently Relevant to Health Maintenance Results * (ABNORMAL) Basic metabolic panel (12/08/2024 11:51 PM EDT) Sodium 140 133 - 145 mmol/L LAB CHEMISTRY METHOD 12/09/2024 12:50 AM [facility] Potassium 3.7 3.5 - 5.5 mmol/L LAB CHEMISTRY METHOD 12/09/2024 12:50 AM [facility] Chloride 108 96 - 110 mmol/L LAB CHEMISTRY METHOD 12/09/2024 12:50 AM [facility] CO2 23 21 - 32 mmol/L LAB CHEMISTRY METHOD 12/09/2024 12:50 AM [facility] Anion Gap 9 3 - 11 LAB CHEMISTRY METHOD 12/09/2024 12:50 AM [facility] Glucose 123(H) 70 - 100 mg/dL LAB CHEMISTRY METHOD 12/09/2024 12:50 AM [facility] BUN 23 5 - 25 mg/dL LAB CHEMISTRY METHOD 12/09/2024 12:50 AM [facility] Creatinine 1.03 0.70 - 1.30 mg/dL LAB CHEMISTRY METHOD 12/09/2024 12:50 AM [facility] eGFR 84 >=60 mL/min/1. 73m2 LAB CHEMISTRY METHOD 12/09/2024 12:50 AM [facility] Comment:Calculation based on the Chronic Kidney Disease Epidemiology Collaboration (CKD-EPI) equation refit without adjustment for race. BUN/Creatinine Ratio 22.3 LAB CHEMISTRY METHOD 12/09/2024 12:50 AM [facility] Calcium 9.5 8.5 - 10.5 mg/dL LAB CHEMISTRY METHOD 12/09/2024 12:50 AM EDT [facility] Blood Venous blood specimen / Unknown Venipuncture / Unknown 12/08/2024 11:51 PM EDT 12/09/2024 12:09 AM EDT Joanie Munoz MD LAB BLOOD ORDERABLES Fin al Result Performing Organization Address [facility]/ZIP Co de Phone Number [facility] [address] [place] [address], [place] [phone] * (ABNORMAL) Hemoglobin A1c (06/28/2024 11:57 AM EST) Hemoglobin A1C 7.4(H) <6.5 % LAB CHEMISTRY METHOD 06/28/2024 7:25 PM EST [facility] Mean Bld Glu Estim. 166 mg/dL LAB CHEMISTRY METHOD 06/28/2024 7:25 PM EST [facility] Blood Venous blood specimen / Unknown Venipuncture / Unknown 06/28/2024 11:57 AM EST 06/28/2024 11:57 AM EST Meli Garza NP LAB BLOOD ORDERABLES Final Resu lt Performing Organization Address [facility] de Phone Number [facility] [address] [place] [address], [place] [phone] * CT Lung Screening (06/25/2024 2:28 PM [...] Signed Date: 06/26/2024 12:56 ET Workstation ID: [id number] Transcribed By: Self Edit Transcribed Date: 06/26/2024 12:46 ET Narrative 06/26/2024 12:56 PM EST EXAMINATION: CT CHEST WITHOUT CONTRAST LUNG CANCER SCREENING, LOW DOSE CLINICAL INFORMATION: Lung cancer screening. Current smoker COMPARISON: Portions of a previous 06/21/2023 TECHNIQUE: Multidetector CT. Examination of the chest. Examination of the chest without IV contrast. Reformatting in the coronal and sagittal planes. Device: Central Logic VCT DLP: 168 mGy-cm CTDI: 4.83 Dose [...] in the coronal and sagittal planes. Device: Central Logic VCT DLP: 168 mGy-cm CTDI: 4.83 Dose [...] Signed Date: 06/26/2024 12:56 ET Workstation ID: [id number] Transcribed By: Self Edit Transcribed Date: 06/26/2024 12:46 ET Leonarda Gomez MD [facility] [place] [place] CT PROCEDURES Final Result * Hepatitis C antibody (06/19/2024 2:21 PM EST) Hepatitis C Antibody Negative Negative LAB CHEMISTRY METHOD 06/19/2024 7:07 PM EST [facility] Blood Venous blood specimen / Unknown Venipuncture / Unknown 06/19/2024 2:21 PM EST 06/19/2024 2:21 PM EST us Sofiya Bess MD LAB BLOOD ORDERABLES Final Resul t Performing Organization Address [facility]/ZIP Co de Phone Number [facility] [address] [place] [address], [place] [phone] * HIV 1,2 antibody, p24 antigen with reflex to differentiation (06/19/2024 2:21 PM EST) HIV Combo AB/AG Negative Negative LAB CHEMISTRY METHOD 06/19/2024 7:08 PM EST [facility] Blood Venous blood specimen / Unknown Venipuncture / Unknown 06/19/2024 2:21 PM EST 06/19/2024 2:21 PM EST Narrative [facility] - 06/19/2024 7:08 PM EST [...] MD LAB BLOOD ORDERABLES Final Resul t Performing Organization Address [facility]/ZIP Co de Phone Number [facility] [address] [place] [address], [place] [phone] * (ABNORMAL) Lipid panel with reflex to direct LDL (06/19/2024 2:21 PM EST) Cholesterol 167 0 - 200 mg/dL LAB CHEMISTRY METHOD 06/19/2024 6:21 PM EST [facility] Triglycerides 181(H) 0 - 150 mg/dL LAB CHEMISTRY METHOD 06/19/2024 6:21 PM EST [facility] HDL 34(L) >=40 mg/dL LAB CHEMISTRY METHOD 06/19/2024 6:21 PM EST [facility] LDL Calculated 97 0 - 100 mg/dL LAB CHEMISTRY METHOD 06/19/2024 6:21 PM EST [facility] VLDL Cholesterol Vinnie 36.2 mg/dL LAB CHEMISTRY METHOD 06/19/2024 6:21 PM EST [facility] Non HDL Chol. (LDL+VLDL) 133 <145 mg/dL LAB CHEMISTRY METHOD 06/19/2024 6:21 PM EST [facility] Chol/HDL Ratio 4.9(H) 0.0 - 4.4 LAB CHEMISTRY METHOD 06/19/2024 6:21 PM [facility] Blood Venous blood specimen / Unknown Venipuncture / Unknown 06/19/2024 2:21 PM EST 06/19/2024 2:21 PM EST Meli Garza INSTRUMENT TECHNICIAN APPRENTICE LAB BLOOD ORDERABLES Final Resu lt [facility] [address] [place] [address], * Depression Screening (10/11/2023) [facility] Depression Screening abstracted [facility] Provider HEALTH MAINTENANCE Final Result * Urine Albumin Creatinine Ratio (06/07/2023) [facility] Urine Albumin Creatinine Ratio abstracted [facility] Provider HEALTH MAINTENANCE Final Result * Colonoscopy (08/22/2020) [facility] Colonoscopy no interpretation , abstracted Anatomical Region Laterality Modality Other [facility] Provider HEALTH MAINTENANCE Final Result from Last 3 Months or Most Recently Relevant to Health Maintenance Additional Health Concerns Active Problems Noted Date Diagnosed Date Impaired Tissue 03/20/2025 Education needed on impact of smoking on wound 0 03/20/2025 Education needed related to ulceration/compromised skin integrity. 03/20/2025 Infection Onset Date Last Indicated Enteropathogenic E. coli (EPEC) 12/31/2024 12/31/2024 Insurance [employer] Care Teams Cultural Anthropology Professor Relationship Specialty Start Date End Date Santosh Colin MD PCP - General Family Medicine 12/04/24
--- OUTSIDE RECORDS SUMMARY | 2025-04-04 07:46 | XMS_ITS | Patient Health Record ---
Author Organization [facility] Address [address] [place] [phone] Care Team Providers Care Greenhouse Technician Name Role Phone Padilla Kraft Jr Unavailable [phone] Reason For Referral No Information Plan Of Treatment No Information
--- OUTSIDE RECORDS SUMMARY | 2025-04-04 07:46 | XMS_ITS ---
Care Plan Created on: April 04, 2025 Fernando Young : 1965 Sex: Male Author Organization [address] [facility] Address [address] [place] [address] Phone Care Team Providers Care Rn Gynecology Name Role Phone Santosh Colin MD Primary Care Provider Active Problems Problem Noted Date Diagnosed Date Multiple wounds of skin 03/20/2025 MRSA (methicillin resistant staph aureus) cultur e positive 10/13/2023 BPH (benign prostatic hyperplasia) 05/22/2021 Overview (04/26/2024): CT Scan 05/2021: Mass-effect upon the base of the urinary bladder by a moderately enlarged prostate. Type 2 diabetes mellitus wit h microalbuminuria ([facility] V24, [facility] V28) 07/22/2020 Hyperlipidemia 05/23/2013 Chronic headache disorder 10/31/2012 Overview (04/26/2024): Chronic daily use of aspirin and NSAID preparations. Gastritis and duodenitis 10/31/2012 Overview (04/26/2024): EGD plus biopsies 10/31/2012, erosive duodenitis, no evidence of H. pylori infection. Constipation 04/25/2012 Anxiety 04/14/2012 Illicit drug use 04/06/2012 Polysubstance abuse ([facility] V24, [facility] V28) 0 09/27/2009 Chronic pain 09/26/2009 GERD (gastroesophageal reflux disease) 0 Overview (04/26/2024): Mild erosive esophagitis on EGD 10/31/2012: CT scan 05/2021: Small sliding-type hiatal hernia. Tobacco use disorder 09/26/2009 Additional Health Concerns Active Problems Noted Date Diagnosed Date Impaired Tissue 03/20/2025 Education needed on impact of smoking on wound 0 03/20/2025 Education needed related to ulceration/compromised skin integrity. 03/20/2025 Infection Onset Date Last Indicated Enteropathogenic E. coli (EPEC) 12/31/2024 12/31/2024 Goals Goal Patient Goal Type Associated Problems Recent Progress Patient-Stated? Author Decrease Wound Volume by X% by date (in notes) Care Plan Impaired Tissue Ghazala Freedman RN Patient and Caregiver Understand Wound [...] of smoking on wound Ghazala Freedman RN Patient and Caregiver Understand Wound Care Education Care Plan Education needed related to ulceration/compr omised skin integrity. Ghazala Freedman RN Interventions Care Plan Interventions Intervention Entry Date Outcome Provide caregiver with wound care procedure information 03/20/2025 Educate caregiver on proper wound care procedures 03/20/2025 Give provider list of wound care supplies 03/20/2025 Refill wound care supplies 03/20/2025 Send Wound Care Supplies 03/20/2025 Give provider list of wound care supplies 03/20/2025 Refill wound care supplies 03/20/2025 Send Wound Care Supplies 03/20/2025 Provide caregiver with wound care procedure information 03/20/2025 Educate caregiver on proper wound care procedures 03/20/2025 Document patient eligibility for HBO 03/20/2025 Assess patient for HBO treatment 03/20/2025 Record wound depth 03/20/2025 Record total wound area 03/20/2025 Measure wound progress 03/20/2025 Create an action plan identifying patient strengths and supports 03/20/2025 Establish quit date with patient 03/20/2025 Discuss prior cessation attempts 03/20/2025 Discuss preferred method of cessation and plan 03/20/2025 Discuss barriers to smoking cessation 03/20/2025 Discuss smoking status with patient 03/20/2025 Create an action plan identifying patient strengths and supports 03/20/2025 Establish quit date with patient 03/20/2025 Discuss prior cessation attempts 03/20/2025 Discuss preferred method of cessation and plan 03/20/2025 Discuss barriers to smoking cessation 03/20/2025 Discuss smoking status with patient 03/20/2025 Provide caregiver with wound care procedure information 03/20/2025 Educate caregiver on proper wound care procedures 03/20/2025 Document patient eligibility for HBO 03/20/2025 Assess patient for HBO treatment 03/20/2025 Record wound depth 03/20/2025 Record total wound area 03/20/2025 Measure wound progress 03/20/2025 Provide caregiver with wound care procedure information 03/20/2025 Educate caregiver on proper wound care procedures 03/20/2025 Document patient eligibility for HBO 03/20/2025 Assess patient for HBO treatment 03/20/2025 Record wound depth 03/20/2025 Record total wound area 03/20/2025 Measure wound progress 03/20/2025 Provide caregiver with wound care procedure information 03/20/2025 Educate caregiver on proper wound care procedures 03/20/2025 Document patient eligibility for HBO 03/20/2025 Assess patient for HBO treatment 03/20/2025 Record wound depth 03/20/2025 Record total wound area 03/20/2025 Measure wound progress 03/20/2025 Provide caregiver with wound care procedure information 03/20/2025 Educate caregiver on proper wound care procedures 03/20/2025 Give provider list of wound care supplies 03/20/2025 Refill wound care supplies 03/20/2025 Give provider list of wound care supplies 03/20/2025 Refill wound care supplies 03/20/2025 Provide caregiver with wound care procedure information 03/20/2025 Educate caregiver on proper wound care procedures 03/20/2025 Record wound depth 03/20/2025 Record total wound area 03/20/2025 Measure wound progress 03/20/2025 Related Goals and Interventions Goal Associated Intervent ions Decrease Wound Volume by X% by date (in notes) Give provider list of wound care supplie s; Refill wound care supplies; Provide caregiver with wound care procedure information; Educate caregiver on proper wound care procedures; Record wound depth; Record total wound area; Measure wound progress Patient and Caregiver Unders tand Wound Care Education Provide caregiver with wound care proced ure information; Educate caregiver on proper wound care procedures; Give provider list of wound care supplies; Refill wound care supplies Wound volume breakdown reduc ed by X% by week 4 Provide caregiver with wound care proced ure information; Educate caregiver on proper wound care procedures; Document patient eligibility for HBO; Assess patient for HBO treatment; Record wound depth; Record total wound area; Measure wound progress Wound volume breakdown reduc ed by X% by week 8 Provide caregiver with wound care proced ure information; Educate caregiver on proper wound care procedures; Document patient eligibility for HBO; Assess patient for HBO treatment; Record wound depth; Record total wound area; Measure wound progress Wound volume breakdown reduc ed by X% by week 12 Provide caregiver with wound care proced ure information; Educate caregiver on proper wound care procedures; Document patient eligibility for HBO; Assess patient for HBO treatment; Record wound depth; Record total wound area; Measure wound progress Quit using tobacco (cigarett es, smokeless, etc) Create an action plan identifying patien t strengths and supports; Establish quit date with patient; Discuss prior cessation attempts; Discuss preferred method of cessation and plan; Discuss barriers to smoking cessation; Discuss smoking status with patient Reduce tobacco use (cigarett es, smokeless, etc) Create an action plan identifying patien t strengths and supports; Establish quit date with patient; Discuss prior cessation attempts; Discuss preferred method of cessation and plan; Discuss barriers to smoking cessation; Discuss smoking status with patient Decrease Wound Volume by X% by date (in notes) Give provider list of wound care supplie s; Refill wound care supplies; Send Wound Care Supplies; Provide caregiver with wound care procedure information; Educate caregiver on proper wound care procedures; Document patient eligibility for HBO; Assess patient for HBO treatment; Record wound depth; Record total wound area; Measure wound progress Patient and Caregiver Unders tand Wound Care Education Provide caregiver with wound care proced ure information; Educate caregiver on proper wound care procedures; Give provider list of wound care supplies; Refill wound care supplies; Send Wound Care Supplies
--- OUTSIDE RECORDS SUMMARY | 2025-04-04 07:46 | XMS_ITS | Clinical Summary ---
Author Organization [facility] Address [address] [place] [address] [address] [place] [address] Care Team Providers Care Portfolio Accountant Name Role Phone Unavailable Primary Care Provider [...]
--- OUTSIDE RECORDS SUMMARY | 2025-04-04 07:46 | XMS_ITS | Clinical Summary ---
Author Organization [facility] Address [address] [place] [phone] Phone Care Team Providers Care Mgmt Analyst Name Role Phone Pcp, Unknown Primary Care [...] Comments LIPID PANEL 1965 DEPRESSION SCREENING 1978 HEPATITIS C SCREENING 1984 HIV ONE-TIME SCREENING (18-65 YEARS) 1984 PNEUMOCOCCAL VACCINES (50+ years) (2 of 2 - PCV) 2016 04/25/2012 ZOSTER VACCINES (1 of 2) 2016 Adult Td,Tdap Booster 04/25/2022 04/25/2012 INFLUENZA VACCINE (#1) 2025 2, 07/15/2020, 07/30/2016, Additional history exists COVID-19 VACCINE ( season) 2025 07/31/2021, 07/02/2021 COLORECTAL CANCER SCREENING Completed HEPATITIS A VACCINES Aged Out No long [...] topic Medical Devices Not on file Insurance [facility] [place] [address] [place] [address] [address] [place] [address] [address] [place] [address] [address] [place] [address] [address] [place] [address] [address] [employer] [facility] [employer] [id number] [id number] [facility] [employer] Care Teams Mgmt Analyst Relationship Specialty Start Date End Date Pcp, Unknown PCP - General 01/31/20 Additional Source Comments The information contained in this document represents components of the legal health record. It is not the complete legal health record.[facility]
--- NOTE | 2025-04-04 08:12 | A.OFFVIS_ITS ---
Vital Signs 04/04/25 08:15 Height 5 ft 9 in Weight 171 lb 15.369 oz BMI 25.4 BP 114/70 Blood Pressure Location Rt brachial Position Sitting Pulse 75 Pulse Source Pulse Oximeter Pulse Oximetry (%) 98 Oxygen Delivery Method Room Air Intake Visit Reasons: DMT2 Follow-Up Intake Note: Patient presents today to follow-up on Type 2 Diabetes Mellitus: Last Diabetic eye exam was on: DUE, pt needs a referral Last Podiatry exam was on: Patient does not see a Care Process Manager Most recent HbA1c: 7.0%, 03/15/2025 Random Glucose- 155 mg/dL, Today Armhole Feller Handstitching Machine Required: No Accompanied by: Self / Same As Patient Allergies No Known Allergies Allergy (Verified 04/04/25 08:13) HPI Comments Details: The patient is a 59 year old male presenting for diabetes consultation Medical history: HLD, asthma, CAD, IVDU Current medications Trulicity 1.5mg weekly Glipizide ER 10mg twice daily Does not check glucose because fear of needles. CGM was denied by insurance A1C 03/2025 7.0% from 11/2024-A1C 8.6% LDL 75 11/2024 -on atorvastatin 20mg alb/cr overdue -on losartan 25mg Eye exam is overdue-referral placed ROS CONSTITUTIONAL: Denies weight loss, fever and chills. HEENT: Denies changes in vision and hearing. RESPIRATORY: Denies SOB and cough. CV: Denies palpitations and CP GI: Denies abdominal pain, nausea, vomiting and diarrhea. : Denies dysuria and urinary frequency. MSK: Denies new myalgia and joint pain. SKIN: MRSA folliculitis NEUROLOGICAL: Denies headache PSYCHIATRIC: Denies recent changes in mood. PHYSICAL EXAM: GENERAL: Alert and oriented x 3. NAD EYES: EOMI. Anicteric. HENT: Moist mucous membranes. No scleral icterus. No cervical lymphadenopathy. LUNGS: Clear to auscultation bilaterally. CARDIOVASCULAR: Regular rate and rhythm. No murmur. No JVD. ABDOMEN: Soft, non-tender +bs EXTREMITIES: No edema. Non-tender. SKIN:Scattered follicular lesions of various sizes NEUROLOGIC: No focal neurological deficits. CN II-XII grossly intact PSYCHIATRIC: Cooperative. Appropriate mood and affect [facility] Medical History Diabetes mellitus Depression Surgical History No pertinent past surgical history Family History Mother Hypertension affecting Hyperlipemia Diabetes Father Hypertension affecting Hyperlipemia Diabetes Family/Other Hypertension affecting Hyperlipemia Diabetes Social History Housing: Apartment Alcohol intake: never Patient Tobacco Use Status: Current everyday Tobacco user Cigarette Packs Per Day: 2 Cigarettes Per Day: 40 Years Smoked: 39 e-Cigarette/Vaping Use: Never Used Second Hand Smoke Exposure: No Substance Use Type: Crack/Cocaine service: No Current occupational status: disabled Current occupational exposures/hazards: No Cognitive needs: No Hearing needs: No Vision needs: No Physical Exam Vital Signs: Last Vital Signs Pulse 75 04/04/25 08:15 BP 114/70 04/04/25 08:15 Pulse Ox 98 04/04/25 08:15 Oxygen Delivery Method Room Air 04/04/25 08:15 BMI result Body Mass Index 25.4 Results Reviewed Results Reviewed: Laboratory Last Values Glucose (Clinic) 155 mg/dL (60-115) H 04/04/25 08:22 Assessment & Plan Assessment & Plan (1) Diabetes mellitus: Code(s): E11.9 - Type 2 diabetes mellitus without complications Category: Medical Qualifiers: Diabetes mellitus type: type 2 Diabetes mellitus intermediate accountant insulin use: without intermediate accountant use Diabetes mellitus complication status: with hyperglycemia Qualified Code(s): E11.65 - Type 2 diabetes mellitus with hyperglycemia (2) 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 He does not think he is having any hypoglycemia He will return in 3 months or sooner as needed Orders: Orders Microalbumin, Random (w Creat) Today E11.65 - Type 2 diabetes mellitus with hyperglycemia Lipid Panel Today E11.65 - Type 2 diabetes mellitus with hyperglycemia Referrals Ophthalmology Referral E11.65 - Type 2 diabetes mellitus with hyperglycemia Medications: New Contour Meter (blood-glucose meter) As directed 1 ea 0RF NS E11.65 - Type 2 diabetes mellitus with hyperglycemia Trulicity (dulaglutide) 3 mg (0.5 mL) subcut QWEEK 6 mL 3RF NS glipizide ER 10 mg PO BID 180 tabs 3RF Discontinued dulaglutide Discontinued Reason: Doctor's Order 1.5 mg (0.5 mL) subcut QWEEK 28 days 6 mL 2RF E11.65 - Type 2 diabetes mellitus with hyperglycemia Coding Level of Care Code Est Pt Level 4 (17531) Diagnoses Type 2 diabetes mellitus with hyperglycemia, without long-term current use of insulin E11.65 Diabetes mellitus type: type 2 Diabetes mellitus usp insulin use: without usp use Diabetes mellitus complication status: with hyperglycemia Fear of needles 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
[2025-04-04 08:15] VITALS: BP 114/70; PULSE 75; O2SAT 98; BMI 25.4
[2025-04-04 08:25] LABS: Glucose, Whole Blood 155 mg/dL (60-115)
== END 2025-04-04 08:40 | disposition home or self-care (01) ==
LOC: HO.ENCR 07:45
PROVIDERS: PCP Family Medicine; Visit Provider Internal Medicine
DX: E11.65 Type 2 diabetes mellitus with hyperglycemia (principal); F40.298 Other specified phobia

== ENCOUNTER → 2025-04-04 07:44 | Outpatient (BNVA) | payer OTHER, SELFPAY | PROVIDERS: PCP Family Medicine; Visit Provider Internal Medicine | DX: E11.65 Type 2 diabetes mellitus with hyperglycemia (principal); F40.298 Other specified phobia; Z79.85 Long-term (current) use of injectable non-insulin antidiabetic drugs; Z79.84 Long term (current) use of oral hypoglycemic drugs | CPT/HCPCS: 82947; 99212 ==

== ENCOUNTER 2025-04-18 09:55 | Outpatient (AMB) | payer OTHER, SELFPAY ==
--- NOTE | 2025-04-18 10:09 | MHC.PC.OV ---
Vital Signs 04/18/25 10:12 Height 5 ft 9 in Weight 175 lb 6 oz BMI 25.9 BP 98/62 Blood Pressure Location Rt brachial Position Sitting Respiration 12 Pulse 79 Pulse Source Pulse Oximeter Temp 97.7 F Temp Source Oral Pulse Oximetry (%) 98 Oxygen Delivery Method Room Air Intake Visit Reasons: Throwing up puss Intake Note: Vomiting, feels like food is stuck.Sometimes vomits blood. Went to [facility] a couple weeks ago, the referred to [facility] infectious disease. Improvement Manager Required: No Allergies No Known Allergies Allergy (Verified 04/18/25 10:12) Medication List - Last Reconciled 04/18/25 by Santosh Colin MD acetaminophen 1,000 mg (2 x 500 mg) PO QID PRN albuterol sulfate 90 mcg/actuation (Proventil HFA) 1 inh inhalation QID PRN atorvastatin 20 mg PO DAILY buprenorphine ER (Sublocade) mg subcut buprenorphine-naloxone 4-1 mg (Suboxone) 1 film sublingual DAILY chlorhexidine gluconate 4% (Hibiclens) 1 appl topical DAILY 7 days Contour Meter (blood-glucose meter) As directed NS cyclobenzaprine 10 mg PO TID PRN Dexcom G7 Human Resource Manager (blood-glucose,oss architect,cont) As directed NS Dexcom G7 Sensor (blood-glucose sensor) Every 15 days NS doxycycline hyclate 100 mg PO BID 7 days glipizide ER 10 mg PO BID losartan 25 mg PO DAILY meloxicam 15 mg PO DAILY mupirocin 2% (Centany) 1 appl topical BID nicotine (Nicoderm CQ) 1 patch transdermal Q24H 28 days tobramycin 0.3% 1 drp ophthalmic-Left Q4H Trulicity (dulaglutide) 3 mg (0.5 mL) subcut QWEEK NS Tobacco use date assessed: 04/18/25 Dental Screening Dental Screen Date: 03/15/25 HPI Throwing up puss HPI Details 59 y/o male presents today with complaints of vomiting. Pt notes he vomits every 3-4 days and sometimes vomits blood. Reports symptoms x5-6 months. Also reports abnormal stools. Has complaints small parasites and again brings in a tissue with small particles which to this examiner appear to be lint. Pt notes he had went to [facility] a couple weeks ago and they had referred him to infectious disease. Denies any EtOH use. Denies any fevers or chills. HPI Comments History of Present Illness Details Documentation assistance for Santosh Colin MD, was provided by Sacha Romeo,? Stock Replenisher on 04/18/2025 at 11:01 AM EST. I, Dr. Colin, have read, observed, and verified documentation. ?? PFSH Medical History Diabetes mellitus Depression Surgical History No pertinent past surgical history Family History Mother Hypertension affecting Hyperlipemia Diabetes Father Hypertension affecting Hyperlipemia Diabetes Family/Other Hypertension affecting Hyperlipemia Diabetes Social History Housing: Apartment Alcohol intake: never Patient Tobacco Use Status: Current everyday Tobacco user Cigarette Packs Per Day: 2 Cigarettes Per Day: 40 Years Smoked: 39 e-Cigarette/Vaping Use: Never Used Second Hand Smoke Exposure: No Substance Use Type: Crack/Cocaine service: No Current occupational status: disabled Current occupational exposures/hazards: No Cognitive needs: No Hearing needs: No Vision needs: No Questionnaire Thrive Questionnaire Date Thrive assessed: 11/13/24 I am a: Patient What is your living situation today?: I have a steady place to live Within the past 12 months, did the food you bought not last and you didn't have the money to get more?: Never true Within the past 12 months, did you worry whether your food would run out before you got money to buy more?: Never true Do you have trouble paying for medicines?: No Do you have trouble getting transportation to medical appointments?: No Do you have trouble paying your heating and electricity bill?: No Do you have trouble taking care of your child, family member or friend?: No Do you have trouble with day-to-day activities such as bathing, preparing meals, shopping, managing finances, etc.?: No Are you currently unemployed and looking for a job?: No Are you interested in more education?: No Please select the resources that you would like help with: None Currently or been in a relationship where the following occur: No concerns reported THRIVE Score: 0 RAMEZ-7 AMB Questionnaire RAMEZ-7 Date RAMEZ - 7 assessed: 11/13/24 Source: Developed by Drs. Ghanshyam Yee, Domonique Spicer, Julian Henry and colleagues, with an educational todd from [employer]. Review of Systems Const Denies chills, Denies fatigue, Denies fever(s), Denies headache(s) and Denies weakness ENT Denies dizziness and Denies headache(s) Card Denies dyspnea Resp Denies cough, Denies dyspnea, Denies wheezing and Denies other (shortness of breath) GI Reports nausea and Reports vomiting Musc Denies numbness and Denies tingling Neuro Denies dizziness, Denies headache(s), Denies numbness, Denies tingling and Denies weakness Psych Denies anxiety and Denies depression Endo Denies fatigue Aller/Immun Denies wheezing Physical exam (Primary Care) Vital Signs: Last Vital Signs Temp 97.7 F 04/18/25 10:12 Pulse 79 04/18/25 10:12 Resp 12 04/18/25 10:12 BP 98/62 04/18/25 10:12 Pulse Ox 98 04/18/25 10:12 Oxygen Delivery Method Room Air 04/18/25 10:12 BMI result Body Mass Index 25.9 Tobacco/Smoking Status: Tobacco use Status Tobacco use date assessed 04/18/25 04/18/25 10:16 Patient Tobacco Use Status Current everyday Tobacco 04/18/25 10:11 e-Cigarette/Vaping Use Never Used 04/18/25 10:11 Thrive Assessment: Date of Thrive Assessment Date Thrive assessed 11/13/24 04/18/25 10:11 Currently or been in a relationship where the following occur: No concerns reported Const General: well developed; No acute distress Nutritional Appearance: well nourished Orientation/consciousness: patient oriented x3 HENMT Head: Yes normocephalic and Yes atraumatic Eyes General: appearance normal, both eyes and all related structures Pupils: Equal, round and reactive pupils present EOM: EOMs intact bilaterally Resp Effort & Inspection: normal respiratory effort Neuro General: patient oriented x3 and gait normal Cranial nerves: Yes Equal, round and reactive pupils present Psych Affect: normal affect Coding Level of Care Code Est Pt Level 4 (98067) Diagnoses Vomiting R11.10 Abnormal stools R19.5 Skin lesions L98.9 Assessment & Plan Assessment & Plan (1) Vomiting: Code(s): R11.10 - Vomiting, unspecified Category: Medical (2) Abnormal stools: Code(s): R19.5 - Other fecal abnormalities Category: Medical (3) Skin lesions: Code(s): L98.9 - Disorder of the skin and subcutaneous tissue, unspecified Category: Medical Plan 59-year-old male presents with complaints of nausea and vomiting every few days. Drinking only about 1 bottle of water per day No fevers chills and patient does not appear ill Have referred him to Gastroenterology but he does not have an appointment yet-gave him phone number for GI Increase hydration Will give him famotidine Checking labs; patient has not gotten labs drawn despite being reminded to do so the past 2 visits. Asking him to get his labs drawn today Patient has ongoing skin lesions. History of IVDU. Patient denies any drug use currently. He has an appointment with [facility] infectious disease Patient has complaints small parasites and again brings in a tissue with small particles which to this examiner appear to be lint. As above, patient has not gotten labs were stool studies done here and I have asked him to do so today. Again, patient is referred to GI in a gave him phone number. Has appointment with infectious disease. He will follow-up in June
[2025-04-18 10:12] VITALS: BP 98/62; PULSE 79; RESP 12; TEMP 36.5; O2SAT 98; BMI 25.9
--- OUTSIDE RECORDS SUMMARY | 2025-04-18 11:40 | XMS_ITS | Clinical Summary ---
Author Organization [facility] Address [address] [facility] [address] [place] [id number] Phone Care Team Providers Care Nitrate Operator Name Role Phone Pcp, Unknown Primary Care [...] 07/15/2020, 07/30/2016, Additional history exists COVID-19 VACCINE (3 - 2024- season) 2025 07/31/2021, 07/02/2021 RSV VACCINE (1 - 1-dose 75+ series) 2041 COLORECTAL CANCER SCREENING Completed HEPATITIS A VACCINES [...] topic Medical Devices Not on file Insurance [facility] [place] [address] [place] [address] [facility] [place] [address] [place] [address] [place] [address] [place] [address] [address] [place] [address] [facility] [address] [place] [address] [place] [address] [place] [address] [place] [address] [place] [address] [facility] Care Teams Nitrate Operator Relationship Specialty Start Date End Date Pcp, Unknown PCP - General 01/31/20 Additional Source Comments The information contained in this document represents components of the legal health record. It is not the complete legal health record.[facility]
--- OUTSIDE RECORDS SUMMARY | 2025-04-18 11:40 | XMS_ITS ---
Care Plan Created on: April 18, 2025 Fernando Young : 1965 Sex: Male Author Organization [address] [facility] Address [address] [place] [address] Phone Care Team Providers Care General Labor Forklift Operator Name Role Phone Santosh Colni MD Primary Care Provider Active Problems Problem Noted Date Diagnosed Date Multiple wounds of skin 03/20/2025 MRSA (methicillin resistant staph aureus) cultur e positive 10/13/2023 BPH (benign prostatic hyperplasia) 05/22/2021 Overview (04/26/2024): CT Scan 05/2021: Mass-effect upon the base of the urinary bladder by a moderately enlarged prostate. Type 2 diabetes mellitus wit h microalbuminuria ([facility] V24, [facility] V28) 07/22/2020 Hyperlipidemia 05/23/2013 Chronic headache disorder 10/31/2012 Overview (04/26/2024): Chronic daily use of aspirin and NSAID preparations. Gastritis and duodenitis 10/31/2012 Overview (04/26/2024): EGD plus biopsies 10/31/2012, erosive duodenitis, no evidence of H. pylori infection. Constipation 04/25/2012 Anxiety 04/14/2012 Illicit drug use 04/06/2012 Polysubstance abuse ([facility] V24, [facility] V28) 0 09/27/2009 Chronic pain [...] (in notes) Care Plan Impaired Tissue No change(2024 9:51 AM EDT) Ghazala Freedman RN Patient and Caregiver Understand Wound Care Education Care Plan Impaired Tissue Not on track( 9:51 AM EDT) Ghazala Freedman RN Note: 04/05/25 Pt needs to follow up with derm and ID Wound volume breakdown reduced by X% by week 4 Care Plan Impaired Tissue No Ghazala Angulo RN Wound volume breakdown reduced by X% by week 8 Care Plan Impaired Tissue No Ghazala Angulo RN Wound volume breakdown reduced by X% by week 12 Care Plan Impaired Tissue No Ghazala Angulo RN Quit using tobacco (cigarettes, smokeless, etc) [...] needed related to ulceration/compr omised skin integrity. No Ghazala Angulo RN Interventions Care Plan Interventions Intervention Entry [...]
--- OUTSIDE RECORDS SUMMARY | 2025-04-18 11:40 | XMS_ITS | Clinical Summary ---
Author Organization [employer] Address [address] [place] [address] [address] [place] [address] Care Team Providers Care Windsmith Name Role Phone Unavailable Primary Care Provider [...]
--- OUTSIDE RECORDS SUMMARY | 2025-04-18 11:40 | XMS_ITS | Patient Health Record ---
Author Organization [facility] Address [address] [place] [id number] Care Team Providers Care Mat Machine Operator Name Role Phone Padilla Kraft Jr Unavailable Reason For Referral No Information Plan Of Treatment No Information
--- OUTSIDE RECORDS SUMMARY | 2025-04-18 11:40 | XMS_ITS | Clinical Summary ---
Author Organization 175 [facility] Address [address] [place] [address] Phone Care Team Providers Care Digital Advisor Name Role Phone Santosh Colin MD Primary [...] Active Additional Information Patient not taking.Reported on 04/05/2025 losartan (Cozaar) 25 mg tablet Take 1 [...] wounds as directed 22 g 3 5 Active Additional Information Patient not taking.Reported on 04/05/2025 chlorhexidine (HIBICLENS) 4 % external liquidIndicatio ns:Multiple [...] 30 minutes after 28 each 5 025 Additional Information Patient not taking.Reported on 04/05/2025 Active Problems Problem Noted Date Diagnosed Date Multiple wounds of skin 03/20/2025 MRSA (methicillin resistant staph aureus) cultur e positive 10/13/2023 BPH (benign prostatic hyperplasia) 05/22/2021 Overview (04/26/2024): CT Scan 05/2021: Mass-effect upon the base of the urinary bladder by a moderately enlarged prostate. Type 2 diabetes mellitus wit h microalbuminuria ([facility] [place], [facility] [place]) 07/22/2020 Hyperlipidemia 05/23/2013 Chronic headache disorder 10/31/2012 Overview (04/26/2024): Chronic daily use of aspirin and NSAID preparations. Gastritis and duodenitis 10/31/2012 Overview (04/26/2024): EGD plus biopsies 10/31/2012, erosive duodenitis, no evidence of H. pylori infection. Constipation 04/25/2012 Anxiety 04/14/2012 Illicit drug use 04/06/2012 Polysubstance abuse ([facility] [place], [facility] V[facility]) 0 09/27/2009 Chronic pain 09/26/2009 GERD (gastroesophageal reflux disease) 0 Overview (04/26/2024): Mild erosive esophagitis on EGD 10/31/2012: CT scan 05/2021: Small sliding-type hiatal hernia. Tobacco use disorder 09/26/2009 Encounters Date Type Department Care Team Description 04/05/2025 8:30 AM EDT Office Visit [facility] [address] [place] [phone] Kian Sosa PA Multiple wounds of skin (Primary Dx); MRSA (methicillin resistant staph aureus) culture positive 03/20/2025 8:00 AM EDT Office Visit [facility] [address] [place] [phone] Kian Sosa PA Multiple wounds of skin [...] evidence of H. pylori infection. Polysubstance abuse ([facility] V24, [facility] V28) 09/27/2009 DX:Polysubstance abuse (HCC) Cigarette smoker 07/15/2020 DX:Cigarette sm oker Type 2 diabetes mellitus wit h microalbuminuria ([facility] V24, [facility]/HCC V28) 07/22/2020 DX:Type 2 diabetes mellitus with [...] Sign Reading Time Taken Comments Blood Pressure 133/73 04/05/2025 8:42 AM EDT Pulse 81 04/05/2025 8:42 AM EDT Temperature 36.6 C (97.8 F) 04/05/2025 8:42 AM EDT Respiratory Rate 18 04/05/2025 8:42 AM EDT Oxygen Saturation 98% 04/05/2025 8:42 AM EDT Inhaled Oxygen Concentration - - Weight 78 kg (172 lb) 03/20/2025 8:37 AM EDT Height 175.3 cm (5' 9 ) 03/20/2025 8:37 AM EDT Body Mass Index 25.4 03/20/2025 8:37 AM EDT Plan of Treatment Health Maintenance Due [...] Care Plan Impaired Tissue Not on track( 025 9:51 AM EDT) Ghazala Freedman RN Note: [...] needed on impact of smoking on wound No Ghazala Angulo RN Reduce tobacco use (cigarettes, smokeless, etc) Care Plan Education needed on impact of smoking on wound No Ghazala Angulo RN Decrease Wound Volume by X% by date (in notes) Care Plan Education needed on impact of smoking on wound No Ghazala Angulo RN Patient and Caregiver Understand Wound Care [...] mellitus with microalbuminuria (CMS/HCC V24, CMS/HCC V28) DEPRESSION SCREENING Routine 10/11/2023 URINE ALBUMIN CREATININE RATIO Routine 06/07/2023 COLONOSCOPY Routine 08/22/2020 from Last 3 Months or Most Recently Relevant to Health Maintenance Results * (ABNORMAL) Basic metabolic panel (12/08/2024 11:51 PM EDT) Sodium 140 133 - 145 mmol/L LAB CHEMISTRY METHOD 12/09/2024 12:50 AM [facility] Potassium 3.7 3.5 - 5.5 mmol/L LAB CHEMISTRY METHOD 12/09/2024 12:50 AM [facility] Chloride 108 96 - 110 mmol/L LAB CHEMISTRY METHOD 12/09/2024 12:50 AM [facility] CO2 23 21 - 32 mmol/L LAB CHEMISTRY METHOD 12/09/2024 12:50 AM [facility] Anion Gap 9 3 - 11 LAB CHEMISTRY METHOD 12/09/2024 12:50 AM [facility] Glucose 123(H) 70 - 100 mg/dL LAB CHEMISTRY METHOD 12/09/2024 12:50 AM [facility] BUN 23 5 - 25 mg/dL LAB CHEMISTRY METHOD 12/09/2024 12:50 AM [facility] Creatinine 1.03 0.70 - 1.30 mg/dL LAB CHEMISTRY METHOD 12/09/2024 12:50 AM [facility] eGFR 84 >=60 mL/min/1. 73m2 LAB CHEMISTRY METHOD 12/09/2024 12:50 AM [facility] Comment:Calculation based on the Chronic Kidney Disease Epidemiology Collaboration (CKD-EPI) equation refit without adjustment for race. BUN/Creatinine Ratio 22.3 LAB CHEMISTRY METHOD 12/09/2024 12:50 AM EDT [facility] Calcium 9.5 8.5 - 10.5 mg/dL LAB CHEMISTRY METHOD 12/09/2024 12:50 AM EDT [facility] Blood Venous blood specimen / Unknown Venipuncture / Unknown 12/08/2024 11:51 PM EDT 12/09/2024 12:09 AM EDT Joanie Munoz MD LAB BLOOD ORDERABLES Fin al Result Performing Organization Address City/[facility]/ZIP Co de Phone Number [facility] [address] [place] [address], [place] [phone] * (ABNORMAL) Hemoglobin A1c (06/28/2024 11:57 AM EST) Hemoglobin A1C 7.4(H) <6.5 % LAB CHEMISTRY METHOD 06/28/2024 7:25 PM EST [facility] Mean Bld Glu Estim. 166 mg/dL LAB CHEMISTRY METHOD 06/28/2024 7:25 PM EST [facility] Blood Venous blood specimen / Unknown Venipuncture / Unknown 06/28/2024 11:57 AM EST 06/28/2024 11:57 AM EST Meli Garza NP LAB BLOOD ORDERABLES Final Resu lt Performing Organization Address City/[facility]/ZIP Co de Phone Number [facility] [address] [place] [address], [place] [phone] * CT Lung Screening (06/25/2024 2:28 PM [...] Signed Date: 06/26/2024 12:56 ET Workstation ID: [id number] Transcribed By: Self Edit Transcribed Date: 06/26/2024 12:46 ET Narrative 06/26/2024 12:56 PM EST EXAMINATION: CT CHEST WITHOUT CONTRAST LUNG CANCER SCREENING, LOW DOSE CLINICAL INFORMATION: Lung cancer screening. Current smoker COMPARISON: Portions of a previous 06/21/2023 TECHNIQUE: Multidetector CT. Examination of the chest. Examination of the chest without IV contrast. Reformatting in the coronal and sagittal planes. Device: [employer] VCT DLP: 168 mGy-cm CTDI: 4.83 Dose [...] in the coronal and sagittal planes. Device: [employer] VCT DLP: 168 mGy-cm CTDI: 4.83 Dose [...] Signed Date: 06/26/2024 12:56 ET Workstation ID: [id number] Transcribed By: Self Edit Transcribed Date: 06/26/2024 12:46 ET us Leonarda Gomez MD IMG CT PROCEDURES Final Result * Hepatitis C antibody (06/19/2024 2:21 PM EST) Hepatitis C Antibody Negative Negative LAB CHEMISTRY METHOD 06/19/2024 7:07 PM EST [facility] Blood Venous blood specimen / Unknown Venipuncture / Unknown 06/19/2024 2:21 PM EST 06/19/2024 2:21 PM EST us Sofiya Bess MD LAB BLOOD ORDERABLES Final Resul t Performing Organization Address [facility] Co de Phone Number [facility] [address] [place] [address], [place] [phone] * HIV 1,2 antibody, p24 antigen with reflex to differentiation (06/19/2024 2:21 PM EST) [facility] HIV Combo AB/AG Negative Negative LAB CHEMISTRY METHOD 06/19/2024 7:08 PM EST [facility] Blood Venous blood specimen / Unknown Venipuncture / Unknown 06/19/2024 2:21 PM EST 06/19/2024 2:21 PM EST Narrative [facility] - 06/19/2024 7:08 PM EST [...] ORDERABLES Final Resul t Performing Organization Address [facility]/ZIP Co de Phone Number [facility] [address] [place] [address], [place] [phone] * (ABNORMAL) Lipid panel with reflex to direct LDL (06/19/2024 2:21 PM EST) [facility] Cholesterol 167 0 - 200 mg/dL LAB CHEMISTRY METHOD 06/19/2024 6:21 PM [facility] Triglycerides 181(H) 0 - 150 mg/dL LAB CHEMISTRY METHOD 06/19/2024 6:21 PM [facility] HDL 34(L) >=40 mg/dL LAB CHEMISTRY METHOD 06/19/2024 6:21 PM [facility] LDL Calculated 97 0 - 100 mg/dL LAB CHEMISTRY METHOD 06/19/2024 6:21 PM [facility] VLDL Cholesterol Vinnie 36.2 mg/dL LAB CHEMISTRY METHOD 06/19/2024 6:21 PM [facility] Non HDL Chol. (LDL+VLDL) 133 <145 mg/dL LAB CHEMISTRY METHOD 06/19/2024 6:21 PM [facility] Chol/HDL Ratio 4.9(H) 0.0 - 4.4 LAB CHEMISTRY METHOD 06/19/2024 6:21 PM [facility] Blood Venous blood specimen / Unknown Venipuncture / Unknown 06/19/2024 2:21 PM EST 06/19/2024 2:21 PM EST Meli Garza FAMILY CENTERED SPECIALIST LAB BLOOD ORDERABLES Final Resu lt [facility] [address] [place] [address], * Depression Screening (10/11/2023) Pathologist [facility] Depression Screening abstracted Historical Provider HEALTH MAINTENANCE Final Result * Urine Albumin Creatinine Ratio (06/07/2023) Pathologist [facility] Urine Albumin Creatinine Ratio abstracted [facility] Provider HEALTH MAINTENANCE Final Result * Colonoscopy (08/22/2020) Pathologist [facility] Colonoscopy no interpretation , abstracted Anatomical Region Laterality Modality Other [facility] Provider HEALTH MAINTENANCE Final Result from Last 3 Months or Most Recently Relevant to Health Maintenance Additional Health Concerns Active Problems Noted Date Diagnosed Date Impaired Tissue 03/20/2025 Education needed on impact of smoking on wound 0 03/20/2025 Education needed related to ulceration/compromised skin integrity. 03/20/2025 Infection Onset Date Last Indicated Enteropathogenic E. coli (EPEC) 12/31/2024 12/31/2024 Insurance [facility] PL[facility] Care Teams Digital Advisor Relationship Specialty Start Date End Date Santosh Colin MD PCP - General Family Medicine 12/04/24
== END 2025-04-18 10:57 | disposition home or self-care (01) ==
LOC: HO.HMCFM 09:56
PROVIDERS: PCP Family Medicine; Visit Provider Family Medicine
DX: R11.10 Vomiting, unspecified (principal); R19.5 Other fecal abnormalities; L98.9 Disorder of the skin and subcutaneous tissue, unspecified

== ENCOUNTER 2025-04-18 09:55 | Outpatient (REF) | payer OTHER, SELFPAY ==
[2025-04-18 14:12] LABS: MANUAL DIFF FLAG NO
[2025-04-18 14:21] LABS: Hematocrit 40.5 % (42.0-52.0); Hemoglobin 13.8 g/dl (14.0-18.0); Imm Gran Abs Auto 0.02 X10*3/uL (0.00-0.03); Imm Gran Pct Auto 0.2 % (0.0-0.4); Lymphocytes Absolute Auto 2.2 X10*3/uL (1.2-4.9); Mean Corpuscular HGB Conc 34.1 g/dl (31.0-36.0); Mean Corpuscular Hemoglobin 29.7 pg (27.0-33.0); Mean Corpuscular Volume 87.3 fL (80.0-98.0); NRBC Abs Auto 0.000 X10*3/uL (0.0-0.012); NRBC Pct Auto 0.0 /100WBC (0.0-0.2); Platelet Count 201 X10*3/uL (160-400); Red Blood Count 4.64 X10*6/uL (4.60-5.80); White Blood Count 8.7 X10*3/uL (4.8-10.8)
[2025-04-18 15:01] LABS: Erythrocyte Sedimentation Rate 6 MM/HR (0-15)
[2025-04-18 15:09] LABS: Alanine Aminotransferase 17 U/L (0-40); Albumin Level 4.3 g/dL (3.5-5.0); Alkaline Phosphatase 72 U/L (39-117); Anion Gap 9 (12-20); Aspartate Amino Transferase 27 U/L (5-37); Blood Urea Nitrogen 15 mg/dL (9-16); Calcium 8.8 mg/dL (8.4-10.2); Carbon Dioxide 27 mmol/L (22-29); Chloride 108 mmol/L (96-108); Cholesterol 147 mg/dL (<200); Estimated Glomerular Filt Rate > 60; HDL Cholesterol 32 mg/dL (>40); Potassium 4.1 mmol/L (3.3-5.1); Sodium 140 mmol/L (135-145); Total Protein 7.2 g/dL (6.5-8.0); Triglycerides 126 mg/dL (<150)
[2025-04-18 15:20] LABS: Cholesterol 147 mg/dL (<200); HDL Cholesterol 30 mg/dL (>40); Triglycerides 125 mg/dL (<150)
[2025-04-18 17:49] LABS: Appearance Urine Clear; Glucose Urine UA Negative (Negative); PH 6.0 (5.0-9.0); Specific Gravity - Urine >= 1.030 (1.005-1.025)
[2025-04-18 17:54] LABS: Cannabinoid Screen Urine POSITIVE (Not Detect)
[2025-04-18 18:03] LABS: Microalbum/Creatinine Ratio Ur 4.5 ug/mg cr (<30)
== END 2025-04-18 09:56 | disposition home or self-care (01) ==
LOC: HO.WFDLDS 09:55
PROVIDERS: Internal Medicine; PCP Family Medicine; Visit Provider Family Medicine
DX: Z00.00 Encounter for general adult medical examination without abnormal findings (principal); I25.10 Atherosclerotic heart disease of native coronary artery without angina pectoris; F19.91 Other psychoactive substance use, unspecified, in remission; E11.65 Type 2 diabetes mellitus with hyperglycemia; K92.0 Hematemesis; R19.5 Other fecal abnormalities; L98.9 Disorder of the skin and subcutaneous tissue, unspecified; I10 Essential (primary) hypertension; Z12.5 Encounter for screening for malignant neoplasm of prostate
CPT/HCPCS: 36415; 80053; 80061; 80307; 81003; 82043; 82570; 84153; 84443; 85025; 85652; 86141; 99212

== ENCOUNTER 2025-04-22 11:03 | Outpatient (REF) | payer OTHER, SELFPAY ==
--- OUTSIDE RECORDS SUMMARY | 2025-04-22 13:25 | XMS_ITS ---
Care Plan Created on: April 22, 2025 Fernando Young : 1965 Sex: Male Author Organization 175 [facility] Address [address] [place] [address] Phone Care Team Providers Care Sanitary Napkin Machine Tender Name Role Phone Santosh Colin MD Primary Care Provider Active Problems Problem Noted Date Diagnosed Date Multiple wounds of skin 03/20/2025 MRSA (methicillin resistant staph aureus) cultur e positive 10/13/2023 BPH (benign prostatic hyperplasia) 05/22/2021 Overview (04/26/2024): CT Scan 05/2021: Mass-effect upon the base of the urinary bladder by a moderately enlarged prostate. Type 2 diabetes mellitus wit h microalbuminuria ([facility] V24, [facility] V28) 07/22/2020 Hyperlipidemia 05/23/2013 Chronic headache disorder 10/31/2012 Overview (04/26/2024): Chronic daily use of aspirin and NSAID preparations. Gastritis and duodenitis 10/31/2012 Overview (04/26/2024): EGD plus biopsies 10/31/2012, erosive duodenitis, no evidence of H. pylori infection. Constipation 04/25/2012 Anxiety 04/14/2012 Illicit drug use 04/06/2012 Polysubstance abuse ([facility] V24, [facility] V28) 0 09/27/2009 Chronic pain 09/26/2009 [...]
--- OUTSIDE RECORDS SUMMARY | 2025-04-22 13:25 | XMS_ITS | Clinical Summary ---
Author Organization 175 [facility] Address [address] [place] [address] Phone Care Team Providers Care Sign Painter Helper Name Role Phone Santosh Colin MD Primary [...] OR SPLIT 180 tablet 1 5 Active chlorhexidine (HIBICLENS) 4 % external liquidIndicatio ns:Multiple wounds of skin,MRSA (methicillin resistant staph aureus) culture positive Apply topically 1 (one) time each day if needed for wound care. 120 mL 2 5 025 Active mupirocin (BACTROBAN) 2 % ointmentIndicat ions:Multiple wounds of skin,MRSA (methicillin resistant staph aureus) culture positive Apply topically 1 (one) time each day. Apply to wounds as directed 22 g 3 5 025 Additional Information Patient not taking.Reported on 04/05/2025 doxycycline (MONODOX) 100 mg capsule Take 1 [...] Type 2 diabetes mellitus wit h microalbuminuria ([facility] [place], [facility] [place]) 07/22/2020 Hyperlipidemia 05/23/2013 Chronic headache disorder 10/31/2012 Overview (04/26/2024): Chronic daily use of aspirin and NSAID preparations. Gastritis and duodenitis 10/31/2012 Overview (04/26/2024): EGD plus biopsies 10/31/2012, erosive duodenitis, no evidence of H. pylori infection. Constipation 04/25/2012 Anxiety 04/14/2012 Illicit drug use 04/06/2012 Polysubstance abuse ([facility], [facility]) 0 09/27/2009 Chronic pain 09/26/2009 GERD (gastroesophageal reflux disease) 0 Overview (04/26/2024): Mild erosive esophagitis on EGD 10/31/2012: CT scan 05/2021: Small sliding-type hiatal hernia. Tobacco use disorder 09/26/2009 Encounters Date Type Department Care Team Description 04/05/2025 8:30 AM EDT Office Visit [facility] [address] [place] [address] [phone] Kian Sosa PA Multiple wounds of skin (Primary Dx); MRSA (methicillin resistant staph aureus) culture positive 03/20/2025 8:00 AM EDT Office Visit [facility] [address] [place] [address] [phone] Kian Sosa PA Multiple wounds of skin [...] evidence of H. pylori infection. Polysubstance abuse ([facility]24, [facility] V28) 09/27/2009 DX:Polysubstance abuse (HCC) Cigarette smoker 07/15/2020 DX:Cigarette sm oker Type 2 diabetes mellitus wit h microalbuminuria ([facility] V24, [facility]/HCC V28) 07/22/2020 DX:Type 2 diabetes mellitus [...] mmol/L LAB CHEMISTRY METHOD 12/09/2024 12:50 AM [facility] Potassium 3.7 3.5 - 5.5 mmol/L LAB CHEMISTRY METHOD 12/09/2024 12:50 AM [facility] Chloride 108 96 - 110 mmol/L LAB CHEMISTRY METHOD 12/09/2024 12:50 AM [facility] CO2 23 21 - 32 mmol/L LAB CHEMISTRY METHOD 12/09/2024 12:50 AM [facility] Anion Gap 9 3 - 11 LAB CHEMISTRY METHOD 12/09/2024 12:50 AM [facility] Glucose 123(H) 70 - 100 mg/dL LAB CHEMISTRY METHOD 12/09/2024 12:50 AM [facility] BUN 23 5 - 25 mg/dL LAB CHEMISTRY METHOD 12/09/2024 12:50 AM [facility] Creatinine 1.03 0.70 - 1.30 mg/dL LAB CHEMISTRY METHOD 12/09/2024 12:50 AM [facility] eGFR 84 >=60 mL/min/1. 73m2 LAB CHEMISTRY METHOD 12/09/2024 12:50 AM [facility] Comment:Calculation based on the Chronic Kidney Disease Epidemiology Collaboration (CKD-EPI) equation refit without adjustment for race. BUN/Creatinine Ratio 22.3 LAB CHEMISTRY METHOD 12/09/2024 12:50 AM EDT [facility] Calcium 9.5 8.5 - 10.5 mg/dL LAB CHEMISTRY METHOD 12/09/2024 12:50 AM EDT [facility] Blood Venous blood specimen / Unknown Venipuncture / Unknown 12/08/2024 11:51 PM EDT 12/09/2024 12:09 AM EDT Joanie Munoz MD LAB BLOOD ORDERABLES Fin al Result Performing Organization Address City/[facility]/ZIP Co de Phone Number [facility] [address] [place] [address], [place] [phone] * (ABNORMAL) Hemoglobin A1c (06/28/2024 11:57 AM [...] ORDERABLES Final Resu lt Performing Organization Address City/[facility]/ZIP Co de Phone Number [facility] [address] [place] [address], [place] [phone] * CT Lung Screening (06/25/2024 2:28 PM [...] Signed Date: 06/26/2024 12:56 ET Workstation ID: [id number] Transcribed By: Self Edit Transcribed Date: 06/26/2024 12:46 ET Narrative 06/26/2024 12:56 PM EST EXAMINATION: CT CHEST WITHOUT CONTRAST LUNG CANCER SCREENING, LOW DOSE CLINICAL INFORMATION: Lung cancer screening. Current smoker COMPARISON: Portions of a previous 06/21/2023 TECHNIQUE: Multidetector CT. Examination of the chest. Examination of the chest without IV contrast. Reformatting in the coronal and sagittal planes. Device: FlexGen VCT DLP: 168 mGy-cm CTDI: 4.83 Dose [...] Signed Date: 06/26/2024 12:56 ET Workstation ID: [id number] Transcribed By: Self Edit Transcribed Date: 06/26/2024 [...] ORDERABLES Final Resul t Performing Organization Address [facility]/ZIP Co de Phone Number [facility] [address] [place] [address], [place] [phone] * HIV 1,2 antibody, p24 antigen with reflex to differentiation (06/19/2024 2:21 PM EST) [facility] HIV Combo AB/AG Negative Negative LAB [...] ORDERABLES Final Resul t Performing Organization Address [facility]/ZIP Co de Phone Number [facility] [address] [place] [address], [place] [phone] * (ABNORMAL) Lipid panel with reflex to direct LDL (06/19/2024 2:21 PM EST) [facility] Cholesterol 167 0 - 200 mg/dL LAB CHEMISTRY METHOD 06/19/2024 6:[address] [facility] Triglycerides 181(H) 0 - 150 mg/dL LAB CHEMISTRY METHOD 06/19/2024 6:[address] [facility] HDL 34(L) >=40 mg/dL LAB CHEMISTRY METHOD 06/19/2024 6:[address] [facility] LDL Calculated 97 0 - 100 mg/dL LAB CHEMISTRY METHOD 06/19/2024 6:[address] [facility] VLDL Cholesterol Vinnie 36.2 mg/dL LAB CHEMISTRY METHOD 06/19/2024 6:[address] [facility] Non HDL Chol. (LDL+VLDL) 133 <145 mg/dL LAB CHEMISTRY METHOD 06/19/2024 6:[address] [facility] Chol/HDL Ratio 4.9(H) 0.0 - 4.4 LAB CHEMISTRY METHOD 06/19/2024 6:[address] [facility] Blood Venous blood specimen / Unknown Venipuncture / Unknown 06/19/2024 2:21 PM EST 06/19/2024 2:21 PM EST Meli Garza SPINDLE TESTER LAB BLOOD ORDERABLES Final Resu lt [facility] [address] [place] [address], * Depression Screening (10/11/2023) Depression Screening abstracted [facility] Provider HEALTH MAINTENANCE Final Result * Urine Albumin Creatinine Ratio (06/07/2023) Pathologist [facility] Urine Albumin Creatinine Ratio abstracted [facility] Provider HEALTH MAINTENANCE Final Result * Colonoscopy (08/22/2020) Pathologist [facility] Colonoscopy no interpretation , abstracted Anatomical Region Laterality Modality Other [facility] Provider HEALTH MAINTENANCE Final Result from Last 3 Months or Most Recently Relevant to Health Maintenance Additional Health Concerns Active Problems Noted Date Diagnosed Date Impaired Tissue 03/20/2025 Education needed on impact of smoking on wound 0 03/20/2025 Education needed related to ulceration/compromised skin integrity. 03/20/2025 Infection Onset Date Last Indicated Enteropathogenic E. coli (EPEC) 12/31/2024 12/31/2024 Insurance [facility] PL[facility] Care Teams Sign Painter Helper Relationship Specialty Start Date End Date Santosh Colin MD PCP - General Family Medicine 12/04/24
--- OUTSIDE RECORDS SUMMARY | 2025-04-22 13:25 | XMS_ITS | Patient Health Record ---
Author Organization [facility] Address [address] [place] [phone] Care Team Providers Care Hotel Director Name Role Phone Padilla Kratf Jr Unavailable [phone] Reason For Referral No Information Plan Of Treatment No Information
--- OUTSIDE RECORDS SUMMARY | 2025-04-22 13:26 | XMS_ITS | Clinical Summary ---
Author Organization [facility] Address [address] [place] [address] Phone Care Team Providers Care Lpn Medical Assistant Name Role Phone Pcp, Unknown Primary Care [...] topic Medical Devices Not on file Insurance [facility] [place] [address] [place] [address] [facility] [place] [address] [place] [address] [place] [address] [address] [place] [address] [facility] [place] [address] [place] [address] [place] [address] [address] [place] [address] [facility] A[facility] Care Teams Lpn Medical Assistant Relationship Specialty Start Date End Date Pcp, Unknown PCP - General 01/31/20 Additional Source Comments The information contained in this document represents components of the legal health record. It is not the complete legal health record.[facility]
--- OUTSIDE RECORDS SUMMARY | 2025-04-22 13:26 | XMS_ITS | Clinical Summary ---
Author Organization [employer] Address [address] [place] [address] [address] [place] [address] Care Team Providers Care Seo Expert Name Role Phone Unavailable Primary Care Provider [...]
== END 2025-04-22 11:04 | disposition home or self-care (01) ==
LOC: HO.LNP 11:03
PROVIDERS: Visit Provider Family Medicine
DX: R19.5 Other fecal abnormalities (principal)
CPT/HCPCS: 87177; 87209; 87507

== ENCOUNTER 2025-04-25 11:20 | Outpatient (REF) | payer OTHER, SELFPAY ==
[2025-04-25 13:45] LABS: E. coli EAEC Not Detected (Not Detect.); E. coli EPEC Not Detected (Not Detect.); E. coli ETEC Not Detected (Not Detect.); E. coli STEC Not Detected (Not Detect.); Shigella sp./EIEC Not Detected (Not Detect.)
--- OUTSIDE RECORDS SUMMARY | 2025-04-25 14:31 | XMS_ITS | Patient Health Record ---
Author Organization [facility] Address [address] [place] [address] Care Team Providers Care Logistics Analyst Name Role Phone Padilla Kraft Jr Unavailable [phone] Reason For Referral No Information Plan Of Treatment No Information
--- OUTSIDE RECORDS SUMMARY | 2025-04-25 14:31 | XMS_ITS ---
Care Plan Created on: April 25, 2025 Fernando Young : 1965 Sex: Male Author Organization 175 [facility] Address [address] [place] [address] Phone Care Team Providers Care Casting House Laborer Name Role Phone Santosh Colin MD Primary Care Provider Active Problems Problem Noted Date Diagnosed Date Multiple wounds of skin 03/20/2025 MRSA (methicillin resistant staph aureus) cultur e positive 10/13/2023 BPH (benign prostatic hyperplasia) 05/22/2021 Overview (04/26/2024): CT Scan 05/2021: Mass-effect upon the base of the urinary bladder by a moderately enlarged prostate. Type 2 diabetes mellitus wit h microalbuminuria ([facility] V24, [facility] V28) 07/22/2020 Hyperlipidemia 05/23/2013 Chronic headache disorder 10/31/2012 Overview (04/26/2024): Chronic daily use of aspirin and NSAID preparations. Gastritis and duodenitis 10/31/2012 Overview (04/26/2024): EGD plus biopsies 10/31/2012, erosive duodenitis, no evidence of H. pylori infection. Constipation 04/25/2012 Anxiety 04/14/2012 Illicit drug use 04/06/2012 Polysubstance abuse ([facility] V24, [facility] V28) 0 09/27/2009 Chronic pain [...]
--- OUTSIDE RECORDS SUMMARY | 2025-04-25 14:31 | XMS_ITS | Clinical Summary ---
Author Organization 175 [facility] Address [address] [place] [address] Phone Care Team Providers Care Dental Internship Name Role Phone Santosh Colin MD Primary Care Provider [phone] Allergies No known active allergies Medications buprenorphine-n [...] 2 diabetes mellitus wit h microalbuminuria ([facility] V24, [facility] V28) 07/22/2020 Hyperlipidemia 05/23/2013 Chronic headache disorder 10/31/2012 Overview (04/26/2024): Chronic daily use of aspirin and NSAID preparations. Gastritis and duodenitis 10/31/2012 Overview (04/26/2024): EGD plus biopsies 10/31/2012, erosive duodenitis, no evidence of H. pylori infection. Constipation 04/25/2012 Anxiety 04/14/2012 Illicit drug use 04/06/2012 Polysubstance abuse ([facility] V24, [facility] V28) 0 09/27/2009 Chronic pain 09/26/2009 GERD (gastroesophageal reflux disease) 0 Overview (04/26/2024): Mild erosive esophagitis on EGD 10/31/2012: CT scan 05/2021: Small sliding-type hiatal hernia. Tobacco use disorder 09/26/2009 Encounters Date Type Department Care Team Description 04/05/2025 8:30 AM EDT Office Visit [facility] [address] [place] [address] [phone] Kian Sosa PA Multiple wounds of skin (Primary Dx); MRSA (methicillin resistant staph aureus) culture positive 03/20/2025 8:00 AM EDT Office Visit [facility] [address] [place] [address] [phone] Kian Sosa PA Multiple wounds of skin [...] shoulder surgery UPPER GASTROINTESTINAL ENDOSCOPY 2012 PROCEDURE: GA UPPER GI ENDOSCOPY PERFORMED; COMMENT: gastric and [...] evidence of H. pylori infection. Polysubstance abuse ([facility] V24, [facility] V28) 09/27/2009 DX:Polysubstance abuse (HCC) Cigarette smoker 07/15/2020 DX:Cigarette sm oker Type 2 diabetes mellitus wit h microalbuminuria ([facility] V24, [facility] V28) 07/22/2020 DX:Type 2 diabetes mellitus with [...] LAB CHEMISTRY METHOD 12/09/2024 12:50 AM EDT [facility] Calcium 9.5 8.5 - 10.5 mg/dL LAB CHEMISTRY METHOD 12/09/2024 12:50 AM EDT [facility] Blood Venous blood specimen / Unknown Venipuncture / Unknown 12/08/2024 11:51 PM EDT 12/09/2024 12:09 AM EDT Joanie Munoz MD LAB BLOOD ORDERABLES Fin al Result Performing Organization Address City/[facility]/ZIP Co de Phone Number [facility] [address] [place] [address], [place] [phone] * (ABNORMAL) Hemoglobin A1c (06/28/2024 11:57 AM [...] ORDERABLES Final Resu lt Performing Organization Address City/[facility]/ZIP Co de Phone Number [facility] [address] [place] [address], [place] [phone] * CT Lung Screening (06/25/2024 2:28 PM [...] Signed Date: 06/26/2024 12:56 ET Workstation ID: [id number] Transcribed By: Self Edit Transcribed Date: 06/26/2024 12:46 ET Narrative 06/26/2024 12:56 PM EST EXAMINATION: CT CHEST WITHOUT CONTRAST LUNG CANCER SCREENING, LOW DOSE CLINICAL INFORMATION: Lung cancer screening. Current smoker COMPARISON: Portions of a previous 06/21/2023 TECHNIQUE: Multidetector CT. Examination of the chest. Examination of the chest without IV contrast. Reformatting in the coronal and sagittal planes. Device: TiVUS VCT DLP: 168 mGy-cm CTDI: 4.83 Dose [...] Signed Date: 06/26/2024 12:56 ET Workstation ID: [id number] Transcribed By: Self Edit Transcribed Date: 06/26/2024 [...] ORDERABLES Final Resul t Performing Organization Address [facility]/ZIP Co de Phone Number [facility] [address] [place] [address], [place] [phone] * HIV 1,2 antibody, p24 antigen with reflex to differentiation (06/19/2024 2:21 PM EST) [facility] HIV Combo AB/AG Negative Negative LAB CHEMISTRY [...] ORDERABLES Final Resul t Performing Organization Address [facility]/ZIP Co de Phone Number [facility] [address] [place] [address], [place] [phone] * (ABNORMAL) Lipid panel with reflex to direct LDL (06/19/2024 2:21 PM EST) [facility] Cholesterol 167 0 - 200 mg/dL LAB CHEMISTRY METHOD 06/19/2024 6:21 PM [facility] Triglycerides 181(H) 0 - 150 mg/dL LAB CHEMISTRY METHOD 06/19/2024 6:21 PM [facility] HDL 34(L) >=40 mg/dL LAB CHEMISTRY METHOD 06/19/2024 6:21 PM [facility] LDL Calculated 97 0 - 100 mg/dL LAB CHEMISTRY METHOD 06/19/2024 6:21 PM [facility] VLDL Cholesterol Vinnie 36.2 mg/dL LAB CHEMISTRY METHOD 06/19/2024 6:21 PM [facility] Non HDL Chol. (LDL+VLDL) 133 <145 mg/dL LAB CHEMISTRY METHOD 06/19/2024 6:21 PM [facility] Chol/HDL Ratio 4.9(H) 0.0 - 4.4 LAB CHEMISTRY METHOD 06/19/2024 6:21 PM [facility] Blood Venous blood specimen / Unknown Venipuncture / Unknown 06/19/2024 2:21 PM EST 06/19/2024 2:21 PM EST Meli Garza [employer] LAB BLOOD ORDERABLES Final Resu lt [facility] [address] [place] [address], * Depression Screening (10/11/2023) Depression Screening abstracted [facility] Provider HEALTH MAINTENANCE Final Result * Urine Albumin Creatinine Ratio (06/07/2023) Pathologist [facility] Urine Albumin Creatinine Ratio abstracted [facility] Provider HEALTH MAINTENANCE Final Result * Colonoscopy (08/22/2020) Pathologist [facility] Colonoscopy no interpretation , abstracted Anatomical Region Laterality Modality Other [facility] Provider HEALTH MAINTENANCE Final Result from Last 3 Months or Most Recently Relevant to Health Maintenance Additional Health Concerns Active Problems Noted Date Diagnosed Date Impaired Tissue 03/20/2025 Education needed on impact of smoking on wound 0 03/20/2025 Education needed related to ulceration/compromised skin integrity. 03/20/2025 Infection Onset Date Last Indicated Enteropathogenic E. coli (EPEC) 12/31/2024 12/31/2024 Insurance [facility] [employer] Care Teams Dental Internship Relationship Specialty Start Date End Date Santosh Colin MD PCP - General Family Medicine 12/04/24
--- OUTSIDE RECORDS SUMMARY | 2025-04-25 14:32 | XMS_ITS | Clinical Summary ---
Author Organization [employer] Address [address] [place] [address] [address] [place] [address] Care Team Providers Care Wax Specialist Name Role Phone Unavailable Primary Care Provider [...]
== END 2025-04-25 11:21 | disposition home or self-care (01) ==
LOC: HO.LNP 11:20
PROVIDERS: Visit Provider Family Medicine
DX: R19.5 Other fecal abnormalities (principal)
CPT/HCPCS: 87507

== ENCOUNTER 2025-05-16 09:17 | Outpatient (AMB) | payer OTHER, SELFPAY ==
--- NOTE | 2025-05-16 09:34 | MHC.OFFVIS ---
Vital Signs 05/16/25 09:35 Height 5 ft 9 in Weight 174 lb 2.643 oz BMI 25.7 BP 120/72 Blood Pressure Location Lt brachial Position Sitting Pulse 79 Pulse Source Pulse Oximeter Intake Visit Reasons: 6m follow up Hand Splitter Required: No Allergies No Known Allergies Allergy (Verified 05/16/25 09:42) Medication List - Last Reconciled 05/16/25 by Rosi Delgadillo [employer] acetaminophen 1,000 mg (2 x 500 mg) PO QID PRN albuterol sulfate 90 mcg/actuation (Proventil HFA) 1 inh inhalation QID PRN atorvastatin 20 mg PO DAILY buprenorphine ER (Sublocade) mg subcut buprenorphine-naloxone 4-1 mg (Suboxone) 1 film sublingual DAILY chlorhexidine gluconate 4% (Hibiclens) 1 appl topical DAILY 7 days Contour Meter (blood-glucose meter) As directed NS cyclobenzaprine 10 mg PO TID PRN Dexcom G7 Plaster Lather (blood-glucose,curtain stretcher,cont) As directed NS Dexcom G7 Sensor (blood-glucose sensor) Every 15 days NS doxycycline hyclate 100 mg PO BID 7 days glipizide ER 10 mg PO BID losartan 25 mg PO DAILY meloxicam 15 mg PO DAILY mupirocin 2% (Centany) 1 appl topical BID nicotine (Nicoderm CQ) 1 patch transdermal Q24H 28 days tobramycin 0.3% 1 drp ophthalmic-Left Q4H Trulicity (dulaglutide) 3 mg (0.5 mL) subcut QWEEK NS HPI HPI 6m follow up: Details: Fernando is a 59-year-old male with past medical history hypertension, hyperlipidemia, diabetes, nonobstructive coronary disease who presents for follow-up. Today he reports that he has been feeling well overall. He does not have any chest discomfort at rest or during activity. No reported shortness of breath, PND, orthopnea or edema. He has no heart palpitations, lightheadedness, presyncope, syncope, falls. He reports staying physically active but no routine exercise. Continues to smoke but is down to 1 pack of cigarettes per day. Taking meds as directed. Certified coremaker pipe used. [facility] Medical History Diabetes mellitus Depression Surgical History No pertinent past surgical history Family History Mother Hypertension affecting Hyperlipemia Diabetes Father Hypertension affecting Hyperlipemia Diabetes Family/Other Hypertension affecting Hyperlipemia Diabetes Social History Housing: Apartment Alcohol intake: never Patient Tobacco Use Status: Current everyday Tobacco user Cigarette Packs Per Day: 2 Cigarettes Per Day: 40 Years Smoked: 39 e-Cigarette/Vaping Use: Never Used Second Hand Smoke Exposure: No Substance Use Type: Crack/Cocaine service: No Current occupational status: disabled Current occupational exposures/hazards: No Cognitive needs: No Hearing needs: No Vision needs: No Review of Systems Const All systems reviewed & are unremarkable except as noted in HPI and below ENT Denies dizziness Card Denies chest pain, Denies chest pain at rest, Denies chest pain with activity, Denies rapid heart rate, Denies pedal edema, Denies edema, Denies leg edema, Denies lightheadedness, Denies palpitations, Denies dyspnea, Denies dyspnea on exertion and Denies orthopnea Resp Denies cough, Denies dyspnea and Denies dyspnea on exertion GI Denies hematochezia and Denies change in stool character Musc Denies abnormal gait, Denies limited range of motion, Denies muscle cramps, Denies muscle weakness, Denies numbness, Denies radiating pain into limb, Denies stiffness and Denies tingling Neuro Denies abnormal gait, Denies dizziness, Denies numbness and Denies tingling Endo Denies palpitations Physical Exam Vital Signs: Last Vital Signs Pulse 79 05/16/25 09:35 BP 120/72 05/16/25 09:35 BMI result Body Mass Index 25.7 Const General: cooperative, healthy appearing, comfortable and no acute distress Orientation/consciousness: patient oriented x3 Neck Neck: Yes normal visual inspection Resp Effort & Inspection: normal respiratory effort Auscultation: clear to auscultation bilaterally, no crackles, no rales, no rhonchi and no wheezes Cardio Rate: regular rate Rhythm: regular rhythm Heart sounds: S1 normal heart sound present, S2 normal heart sound present, no gallops, no murmurs and no rubs Skin Lesions: lesion noted (noted on extremities - terminologist problem for him) Neuro General: patient oriented x3 Extrem General: No no pedal edema and No calf tenderness Psych Appearance: grossly normal Mental Status: mental status grossly normal Speech and movement: Normal speech and movement present Assessment & Plan Assessment & Plan (1) Coronary artery calcification seen on CAT scan: Code(s): I25.10 - Atherosclerotic heart disease of cachil dehe coronary artery without angina pectoris Category: Medical Plan: CT scan of the chest done 05/04/2024 shows focal calcified plaque at the origin of the LAD, mild coronary calcification plaque burden. He has multiple cardiac risk factors including hypertension, hyperlipidemia, diabetes, family history, smoking. EKG done on 08/02/2024 showed normal sinus rhythm, rate 75. Exercise nuclear stress test done 11/08/2024 with exercise 7 minutes, with moderate shortness of breath, suboptimal heart rate, then given Reg adenosine. Nuclear scan showed normal myocardial perfusion imaging. Echocardiogram done 11/08/2024 showed EF 65% abnormalities. He likely has nonobstructive coronary artery disease. Will avoid the use of aspirin at this time as he has chronic GI issues including discomfort and nausea. Continue atorvastatin with ideal LDL goal less than 70. Continue losartan for good blood pressure control. The benefits of smoking cessation reviewed with him. Signs and symptoms of angina discussed. Cardiology follow-up 6 months, sooner if needed (2) Hyperlipidemia: Code(s): E78.5 - Hyperlipidemia, unspecified Category: Medical Plan: [place] LDL goal less than 70. Labs 04/18/2025 showed LDL 92. He says he is taking atorvastatin 20 mg, 2 tablets daily. Will increase his atorvastatin up to 80 mg daily with plan for lipids, LFT in 2-3 months. (3) Hypertension: Code(s): I10 - Essential (primary) hypertension Category: Medical Plan: Blood pressure goal less than 130/80. Well controlled at this time. No med changes made. (4) Diabetes mellitus: Code(s): E11.9 - Type 2 diabetes mellitus without complications Category: Medical Qualifiers: Diabetes mellitus type: type 2 Diabetes mellitus terminologist insulin use: without terminologist use Diabetes mellitus complication status: with hyperglycemia Qualified Code(s): E11.65 - Type 2 diabetes mellitus with hyperglycemia Plan: Hemoglobin A1c goal less than 7. Followed by PCP. (5) Smoking greater than 40 pack years: Comment: Admits to 2 packs a day for 40 years, 80 pack-year history. Code(s): F17.210 - Nicotine dependence, cigarettes, uncomplicated Category: Social Hx Plan: As above. (6) Hypersomnia: Code(s): G47.10 - Hypersomnia, unspecified Category: Medical Plan: Reports that he is sleepy in the daytime. He can fall asleep very easily such as when watching TV or when sitting in a car that is not moving. He has no diagnosis of sleep apnea. Sleep study previously ordered and not completed as of yet. (7) CAD (coronary artery disease): Code(s): I25.10 - Atherosclerotic heart disease of c[place]il dehe coronary artery without angina pectoris Category: Medical Plan: As above Plan I discussed with the patient the importance of managing cholesterol levels to prevent worsening of coronary artery disease and potential heart attacks. We agreed to increase the statin dosage to 80 mg and plan for a follow-up cholesterol test in August. I encouraged the patient to continue reducing smoking and maintain current lifestyle modifications for diabetes management. Orders: Orders Lipid Panel 2 Months E78.5 - Hyperlipidemia, unspecified Liver Panel 2 Months E78.5 - Hyperlipidemia, unspecified Medications: New atorvastatin (Lipitor) dose increased 80 mg PO BEDTIME 90 tabs 3RF Patient Instructions: - Continue taking medications as prescribed. - Increase statin dosage to 80 mg as discussed. - Schedule a follow-up cholesterol test in August. - Continue efforts to reduce smoking. - Maintain current lifestyle modifications for diabetes management. Patient was informed and verbally consented to the use of an ambient scribe for clinic note documentation during this visit. Visit time spent on chart review, interview, assessment, orders, documentation. Coding Level of Care Code Est Pt Level 4 (23788) Complex EM visit Add On G2211 Diagnoses Coronary artery calcification seen on CAT scan I25.10 Hyperlipidemia E78.5 Hypertension I10 Type 2 diabetes mellitus with hyperglycemia, without long-term current use of insulin E11.65 Diabetes mellitus type: type 2 Diabetes mellitus residential insulin use: without residential use Diabetes mellitus complication status: with hyperglycemia Smoking greater than 40 pack years F17.210 Hypersomnia G47.10 CAD (coronary artery disease) I25.10 Time Spent (min) 28
[2025-05-16 09:35] VITALS: BP 120/72; PULSE 79; BMI 25.7
--- OUTSIDE RECORDS SUMMARY | 2025-05-16 10:34 | XMS_ITS | Clinical Summary ---
Author Organization [employer] Address [address] [place] [address] [address] [place] [address] Care Team Providers Care Certified Medical Transcriptionist Name Role Phone Unavailable Primary Care Provider [...]
--- OUTSIDE RECORDS SUMMARY | 2025-05-16 10:34 | XMS_ITS | Patient Health Record ---
Author Organization [facility] Address [address] [place] [phone] Care Team Providers Care Swatch Cutter Name Role Phone Padilla Kraft Jr Unavailable [phone] Reason For Referral No Information Plan Of Treatment No Information
--- OUTSIDE RECORDS SUMMARY | 2025-05-16 10:34 | XMS_ITS ---
Care Plan Created on: May 16, 2025 Fernando Young : 1965 Sex: Male Author Organization [address] [facility] Address [address] [place] [address] Phone Care Team Providers Care Amplifier Mechanic Name Role Phone Santosh Colin MD Primary Care Provider Active Problems Problem Noted Date Diagnosed Date Multiple wounds of skin 03/20/2025 MRSA (methicillin resistant staph aureus) cultur e positive 10/13/2023 BPH (benign prostatic hyperplasia) 05/22/2021 Overview (04/26/2024): CT Scan 05/2021: Mass-effect upon the base of the urinary bladder by a moderately enlarged prostate. Type 2 diabetes mellitus wit h microalbuminuria ([facility] V24, [facility] V28) 07/22/2020 Hyperlipidemia 05/23/2013 Chronic headache disorder 10/31/2012 Overview (04/26/2024): Chronic daily use of aspirin and NSAID preparations. Gastritis and duodenitis 10/31/2012 Overview (04/26/2024): EGD plus biopsies 10/31/2012, erosive duodenitis, no evidence of H. pylori infection. Constipation 04/25/2012 Anxiety 04/14/2012 Illicit drug use 04/06/2012 Polysubstance abuse ([facility] V24, [facility] V28) 0 09/27/2009 Chronic pain [...]
--- OUTSIDE RECORDS SUMMARY | 2025-05-16 10:34 | XMS_ITS | Clinical Summary ---
Author Organization [address] [facility] Address [address] [place] [address] Phone Care Team Providers Care Distribution Operations Supervisor Name Role Phone Santosh Colin MD Primary [...] diabetes mellitus wit h microalbuminuria (CMS/HCC V24, [facility] V28) 07/22/2020 Hyperlipidemia 05/23/2013 Chronic headache disorder 10/31/2012 Overview (04/26/2024): Chronic daily use of aspirin and NSAID preparations. Gastritis and duodenitis 10/31/2012 Overview (04/26/2024): EGD plus biopsies 10/31/2012, erosive duodenitis, no evidence of H. pylori infection. Constipation 04/25/2012 Anxiety 04/14/2012 Illicit drug use 04/06/2012 Polysubstance abuse ([facility] V24, [facility] V28) 0 09/27/2009 Chronic pain 09/26/2009 GERD (gastroesophageal reflux disease) 0 Overview (04/26/2024): Mild erosive esophagitis on EGD 10/31/2012: CT scan 05/2021: Small sliding-type hiatal hernia. Tobacco use disorder 09/26/2009 Encounters Date Type Department Care Team Description 04/05/2025 8:30 AM EDT Office Visit [facility] [address] [place] [phone] Kian Sosa PA Multiple wounds of skin (Primary Dx); MRSA (methicillin resistant staph aureus) culture positive 03/20/2025 8:00 AM EDT Office Visit [facility] [address] [place] [phone] Kian Sosa PA Multiple wounds of skin [...] shoulder surgery UPPER GASTROINTESTINAL ENDOSCOPY 2012 PROCEDURE: OR UPPER GI ENDOSCOPY PERFORMED; COMMENT: gastric and [...] evidence of H. pylori infection. Polysubstance abuse ([facility] V24, [facility] V28) 09/27/2009 DX:Polysubstance abuse (HCC) Cigarette smoker 07/15/2020 DX:Cigarette sm oker Type 2 diabetes mellitus wit h microalbuminuria (CMS/HCC V24, CMS/[facility] V28) 07/22/2020 DX:Type 2 diabetes mellitus with [...] Impaired Tissue No change(2024 9:51 AM EDT) No Ghazala Angulo RN Patient and Caregiver Understand Wound Care Education Care Plan Impaired Tissue Not on track( 025 9:51 AM EDT) No Ghazala Angulo RN Note: 04/05/25 Pt needs to follow [...] mmol/L LAB CHEMISTRY METHOD 12/09/2024 12:50 AM [facility] Potassium 3.7 3.5 - 5.5 mmol/L LAB CHEMISTRY METHOD 12/09/2024 12:50 AM [facility] Chloride 108 96 - 110 mmol/L LAB CHEMISTRY METHOD 12/09/2024 12:50 AM [facility] CO2 23 21 - 32 mmol/L LAB CHEMISTRY METHOD 12/09/2024 12:50 AM [facility] Anion Gap 9 3 - 11 LAB CHEMISTRY METHOD 12/09/2024 12:50 AM [facility] Glucose 123(H) 70 - 100 mg/dL LAB CHEMISTRY METHOD 12/09/2024 12:50 AM [facility] BUN 23 5 - 25 mg/dL LAB CHEMISTRY METHOD 12/09/2024 12:50 AM [facility] Creatinine 1.03 0.70 - 1.30 mg/dL LAB CHEMISTRY METHOD 12/09/2024 12:50 AM [facility] eGFR 84 >=60 mL/min/1. 73m2 LAB CHEMISTRY METHOD 12/09/2024 12:50 AM [facility] Comment:Calculation based on the Chronic Kidney Disease Epidemiology Collaboration (CKD-EPI) equation refit without adjustment for race. BUN/Creatinine Ratio 22.3 LAB CHEMISTRY METHOD 12/09/2024 12:50 AM [facility] Calcium 9.5 8.5 - 10.5 mg/dL LAB CHEMISTRY METHOD 12/09/2024 12:50 AM [facility] Blood Venous blood specimen / Unknown Venipuncture / Unknown 12/08/2024 11:51 PM EDT 12/09/2024 12:09 AM EDT Joanie Munoz MD LAB BLOOD ORDERABLES Fin al Result Performing Organization Address [facility] Co de Phone Number [facility] [address] [place] [address], [place] [phone] * (ABNORMAL) Hemoglobin A1c (06/28/2024 11:57 AM EST) Hemoglobin A1C 7.4(H) <6.5 % LAB CHEMISTRY METHOD 06/28/2024 7:25 PM EST [facility] Mean Bld Glu Estim. 166 mg/dL LAB CHEMISTRY METHOD 06/28/2024 7:25 PM EST [facility] Blood Venous blood specimen / Unknown Venipuncture / Unknown 06/28/2024 11:57 AM EST 06/28/2024 11:57 AM EST Meli Garza NP LAB BLOOD ORDERABLES Final Resu lt Performing Organization Address [facility] Co de Phone Number [facility] [address] [place] [address], [place] [phone] * CT Lung Screening (06/25/2024 2:28 PM [...] Signed Date: 06/26/2024 12:56 ET Workstation ID: [id number] Transcribed By: Self Edit Transcribed Date: 06/26/2024 [...] Signed Date: 06/26/2024 12:56 ET Workstation ID: [id number] Transcribed By: Self Edit Transcribed Date: 06/26/2024 12:46 ET us Leonarda Gomez MD [facility] CT PROCEDURES Final Result * Hepatitis C antibody (06/19/2024 2:21 PM EST) Hepatitis C Antibody Negative Negative LAB CHEMISTRY METHOD 06/19/2024 7:07 PM EST [facility]) [facility] Blood Venous blood specimen / Unknown Venipuncture / Unknown 06/19/2024 2:21 PM EST 06/19/2024 2:21 PM EST us Sofiya Bess MD LAB BLOOD ORDERABLES Final Resul t Performing Organization Address [facility]/ZIP Co de Phone Number [facility] [address] [place] [address], [place] [phone] * HIV 1,2 antibody, p24 antigen with reflex to differentiation (06/19/2024 2:21 PM EST) Pathologist [facility] HIV Combo AB/AG Negative Negative LAB CHEMISTRY METHOD 06/19/2024 7:08 PM EST [facility] Blood Venous blood specimen / Unknown Venipuncture / Unknown 06/19/2024 2:21 PM EST 06/19/2024 2:21 PM EST Narrative [facility] - 06/19/2024 7:08 PM EST This [...] ORDERABLES Final Resul t Performing Organization Address [facility]/ZIP Co de Phone Number [facility] [address] [place] [address], [place] [phone] * (ABNORMAL) Lipid panel with reflex to direct LDL (06/19/2024 2:21 PM EST) Pathologist [facility] Cholesterol 167 0 - 200 mg/dL LAB CHEMISTRY METHOD 06/19/2024 6:21 PM EST [facility] Triglycerides 181(H) 0 - 150 mg/dL LAB CHEMISTRY METHOD 06/19/2024 6:21 PM EST [facility] HDL 34(L) >=40 mg/dL LAB CHEMISTRY METHOD 06/19/2024 6:21 PM EST [facility] LDL Calculated 97 0 - 100 mg/dL LAB CHEMISTRY METHOD 06/19/2024 6:21 PM EST [facility] VLDL Cholesterol Vinnie 36.2 mg/dL LAB CHEMISTRY METHOD 06/19/2024 6:21 PM EST [facility] Non HDL Chol. (LDL+VLDL) 133 <145 mg/dL LAB CHEMISTRY METHOD 06/19/2024 6:21 PM EST [facility] Chol/HDL Ratio 4.9(H) 0.0 - 4.4 LAB CHEMISTRY METHOD 06/19/2024 6:21 PM [facility] Blood Venous blood specimen / Unknown Venipuncture / Unknown 06/19/2024 2:21 PM EST 06/19/2024 2:21 PM EST Meli Garza NP LAB BLOOD ORDERABLES Final Resu lt [facility] [address] [place] [address], * Depression Screening (10/11/2023) Pathologist [facility] Depression Screening abstracted [facility] Provider HEALTH MAINTENANCE Final Result * Urine Albumin Creatinine Ratio (06/07/2023) [facility] Urine Albumin Creatinine Ratio abstracted [facility] Provider HEALTH MAINTENANCE Final Result * Colonoscopy (08/22/2020) [facility] Colonoscopy no interpretation , abstracted Anatomical Region Laterality Modality Other [facility] Provider HEALTH MAINTENANCE Final Result from Last 3 Months or Most Recently Relevant to Health Maintenance Additional Health Concerns Active Problems Noted Date Diagnosed Date Impaired Tissue 03/20/2025 Education needed on impact of smoking on wound 0 03/20/2025 Education needed related to ulceration/compromised skin integrity. 03/20/2025 Infection Onset Date Last Indicated Enteropathogenic E. coli (EPEC) 12/31/2024 12/31/2024 Insurance [address] CHERYLE Carmona [id number] [facility] Care Teams Distribution Operations Supervisor Relationship Specialty Start Date End Date Santosh Colin MD PCP - General Family Medicine 12/04/24
== END 2025-05-16 10:06 | disposition home or self-care (01) ==
PROVIDERS: Visit Provider Nurse Practitioner Family
DX: I25.10 Atherosclerotic heart disease of native coronary artery without angina pectoris (principal); E78.5 Hyperlipidemia, unspecified; I10 Essential (primary) hypertension; E11.65 Type 2 diabetes mellitus with hyperglycemia; F17.210 Nicotine dependence, cigarettes, uncomplicated; G47.10 Hypersomnia, unspecified
CPT/HCPCS: 99214

== ENCOUNTER → 2025-05-16 09:17 | Outpatient (BNVA) | payer OTHER, SELFPAY | PROVIDERS: Visit Provider Nurse Practitioner Family | DX: I25.10 Atherosclerotic heart disease of native coronary artery without angina pectoris (principal); E78.5 Hyperlipidemia, unspecified; I10 Essential (primary) hypertension; E11.65 Type 2 diabetes mellitus with hyperglycemia; F17.210 Nicotine dependence, cigarettes, uncomplicated; G47.10 Hypersomnia, unspecified | CPT/HCPCS: 99212 ==

== ENCOUNTER 2025-06-20 21:58 | Emergency (ER) | payer OTHER, SELFPAY ==
[2025-06-20 22:17] VITALS: BP 181/77; PULSE 77; RESP 20; TEMP 36.2; O2SAT 99; BMI 25.8
[2025-06-20 22:31] LABS: MANUAL DIFF FLAG NO
[2025-06-20 22:33] LABS: Hematocrit 41.7 % (42.0-52.0); Hemoglobin 14.4 g/dl (14.0-18.0); Imm Gran Abs Auto 0.02 X10*3/uL (0.00-0.03); Imm Gran Pct Auto 0.3 % (0.0-0.4); Lymphocytes Absolute Auto 3.0 X10*3/uL (1.2-4.9); Mean Corpuscular HGB Conc 34.5 g/dl (31.0-36.0); Mean Corpuscular Hemoglobin 30.6 pg (27.0-33.0); Mean Corpuscular Volume 88.5 fL (80.0-98.0); NRBC Abs Auto 0.000 X10*3/uL (0.0-0.012); NRBC Pct Auto 0.0 /100WBC (0.0-0.2); Platelet Count 195 X10*3/uL (160-400); Red Blood Count 4.71 X10*6/uL (4.60-5.80); White Blood Count 7.6 X10*3/uL (4.8-10.8)
[2025-06-20 22:47] LABS: Alanine Aminotransferase 23 U/L (0-40); Albumin Level 4.2 g/dL (3.5-5.0); Alkaline Phosphatase 69 U/L (39-117); Anion Gap 11 (12-20); Aspartate Amino Transferase 19 U/L (5-37); Blood Urea Nitrogen 15 mg/dL (9-16); Calcium 8.8 mg/dL (8.4-10.2); Carbon Dioxide 26 mmol/L (22-29); Chloride 105 mmol/L (96-108); Creatinine Clr Calc Pharmacy 79.7; Estimated Glomerular Filt Rate > 60; Lipase 25 U/L (8-78); Potassium 3.9 mmol/L (3.3-5.1); Sodium 138 mmol/L (135-145); Total Protein 7.0 g/dL (6.5-8.0)
--- OUTSIDE RECORDS SUMMARY | 2025-06-21 01:56 | XMS_ITS | Patient Health Record ---
Author Organization [facility] Address [address] [place] [phone] Care Team Providers Care Drilling Rig Operator Name Role Phone Padilla Kraft Jr Unavailable Reason For Referral No Information Plan Of Treatment No Information
--- OUTSIDE RECORDS SUMMARY | 2025-06-21 01:56 | XMS_ITS ---
Care Plan Created on: June 21, 2025 Fernando Young : 1965 Sex: Male Author Organization 175 [facility] Address [address] [place] [address] Phone Care Team Providers Care Watchmaking Teacher Name Role Phone Santosh Colin MD Primary [...]
--- OUTSIDE RECORDS SUMMARY | 2025-06-21 01:56 | XMS_ITS | Clinical Summary ---
Author Organization 175 [facility] Address [address] [place] [address] Phone Care Team Providers Care Roofing Apprentice Name Role Phone Santosh Colin MD Primary [...] time each day. 30 each 11 4 Active Sublocade 100 mg/0.5 mL ER injection [...] care. 120 mL 2 5 025 Active Problems Problem Noted Date [...] Encounters Date Type Department Care Team Description 06/11/2025 Telephone Lung Screening Program - [place] [address] [facility] [address] [place] [phone] Stephanie Spicer MA 04/05/2025 8:30 AM EDT Office Visit [facility] [address] [place] [phone] Kian Sosa PA Multiple wounds of [...] shoulder surgery UPPER GASTROINTESTINAL ENDOSCOPY 2012 PROCEDURE: [place] UPPER GI ENDOSCOPY PERFORMED; COMMENT: gastric and [...] evidence of H. pylori infection. Polysubstance abuse ([facility] V24, [facility] V28) 09/27/2009 DX:Polysubstance abuse (HCC) Cigarette smoker 07/15/2020 DX:Cigarette sm oker Type 2 diabetes mellitus wit h microalbuminuria (CMS/[facility] V24, CMS/[facility] V28) 07/22/2020 DX:Type 2 diabetes mellitus with microalbuminuria ([facility]) CAD (coronary artery disease) 05/05/2024 Family [...] Orientation Straight 06/21/2024 10 :21 AM EST Last Filed Vital Signs Vital Sign Reading [...] Care Team (Late st Contact Info) Description 07/01/2025 5:30 PM EST Appointment [facility] CT Scan [address] [place] [phone] Health Maintenance Due Date Last [...] omised skin integrity. No Ghazala Angulo RN Procedures Procedure Name Priority Date/Time Associated Diagnosis Comments BASIC METABOLIC PANEL STAT 12/08/2024 11:51 PM EDT HEMOGLOBIN A1C Routine 06/28/2024 11:57 AM EST 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/HCC V24, CMS/[facility] V28) CT LUNG SCREENING Routine 06/25/2024 2:2 [...] mmol/L LAB CHEMISTRY METHOD 12/09/2024 12:50 AM [facility] Potassium 3.7 3.5 - 5.5 mmol/L LAB CHEMISTRY METHOD 12/09/2024 12:50 AM [facility] Chloride 108 96 - 110 mmol/L LAB CHEMISTRY METHOD 12/09/2024 12:50 AM [facility] CO2 23 21 - 32 mmol/L LAB CHEMISTRY METHOD 12/09/2024 12:50 AM [facility] Anion Gap 9 3 - 11 LAB CHEMISTRY METHOD 12/09/2024 12:50 AM [facility] Glucose 123(H) 70 - 100 mg/dL LAB CHEMISTRY METHOD 12/09/2024 12:50 AM [facility] BUN 23 5 - 25 mg/dL LAB CHEMISTRY METHOD 12/09/2024 12:50 AM [facility] Creatinine 1.03 0.70 - 1.30 mg/dL LAB CHEMISTRY METHOD 12/09/2024 12:50 AM [facility] eGFR 84 >=60 mL/min/1. 73m2 LAB CHEMISTRY METHOD 12/09/2024 12:50 AM [facility] Comment:Calculation based on the Chronic Kidney Disease Epidemiology Collaboration (CKD-EPI) equation refit without adjustment for race. BUN/Creatinine Ratio 22.3 LAB CHEMISTRY METHOD 12/09/2024 12:50 AM [facility] Calcium 9.5 8.5 - 10.5 mg/dL LAB CHEMISTRY METHOD 12/09/2024 12:50 AM [facility] Blood Venous blood specimen / Unknown Venipuncture / Unknown 12/08/2024 11:51 PM EDT 12/09/2024 12:09 AM EDT us Joanie Munzo MD LAB BLOOD ORDERABLES Fin al Result [facility] [address] [place] [address], * (ABNORMAL) Hemoglobin A1c (06/28/2024 11:57 AM [...] ORDERABLES Final Resu lt Performing Organization Address [facility]/State/ZIP Co de Phone Number [facility] [address] [place] [address], * CT Lung Screening (06/25/2024 2:28 PM [...] Signed Date: 06/26/2024 12:56 ET Workstation ID: [id number] Transcribed By: Self Edit Transcribed Date: 06/26/2024 [...] Signed Date: 06/26/2024 12:56 ET Workstation ID: [id number] Transcribed By: Self Edit Transcribed Date: 06/26/2024 12:46 ET us Leonarda Gomez MD IM CT PROCEDURES Final Result * Hepatitis C antibody (06/19/2024 2:21 PM EST) Hepatitis C Antibody Negative Negative LAB CHEMISTRY METHOD 06/19/2024 7:07 PM EST [facility] Blood Venous blood specimen / Unknown Venipuncture / Unknown 06/19/2024 2:21 PM EST 06/19/2024 2:21 PM EST us Sofiya Bess MD LAB BLOOD ORDERABLES Final Resul t [facility] [address] [place] [address], [place] [phone] * HIV 1,2 antibody, p24 antigen with reflex to differentiation (06/19/2024 2:21 PM EST) [facility] HIV Combo AB/AG Negative Negative LAB CHEMISTRY METHOD 06/19/2024 7:08 PM [facility] Blood Venous blood specimen / Unknown Venipuncture / Unknown 06/19/2024 2:21 PM EST 06/19/2024 2:21 PM EST [facility] - 06/19/2024 7:08 PM EST This [...] screening. Sofiya Bess MD LAB BLOOD ORDERABLES Final Resul t [facility] [address] [place] [address], [place] [phone] * (ABNORMAL) Lipid panel with reflex to direct LDL (06/19/2024 2:21 PM EST) [facility] Cholesterol 167 0 - 200 mg/dL LAB CHEMISTRY METHOD 06/19/2024 6:21 PM [facility] Triglycerides 181(H) 0 - 150 mg/dL LAB CHEMISTRY METHOD 06/19/2024 6:21 PM [facility] HDL 34(L) >=40 mg/dL LAB CHEMISTRY METHOD 06/19/2024 6:21 PM [facility] LDL Calculated 97 0 - 100 mg/dL LAB CHEMISTRY METHOD 06/19/2024 6:21 PM [facility] VLDL Cholesterol Vinnie 36.2 mg/dL LAB CHEMISTRY METHOD 06/19/2024 6:21 PM [facility] Non HDL Chol. (LDL+VLDL) [...] NP LAB BLOOD ORDERABLES Final Resu lt [facility] [address] [place] [address], * Depression Screening (10/11/2023) [facility] Depression Screening abstracted [facility] Provider MD HEALTH MAINTENANCE Final Result * Urine Albumin Creatinine Ratio (06/07/2023) [facility] Urine Albumin Creatinine Ratio abstracted [facility] Provider HEALTH MAINTENANCE Final Result * Colonoscopy (08/22/2020) [facility] Colonoscopy no interpretation , abstracted Anatomical Region Laterality Modality Other [facility] Provider HEALTH MAINTENANCE Final Result from Last 3 Months or Most Recently Relevant to Health Maintenance Additional Health Concerns Active Problems Noted Date Diagnosed Date Impaired Tissue 03/20/2025 Education needed on impact of smoking on wound 0 03/20/2025 Education needed related to ulceration/compromised skin integrity. 03/20/2025 Infection Onset Date Last Indicated Enteropathogenic E. coli (EPEC) 12/31/2024 12/31/2024 Insurance [facility] [place] [address] Care Teams Roofing Apprentice Relationship Specialty Start Date End Date Santosh Colin MD PCP - General Family Medicine 12/04/24
--- OUTSIDE RECORDS SUMMARY | 2025-06-21 01:56 | XMS_ITS | Clinical Summary ---
Author Organization [employer] Address [address] [place] [address] [address] [place] [address] Care Team Providers Care Pot Firer Name Role Phone Unavailable Primary Care Provider [...]
--- OUTSIDE RECORDS SUMMARY | 2025-06-21 01:56 | XMS_ITS | Clinical Summary ---
Author Organization [facility] Address [address] [place] [phone] Phone Care Team Providers Care Breakfast Manager Name Role Phone Pcp, Unknown Primary Care [...] topic Medical Devices Not on file Insurance [facility] [place] [address] [place] [address] [facility] [place] [place] [address] [place] [address] [address] [place] [address] [place] [address] [place] [address] [facility] [place] [address] [place] [address] [place] [address] [place] [address] [place] [address] [place] [address] [facility] Care Teams Breakfast Manager Relationship Specialty Start Date End Date Pcp, Unknown PCP - General 01/31/20 Additional Source Comments The information contained in this document represents components of the legal health record. It is not the complete legal health record.[facility]
== END 2025-06-21 02:04 | disposition left against medical advice (07) ==
PROVIDERS: Emergency Provider Emergency Medicine
DX: R11.10 Vomiting, unspecified (principal); Z53.21 Procedure and treatment not carried out due to patient leaving prior to being seen by health care provider
CPT/HCPCS: 36415; 80053; 83690; 85025; 99281

== ENCOUNTER 2025-06-25 08:07 | Emergency (ER) | payer OTHER, SELFPAY ==
[2025-06-25 08:15] VITALS: BP 160/74; PULSE 65; RESP 18; TEMP 36.8; O2SAT 99; BMI 25.2
[2025-06-25 08:32] LABS: MANUAL DIFF FLAG NO
[2025-06-25 08:36] LABS: Hematocrit 44.7 % (42.0-52.0); Hemoglobin 15.3 g/dl (14.0-18.0); Imm Gran Abs Auto 0.02 X10*3/uL (0.00-0.03); Imm Gran Pct Auto 0.2 % (0.0-0.4); Lymphocytes Absolute Auto 2.2 X10*3/uL (1.2-4.9); Mean Corpuscular HGB Conc 34.2 g/dl (31.0-36.0); Mean Corpuscular Hemoglobin 30.1 pg (27.0-33.0); Mean Corpuscular Volume 87.8 fL (80.0-98.0); NRBC Abs Auto 0.000 X10*3/uL (0.0-0.012); NRBC Pct Auto 0.0 /100WBC (0.0-0.2); Platelet Count 210 X10*3/uL (160-400); Red Blood Count 5.09 X10*6/uL (4.60-5.80); White Blood Count 9.3 X10*3/uL (4.8-10.8)
[2025-06-25 08:49] LABS: Alanine Aminotransferase 24 U/L (0-40); Albumin Level 4.4 g/dL (3.5-5.0); Alkaline Phosphatase 63 U/L (39-117); Anion Gap 10 (12-20); Aspartate Amino Transferase 21 U/L (5-37); Blood Urea Nitrogen 18 mg/dL (9-16); Calcium 9.4 mg/dL (8.4-10.2); Carbon Dioxide 29 mmol/L (22-29); Chloride 104 mmol/L (96-108); Creatinine Clr Calc Pharmacy 84.7; Estimated Glomerular Filt Rate > 60; Lipase 21 U/L (8-78); Magnesium 2.0 mg/dL (1.6-2.6); Potassium 4.2 mmol/L (3.3-5.1); Sodium 139 mmol/L (135-145); Total Protein 7.5 g/dL (6.5-8.0)
[2025-06-25 09:15] VITALS: BP 144/82; PULSE 81; RESP 16; TEMP 36.4; O2SAT 97
--- NOTE | 2025-06-25 09:17 | PC.NURSE ---
Pt roomed changed and placed on full monitor- VSS Vomiting- IV placed- awaiting provider. abd pain 10/10 lower bilat abd.
--- NOTE | 2025-06-25 09:26 | ED.ABDPAIN ---
HPI - Abdominal Pain General Chief Complaint: Abdominal Pain Stated Complaint: Abd pain Time Seen by Provider: 06/25/25 09:06 History of Present Illness ED Provider: Shirley Gallegos NP HPI narrative: 59-year-old male medical history significant for a chronic skin wounds, prior MRSA infection, diabetes type 2, hypertension, hyperlipidemia, CAD seen on CT scan, hypersomnia presenting to the ED for evaluation of lower abdominal pain ongoing for about 4 days. Patient reports some nausea, vomiting, but no diarrhea. Reports not having a bowel movement since Tuesday. Endorsing generalized malaise, myalgias, and headache. No fever, chills. Reports difficulty with urination, as well as decreased urine output. Reports he has not urinated no dysuria, hematuria, urgency or frequency. No chest pain or pressure, shortness of breath. Related Data Home Medications ?Medication ?Instructions ?Recorded ?Confirmed losartan 25 mg tablet 25 mg PO DAILY 08/02/24 05/16/25 buprenorphine 100 mg/0.5 mL mg subcut 11/15/24 05/16/25 solution,exten.rel.subcutaneous syringe (Sublocade) buprenorphine 4 mg-naloxone 1 mg 1 film sublingual DAILY 11/15/24 05/16/25 sublingual film (Suboxone) Previous Rx's ?Medication ?Instructions ?Recorded albuterol sulfate 90 mcg/actuation 1 inh inhalation QID PRN shortness 04/27/21 aerosol inhaler (Proventil HFA) of breath or wheezing #6.7 grams acetaminophen 500 mg tablet 1,000 mg (2 x 500 mg) PO QID PRN 10/07/21 pain #30 tabs cyclobenzaprine 10 mg tablet 10 mg PO TID PRN muscle spasm #20 05/05/24 tabs meloxicam 15 mg tablet 15 mg PO DAILY #7 tabs 06/27/24 chlorhexidine gluconate 4 % 1 appl topical DAILY 7 days #946 mL 11/13/24 topical liquid (Hibiclens) nicotine 14 mg/24 hr daily 1 patch transdermal Q24H 28 days 11/13/24 transdermal patch (Nicoderm CQ) #28 ea tobramycin 0.3 % eye drops 1 drp ophthalmic-Left Q4H #5 mL 12/10/24 Dexcom G7 Security Patrol Driver #1 ea 12/19/24 (blood-glucose,data warehousing architect,cont) Dexcom G7 Sensor (blood-glucose #6 ea 12/19/24 sensor) mupirocin 2 % topical ointment 1 appl topical BID #22 grams 12/19/24 (Centany) doxycycline hyclate 100 mg tablet 100 mg PO BID 7 days #14 tabs 03/15/25 Contour Meter (blood-glucose meter) #1 ea 04/04/25 Trulicity 3 mg/0.5 mL subcutaneous 3 mg (0.5 mL) subcut QWEEK #6 mL 04/04/25 pen injector (dulaglutide) glipizide 10 mg tablet, extended 10 mg PO BID #180 tabs 04/04/25 release 24 hr atorvastatin 80 mg tablet (Lipitor) 80 mg PO BEDTIME #90 tabs 05/16/25 Allergies Allergy/AdvReac Type Severity Reaction Status Date / Time No Known Allergies Allergy Verified 06/25/25 08:18 Review of Systems Review of Systems ROS is otherwise negative unless mentioned in HPI. [facility] Past Medical History Medical History Diabetes mellitus Depression Surgical History No pertinent past surgical history Family History Family History Mother Hypertension affecting Hyperlipemia Diabetes Father Hypertension affecting Hyperlipemia Diabetes Family/Other Hypertension affecting Hyperlipemia Diabetes Social History Social History Housing: Apartment Alcohol intake: never Patient Tobacco Use Status: Current everyday Tobacco user Cigarette Packs Per Day: 2 Cigarettes Per Day: 40 Years Smoked: 39 e-Cigarette/Vaping Use: Never Used Second Hand Smoke Exposure: No Substance Use Type: Crack/Cocaine Advance Directives: No Advance Directives Information Provided: Yes service: No Current occupational status: disabled Current occupational exposures/hazards: No Cognitive needs: No Hearing needs: No Vision needs: No Physical Exam ED Exam Exam: Nursing notes and vital signs reviewed. Constitutional: Well-appearing, NAD. Alert. Oriented X3. Eyes: EOMI. ENT: Pharynx normal. Neck: Normal inspection. Neck supple. CVS: Normal heart rate and rhythm. Pulses normal. Respiratory: No respiratory distress. Breath sounds normal. Abdomen: Soft, subjective tenderness to the b/l lower quadrants, no distention. No CVA tenderness bilaterally. Skin: Skin warm and dry. Normal skin color. Extremities: No lower extremity edema. Neuro: Oriented X 3. No motor deficit. Vital Signs: Vital Signs - 24 hr 06/25/25 08:15 06/25/25 09:15 06/25/25 10:08 Temperature 98.3 F 97.5 F Pulse Rate 65 81 74 Respiratory Rate 18 16 16 Blood Pressure 160/74 H 144/82 H 139/85 Pulse Oximetry 99 97 99 Oxygen Delivery Method Room Air Room Air Room Air 06/25/25 11:52 Temperature 97.6 F Pulse Rate 72 Respiratory Rate 18 Blood Pressure 133/85 Pulse Oximetry 100 Oxygen Delivery Method Room Air BMI result Body Mass Index 25.2 Medical Decision Making Medical Decision Making [facility] Narrative: Upon my initial assessment, he does not subjective tenderness to the lower quadrants of the abdomen bilaterally. Reports he has not had a bowel movement in 4 days, and has not urinated since yesterday. However, his bedside bladder scan here shows only 70 mL in the bladder. This is not indicative of retention. We will administer a fluid bolus, antiemetic. He is requesting something to eat and drink. He does not have any objective tenderness on my exam, I do not feel CT scan of the abdomen pelvis indicated at this time. We will obtain urinalysis, as lab work here is overall reassuring including the absence of leukocytosis. LFTs, lipase level WNL. We will reassess after medication intervention. 12:20 PM-- urinalysis shows no signs of infection. He is eating and drinking, sleeping comfortably in the ED. There is no indication at this time for further workup. We will proceed with discharge plan, given return precautions to the ED. Patient is agreeable. Differential Diagnosis Differential Diagnoses: The differential diagnosis associated with the presentation includes urinary retention, UTI, viral illness Admission/Observation Consideration of admission/observation: Escalation of care including admission/observation considered (Not indicated) Lab Data [facility] Lab Attestation statement: I reviewed the patient's lab results. (Reassuring overall.) 06/25/25 08:29 06/25/25 08:29 Labs: Lab Results 12/23/25 12/23/25 12/23/25 Range/Units 08:29 10:08 11:51 WBC 9.3 (4.8-10.8) X10*3/uL RBC 5.09 (4.60-5.80) X10*6/uL Hgb 15.3 (14.0-18.0) g/dl Hct 44.7 (42.0-52.0) % MCV 87.8 (80.0-98.0) fL MCH 30.1 (27.0-33.0) pg MCHC 34.2 (31.0-36.0) g/dl RDW 12.0 (11.0-16.0) % Plt Count 210 (160-400) X10*3/uL MPV 10.7 (9.4-12.4) fL Immature Gran % (Auto) 0.2 (0.0-0.4) % Neut % (Auto) 67.8 (45-73) % Lymph % (Auto) 23.9 (20-40) % Emmons % (Auto) 6.3 (2-11) % Eos % (Auto) 1.0 (0-4) % Baso % (Auto) 0.8 (0-2) % Lymph # (Auto) 2.2 (1.2-4.9) X10*3/uL Emmons # (Auto) 0.6 (0.1-1.2) X10*3/uL Eos # (Auto) 0.1 (0.0-0.4) X10*3/uL Baso # (Auto) 0.1 (0.0-0.2) X10*3/uL Abs Immat Gran (auto) 0.02 (0.00-0.03) X10*3/uL Absolute Neuts (auto) 6.3 (2.0-8.3) x10*3/uL Absolute Nucleated RBC 0.000 (0.0-0.012) X10*3/uL Nucleated RBC % (auto) 0.0 (0.0-0.2) /100WBC Sodium 139 (135-145) mmol/L Potassium 4.2 (3.3-5.1) mmol/L Chloride 104 (96-108) mmol/L Carbon Dioxide 29 (22-29) mmol/L Anion Gap 10 L (12-20) BUN 18 H (9-16) mg/dL Creatinine 0.95 (0.5-1.4) mg/dL Estim Creat Clear Calc 84.7 Estimated GFR > 60 Random Glucose 158 H (60-115) mg/dL Calcium 9.4 D (8.4-10.2) mg/dL Magnesium 2.0 (1.6-2.6) mg/dL Total Bilirubin 0.7 (0.0-1.0) mg/dL AST 21 (5-37) U/L ALT 24 (0-40) U/L Alkaline Phosphatase 63 (39-117) U/L Total Protein 7.5 (6.5-8.0) g/dL Albumin 4.4 (3.5-5.0) g/dL Lipase 21 (8-78) U/L Urine Color Yellow Urine Appearance Cloudy Urine pH 7.5 (5.0-9.0) Ur Specific Curtiss 1.025 (1.005-1.025) Urine Protein Negative (Neg-Trace) mg/dL Urine Glucose (UA) 100 H (Negative) mg/dL Urine Ketones Negative (Negative) mg/dL Urine Blood Negative (Negative) Urine Nitrite Negative (Negative) Ur Leukocyte Esterase Negative (Negative) Influenza Type A (PCR) NEGATIVE (Negative) Influenza Type B (PCR) NEGATIVE (Negative) RSV RNA Qual (PCR) NEGATIVE (Negative) SARS-CoV-2 RNA (RT-PCR) NEGATIVE (Negative) External Record Review External record reviewed: Outside ED record and Other (Prior ER visits) Prescription Management I considered prescription management with: Antibiotic Not indicated Social Determinants Patient?s care significantly limited by Social Determinants of Health including: Inadequate housing, Alcoholism and drug addiction in family and Problems related to primary support group Medications Administered Discontinued Medications Generic Name Dose Route Start Last Admin Trade Name Freq PRN Reason Stop Dose Admin Sodium Chloride 1,000 mls @ 999 mls/hr 06/25/25 09:24 06/25/25 11:28 Ns IV 06/25/25 10:24 Infused .Q1H1M ONE Infusion Ondansetron HCl 4 mg 06/25/25 09:24 06/25/25 09:55 Ondansetron Hcl 4 Mg/2 Ml Vial IVPUSH 06/25/25 09:25 4 mg ONCE ONE Administration Discharge Plan Discharge Clinical Impression: Abdominal pain Qualifiers: Abdominal location: unspecified location Qualified Code(s): R10.9 - Unspecified abdominal pain Patient Disposition: Home, Self-Care Instructions: Abdominal Pain (ED) Additional Instructions: You were seen in the ER today for evaluation of abdominal pain. Your lab work was overall reassuring. The urinalysis does not show any signs of any infection. The viral panel is negative for COVID, flu, RSV. Please use [id number] Tylenol, ibuprofen as needed. Follow up with your primary care provider within 1 week. Return to the ED if any worsening complaints. Prescriptions: No Action acetaminophen 500 mg tablet 1,000 mg PO QID PRN (Reason: pain) Qty: 30 0RF albuterol sulfate [Proventil HFA] 90 mcg/actuation HFA aerosol inhaler 1 inh inhalation QID PRN (Reason: shortness of breath or wheezing) Qty: 6.7 0RF cyclobenzaprine 10 mg tablet 10 mg PO TID PRN (Reason: muscle spasm) Qty: 20 0RF meloxicam 15 mg tablet 15 mg PO DAILY Qty: 7 0RF tobramycin 0.3 % drops 1 drp ophthalmic-Left Q4H Qty: 5 0RF losartan 25 mg tablet 25 mg PO DAILY buprenorphine-naloxone [Suboxone] 4-1 mg film 1 film sublingual DAILY Sublocade 100 mg/0.5 mL solution, extended rel syringe subcut doxycycline hyclate 100 mg tablet 100 mg PO BID 7 Days Qty: 14 0RF Trulicity 3 mg/0.5 mL pen injector 3 mg subcut QWEEK Qty: 6 3RF (DME) blood-glucose meter [Contour Meter] Kit See Rx Instructions .Route Qty: 1 0RF Rx Instructions: As directed glipizide 10 mg tablet extended release 24hr 10 mg PO BID Qty: 180 3RF nicotine [Nicoderm CQ] 14 mg/24 hr patch 24 hour 1 patch transdermal Q24H 28 Days Qty: 28 1RF chlorhexidine gluconate [Hibiclens] 4 % liquid 1 appl topical DAILY 7 Days Qty: 946 0RF atorvastatin [Lipitor] 80 mg tablet 80 mg PO BEDTIME Qty: 90 3RF Rx Instructions: dose increased (DME) Dexcom G7 Security Patrol Driver Misc See Rx Instructions .Route Qty: 1 0RF Rx Instructions: As directed (DME) Dexcom G7 Sensor Device See Rx Instructions .Route Qty: 6 3RF Rx Instructions: Every 15 days mupirocin [Centany] 2 % ointment 1 appl topical BID Qty: 22 3RF Referrals: [facility] [place] Family Medicine [Provider Group, Family Practice] Print Language: Bengali
--- OUTSIDE RECORDS SUMMARY | 2025-06-25 10:07 | XMS_ITS ---
Care Plan Created on: June 25, 2025 Fernando Young : 1965 Sex: Male Author Organization [facility] Address [address] [place] [address] Phone Care Team Providers Care Record Systems Analyst Name Role Phone Santosh Colin MD Primary [...]
--- OUTSIDE RECORDS SUMMARY | 2025-06-25 10:07 | XMS_ITS | Clinical Summary ---
Author Organization [facility] Address [address] [place] [address] Phone Care Team Providers Care Heavy Equipment Supervisor Name Role Phone Santosh Colin MD [...] Description 06/11/2025 Telephone Lung Screening Program - [facility] [address] [facility] [address] [place] [address] Stephanie Spicer MA 04/05/2025 8:30 AM EDT Office Visit [facility] [address] [place] [address] Kian Sosa PA Multiple wounds [...] evidence of H. pylori infection. Polysubstance abuse ([facility] V24, [facility] V28) 09/27/2009 DX:Polysubstance abuse (HCC) Cigarette smoker 07/15/2020 DX:Cigarette sm oker Type 2 diabetes mellitus wit h microalbuminuria ([facility] V24, [facility] V28) 07/22/2020 DX:Type 2 diabetes mellitus with microalbuminuria ([facility]) CAD (coronary artery disease) 05/05/2024 Family History [...] Info) Description 07/01/2025 5:30 PM EST Appointment [facility] CT Scan [address] [place] [address] Health Maintenance Due Date Last [...] 2 diabetes mellitus with microalbuminuria (CMS/HCC V24, [facility] V28) CT LUNG SCREENING Routine 06/25/2024 2:2 [...] mmol/L LAB CHEMISTRY METHOD 12/09/2024 12:[address] [facility] Potassium 3.7 3.5 - 5.5 mmol/L LAB CHEMISTRY METHOD 12/09/2024 12:[address] [facility] Chloride 108 96 - 110 mmol/L LAB CHEMISTRY METHOD 12/09/2024 12:[address] [facility] CO2 23 21 - 32 mmol/L LAB CHEMISTRY METHOD 12/09/2024 12:[address] [facility] Anion Gap 9 3 - 11 LAB CHEMISTRY METHOD 12/09/2024 12:[address] [facility] Glucose 123(H) 70 - 100 mg/dL LAB CHEMISTRY METHOD 12/09/2024 12:[address] [facility] BUN 23 5 - 25 mg/dL LAB CHEMISTRY METHOD 12/09/2024 12:[address] [facility] Creatinine 1.03 0.70 - 1.30 mg/dL LAB CHEMISTRY METHOD 12/09/2024 12:[address] [facility] eGFR 84 >=60 mL/min/1. 73m2 LAB CHEMISTRY METHOD 12/09/2024 12:[address] [facility] Comment:Calculation based on the Chronic Kidney Disease Epidemiology Collaboration (CKD-EPI) equation refit without adjustment for race. BUN/Creatinine Ratio 22.3 LAB CHEMISTRY METHOD 12/09/2024 12:[address] [facility] Calcium 9.5 8.5 - 10.5 mg/dL LAB CHEMISTRY METHOD 12/09/2024 12:[address] [facility] Blood Venous blood specimen / Unknown Venipuncture / Unknown 12/08/2024 11:51 PM EDT 12/09/2024 12:09 AM EDT us Joanie Munoz MD LAB BLOOD ORDERABLES Fin al Result [facility] [address] [place] [address], * (ABNORMAL) Hemoglobin A1c (06/28/2024 11:57 AM [...] ORDERABLES Final Resu lt Performing Organization Address [facility]/State/ZIP Co de Phone Number [facility] [address] [place] [address], * CT Lung Screening (06/25/2024 2:28 PM [...] Signed Date: 06/26/2024 12:56 ET Workstation ID: [id number] Transcribed By: Self Edit Transcribed Date: 06/26/2024 [...] Signed Date: 06/26/2024 12:56 ET Workstation ID: [id number] Transcribed By: Self Edit Transcribed Date: 06/26/2024 [...] Resul t [facility] [address] [place] [address], [place] [phone] * HIV 1,2 antibody, p24 antigen with reflex to differentiation (06/19/2024 2:21 PM EST) [facility] HIV Combo AB/AG Negative Negative LAB CHEMISTRY METHOD 06/19/2024 7:08 PM [facility] Blood Venous blood specimen / Unknown Venipuncture / Unknown 06/19/2024 2:21 PM EST 06/19/2024 2:21 PM EST [facility] - 06/19/2024 7:08 PM EST [...] Resul t [facility] [address] [place] [address], [place] [phone] * (ABNORMAL) Lipid panel with reflex to direct LDL (06/19/2024 2:21 PM EST) [facility] Cholesterol 167 0 - 200 mg/dL LAB CHEMISTRY METHOD 06/19/2024 6:21 PM [facility] Triglycerides 181(H) 0 - 150 mg/dL LAB CHEMISTRY METHOD 06/19/2024 6:21 PM [facility] HDL 34(L) >=40 mg/dL LAB CHEMISTRY METHOD 06/19/2024 6:21 PM [facility] LDL Calculated 97 0 - 100 mg/dL LAB CHEMISTRY METHOD 06/19/2024 6:21 PM [facility] VLDL Cholesterol Vinnie 36.2 mg/dL LAB CHEMISTRY METHOD 06/19/2024 6:21 PM [facility] Non HDL Chol. (LDL+VLDL) 133 [...] Resu lt [facility] [address] [place] [address], * Depression Screening (10/11/2023) [facility] Depression Screening abstracted [facility] Provider MD HEALTH MAINTENANCE Final Result * Urine Albumin Creatinine Ratio (06/07/2023) [facility] Urine Albumin Creatinine Ratio abstracted [facility] Provider HEALTH MAINTENANCE Final Result * Colonoscopy (08/22/2020) [facility] Colonoscopy no interpretation , abstracted Anatomical Region Laterality Modality Other [facility] Provider HEALTH MAINTENANCE Final Result from Last 3 Months or Most Recently Relevant to Health Maintenance Additional Health Concerns Active Problems Noted Date Diagnosed Date Impaired Tissue 03/20/2025 Education needed on impact of smoking on wound 0 03/20/2025 Education needed related to ulceration/compromised skin integrity. 03/20/2025 Infection Onset Date Last Indicated Enteropathogenic E. coli (EPEC) 12/31/2024 12/31/2024 Insurance [facility] [facility] Care Teams Heavy Equipment Supervisor Relationship Specialty Start Date End Date Santosh Colin MD PCP - General Family Medicine 12/04/24
--- OUTSIDE RECORDS SUMMARY | 2025-06-25 10:07 | XMS_ITS | Patient Health Record ---
Author Organization [facility] Address [address] [place] [address] Care Team Providers Care Income Tax Analyst Name Role Phone Padilla Kraft Jr Unavailable [phone] Reason For Referral No Information Plan Of Treatment No Information
[2025-06-25 10:08] VITALS: BP 139/85; PULSE 74; RESP 16; O2SAT 99
--- OUTSIDE RECORDS SUMMARY | 2025-06-25 10:08 | XMS_ITS | Clinical Summary ---
Author Organization [facility] Address [address] [facility] [address] [place] [phone] Phone Care Team Providers Care Elevator Constructor Helper Name Role Phone Pcp, Unknown Primary Care [...] topic Medical Devices Not on file Insurance [facility] [place] [address] [place] [address] [facility] [place] [address] [place] [address] [place] [address] [place] [address] [facility] [place] [address] [place] [address] [place] [address] [place] [address] [facility] [address] [facility] Care Teams Elevator Constructor Helper Relationship Specialty Start Date End Date Pcp, Unknown PCP - General 01/31/20 Additional Source Comments The information contained in this document represents components of the legal health record. It is not the complete legal health record.[facility]
--- OUTSIDE RECORDS SUMMARY | 2025-06-25 10:08 | XMS_ITS | Clinical Summary ---
Author Organization [employer] Address [address] [place] [address] [address] [place] [address] Care Team Providers Care Carbon Sequestration Plant Operator Name Role Phone Unavailable Primary Care [...]
[2025-06-25 10:50] LABS: Resp Syncy Virus RNA Qual PCR NEGATIVE (Negative); SARS COV2 PCR INHOUSE NEGATIVE (Negative)
[2025-06-25 11:52] VITALS: BP 133/85; PULSE 72; RESP 18; TEMP 36.4; O2SAT 100
[2025-06-25 12:02] LABS: Appearance Urine Cloudy; Glucose Urine UA 100 mg/dL (Negative); PH 7.5 (5.0-9.0); Specific Gravity - Urine 1.025 (1.005-1.025)
[2025-06-25 12:59] VITALS: BP 136/78; PULSE 78; RESP 16; O2SAT 99
[2025-06-25 13:03] VITALS: BP 136/78; PULSE 78; RESP 16; TEMP 36.4; O2SAT 99
== END 2025-06-25 13:05 | disposition home or self-care (01) ==
PROVIDERS: Nurse Practitioner; Emergency Provider Emergency Medicine
DX: R10.9 Unspecified abdominal pain (principal); Z03.818 Encounter for observation for suspected exposure to other biological agents ruled out; E11.9 Type 2 diabetes mellitus without complications; E78.5 Hyperlipidemia, unspecified; I10 Essential (primary) hypertension; I25.10 Atherosclerotic heart disease of native coronary artery without angina pectoris; F17.200 Nicotine dependence, unspecified, uncomplicated; Z71.6 Tobacco abuse counseling
CPT/HCPCS: 36415; 80053; 81003; 83690; 83735; 85025; 87637; 96361; 96374; 99284; J2405

== ENCOUNTER 2025-07-01 11:31 | Emergency (ER) | payer OTHER, SELFPAY ==
--- NOTE | ~2025-07-01 | CT_ITS ---
CLINICAL HISTORY: lower abdominal pain Exam: Contrast-enhanced CT abdomen and pelvis with multiplanar reformats. Comparison: None. Findings: CT abdomen: Lung bases are clear. Liver is free of focal lesions and ductal dilatation. Gallbladder is unremarkable. Spleen appears unremarkable. Pancreas and adrenal glands appear unremarkable. Kidneys appear unremarkable. No free intraperitoneal fluid or retroperitoneal masses or adenopathy. Abdominal aorta is normal caliber with mild calcific athero sclerosis. Bowel loops reveal no abnormal wall thickening or distention. The appendix is unremarkable. Minimal colonic diverticulosis is present, with no CT evidence of diverticulitis. CT pelvis: Prostate gland measures 4.4 cm transverse dimension. Urinary bladder is free of gross filling defects. No pelvic masses, fluid or adenopathy. Osseous structures reveal no destructive osseous lesions. Lumbar degenerative changes are present, most significant at L5-S1 level. Impression: 1. No acute abnormality or CT explanation for reported history of lower abdominal pain. This document has been electronically signed by: Jordan Siu MD on 07/01/2025 19:59:29
[2025-07-01 12:06] VITALS: BP 142/75; PULSE 80; RESP 16; TEMP 36.9; O2SAT 98; BMI 25.1
--- NOTE | 2025-07-01 12:08 | ED.GENADULT ---
HPI - General Adult General Chief complaint: Abdominal Pain Stated complaint: ABD Pain, Vomiting Blood, Dizziness Time Seen by Provider: 07/01/25 18:24 Source: patient, RN notes reviewed and old records reviewed Mode of arrival: ambulatory Limitations: no limitations History of Present Illness ED Provider: Yrn HPI narrative: 59-year-old male with past medical history significant for chronic skin wounds with prior MRSA infections, type 2 diabetes, hypertension, hyperlipidemia, coronary artery disease presenting for evaluation of lower abdominal pain. Patient was seen here 6 days ago for a similar concern. He reports his pain has been going on for 10 days total He denies any previous abdominal surgeries. His pain is mostly in the lower mid abdomen. He had associated nausea and vomiting. He thinks he may be vomiting up blood Denies any black or bloody stool pain He is not anticoagulated. Denies any alcohol drug use Denies any history of liver cirrhosis Related Data Home Medications ?Medication ?Instructions ?Recorded ?Confirmed losartan 25 mg tablet 25 mg PO DAILY 08/02/24 05/16/25 buprenorphine 100 mg/0.5 mL mg subcut 11/15/24 05/16/25 solution,exten.rel.subcutaneous syringe (Sublocade) buprenorphine 4 mg-naloxone 1 mg 1 film sublingual DAILY 11/15/24 05/16/25 sublingual film (Suboxone) Previous Rx's ?Medication ?Instructions ?Recorded albuterol sulfate 90 mcg/actuation 1 inh inhalation QID PRN shortness 04/27/21 aerosol inhaler (Proventil HFA) of breath or wheezing #6.7 grams acetaminophen 500 mg tablet 1,000 mg (2 x 500 mg) PO QID PRN 10/07/21 pain #30 tabs cyclobenzaprine 10 mg tablet 10 mg PO TID PRN muscle spasm #20 05/05/24 tabs meloxicam 15 mg tablet 15 mg PO DAILY #7 tabs 06/27/24 chlorhexidine gluconate 4 % 1 appl topical DAILY 7 days #946 mL 11/13/24 topical liquid (Hibiclens) nicotine 14 mg/24 hr daily 1 patch transdermal Q24H 28 days 11/13/24 transdermal patch (Nicoderm CQ) #28 ea tobramycin 0.3 % eye drops 1 drp ophthalmic-Left Q4H #5 mL 12/10/24 Dexcom G7 Director Hedis #1 ea 12/19/24 (blood-glucose,tool radial drill press set up operator,cont) Dexcom G7 Sensor (blood-glucose #6 ea 12/19/24 sensor) mupirocin 2 % topical ointment 1 appl topical BID #22 grams 12/19/24 (Centany) doxycycline hyclate 100 mg tablet 100 mg PO BID 7 days #14 tabs 03/15/25 Contour Meter (blood-glucose meter) #1 ea 04/04/25 Trulicity 3 mg/0.5 mL subcutaneous 3 mg (0.5 mL) subcut QWEEK #6 mL 04/04/25 pen injector (dulaglutide) glipizide 10 mg tablet, extended 10 mg PO BID #180 tabs 04/04/25 release 24 hr atorvastatin 80 mg tablet (Lipitor) 80 mg PO BEDTIME #90 tabs 05/16/25 ondansetron 4 mg disintegrating 4 mg PO Q8H PRN nausea and 07/01/25 tablet vomiting #20 tabs Allergies Allergy/AdvReac Type Severity Reaction Status Date / Time No Known Allergies Allergy Verified 07/01/25 12:09 Review of Systems Constitutional: Constitutional: Denies body ache(s), Denies chills, Denies fever(s) and Denies headache(s) Eyes: Eyes: Denies blurry vision ENT: Denies vertigo, Denies dizziness and Denies headache(s) Cardiovascular: Cardiovascular: Denies chest pain and Denies dyspnea on exertion Respiratory: Respiratory: Denies cough and Denies dyspnea on exertion Gastrointestinal: Gastrointestinal: Reports abdominal pain, Denies melena, Denies hematochezia, Reports nausea and Reports vomiting Musculoskeletal: Musculoskeletal: Denies back pain Integumentary/Breasts: Skin/Breast: Denies rash Neurologic: Denies vertigo, Denies dizziness and Denies headache(s) [facility] Past Medical History Medical History Diabetes mellitus Depression Surgical History No pertinent past surgical history Family History Family History Mother Hypertension affecting Hyperlipemia Diabetes Father Hypertension affecting Hyperlipemia Diabetes Family/Other Hypertension affecting Hyperlipemia Diabetes Social History Social History Housing: Apartment Alcohol intake: never Patient Tobacco Use Status: Current everyday Tobacco user Cigarette Packs Per Day: 2 Cigarettes Per Day: 40 Years Smoked: 39 Smoked in Last 30 Days: Yes e-Cigarette/Vaping Use: Never Used Second Hand Smoke Exposure: No Use of substances other than those prescribed or required for medical reasons: No Substance Use Type: Crack/Cocaine Advance Directives: No Advance Directives Information Provided: No Do you have a plan to hurt others: No Plan service: No Current occupational status: disabled Current occupational exposures/hazards: No Cognitive needs: No Hearing needs: No Vision needs: No Physical Exam ED Vital Signs: Vital Signs - 24 hr 07/01/25 12:06 Temperature 98.4 F Pulse Rate 80 Respiratory Rate 16 Blood Pressure 142/75 H Pulse Oximetry 98 Oxygen Delivery Method Room Air BMI result Body Mass Index 25.1 Const General: healthy appearing, comfortable, no acute distress, alert and awake Nutritional Appearance: well nourished Orientation/consciousness: patient oriented x3 HENMT Head: Yes normocephalic and Yes atraumatic Throat: Yes posterior oropharynx normal Eyes Eyelids: Yes eyelids normal Conjunctivae: conjunctivae normal Sclerae: sclerae normal Corneas: corneas normal Pupils: Equal, round and reactive pupils present EOM: EOMs intact bilaterally Neck Neck: Yes full ROM Resp Effort & Inspection: normal respiratory effort, able to speak in complete sentences and not labored Cardio Rate: regular rate Rhythm: regular rhythm GI Other: The patient has tenderness to palpation of the lower abdomen. The abdomen is soft, nondistended, no rebound or guarding Inspection: No distended Palpation (GI): Soft to palpation, not firm, Tenderness to palpation present (GI) in the LLQ, in the RLQ and periumbilically; not in the LUQ and not in the RUQ, no guarding and not rigid Skin General skin exam: elasticity normal Neuro General: patient oriented x3 Cranial nerves: Yes Equal, round and reactive pupils present and Yes Bilaterally intact EOM present Cognition (Neuro): normal cognition Extrem Other: Moving all extremities well without any obvious deformities Course Course Course Narrative: Rapid medical examination performed in triage by Karyn Dickens PA-C: Patient is a 59 year old male presenting to the emergency department with abdominal pain and vomiting. Detailed physical exam and review of systems are deferred to the director of music. Labs ordered. Patient placed back in the waiting room pending room availability and results. Reevaluation(s) Reevaluation #1: The patient's CT scan shows some constipation but no other significant findings to explain his pain. I discussed this with the patient. We will refer him to GI Time: 20:13 Medications Administered Discontinued Medications Generic Name Dose Route Start Last Admin Trade Name Veronica PRN Reason Stop Dose Admin Lactated Ringer's 1,000 mls @ 999 mls/hr 07/01/25 18:45 07/01/25 19:18 Lr IV 07/01/25 19:45 999 mls/hr .Q1H1M DORIS Administration Iohexol 100 ml 07/01/25 19:09 07/01/25 19:10 Iohexol 350 Mg/Ml 100 Ml Infus..Btl IV 07/01/25 19:10 85 ml ONCE ONE Administration Ondansetron HCl 4 mg 07/01/25 18:41 07/01/25 19:17 Ondansetron Hcl 4 Mg/2 Ml Vial IVPUSH 07/01/25 18:42 4 mg ONCE ONE Administration Pantoprazole Sodium 40 mg 07/01/25 18:41 07/01/25 19:20 Pantoprazole Sodium 40 Mg/10 Ml Vial IVPUSH 07/01/25 18:42 40 mg ONCE ONE Administration Medical Decision Making Medical Decision Making MDM Narrative: 59-year-old male with past medical history as above presents for evaluation of continued lower abdominal pain. He has continued to have nausea and vomiting. He reports that he may have vomited up some blood. He has a vomited this does not appear coffee-grounds. His vital signs are stable, his hemoglobin hematocrit are stable. I did offer a rectal examination for guaiac testing with the patient declines. His labs do show a left shift there are no leukocytosis. Chemistries significant for an elevated chloride in his lipase is elevated to just above normal. This may be due to vomiting. We will get a CT scan of the abdomen pelvis to evaluate for infectious or inflammatory process. This was not ordered in his last visit. Differential Diagnosis Differential Diagnoses: The differential diagnosis associated with the presentation includes Abdominal pain Constipation Gastroenteritis Bowel obstruction Diverticulitis Acute appendicitis Admission/Observation Consideration of admission/observation: Escalation of care including admission/observation considered Lab Data MDM Lab Attestation statement: I reviewed the patient's lab results. As above 07/01/25 12:56 07/01/25 12:56 Labs: Lab Results 07/01/25 Range/Units 12:56 WBC 8.1 (4.8-10.8) X10*3/uL RBC 4.72 (4.60-5.80) X10*6/uL Hgb 14.3 (14.0-18.0) g/dl Hct 41.1 L (42.0-52.0) % MCV 87.1 (80.0-98.0) fL MCH 30.3 (27.0-33.0) pg MCHC 34.8 (31.0-36.0) g/dl RDW 12.0 (11.0-16.0) % Plt Count 191 (160-400) X10*3/uL MPV 10.9 (9.4-12.4) fL Immature Gran % (Auto) 0.1 (0.0-0.4) % Neut % (Auto) 74.8 H (45-73) % Lymph % (Auto) 19.4 L (20-40) % Lumpkin % (Auto) 4.5 (2-11) % Eos % (Auto) 0.6 (0-4) % Baso % (Auto) 0.6 (0-2) % Lymph # (Auto) 1.6 (1.2-4.9) X10*3/uL Lumpkin # (Auto) 0.4 (0.1-1.2) X10*3/uL Eos # (Auto) 0.1 (0.0-0.4) X10*3/uL Baso # (Auto) 0.1 (0.0-0.2) X10*3/uL Abs Immat Gran (auto) 0.01 (0.00-0.03) X10*3/uL Absolute Neuts (auto) 6.1 (2.0-8.3) x10*3/uL Absolute Nucleated RBC 0.000 (0.0-0.012) X10*3/uL Nucleated RBC % (auto) 0.0 (0.0-0.2) /100WBC Sodium 138 (135-145) mmol/L Potassium 4.3 (3.3-5.1) mmol/L Chloride 110 H (96-108) mmol/L Carbon Dioxide 24 (22-29) mmol/L Anion Gap 8 L (12-20) BUN 14 (9-16) mg/dL Creatinine 0.87 (0.5-1.4) mg/dL Estim Creat Clear Calc 92.5 Estimated GFR > 60 Random Glucose 149 H (60-115) mg/dL Calcium 9.0 (8.4-10.2) mg/dL Magnesium 2.2 (1.6-2.6) mg/dL Total Bilirubin 0.4 (0.0-1.0) mg/dL AST 21 (5-37) U/L ALT 20 (0-40) U/L Alkaline Phosphatase 65 (39-117) U/L Troponin I High Sens < 2.7 (<3.5-35.0) ng/L Total Protein 7.3 (6.5-8.0) g/dL Albumin 4.2 (3.5-5.0) g/dL Lipase 86 H (8-78) U/L Influenza Type A (PCR) NEGATIVE (Negative) Influenza Type B (PCR) NEGATIVE (Negative) RSV RNA Qual (PCR) NEGATIVE (Negative) SARS-CoV-2 RNA (RT-PCR) NEGATIVE (Negative) Independent Interpretation I performed an independent interpretation of an: CT Scan (Mild to moderate constipation) Radiology Impression Discussion of test interpretation with radiology: I have reviewed the radiologist's reading. Radiologist Impression: Findings: CT abdomen: Lung bases are clear. Liver is free of focal lesions and ductal dilatation. Gallbladder is unremarkable. Spleen appears unremarkable. Pancreas and adrenal glands appear unremarkable. Kidneys appear unremarkable. No free intraperitoneal fluid or retroperitoneal masses or adenopathy. Abdominal aorta is normal caliber with mild calcific athero sclerosis. Bowel loops reveal no abnormal wall thickening or distention. The appendix is unremarkable. Minimal colonic diverticulosis is present, with no CT evidence of diverticulitis. CT pelvis: Prostate gland measures 4.4 cm transverse dimension. Urinary bladder is free of gross filling defects. No pelvic masses, fluid or adenopathy. Osseous structures reveal no destructive osseous lesions. Lumbar degenerative changes are present, most significant at L5-S1 level. Impression: 1. No acute abnormality or CT explanation for reported history of lower abdominal pain. This document has been electronically signed by: Jordan Siu MD on 07/01/2025 19:59:29 Discharge Plan Discharge Clinical Impression: Abdominal pain with vomiting Patient Disposition: Home, Self-Care Instructions: Acute Abdominal Pain (ED) Additional Instructions: Your workup in the ER today was reassuring pain Your CT scan did show some constipation but no other significant findings to explain your pain. I recommend that you follow up with GI at the number provided. You will likely benefit from a colonoscopy/endoscopy to evaluate your abdominal pain and vomiting. You may use Zofran as needed for nausea and vomiting Follow up with your primary doctor, return for new or worsening symptoms Prescriptions: New ondansetron 4 mg tablet,disintegrating 4 mg PO Q8H PRN (Reason: nausea and vomiting) Qty: 20 0RF No Action acetaminophen 500 mg tablet 1,000 mg PO QID PRN (Reason: pain) Qty: 30 0RF albuterol sulfate [Proventil HFA] 90 mcg/actuation HFA aerosol inhaler 1 inh inhalation QID PRN (Reason: shortness of breath or wheezing) Qty: 6.7 0RF cyclobenzaprine 10 mg tablet 10 mg PO TID PRN (Reason: muscle spasm) Qty: 20 0RF meloxicam 15 mg tablet 15 mg PO DAILY Qty: 7 0RF tobramycin 0.3 % drops 1 drp ophthalmic-Left Q4H Qty: 5 0RF losartan 25 mg tablet 25 mg PO DAILY buprenorphine-naloxone [Suboxone] 4-1 mg film 1 film sublingual DAILY Sublocade 100 mg/0.5 mL solution, extended rel syringe subcut doxycycline hyclate 100 mg tablet 100 mg PO BID 7 Days Qty: 14 0RF Trulicity 3 mg/0.5 mL pen injector 3 mg subcut QWEEK Qty: 6 3RF (DME) blood-glucose meter [Contour Meter] Kit See Rx Instructions .Route Qty: 1 0RF Rx Instructions: As directed glipizide 10 mg tablet extended release 24hr 10 mg PO BID Qty: 180 3RF nicotine [Nicoderm CQ] 14 mg/24 hr patch 24 hour 1 patch transdermal Q24H 28 Days Qty: 28 1RF chlorhexidine gluconate [Hibiclens] 4 % liquid 1 appl topical DAILY 7 Days Qty: 946 0RF atorvastatin [Lipitor] 80 mg tablet 80 mg PO BEDTIME Qty: 90 3RF Rx Instructions: dose increased (DME) Dexcom G7 Director Hedis Misc See Rx Instructions .Route Qty: 1 0RF Rx Instructions: As directed (DME) Dexcom G7 Sensor Device See Rx Instructions .Route Qty: 6 3RF Rx Instructions: Every 15 days mupirocin [Centany] 2 % ointment 1 appl topical BID Qty: 22 3RF Referrals: [facility] [Provider Group, Gastroenterology] Referral Note: chronic abdominal pain and vomiting Print Language: Turkish
--- NOTE | 2025-07-01 12:09 | ECG_ITS ---
Test Reason : SOB Blood Pressure : */* mmHG Vent. Rate : 76 BPM Atrial Rate : 76 BPM P-R Int : 170 ms QRS Dur : 88 ms QT Int : 384 ms P-R-T Axes : 49 75 58 degrees QTcB Int : 432 ms Normal sinus rhythm Normal ECG When compared with ECG of 22-Aug-2001 03:50, No significant change was found Referred By: Karyn Dickens Electronically Signed By: ARNOLDO GASCA
[2025-07-01 13:06] LABS: MANUAL DIFF FLAG NO
[2025-07-01 13:08] LABS: Hematocrit 41.1 % (42.0-52.0); Hemoglobin 14.3 g/dl (14.0-18.0); Imm Gran Abs Auto 0.01 X10*3/uL (0.00-0.03); Imm Gran Pct Auto 0.1 % (0.0-0.4); Lymphocytes Absolute Auto 1.6 X10*3/uL (1.2-4.9); Mean Corpuscular HGB Conc 34.8 g/dl (31.0-36.0); Mean Corpuscular Hemoglobin 30.3 pg (27.0-33.0); Mean Corpuscular Volume 87.1 fL (80.0-98.0); NRBC Abs Auto 0.000 X10*3/uL (0.0-0.012); NRBC Pct Auto 0.0 /100WBC (0.0-0.2); Platelet Count 191 X10*3/uL (160-400); Red Blood Count 4.72 X10*6/uL (4.60-5.80); White Blood Count 8.1 X10*3/uL (4.8-10.8)
[2025-07-01 13:23] LABS: Alanine Aminotransferase 20 U/L (0-40); Albumin Level 4.2 g/dL (3.5-5.0); Alkaline Phosphatase 65 U/L (39-117); Anion Gap 8 (12-20); Aspartate Amino Transferase 21 U/L (5-37); Blood Urea Nitrogen 14 mg/dL (9-16); Calcium 9.0 mg/dL (8.4-10.2); Carbon Dioxide 24 mmol/L (22-29); Chloride 110 mmol/L (96-108); Creatinine Clr Calc Pharmacy 92.5; Estimated Glomerular Filt Rate > 60; Lipase 86 U/L (8-78); Magnesium 2.2 mg/dL (1.6-2.6); Potassium 4.3 mmol/L (3.3-5.1); Sodium 138 mmol/L (135-145); Total Protein 7.3 g/dL (6.5-8.0)
[2025-07-01 13:32] LABS: Troponin-I High Sensitivity < 2.7 ng/L (<3.5-35.0)
[2025-07-01 13:47] LABS: Resp Syncy Virus RNA Qual PCR NEGATIVE (Negative); SARS COV2 PCR INHOUSE NEGATIVE (Negative)
--- OUTSIDE RECORDS SUMMARY | 2025-07-01 18:16 | XMS_ITS | Clinical Summary ---
Author Organization [employer] Address [address] [place] [address] [address] [place] [address] Care Team Providers Care Bi Manager Name Role Phone Unavailable Primary Care Provider [...]
--- OUTSIDE RECORDS SUMMARY | 2025-07-01 18:16 | XMS_ITS | Clinical Summary ---
Author Organization [facility] Address [address] [place] [id number] Phone Care Team Providers Care Chart Calculator Name Role Phone Pcp, Unknown Primary Care [...] topic Medical Devices Not on file Insurance [facility] [place] [place] [address] [facility] [place] [address] [place] [address] [address] [place] [address] [place] [address] [place] [address] [facility] [place] [address] [address] [address] [address] [place] [address] [place] [address] [place] [address] [facility] Care Teams Chart Calculator Relationship Specialty Start Date End Date Pcp, Unknown PCP - General 01/31/20 Additional Source Comments The information contained in this document represents components of the legal health record. It is not the complete legal health record.[facility]
--- OUTSIDE RECORDS SUMMARY | 2025-07-01 18:16 | XMS_ITS | Patient Health Record ---
Author Organization [facility] Address [address] [place] [id number] Care Team Providers Care Bridge Repairer Name Role Phone Padilla Kraft Jr Unavailable [phone] Reason For Referral No Information Plan Of Treatment No Information
--- OUTSIDE RECORDS SUMMARY | 2025-07-01 18:16 | XMS_ITS ---
Care Plan Created on: July 01, 2025 Fernando Young : 1965 Sex: Male Author Organization [facility] Address [address] [place] [address] Phone Care Team Providers Care Glass Products Inspector Name Role Phone Santosh Colin MD Primary [...]
--- OUTSIDE RECORDS SUMMARY | 2025-07-01 18:16 | XMS_ITS | Clinical Summary ---
Author Organization [facility] Address [address] [place] [address] Phone Care Team Providers Care Color Separation Photographer Name Role Phone Santosh Colin MD Primary [...] Description 06/11/2025 Telephone Lung Screening Program - [place] [address] [facility] [address] [place] [address] Stephanie Spicer MA 04/05/2025 8:30 AM EDT Office Visit [facility] [address] [place] [address] Kian Sosa PA Multiple wounds [...] shoulder surgery UPPER GASTROINTESTINAL ENDOSCOPY 2012 PROCEDURE: [place] UPPER GI ENDOSCOPY PERFORMED; COMMENT: gastric and [...] evidence of H. pylori infection. Polysubstance abuse ([facility] V24, [facility] V28) 09/27/2009 DX:Polysubstance abuse (HCC) Cigarette smoker 07/15/2020 DX:Cigarette sm oker Type 2 diabetes mellitus wit h microalbuminuria ([facility] V24, [facility] V28) 07/22/2020 DX:Type 2 diabetes mellitus with microalbuminuria ([facility]) CAD (coronary artery disease) 05/05/2024 [...] ulceration/compr omised skin integrity. No Ghazala Angulo boom storage Procedure Name Priority Date/Time Associated Diagnosis Comments [...] LAB CHEMISTRY METHOD 12/09/2024 12:50 AM EDT [facility] Potassium 3.7 3.5 - 5.5 mmol/L LAB CHEMISTRY METHOD 12/09/2024 12:50 AM [facility] Chloride 108 96 - 110 mmol/L LAB CHEMISTRY METHOD 12/09/2024 12:50 AM [facility] CO2 23 21 - 32 mmol/L LAB CHEMISTRY METHOD 12/09/2024 12:50 AM [facility] Anion Gap 9 3 - 11 LAB CHEMISTRY METHOD 12/09/2024 12:50 AM [facility] Glucose 123(H) 70 - 100 mg/dL LAB CHEMISTRY METHOD 12/09/2024 12:50 AM [facility] BUN 23 5 - 25 mg/dL LAB CHEMISTRY METHOD 12/09/2024 12:50 AM [facility] Creatinine 1.03 0.70 - 1.30 mg/dL LAB CHEMISTRY METHOD 12/09/2024 12:50 AM [facility] eGFR 84 >=60 mL/min/1. 73m2 LAB CHEMISTRY METHOD 12/09/2024 12:50 AM [facility] Comment:Calculation based on the Chronic Kidney Disease Epidemiology Collaboration (CKD-EPI) equation refit without adjustment for race. BUN/Creatinine Ratio 22.3 LAB CHEMISTRY METHOD 12/09/2024 12:50 AM [facility] Calcium 9.5 8.5 - 10.5 mg/dL LAB CHEMISTRY METHOD 12/09/2024 12:50 AM [facility] Blood Venous blood specimen / Unknown Venipuncture / Unknown 12/08/2024 11:51 PM EDT 12/09/2024 12:09 AM EDT us Joanie Munoz MD LAB BLOOD ORDERABLES Fin al Result [facility] [address] [place] [address], * (ABNORMAL) Hemoglobin A1c (06/28/2024 11:57 AM EST) Hemoglobin A1C 7.4(H) <6.5 % LAB CHEMISTRY METHOD 06/28/2024 7:25 PM EST [facility] Mean Bld Glu Estim. 166 mg/dL LAB CHEMISTRY METHOD 06/28/2024 7:25 PM EST [facility] Blood Venous blood specimen / Unknown Venipuncture / Unknown 06/28/2024 11:57 AM EST 06/28/2024 11:57 AM EST us Meli Garza LINOTYPE WORKER LAB BLOOD ORDERABLES Final Resu lt [facility] [address] [place] [address], [place] [phone] * CT Lung Screening (06/25/2024 2:28 PM [...] Signed Date: 06/26/2024 12:56 ET Workstation ID: [id number] Transcribed By: Self Edit Transcribed Date: 06/26/2024 [...] Signed Date: 06/26/2024 12:56 ET Workstation ID: [id number] Transcribed By: Self Edit Transcribed Date: 06/26/2024 12:46 ET Leonarda Gomez MD IMG CT PROCEDURES Final Result * Hepatitis C antibody (06/19/2024 2:21 PM EST) [facility] Hepatitis C Antibody Negative Negative LAB CHEMISTRY METHOD 06/19/2024 7:07 PM EST [facility] Blood Venous blood specimen / Unknown Venipuncture / Unknown 06/19/2024 2:21 PM EST 06/19/2024 2:21 PM EST Sofiya Bess MD LAB BLOOD ORDERABLES Final Resul t [facility] [address] [place] [address], [place] [phone] * HIV 1,2 antibody, p24 antigen with reflex to differentiation (06/19/2024 2:21 PM EST) [facility] HIV Combo AB/AG Negative Negative LAB CHEMISTRY METHOD 06/19/2024 7:08 PM EST [facility] Blood Venous blood specimen / Unknown Venipuncture / Unknown 06/19/2024 2:21 PM EST 06/19/2024 2:21 PM EST Narrative [facility] - 06/19/2024 7:08 PM [...] MD LAB BLOOD ORDERABLES Final Resul t [facility] [address] [place] [address], * (ABNORMAL) Lipid panel with reflex to direct LDL (06/19/2024 2:21 PM EST) [facility] Cholesterol 167 0 - 200 mg/dL [...] LAB CHEMISTRY METHOD 06/19/2024 6:21 PM EST [facility] Non HDL Chol. (LDL+VLDL) 133 <145 mg/dL LAB CHEMISTRY METHOD 06/19/2024 6:21 PM EST [facility] Chol/HDL Ratio 4.9(H) 0.0 - 4.4 LAB CHEMISTRY METHOD 06/19/2024 6:21 PM EST [facility] Blood Venous blood specimen / Unknown Venipuncture / Unknown 06/19/2024 2:21 PM EST 06/19/2024 2:21 PM EST Meli Garza LINOTYPE WORKER LAB BLOOD ORDERABLES Final Resu lt [facility] [address] [place] [address], * Depression Screening (10/11/2023) Pathologist [facility] Depression Screening abstracted Historical Provider MD HEALTH MAINTENANCE Final Result * Urine Albumin Creatinine Ratio (06/07/2023) Pathologist [facility] Urine Albumin Creatinine Ratio abstracted [facility] Provider MD HEALTH MAINTENANCE Final Result * Colonoscopy (08/22/2020) Pathologist [facility] Colonoscopy no interpretation , abstracted Anatomical Region Laterality Modality Other Historical Provider MD HEALTH MAINTENANCE Final Result from Last 3 Months or Most Recently Relevant to Health Maintenance Additional Health Concerns Active Problems Noted Date Diagnosed Date Impaired Tissue 03/20/2025 Education needed on impact of smoking on wound 0 03/20/2025 Education needed related to ulceration/compromised skin integrity. 03/20/2025 Infection Onset Date Last Indicated Enteropathogenic E. coli (EPEC) 12/31/2024 12/31/2024 Insurance [facility] Care Teams Color Separation Photographer Relationship Specialty Start Date End Date Santosh Colin MD PCP - General Family Medicine 12/04/24
[2025-07-01] MEDS: iohexoL 350 MG/ML 100 ML INFUS..BTL IV (19:10)
[2025-07-01] MEDS: Lactated Ringers 1,000 ML 999 ML IV (19:18)
--- NOTE | 2025-07-01 20:18 | PC.NURSE ---
IVF fluids completed.
[2025-07-01 20:47] VITALS: BP 135/71; PULSE 72; RESP 18; TEMP 36.6; O2SAT 98
[2025-07-01 21:14] VITALS: BP 135/71; PULSE 72; RESP 18; TEMP 36.6; O2SAT 98
== END 2025-07-01 21:15 | disposition home or self-care (01) ==
PROVIDERS: Physician Assistant Medical; Emergency Provider Emergency Medicine
DX: R10.22 Pelvic and perineal pain left side (principal); R06.02 Shortness of breath; E11.9 Type 2 diabetes mellitus without complications; R11.2 Nausea with vomiting, unspecified; R42 Dizziness and giddiness; I25.10 Atherosclerotic heart disease of native coronary artery without angina pectoris; F17.210 Nicotine dependence, cigarettes, uncomplicated; Z79.899 Other long term (current) drug therapy; Z03.818 Encounter for observation for suspected exposure to other biological agents ruled out; Z79.85 Long-term (current) use of injectable non-insulin antidiabetic drugs
CPT/HCPCS: 74177; 80053; 83690; 83735; 84484; 85025; 87637; 93005; 96365; 96375; 99285; J2405; J2470; J7120; Q9967

== ENCOUNTER → 2025-07-01 12:09 | Outpatient (BNV) | payer OTHER, SELFPAY | PROVIDERS: Emergency Provider Emergency Medicine; Visit Provider Internal Medicine | DX: R06.02 Shortness of breath (principal) | CPT/HCPCS: 93010 ==

== ENCOUNTER → 2025-07-01 18:41 | Outpatient (BNV) | payer OTHER, SELFPAY | PROVIDERS: Emergency Provider Emergency Medicine; Visit Provider Radiology Diagnostic Radiology | DX: R10.30 Lower abdominal pain, unspecified (principal) | CPT/HCPCS: 74177 ==